=== PATIENT | female | born 1975 | race Caucasian/White ===

== ENCOUNTER → 2017-12-24 12:52 | Outpatient (CLI) | payer BC, SELFPAY ==
--- NOTE | 2017-12-24 13:00 | MM_ITS ---
MM Dig mamm DX unilat RT CAD, US breast RT complete COMPARISON: 06/16/2017, 06/25/2017 INDICATION: Follow-up abnormal mammogram ORDERING PHYSICIAN: Dhaval Clifford MD PATIENT AGE: 42 years TECHNIQUE: Standard images performed along with spot compression views and right breast ultrasound FINDINGS: Asymmetric density once again noted in the upper outer aspect of the right breast. This does appear to compress out as fibroglandular tissue. No malignant appearing mass or malignant appearing microcalcification is evident. Right breast ultrasound: There is a 6 x 3 mm hypoechoic nodule at the 10:00 region of the right breast near the nipple with some enhanced through transmission of sound appearing similar compared to the previous exam. This may be due to small cyst. IMPRESSION: Benign findings. No evidence of malignancy BI-RADS Category: 2 Benign Finding(s) RECOMMENDED FOLLOW-UP: 6M - 6 MONTH FOLLOW-UP Recommend 6 month mammographic follow-up of both breasts to put patient back on schedule (A letter has been sent to the patient regarding results of the study.)
== END ==
PROVIDERS: Family Provider Family Medicine; PCP Family Medicine; Visit Provider Nurse Practitioner Obstetrics & Gynecology
DX: N60.19 Diffuse cystic mastopathy of unspecified breast (principal)
CPT/HCPCS: 76641; 77065

== ENCOUNTER → 2018-03-02 10:50 | Outpatient (CLI) | payer BC, SELFPAY ==
--- NOTE | 2018-03-02 10:55 | XR_ITS ---
XR ribs LT min 3V w CXR1V HISTORY: ITS.REASON: LEFT RIB PAIN ORDERING PHYSICIAN: Carmelita Pizarro PATIENT AGE: 43 years COMPARISON: FINDINGS: A frontal view of the chest shows no acute finding. Multiple views of the Left ribs were obtained. No fracture or dislocation. No lytic or blastic change. IMPRESSION: Negative RIBS. If pain persists, consider follow-up exam in 7-[address] with 3-D reformats.
== END ==
PROVIDERS: PCP Nurse Practitioner; Visit Provider Nurse Practitioner
DX: R07.81 Pleurodynia (principal)
CPT/HCPCS: 71101

== ENCOUNTER → 2018-07-26 16:12 | Outpatient (CLI) | payer BC, SELFPAY ==
--- NOTE | 2018-07-26 16:14 | MM_ITS ---
MM Dig screening mamm BI w/CAD CAD Screening COMPARISON: Additional views right breast 12/24/2017 and digital mammograms with CAD 06/16/2017 INDICATION: There is no personal or family history of breast cancer TECHNIQUE: Standard CC and MLO images were obtained. R2 CAD reviewed. FINDINGS: The breasts are composed primarily of fat with minimal scattered fibroglandular densities throughout each breast. The questionable asymmetric density right breast noted previously is not seen on today's study. There is no suspicious lesion in either breast and there are no suspicious microcalcifications. IMPRESSION: A type breast parenchyma with no suspicious lesion seen BI-RADS Category: 1 Negative RECOMMENDED FOLLOW-UP: 1YR - 1 YEAR FOLLOW-UP (A letter has been sent to the patient regarding results of the study.)
== END ==
PROVIDERS: PCP Family Medicine; Visit Provider Nurse Practitioner Obstetrics & Gynecology
DX: Z12.31 Encounter for screening mammogram for malignant neoplasm of breast (principal)
CPT/HCPCS: 77067

== ENCOUNTER → 2018-10-11 08:29 | Outpatient (CLI) | payer BC, SELFPAY ==
[2018-10-11 08:55] LABS: Basophils # 0.1 K/mm3 (0-0.2); Basophils % 0.8 % (0.1-2.0); Eosinophils # 0.2 K/mm3 (0.0-0.4); Eosinophils % 2.6 % (0.1-12.0); Hematocrit 40.9 % (37.0-47.0); Hemoglobin 13.1 g/dL (12.2-16.2); Lymphocytes # 2.6 K/mm3 (0.7-4.5); Lymphocytes % 38.5 % (10-50); Mean Corpuscular HGB Conc 32.1 g/dL (31.8-35.4); Mean Corpuscular Hemoglobin 30.9 pg (27.0-31.2); Mean Corpuscular Volume 96.2 fl (81-99); Monocytes # 0.4 K/mm3 (0.1-1.0); Monocytes % 5.3 % (1.7-9.3); Neutrophils # 3.6 K/mm3 (1.8-7.8); Neutrophils % 52.8 % (37.0-80.0); Platelet Count 283 K/mm3 (142-424); Red Blood Count 4.25 M/mm3 (4.20-5.40); Red Cell Distribution Width 12.6 % (11.5-17.5); White Blood Count 6.8 K/mm3 (4.8-10.8)
[2018-10-11 10:22] LABS: Alanine Aminotransferase 24 U/L (12-78); Albumin Level 3.7 gm/dL (3.4-5.0); Albumin/Globulin Ratio 1.2 (1.1-1.8); Alkaline Phosphatase 80 U/L (46-116); Anion Gap 10.9 mEq/L (5-15); Aspartate Amino Transferase 9 U/L (15-37); Bilirubin,Total 0.4 mg/dL (0.2-1.0); Blood Urea Nitrogen 19 mg/dL (7-18); Calcium 9.1 mg/dL (8.5-10.1); Carbon Dioxide 31 mmol/L (21.0-32.0); Chloride 104 mmol/L (98-107); Chol/HDL Ratio 2.7 (1-3.5); Cholesterol 139 mg/dL (140-200); Creatinine,Serum 0.65 mg/dL (0.55-1.02); Estimated Glomerular Filt Rate 99 ml/min (>60); Free Thyroxine Index 2.4 ug/dL (5.93-13.13); GFR (African American) 120 ML/MIN (>60); Globulin 3.2 gm/dl (1.3-3.2); Glucose 96 mg/dL (74-106); HDL Cholesterol 51 mg/dL (29-89); LDL Cholesterol 66 mg/dL (0-130); Potassium 3.9 mmoL/L (3.5-5.1); Sodium 142 mmol/L (136-145); T4 (Thyroxine) 7.2 ug/dl (4.7-13.3); Total Protein,Serum 6.9 gm/dL (6.4-8.2); Triglycerides 110 mg/dL (30-200); Triiodothryronine (T3) Uptake 34 % (31-39); VLDL Cholesterol 22 mg/dL (0-40)
[2018-10-12 14:22] LABS: Estradiol <5.0 pg/mL (.); FSH 51.6 mIU/mL (.); LH 22.7 mIU/mL (.); Triiodothyronine (T3) Free 3.1 pg/mL (2.0-4.4); Vitamin D 25 Hydroxy 33.7 ng/mL (30.0-100.0)
== END ==
PROVIDERS: Visit Provider Nurse Practitioner Obstetrics & Gynecology
DX: Z01.419 Encounter for gynecological examination (general) (routine) without abnormal findings (principal); R53.83 Other fatigue; N95.1 Menopausal and female climacteric states
CPT/HCPCS: 36415; 80053; 80061; 82652; 82670; 83001; 83002; 84436; 84443; 84479; 84481; 85025

== ENCOUNTER → 2018-11-07 07:51 | Outpatient (CLI) | payer OTHER, BC, SELFPAY ==
--- NOTE | 2018-11-07 07:52 | CT_ITS ---
CT cervical spine wo con INDICATION: Recent trauma to neck ITS.REASON: neck pain ORDERING PHYSICIAN: Floyd Dunne MD PATIENT AGE: 43 years COMPARISON: None TECHNIQUE: Axial images obtained with sagittal and coronal reformats. All CT scans at the facility use one or more dose reduction, viz: automated exposure control, ma/kV adjustment per patient size (including targeted exams where dose is matched to indication, i.e. head), or iterative reconstruction technique. FINDINGS: There is straightening of the normal curvature. C1-C7 appear intact. Disc spaces are well maintained throughout. The spinal canal is normal size throughout. There is no abnormal disc protrusion. There is no significant degenerative change. The prevertebral soft tissues are normal and the odontoid is normal. There are scattered normal size nodes in the jugulodigastric chain bilaterally and posterior cervical triangle. The bilateral parotid glands and submandibular glands appear normal. IMPRESSION: Findings suggesting muscle spasm otherwise negative CT scan cervical spine
--- NOTE | 2018-11-07 07:52 | CT_ITS ---
CT head/brain wo con INDICATION: Hit on head one month ago by encountering with a door Routine axial images for brain followed by additional post-processing axial bone window images. Axial CT scanning from the base of the skull through the vertex to evaluate the brain was performed. Subsequent post processing 2-D CT bone windows were submitted to PACS and are useful to evaluate calvarium, visualize portions of paranasal sinuses, mastoids and base of skull. Technique: All CT scans at this facility use one or more dose reduction techniques, viz.: automated exposure control, ma/kV adjustment per patient size (including targeted exams where dose is matched to indication, i.e. head) or iterative reconstruction technique. Multiaxial scans are obtained from the base of the skull to the vertex and performed without contrast. The base of the skull appeared normal. The ventricular system was normal. There was no ischemic infarct or bleed and there were no extra-axial fluid collections. The bony calvarium appeared intact. IMPRESSION: Negative noncontrast CT scan of the brain.
== END ==
PROVIDERS: PCP Emergency Medicine; Visit Provider Emergency Medicine
DX: G44.309 Post-traumatic headache, unspecified, not intractable (principal); S00.93XA Contusion of unspecified part of head, initial encounter; S16.1XXA Strain of muscle, fascia and tendon at neck level, initial encounter
CPT/HCPCS: 70450; 72125

== ENCOUNTER → 2019-02-22 15:18 | Outpatient (CLI) | payer BC, SELFPAY ==
--- NOTE | 2019-02-22 15:25 | XR_ITS ---
XR foot RT min 3V HISTORY: ITS.REASON: RT GREAT TOE PAIN ORDERING PHYSICIAN: Delfin Moon MD PATIENT AGE: 44 years COMPARISON: None FINDINGS: No fracture or dislocation. No lytic or blastic change. There is normal mineralization.. The joint spaces are well-preserved. No significant degenerative/arthritic changes. No erosive changes evident. There is minimal hallux valgus IMPRESSION: Minimal hallux valgus otherwise negative, no acute finding
== END ==
PROVIDERS: PCP Family Medicine; Visit Provider Family Medicine
DX: M79.674 Pain in right toe(s) (principal)
CPT/HCPCS: 73630

== ENCOUNTER → 2019-09-08 10:52 | Outpatient (CLI) | payer BC, SELFPAY ==
--- NOTE | 2019-09-08 10:56 | MM_ITS ---
PROCEDURE: MM DIG SCREENING MAMM BI W/CAD CLINICAL INDICATION: Routine Screening Mammogram There is no personal or family history of breast cancer. COMPARISON: [id number] DIG MAMM-DX UNI A/VW-RT W/CAD from 06/25/2017 DXRT MM Dig mamm DX unilat RT CAD from 12/24/2017 [facility] MM Dig screening mamm BI w/CAD from 07/26/2018 TECHNIQUE: Standard CC and MLO images were obtained. R2 CAD reviewed. FINDINGS: Breasts are composed primarily of fat with minimal scattered fibroglandular densities in each breast. The patient complaining of possible new lump in the right axilla and additional MLO views obtained to include this area. There was a density at this location on the previous mammogram but is slightly larger on today's study. This likely is a node but recommended patient return for ultrasound examination of the right axillary region. There is no suspicious lesion in either breast and no suspicious microcalcifications. There is a stable low-lying node near the axillary tail left breast IMPRESSION: Fatty type breast parenchyma with possible change in nodular density high right axillary region BI-RAD Category: 0 Need Additional Imaging Evaluation FOLLOW-UP: IMM Immediate Follow-up Recommended (A letter has been sent to the patient regarding results of the study.) Dictated by: Dr. Jason Forman MD 09/12/2019 09:[address] Jason Forman MD in [place] 09/12/2019 09:56
== END ==
PROVIDERS: PCP Family Medicine; Visit Provider Nurse Practitioner Obstetrics & Gynecology
DX: Z12.31 Encounter for screening mammogram for malignant neoplasm of breast (principal)
CPT/HCPCS: 77067

== ENCOUNTER → 2020-02-10 13:00 | Outpatient (CLI) | payer BC, SELFPAY | PROVIDERS: Visit Provider Nurse Practitioner Family | DX: R19.7 Diarrhea, unspecified (principal) | CPT/HCPCS: 87045; 87205; 87493 ==

== ENCOUNTER 2020-07-18 09:00 | Outpatient (RCR) | payer BC, SELFPAY ==
--- NOTE | 2020-07-09 10:54 | HMH.SLDYSPHA ---
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 Recommendations PHYSICIAN CERTIFICATION: The specified therapy services are required, authorized, and reviewed every 30 days. Pt will be seen # times/week 2 for # weeks 6 Diet Recommendations Normal Liquid Type Recommendations Normal/Thin Plan Anticipate reaching STG in # weeks 3 Anticipate reaching LTG in # weeks 6 Pt/Guardian verbally ack understanding Yes of dx/prognosis/goals G -code Required No STG-Other Comment/Non-Specific - Patient will improve flexibility of facial musculature through exercises to tone and stretch 10/10 trials to decrease risk of dysphagia. - Patient will improve intelligibility to 95% through articulation drills 50/50 trials. [employer] App[employer] Goals Diet Regular with Liquids Thin Liquids Education Instructions provided HEP provided with exercises to improve flexibility of facial musculature. Speech & Language HPI History Present Illness Description of Patient Problem Cabrera's Palsy Pt/Caregiver Concerns Face feels stiff and hurts Rehab Services Assessed Speech therapy Is this evaluation r/t stroke? No General Information General Current Food Consistancy Regular,Thin Liquids Dentition Good Dentition Oxygen Status Room Air Facial Symmetry Asymmetrical Patient Orientation Person,Place,Time,Situation Ability to Follow Directions Excellent Communication Ability Mild Impairment Dysphagia:Food Presentation Evaluation Food Type Regular,Liquid Dysphagia Evaluation Summary Ms. Shipley was evaluated for Cabrera's Palsy. She exhibited
== END 2020-07-18 10:15 | disposition home or self-care (01) ==
LOC: ST 09:00
PROVIDERS: PCP Family Medicine; Visit Provider Family Medicine
DX: G51.0 Bell's palsy (principal)
CPT/HCPCS: 92507; 92610

== ENCOUNTER 2020-08-20 11:00 | Outpatient (RCR) | payer BC, SELFPAY ==
--- NOTE | 2020-07-18 08:56 | HMH.PTOPEV ---
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 Pt reports ~4 weeks now w / R sided facial droop, R eye dryness d/t inability to properly blink, and intermittent R jaw area pain. Pt reports 7 day course of steroids, local facial injection, anti-viral meds, and gabapentin med since onset , 'with very minimal improvement' in s/s since onset. Chief Complaint Pain,Weakness,Decreased Coordination Symptom Type Ache,Dull Symptoms Relieved By Activity Symptoms Aggravated By Physical Activity Symptom Description Constant but Variable Level of pain today (0-10) 2 Pain scale - at its best (0-10) 2 Pain scale - at its worst (0-10) 5 Outpatient Therapy Assessment Impairments Problems/Impairmments Palpation Tenderness,Impaired Strength,Subjective C/O Pain, Impaired Self Care/Self Management Prognosis Rehab Potential Fair Clinical Impression Consistent with Diagnosis Yes Short Term Goals Number of Weeks 4-6 Decreased Palpation Tenderness Yes: 0-1/4 FACIAL MM Increase Strength Yes: 4-4+/5 FACIAL MM R SIDE- CONTROL BLINK/SMILE Decrease Subjective C/O Pain Yes: 0-1/10 R SIDED JAW PAIN Patient to be Ind w/ HEP Yes Patient to be Ind w/ Advanced HEP Yes Outpatient Therapy Plan of Care Treatment Plan May Include Therapeutic Exercise Including Home Yes Exercise Program Manual Therapy Techniques Yes Neuromuscular Re-education Yes Dry Needling Yes Thermal Modalities Yes Electrical Stimulation Yes Ultrasound/Phonophoresis Yes Iontophoresis Yes Eval/Re-Eval Yes Frequency Times per week 1-2X/WK Duration Number of Weeks 4-6WKS Addendums This patient is a candidate for social No or vocational rehab? Patient/Guardian verbally acknowledges
--- NOTE | 2020-08-20 11:39 | HMH.RHREAS ---
Rehab Reassessment Rehab OP Re-assessment Start: 08/20/20 11:18 Freq: Status: Active Protocol: Document 08/20/20 11:18 GHASSANISHAN (Rec: 08/20/20 11:32 AGNES [id number]) Electronically Signed By Christiano Holliday, PT 08/20/20 11:18 Rehab Re-assessment Subjective Subjective PT REPORTS IMPROVED ABILITY TO SELF LUBICATE RIGHT EYE, AND IMPROVED R SIDED JAW PAIN '80% BETTER', 0-2/10 ON VAS. Objective Objective Notes TTP: R MASSETER 1-2/4 MMT: 2-/5-ORBICULARIS OCULI, AND KIMANI-UNABLE TO CONTROL BLINK OR SMILE ON RIGHT SIDE Assessment Progress Assessment Slower Than Expected Assessment Notes IMPROVED PAIN AND TTP IN R JAW AREA, NO CHANGES IN STRENGTH Patient goals met STG'S 5 Goals Not Met STG'S 5 Plan Plan PT TO CONT. W/SKILLED P.T. TO MAKE FURTHER IMPROVEMENTS IN STRENGTH, TTP, AND PAIN TO ALLOW FOR OPTIMAL FUNCTION Frequency of Therapy 1-2X/WK Duration of therapy 2-4WKS Time and Billing Re-Eval Time 15 Re-Eval Billing Units 1 PHYSICIAN CERTIFICATION: I certify the specified therapy services for Shaneka Shipley are required, authorized, and reviewed every 30 days.
== END 2020-08-20 11:05 | disposition home or self-care (01) ==
LOC: PT 11:00
PROVIDERS: PCP Family Medicine; Visit Provider Family Medicine
DX: G51.0 Bell's palsy (principal)
CPT/HCPCS: 20560; 97014; 97110; 97163; 97164; G0283

== ENCOUNTER → 2020-08-20 15:46 | Outpatient (CLI) | payer BC, SELFPAY | PROVIDERS: Visit Provider Specialist | DX: G51.0 Bell's palsy (principal) | CPT/HCPCS: 36415; 86618 ==

== ENCOUNTER → 2020-10-28 15:55 | Outpatient (CLI) | payer BC, SELFPAY ==
--- NOTE | 2020-10-28 15:55 | MR_ITS ---
PROCEDURE: MR HEAD/BRAIN WO CON CLINICAL INDICATION: Persistent headache lopez's palsy since jun. headache. blurred vision. rt facial drooping. prior ct 11-07-18 COMPARISON: No exams were available for comparison TECHNIQUE: Routine multiplanar multi echo sequences are performed without gadolinium enhancement. FINDINGS: No midline shift, mass effect, intracranial hemorrhage, or hydrocephalus. The cerebellopontine angle, cerebellum, and brainstem have an unremarkable appearance. The pituitary, optic chiasm, corpus callosum and craniocervical junction are unremarkable. No evidence of acute infarction. No abnormal white matter signal intensity. There is mild opacification of the left mastoid sinus. No paranasal sinus air-fluid level apparent. The hippocampal gyri and temporal horns are unremarkable. IMPRESSION: Negative MRI of the brain without contrast. No acute intracranial findings. Dictated by: Shahzad Summers MD 10/29/2020 10:44 Shahzad Summers MD in [place] 10/29/2020 10:44
== END ==
PROVIDERS: PCP Family Medicine; Visit Provider Specialist
DX: G51.0 Bell's palsy (principal); R51.9 Headache, unspecified
CPT/HCPCS: 70551

== ENCOUNTER → 2021-02-20 16:51 | Outpatient (CLI) | payer BC, SELFPAY ==
--- NOTE | 2021-02-20 16:52 | MM_ITS ---
PROCEDURE: MM DIG SCREENING MAMM BI W/CAD Digital Breast Tomosynthesis Included CLINICAL INDICATION: Routine Screening Mammogram There is no personal or family history of breast cancer. The patient currently is on estrogen. COMPARISON: MG DXRT MM Dig mamm DX unilat RT CAD from 12/24/2017 MG [facility] MM Dig screening mamm BI w/CAD from 07/26/2018 MG MM DIG SCREENING MAMM BI W/CAD from 09/08/2019 TECHNIQUE: Standard CC and MLO images and 3D Tomosynthesis was obtained. R2 CAD reviewed. FINDINGS: Mild scattered fibroglandular densities are seen throughout both breast and the findings are bilateral and symmetrical. There is a stable well-defined density low in the axilla left breast with smooth borders and this is likely a low-lying node. There is no new or suspicious lesion in either breast and no suspicious microcalcifications. IMPRESSION: Mild diffuse breast density with no suspicious lesions seen BI-RAD Category: 1 Negative FOLLOW-UP: 1YR 1 Year Follow-up (A letter has been sent to the patient regarding results of the study.) Dictated by: Dr. Jason Forman MD 02/21/2021 10:29 Dr. Jason Forman MD in [place] 02/21/2021 10:29
== END ==
PROVIDERS: PCP Family Medicine; Visit Provider Nurse Practitioner Obstetrics & Gynecology
DX: Z12.31 Encounter for screening mammogram for malignant neoplasm of breast (principal)
CPT/HCPCS: 77063; 77067

== ENCOUNTER → 2021-09-20 16:00 | Outpatient (CLI) | payer BC, SELFPAY | PROVIDERS: PCP Family Medicine; Visit Provider Nurse Practitioner Family | DX: Z20.822 Contact with and (suspected) exposure to COVID-19 (principal) | CPT/HCPCS: C9803; U0003; U0005 ==

== ENCOUNTER → 2021-12-01 11:01 | Outpatient (CLI) | payer BC, SELFPAY ==
[2021-12-01 21:35] LABS: UTC Influenza A Antigen Negative (Negative); UTC Influenza B Antigen Negative (Negative)
== END ==
PROVIDERS: Visit Provider Nurse Practitioner
DX: U07.1 COVID-19 (principal)
CPT/HCPCS: 87804; C9803; U0003; U0005

== ENCOUNTER 2021-12-01 11:07 | Emergency (ER) | payer BC, SELFPAY ==
--- NOTE | 2021-12-01 14:53 | HMH.EDUTC ---
[facility] Disposition Clinical Impression: Viral syndrome, Exposure to COVID-19 virus Pharyngitis Qualifiers: Pharyngitis/tonsillitis etiology: unspecified etiology Qualified Code(s): J02.9 - Acute pharyngitis, unspecified Disposition: Home, Self-Care Condition on Discharge: Good Instructions: DI for Pharyngitis/Tonsillopharyngitis -- Adult, DI for Viral Syndrome, DI for COVID-19 (Suspected or Confirmed ), Preventing the Spread of Coronavirus Discharge Instructions Additional Instructions: Drink plenty of fluids. Take tylenol or ibuprofen for pain or fever. Take the medications as directed. Follow up with your regular doctor. GO TO THE ER FOR ANY WORSENING SYMPTOMS Quarantine until you know the results of your covid-19 test. Notify your school or workplace of your results and follow their instructions regarding return to work/school. The cough medication (promethazine dm) will make you drowsy, so don't drive or operate heavy machinery after taking it. Prescriptions: Promethazine/Dextromethorphan [Promethazine-Dm Syrup] 5 ml PO Q6HP PRN #240 ml PRN Reason: Cough Transmission Status: Received by [facility] Ondansetron [Zofran 4mg ODT] 4 mg PO Q8HP PRN #20 tab PRN Reason: Nausea Transmission Status: Received by [facility] methylPREDNISolone [Medrol] 4 mg PO DIRECTED 6 Days #21 packet Transmission Status: Received by [facility] Azithromycin [Z-Darrick 250mg Tab*] 250 mg PO UD DOSE PK #6 tab Transmission Status: Received by [facility] Referrals: Delfin Moon MD [Primary Care Provider] - Forms: Work/School Release Time of Disposition: 16:19 Medical Decision Making - Medical Records Medical records reviewed: No: I reviewed the patient's medical records. - Paul Inquiry Pt receiving controlled substance: No Vital Signs: 12/01/21 14:57 12/01/21 17:09 Temperature 98.7 F 98.7 F Temperature Source Oral Pulse Rate 103 H Pulse Rate [Left] 103 H Respiratory Rate 18 18 Blood Pressure 129/88 Blood Pressure [Right Arm] 129/88 Blood Pressure Mean [Right Arm] 101 02 Sat by Pulse Oximetry 97 - Lab Data Lab results reviewed: Yes: I reviewed the patient's lab results. [facility] HPI - General Stated complaint: covid symptoms Time Seen by Provider: 12/01/21 14:54 - History of Present Illness Provider Complaint: She states that for the past 2 days she has had a nonproductive cough, body aches, sore throat, fever up to 102, chills. She has been exposed to covid-19 by multiple people at her job. She has been fully vaccinated against covid-19. - Related Data Home Medications Medication Instructions Recorded Confirmed dextroamphetamine-amphetamine 10 10 mg PO TID 12/07/19 12/26/20 mg tablet hydrochlorothiazide 25 mg tablet 25 mg PO DAILY tab 10/24/20 12/26/20 propranolol 10 mg tablet 10 mg PO PRN tab 10/24/20 12/26/20 sumatriptan succinate 100 mg tablet 100 mg PO PRN tab 10/24/20 12/26/20 venlafaxine 150 mg 150 mg PO DAILY cap 10/24/20 12/26/20 capsule,extended release 24 hr aripiprazole 5 mg tablet 5 mg PO HS 12/26/20 12/26/20 metoclopramide HCl 5 mg tablet 5 mg PO Q4-6H PRN tab 12/26/20 12/26/20 oxcarbazepine 300 mg/5 mL (60 300 mg PO BID 12/26/20 12/26/20 mg/mL) oral suspension Previous Rx's Medication Instructions Recorded thyroid (pork) 30 mg tablet See Rx Instructions .ROUTE 10/23/20 .COMPLEX #30 tab estradiol 2 mg tablet See Rx Instructions .ROUTE 12/23/20 .COMPLEX #30 tab amitriptyline 25 mg tablet 25 mg PO HS #30 tab 12/26/20 Azithromycin [Z-Darrick 250mg Tab*] 250 mg PO UD DOSE PK #6 tab 12/01/21 Ondansetron [Zofran 4mg ODT] 4 mg PO Q8HP PRN #20 tab 12/01/21 Promethazine/Dextromethorphan 5 ml PO Q6HP PRN #240 ml 12/01/21 [Promethazine-Dm Syrup] methylPREDNISolone [Medrol] 4 mg PO DIRECTED 6 Days #21 01/24/22 packet Allergies Allergy/AdvReac Type Severity Reaction Status Date / Time No Kn
[2021-12-01 14:57] VITALS: BP 129/88; PULSE 103; RESP 18; TEMP 37.1; O2SAT 97; BMI 34.3
[2021-12-01 17:09] VITALS: BP 129/88; PULSE 103; RESP 18; TEMP 37.1
[2021-12-02 19:03] LABS: UTC Influenza A Antigen Negative (Negative); UTC Influenza B Antigen Negative (Negative)
== END 2021-12-01 17:10 | disposition home or self-care (01) ==
PROVIDERS: Emergency Provider Nurse Practitioner Family; PCP Family Medicine
DX: U07.1 COVID-19 (principal); J02.9 Acute pharyngitis, unspecified; F41.8 Other specified anxiety disorders; Z87.891 Personal history of nicotine dependence
CPT/HCPCS: 87804; 99202; G0463

== ENCOUNTER 2022-06-28 11:50 | Emergency (ER) | payer BC, SELFPAY ==
[2022-06-28 12:15] VITALS: BP 123/80; PULSE 91; RESP 16; O2SAT 96; BMI 33.5
[2022-06-28 12:27] VITALS: TEMP 37
--- NOTE | 2022-06-28 12:29 | PC.NURSE ---
pt getting in gown at this time
--- NOTE | 2022-06-28 12:31 | PC.NURSE ---
pt given blanket and adjusted for comfort
[2022-06-28 13:00] VITALS: PULSE 87; O2SAT 97
--- NOTE | 2022-06-28 13:33 | HMH.EDGENADL ---
ED Disposition Clinical Impression: Abscess and cellulitis of gluteal region Disposition: Home, Self-Care Condition on Discharge: Fair Instructions: Cellulitis, DI for Skin Abscess Prescriptions: clindamycin HCL [Clindamycin HCl] 300 mg PO QID 10 Days #40 cap [facility]: [facility] L.acidoph,Paracasei, B.lactis [Probiotic] 1 each PO DAILY #30 cap Transmission Status: [facility] Referrals: Carlos Bach MD [Primary Care Provider] - - Critical Care Critical Care Time: No Attestation: On 06/28/22, the high probability of a clinically significant, sudden or life threatening deterioration of the following system(s) required my full and direct attention, intervention and personal management. The time I documented below is in addition to time spent performing reported procedures but includes the following listed in this critical care notation. Medical Decision Making - Paul Inquiry Pt receiving controlled substance: No Vital Signs: 06/28/22 12:15 06/28/22 12:27 06/28/22 13:00 Temperature 98.6 F Temperature Source Oral Pulse Rate 87 Pulse Rate [Left Radial] 91 H Respiratory Rate 16 Blood Pressure Blood Pressure [Right Arm] 123/80 Blood Pressure Mean [Right Arm] 94 Blood Pressure Source [Right Arm] Automatic Cuff Blood Pressure Position [Right Arm] Sitting 02 Sat by Pulse Oximetry 96 97 Oxygen Delivery Method Room Air Room Air 06/28/22 14:27 Temperature 98.6 F Temperature Source Oral Pulse Rate 85 Pulse Rate [Left Radial] Respiratory Rate 18 Blood Pressure 108/60 L Blood Pressure [Right Arm] Blood Pressure Mean [Right Arm] Blood Pressure Source [Right Arm] Blood Pressure Position [Right Arm] 02 Sat by Pulse Oximetry Oxygen Delivery Method Room Air Medical Decision Narrative: This is a 47-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 On arrival, patient hemodynamically stable, alert, oriented, moving all extremities spontaneously, pupils equal and reactive to light, GCS 15. Given abscess was spontaneously draining, light pressure was applied with spontaneous drainage of abscess without complication. After drainage, induration felt around abscess itself with remaining induration and erythema, but no evidence of fluctuance. Given this, patient most likely has superimposed cellulitis as well. She was given clindamycin here in the emergency department and prescription for home-going clindamycin. Deemed appropriate for discharge without further management. Results were relayed to patient who voiced understanding and were agreeable to outpatient management and follow up. Patient was discharged in hemodynamically stable condition with recommended primary care follow-up. General Adult HPI - General Chief complaint: Skin/Abscess/Foreign Body Stated complaint: Large boil Time Seen by Provider: 06/28/22 12:15 Mode of Arrival: Ambulatory Limitations: No Limitations Description of Symptoms (Recalled from ER Triage Doc. by RN): c/o boil on her butt, states that 2 days ago it started hurting really bad. No drainage and her told her it was looking like it was coming to a head. 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 Patient states that 2 days prior to arrival, she began noticing swelling and pain in her right buttock. She has applied warm compresses and tried Tylenol and ibuprofen with mild and minimal pain relief. No drainage. Patient denies fevers, chills, red tracking on her skin, blood per rectum, vaginal discharge or bleeding, any other concerning symptoms. - Related Data Home Medications Medication Instructions Recorded Confirmed dextroamphetamine-amphetamine 10 10 mg PO TID 12/07/19 12/26/20 mg tablet hydrochlorothiazide 25 mg tablet 25
[2022-06-28 14:27] VITALS: BP 108/60; PULSE 85; RESP 18; TEMP 37; O2SAT 97
== END 2022-06-28 14:31 | disposition home or self-care (01) ==
PROVIDERS: Emergency Provider Emergency Medicine; PCP Family Medicine
DX: L02.31 Cutaneous abscess of buttock (principal); L03.317 Cellulitis of buttock
CPT/HCPCS: 99282

== ENCOUNTER 2022-07-19 10:39 | Emergency (ER) | payer OTHER, BC, SELFPAY ==
--- NOTE | 2022-07-19 10:43 | XR_ITS ---
PROCEDURE INFORMATION: Exam: XR Left Knee Exam date and time: 07/19/2022 10:59 AM Age: 47 years old Clinical indication: Injury or trauma; Other: Stepped on it wrong; Swelling (edema); Knee; Left; Additional info: Injury stepped down and had instant pain not improving TECHNIQUE: Imaging protocol: Radiologic exam of the Left knee. Views: 3 views. COMPARISON: CR [id number] 01/14/2017 1:32 PM FINDINGS: Bones/joints: Mild tricompartmental degenerative changes within the medial compartment, lateral compartment, and patellofemoral joint. No fracture. Soft tissues: Normal. IMPRESSION: Mild tricompartmental degenerative joint disease.
[2022-07-19 10:50] VITALS: BP 127/83; PULSE 106; RESP 20; TEMP 36.6; O2SAT 98; BMI 33.5
--- NOTE | 2022-07-19 10:59 | EXP.UTC ---
Discharge Plan Disposition Patient Disposition: Home, Self-Care Condition: Good Prescriptions Prescriptions: New ibuprofen [IBU] 800 mg tablet 800 mg PO Q8HP PRN (Reason: Moderate Pain) Qty: 30 0RF No Action sumatriptan succinate 100 mg tablet 100 mg PO PRN Label Comments: TAKE 1 TABLET BY MOUTH TWICE DAILY NEEDED venlafaxine 150 mg capsule,extended release 24hr 150 mg PO DAILY metoclopramide HCl [Reglan] 5 mg tablet 5 mg PO Q4-6H PRN Rx Instructions: administer 30 minutes before meals aripiprazole [Abilify] 5 mg tablet 5 mg PO HS oxcarbazepine [Trileptal] 300 mg/5 mL (60 mg/mL) suspension 300 mg PO BID amitriptyline 25 mg tablet 25 mg PO HS Qty: 30 1RF dextroamphetamine-amphetamine [Adderall] 10 mg tablet 10 mg PO TID Rx Instructions: administer doses at least 4-6 hours apart hydrochlorothiazide 25 mg tablet 25 mg PO DAILY Label Comments: TAKE 1 TABLET BY MOUTH ONCE DAILY IN THE MORNING propranolol 10 mg tablet 10 mg PO PRN Label Comments: TAKE 1 TABLET BY MOUTH TWICE DAILY NEEDED FOR ANXIETY estradiol 2 mg tablet See Rx Instructions .ROUTE .COMPLEX Qty: 30 11RF Dose Instruction: TAKE 1 TABLET BY MOUTH ONCE DAILY FOR HORMONES Rx Instructions: TAKE 1 TABLET BY MOUTH ONCE DAILY FOR HORMONES 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] 30 mg tablet See Rx Instructions .ROUTE .COMPLEX Qty: 30 11RF Dose Instruction: TAKE 1 TABLET BY MOUTH ONCE DAILY FOR THYROID Rx Instructions: TAKE 1 TABLET BY MOUTH ONCE DAILY FOR THYROID azithromycin 250 MG tablet 250 mg PO UD DOSE PK Qty: 6 0RF Rx Instructions: Take two (2) tablets today, then one (1) tablet days #2 thru #5 methylprednisolone 4 MG tablets,dose pack 4 mg PO DIRECTED 6 Days Qty: 21 0RF ondansetron 4 MG tablet,disintegrating 4 mg PO Q8HP PRN (Reason: Nausea) Qty: 20 0RF promethazine-DM 120 ML syrup 5 ml PO Q6HP PRN (Reason: Cough) Qty: 240 0RF clindamycin HCl 300 MG capsule 300 mg PO QID 10 Days Qty: 40 0RF L.acidoph, paracasei,B. lactis 1 EACH capsule 1 each PO DAILY Qty: 30 0RF Referrals Follow up/Referrals: Carlos Bach MD [Primary Care Provider] - See instructions Luís Langford MD [Staff Physician] - See instructions Activity Restrictions/Add. Instructions Additional Instructions/Restrictions: Rest the extremity, apply ice for 15 minutes as tolerated three or four times per day, Elevate the extremity as tolerated while you are resting. Take ibuprofen for pain. I sent in a prescription to your pharmacy. Follow up with Dr. Langford (orthopedics). Sometimes there can be fractures and other injuries that don't show up well on the first set of x-rays. I put in a referral but you need to call his office and schedule an appointment. Follow up with your regular doctor. GO TO THE ER FOR ANY WORSENING SYMPTOMS Clinical Impressions Clinical Impression: Sprain of left knee Stand Alone Forms Stand Alone Forms: Work/School Release Instructions Patient Instructions: How to Use Crutches, Knee Sprain, How to Use a Knee Immobilizer Discharge ED Provider: Chuck Lyon [facility] General Stated complaint: wc 07/18 left knee pain Time Seen by Provider: 07/19/22 10:58 History of Present Illness Provider Complaint: She was stepping down off a ladder at work 2 days ago when she twisted her left knee. She has had right knee pain with walking and bearing weight since. Related Data Home Medications Medication Instructions Recorded Confirmed dextroamphetamine-amphetamine 10 10 mg PO TID 12/07/19 12/26/20 mg tablet (Adderall) hydrochlorothiazide 25 mg tablet 25 mg PO DAILY 10/24/20 12/26/20 propranolol 10 mg tablet 10 mg PO PRN 10/24/20 12/26/20 sumatriptan succinate 100 mg tablet 100 mg PO PRN 10/24/20 12/26/20 venlafaxine 150 mg 150 mg PO DAILY 10/24/20 12/26/20 capsule,extended relea
[2022-07-19 11:42] VITALS: BP 127/83; PULSE 106; RESP 20; TEMP 36.6; O2SAT 98
== END 2022-07-19 12:26 | disposition home or self-care (01) ==
PROVIDERS: Emergency Provider Nurse Practitioner Family; PCP Family Medicine
DX: S83.92XA Sprain of unspecified site of left knee, initial encounter (principal); X50.1XXA Overexertion from prolonged static or awkward postures, initial encounter
CPT/HCPCS: 29515; 73562; 99212; G0463

== ENCOUNTER → 2022-08-05 10:11 | Outpatient (CLI) | payer OTHER, SELFPAY ==
--- NOTE | 2022-08-05 10:12 | MR_ITS ---
FINAL REPORT TECHNIQUE: Multiplanar MR without contrast CLINICAL HISTORY: left knee pain left knee pain after stepping down off of a step and pain started at work on july 18 swelling no sx FINDINGS: Articular cartilage: Mild diffuse thinning. Small osteochondral lesion of the posterior aspect of the lateral femoral condyle measuring 7 mm. Marrow signal: Unremarkable Joint fluid: Moderate joint effusion. Small Posey cyst. Menisci: Normal morphology without tear Ligaments: Complete tear of the anterior cruciate ligament. Posterior cruciate ligament and collateral ligaments appear intact. IMPRESSION: Complete ACL tear. Degenerative change with osteochondral lesion of the lateral femoral condyle. Reviewed, Interpreted and Dictated by Dhaval Mullen MD Transcribed by Leticia Maciel Authenticated and [facility]
== END ==
PROVIDERS: PCP Family Medicine; Visit Provider Emergency Medicine
DX: M25.562 Pain in left knee (principal)
CPT/HCPCS: 73721

== ENCOUNTER → 2022-09-10 09:00 | Outpatient (CLI) | payer BC, SELFPAY ==
[2022-09-10 09:08] LABS: MANUAL DIFFERENTIAL MANUAL DIFFERENTIAL (MANUAL DIFF)
[2022-09-10 09:16] LABS: Microscopic, Urine URINE MICROSCOPIC (MICROSCOPIC)
--- NOTE | 2022-09-10 09:20 | XR_ITS ---
FINAL REPORT CLINICAL HISTORY: rt knee pain FINDINGS: Two views of the right knee were obtained. There is no evidence of fracture or dislocation. The bony alignment is normal. The joint spaces are preserved. There is no evidence of joint effusion. No localized soft tissue abnormality is identified. IMPRESSION: No acute abnormality identified. Reviewed, Interpreted and Dictated by Rober Beal III, MD Transcribed by Travis Samayoa Authenticated and . [facility]
[2022-09-10 09:31] LABS: Basophils # 0.1 K/mm3 (0-0.2); Basophils % 0.9 % (0.1-2.0); Eosinophils # 0.2 K/mm3 (0.0-0.4); Eosinophils % 1.4 % (0.1-12.0); Hematocrit 43.3 % (37.0-47.0); Hemoglobin 13.8 g/dL (12.2-16.2); Lymphocytes # 3.1 K/mm3 (0.7-4.5); Lymphocytes % 28.6 % (10-50); Mean Corpuscular HGB Conc 31.9 g/dL (31.8-35.4); Mean Corpuscular Hemoglobin 31.3 pg (27.0-31.2); Mean Corpuscular Volume 98.1 fl (81-99); Mean Platelet Volume 7.8 fl (7.4-10.4); Monocytes # 0.6 K/mm3 (0.1-1.0); Platelet Count 393 K/mm3 (142-424); Red Blood Count 4.41 M/mm3 (4.20-5.40); Red Cell Distribution Width 13.6 % (11.5-17.5)
[2022-09-10 09:42] LABS: Appearance,Urine SL CLOUDY (Clear); Bilirubin,Urine Negative (Negative); Blood, Urine Negative (Negative); Color,Urine YELLOW (Yellow); Glucose,Urine (UA) Negative (Negative); Ketones,Urine Negative (Negative); Leukocyte Esterase,Urine TRACE (Negative); Nitrate,Urine Negative (Negative); Protein,Urine Negative (Negative); Specific Gravity, Urine 1.025 (1.005-1.030); Urobilinogen,Urine 0.2 EU/dl (0.2)
[2022-09-10 09:52] LABS: Hemoglobin A1C 5.7 % (4.0-6.0)
[2022-09-10 10:00] LABS: Bacteria,Urine 2+ /lpf; Hyaline Casts,Urine Occasional #/lpf (0)
[2022-09-10 10:11] LABS: Alanine Aminotransferase 22 U/L (12-78); Albumin Level 3.8 g/dl (3.5-5.0); Albumin/Globulin Ratio 1.6 (1.1-1.8); Alkaline Phosphatase 68 U/L (38-126); Anion Gap 11.2 mEq/L (5-15); Aspartate Amino Transferase 23 U/L (14-36); Bilirubin,Total 0.3 mg/dl (0.2-1.3); Blood Urea Nitrogen 21 mg/dl (7-17); Calcium 10.2 mg/dl (8.4-10.2); Carbon Dioxide 32 mmol/L (22.0-30.0); Chloride 98 mmol/L (98-107); Chol/HDL Ratio 2.9 (1-3.5); Cholesterol 195 mg/dl (140-200); Estimated Glomerular Filt Rate 107 ml/min (>60); GFR (African American) 130 ML/MIN (>60); Globulin 2.4 g/dL (1.3-3.2); Glucose 81 mg/dl (74-100); HDL Cholesterol 67 mg/dl (40-60); Potassium 4.2 mmoL/L (3.5-5.1); Sodium 137 mmol/L (136-145); Total Protein,Serum 6.2 g/dl (6.3-8.2); Triglycerides 172 mg/dl (30-150); Uric Acid 7.2 mg/dl (2.5-6.2); VLDL Cholesterol 34 mg/dL (0-40)
[2022-09-10 10:16] LABS: Erythrocyte Sedimentation Rate 11 mm/hr (0-20)
[2022-09-10 10:17] LABS: Eosinophils % 1 % (0-3); Lymphocytes % 30 % (10-50); Monocytes % 5 % (2-9); Neutrophils % 64 % (42-76); Platelet Estimate Normal; RBC Morphology Normal; Total Cells Counted 100
[2022-09-10 10:28] LABS: Direct LDL Cholesterol 109.11 mg/dL (100-129)
[2022-09-10 10:37] LABS: C-Reactive Protein 3.2 mg/L (0-4)
[2022-09-10 10:42] LABS: Thyroid Stimulating Hormone 1.18 uIU/mL (0.465-4.68)
[2022-09-11 08:19] LABS: RA Latex Turbid. <10.0 IU/mL (<14.0)
[2022-10-10 22:27] LABS: Antinuclear Antibodies, IFA Positive
== END ==
PROVIDERS: PCP Family Medicine; Visit Provider Family Medicine
DX: F32.A Depression, unspecified (principal); F41.9 Anxiety disorder, unspecified; F90.9 Attention-deficit hyperactivity disorder, unspecified type; G43.909 Migraine, unspecified, not intractable, without status migrainosus; I10 Essential (primary) hypertension; I83.813 Varicose veins of bilateral lower extremities with pain; L72.3 Sebaceous cyst; Z12.11 Encounter for screening for malignant neoplasm of colon; Z12.31 Encounter for screening mammogram for malignant neoplasm of breast; Z68.36 Body mass index [BMI] 36.0-36.9, adult; M25.561 Pain in right knee; B96.29 Other Escherichia coli [E. coli] as the cause of diseases classified elsewhere
CPT/HCPCS: 36415; 73560; 80053; 80061; 81001; 82043; 83036; 84443; 84550; 85007; 85014; 85018; 85048; 85049; 85651; 86038; 86140; 86431; 87086; 87088; 87186

== ENCOUNTER → 2022-09-14 13:19 | Outpatient (CLI) | payer BC, SELFPAY | PROVIDERS: PCP Family Medicine; Visit Provider Family Medicine | DX: L72.3 Sebaceous cyst (principal); L08.9 Local infection of the skin and subcutaneous tissue, unspecified; L72.9 Follicular cyst of the skin and subcutaneous tissue, unspecified | CPT/HCPCS: 87070; 87205 ==

== ENCOUNTER 2022-09-23 09:00 | Outpatient (RCR) | payer OTHER, SELFPAY ==
--- NOTE | 2022-09-10 11:26 | HMH.PTOPEV ---
PT Outpatient Evaluation Rehab PT Outpatient Evaluation Start: 09/10/22 10:10 Freq: Status: Active Protocol: Document 09/10/22 10:43 AGNES (Rec: 09/10/22 11:26 AGNES [id number]) E-signed By Christiano Holliday, PT Outpatient Therapy Subjective History Subjective History Pt reports stepping off platform at work ([employer]) on and noticing left knee pain in the days that followed. Pt reports left knee has progressively improved since initial injury, however, still possesses a significant amount of global left knee pain 'the longer I'm up on at work adn at home'. Recent MRI of left knee has revealed complete ACL tear, but ' orthopedic doctor thinks that' s old injury.' Pt also reports right knee pain since left knee injury. Chief Complaint Pain,Stiff,Clicks Symptom Type Ache,Dull Symptoms Relieved By Rest/Positioning,Ice Symptoms Aggravated By Physical Activity,Walking Prior Functional Limitations None Current Functional Limitations Standing,Squatting,Walking, Stairs Symptom Description Constant but Variable Level of pain today (0-10) 5 Pain scale - at its best (0-10) 4 Pain scale - at its worst (0-10) 8 Hip/Knee Eval Gait Observation General Gait Pattern Observation Antalgic Gait Assistive Device Assistive Devices None / NA Palpation Tenderness left Knee Palpation Finding Tenderness Knee Palpation Overall Comment 2-3/4 hamstring insertion, medial jt line MMT Hip Flexion Strength Grade 4 Good Hip Abduction Strength Grade 4- Good- Hip Adduction Strength Grade 4- Good- Hip Extension Strength Grade 4- Good- Hip External Rotation Strength Grade 4- Good- Hip Internal Rotation Strength Grade 4- Good- Knee Extension Strength Grade 5 Normal Knee Flexion Strength Grade 5 Normal ROM Knee Flexion Active Range of Motion ( 0-140 degrees) Effusion joint effusion knee exam standard left Mid - Patellar Circumerential Measure ( 41 cm) Outpatient Therapy Assessment Impairments Problems/Impairmments Palpation Tenderness,Impaired Range of Motion,Impaired Strength,Impaired Gait Pattern
== END 2022-09-23 09:05 | disposition home or self-care (01) ==
LOC: PT 09:00
PROVIDERS: Visit Provider Emergency Medicine
DX: M25.562 Pain in left knee (principal)
CPT/HCPCS: 97010; 97014; 97110; 97112; 97163; G0283

== ENCOUNTER → 2022-10-08 09:29 | Outpatient (CLI) | payer BC, SELFPAY ==
--- NOTE | 2022-10-08 09:29 | MM_ITS ---
PROCEDURE INFORMATION: Exam: MG Bilateral Screening 3D Mammography Exam date and time: 10/08/2022 9:21 AM Age: 47 years old Clinical indication: Screening examination TECHNIQUE: Imaging protocol: Bilateral Screening tomosynthesis and 2D mammography including computer-aided detection (CAD) when performed. COMPARISON: 1. MG MM DIG SCREENING MAMM BI W/CAD 02/20/2021 4:52 PM 2. MG MM DIG SCREENING MAMM BI W/CAD 09/08/2019 11:07 AM FINDINGS: MAMMOGRAPHY: Breast composition: The breasts are almost entirely fatty. Mass: None. Architectural distortion: None. Calcifications: No suspicious calcifications. Asymmetric density: None. Skin thickening: None. Axillary adenopathy: None. IMPRESSION: No mammographic evidence of malignancy. Annual screening is recommended unless otherwise clinically indicated. ASSESSMENT: BI-RADS Category 1: Negative
== END ==
PROVIDERS: PCP Family Medicine; Visit Provider Family Medicine
DX: Z12.31 Encounter for screening mammogram for malignant neoplasm of breast (principal)
CPT/HCPCS: 77063; 77067

== ENCOUNTER → 2022-10-21 07:22 | Outpatient (CLI) | payer BC, SELFPAY ==
--- NOTE | 2022-10-21 | CA_ITS ---
APPROVED REPORT Exam: Exercise Treadmill Technologist: Norma Bradley Ht: 5 ft 4 in Wt: 213 lbs BSA: 2.01 m2 HR: 72 bpm BP: 114/78 mmHg Indications: Chest pain, dyspnea, abnormal EKG Medical History Medications: Lisinopril,,,,, Propranolol,,,,, Estradiol,,,,, MeLOXICAM,,,,, ProMETHAZINE,,,,, DulOXETINE,,,,, BuPROPION,,,,, ThyroID,,,,, Sumatriptan,,,,, Febuxostat,,,,, Stress Test Details Test: Ean HR Resting HR: 77 bpm Max Heart Rate (APMHR): 173.883324 bpm Max HR Achieved: 135 bpm Target HR (85% APMHR): 147.405646 bpm % of APMHR: 78.03 Recovery HR: 91 bpm BP Resting BP: 114.0/78.0 mmHg Max BP: 168.0/93.0 mmHg Recovery BP: 142.0/92.0 mmHg ECG Resting ECG: Normal sinus rhythm, slow R wave progression. Clinical Exercise duration: 08:00 min Highest Stage Achieved: Exercise capacity: 10.1 METs Stress ECG Conclusion Patient exercised 8:00 on Ean Protocol. Test stopped due to shortness of air, dizziness. Symptoms: Shortness of air, dizziness and nausea. No chest pain. Arrhythmias/Ectopy: None ST-T Changes: Within normal ST response to exercise. Conclusion: Normal GXT to heart rate achieved (78% of PM). Blunted heart rate response on Propranolol. Myoview images reported separately. Test Summary REST . . . . . . . Sitting REST . . . . . . . Standing REST 03:58 0.0 0.0 77 . 114/ 78 . . Stage 1 01:00 10.0 1.7 91 . . . . Stage 1 02:00 10.0 1.7 96 . . . . Stage 1 03:00 10.0 1.7 97 . 118/ 66 . . Stage 2 01:00 12.0 2.5 109 . . . . Stage 2 02:00 12.0 2.5 115 . . . . Stage 2 03:00 12.0 2.5 121 . 122/ 70 . . Stage 3 . . . . . . . Myoview Injected Stage 3 01:00 14.0 3.4 128 . . . . Stage 3 02:00 14.0 3.4 135 . . . Stop exercise at 08:00 RECOVERY . . . . . . . Nausea lightheaded RECOVERY 01:00 0.0 0.0 120 . . . . RECOVERY 02:00 0.0 0.0 101 . . . . RECOVERY 03:00 0.0 0.0 96 . 168/ 93 . . RECOVERY 04:00 0.0 0.0 94 . 143/ 92 . . RECOVERY 05:00 0.0 0.0 92 . 143/ 92 . . RECOVERY 06:00 0.0 0.0 85 . 142/ 92 . . RECOVERY 06:37 0.0 0.0 85 . 144/ 82 . . Electronically signed by : Huber Nur MD 10/21/2022 20:33:55
--- NOTE | 2022-10-21 07:22 | NM_ITS ---
APPROVED REPORT Exam: Nuclear Stress Test Indication: HTN, FM HX, C.P., PALPITATIONS, SYNCOPE, FATIGUE, ABN EKG Patient Location: Outpatient Stress Tech: Norma Bradley DC Tech:Madalyn Tay, WALDEMAR RT (R)(N)(M) Ht: 5 ft 4 in Wt: 205 lbs Bra Size: D HR: 72 bpm BP: 114/78 mmHg BSA: 1.98 m2 TID: 1.19 BMI: 35.1 History: HTN, FM HX, C.P., PALPITATIONS, SYNCOPE, FATIGUE, ABN EKG Procedure: Patient exercised on Ean protocol 8:00 minutes and sec, resting heart rate 72 bpm, resting blood pressure 114/78 mmHg, with exercise maximum heart rate achived was 135 bpm which is 78 % of the maximum predicted heart rate and blood pressure was 168/93 mmHg. Test was stopped due to NAUSEA & FATIGUE. Patient denied any complaint of chest pain. Patient has Good exercise capacity, achieved 10.1 METs of workload on treadmill, the blood pressure response to exercise was Adequate. Electrocardiogram Resting electrocardiogram shows sinus rhythm, with exercise there is less than 1.[address] segment depression noted from the baseline EKG. The EKG portion of the exercise Myoview is nondiagnostic as patient did not achieve the target heart rate. Cardiac Stress and Resting SPECT Images: Cardiac Stress and Resting SPECT images were obtained using technetium 99m Myoview 31.2 mCi stress and 10.83 mCi at rest. Gated SPECT analysis of segmental wall motion and calculation of the ejection fraction also done. Prone images were also obtained. Cardiac stress and rest SPECT images show uniform myocardial activity without segmental perfusion abnormality, computer derived ejection fraction is 50% with no regional wall motion abnormality, right ventricle is normal size and contractility. Conclusion: 1. The EKG portion of the exercise Myoview was nondiagnostic as patient did not achieve the target heart rate, patient has good exercise capacity achieved 10.1 METs of workload on treadmill, the blood pressure response to exercise was adequate, there was no exercise-induced chest discomfort. 2. No scintigraphic evidence of reversible ischemia seen, computer derived ejection fraction is 50% with no regional wall motion abnormality, right ventricle is normal size and contractility. 3. Normal exercise Myoview study at 78% of the maximum predicted heart rate. Electronically signed by : Huber Nur MD 10/21/2022 20:38:42
--- NOTE | 2022-10-21 07:42 | CA_ITS ---
FINAL REPORT CLINICAL HISTORY: cp/dyspnea/abnl ecg/bilateral lower ext pain. FINDINGS: Color Doppler, duplex Doppler and compression sonography of the bilateral lower extremities was performed. There is no evidence of deep venous thrombosis from the level of the groin to the calf. The deep veins are patent and compressible. IMPRESSION: No evidence of deep venous thrombosis bilateral lower extremities. Reviewed, Interpreted and Dictated by Rober Beal III, MD Transcribed by Travis Samayoa Authenticated and [facility]
--- NOTE | 2022-10-21 07:42 | CA_ITS ---
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 [employer]: Maryann Sanchez, RCS, RVS Ht: 5 ft 4 in Wt: 213lbs BSA: 2.01 BP: 132/93 mmHg Indications: Abn EKG, HTN, SOB, ex-smoker, Dizziness 2D Dimensions IVSd 1.02 cm LVEF (Visual) 58.20 % PWd 0.94 cm LA Volume 48.80 mL LVDd 4.40 cm LA Volume Index 24.30 mL/m2 (M/F) 16-34 LVDs 3.06 cm Aortic Root 3.22 cm Left Atrium 3.76 cm LVOT 2.07 cm (M/F) 1.5-2.5 M-Mode Dimensions RVDd 3.06 cm (0.9-2.6) LA Diam 3.31 cm (1.9-4.0) LVDd 4.43 cm (3.5-5.7) Ao Diam 3.27 cm (2.0-3.7) LVDs 2.74 cm (3.5-5.7) IVSd 1.05 cm (0.6-1.1) PWd 0.93 cm (0.6-1.1) EF (Teich) 68.60% EPSs 0.32 cm FS 38.10% EDV (Teich) 89.10 mL TAPSE 2.18 (<1.7) ESV (Teich) 28.00 mL LV Diastology E Decel Time 187.00 (160-240 msec) E/A Ratio 1.46 MED E' 5.60 (< 7 cm/sec) MED A' 9.40 cm/s E'/MED E' Ratio 10.79 (>14) LAT E' 10.30 (<10 cm/sec) LAT A' 10.70 cm/s E/LAT E' Ratio 5.86 (>14) Aortic Valve LVOT Max 68.00 (70-110 cm/s) LVOT VTI 13.55 cm AoV Peak Grey. 91.00 (50-130 cm/s) AO Peak GR. 3.30 mmHg AO Mean GR. 1.60 (<5 mmHg) AO VTI 17.50 (18-25 cm) JOSH (VTI) 2.61 (2.5-4.5 cm2) Mitral Valve MV A Velocity 41.00 (40-130 cm/s) E/A Ratio 1.46 MV Decel. Time 187.00 (160-240 ms) Pulmonary Valve PV Peak Velocity 76.00 (50-150 cm/s) Left Ventricle Left atrium is mildly enlarged, left ventricle is normal size mild concentric left ventricular hypertrophy, estimated ejection fraction 55% with no regional wall motion abnormality, grade 1 diastolic dysfunction seen without tissue Doppler evidence of raise left atrial pressure. Right Ventricle Right atrium and right ventricle are normal size and contractility. Aortic Valve Aortic valve is minimally thickened and fibrosed there is no aortic stenosis or aortic insufficiency. Mitral Valve Mitral valve is grossly normal, there is trace mitral regurgitation. Tricuspid Valve Tricuspid grossly normal, there is trace tricuspid regurgitation, tricuspid regurgitation jet velocity is inadequate for calculation of the right ventricular systolic pressure. Pulmonic Valve Pulmonic valve is poorly visualized. Great Vessels Aortic root is normal size. Inferior vena cava is normal size with normal inspiratory collapse. Pericardium No significant pericardial effusion noted. Conclusion 1. Mildly enlarged left atrium, normal left ventricular size, mild concentric left ventricular hypertrophy, estimated ejection fraction 55% with no regional wall motion abnormality, grade 1 diastolic dysfunction seen without tissue Doppler evidence of raise left atrial pressure. 2. Trace mitral and tricuspid regurgitation. 3. No significant pericardial effusion noted. 4. Inferior vena cava is normal size with normal inspiratory collapse. Electronically signed by : Huber Nur MD 10/21/2022 20:04:09
== END ==
LOC: RAD 07:22
PROVIDERS: PCP Family Medicine; Visit Provider Nurse Practitioner Family
DX: R06.00 Dyspnea, unspecified; I10 Essential (primary) hypertension; R42 Dizziness and giddiness; R00.0 Tachycardia, unspecified; M79.604 Pain in right leg; M79.605 Pain in left leg; I83.893 Varicose veins of bilateral lower extremities with other complications; R94.31 Abnormal electrocardiogram [ECG] [EKG]; Z82.49 Family history of ischemic heart disease and other diseases of the circulatory system
CPT/HCPCS: 78452; 93017; 93306; 93970; A9502

== ENCOUNTER → 2022-10-26 10:52 | Outpatient (CLI) | payer BC, SELFPAY | PROVIDERS: PCP Family Medicine; Visit Provider Nurse Practitioner Family | DX: I83.813 Varicose veins of bilateral lower extremities with pain (principal); I83.893 Varicose veins of bilateral lower extremities with other complications; M79.606 Pain in leg, unspecified ==

== ENCOUNTER → 2022-10-27 10:41 | Outpatient (CLI) | payer BC, SELFPAY ==
[2022-10-27 12:21] LABS: Alanine Aminotransferase 24 U/L (12-78); Albumin Level 4.1 g/dl (3.5-5.0); Albumin/Globulin Ratio 1.6 (1.1-1.8); Alkaline Phosphatase 73 U/L (38-126); Anion Gap 8.2 mEq/L (5-15); Aspartate Amino Transferase 24 U/L (14-36); Bilirubin,Total 0.2 mg/dl (0.2-1.3); Blood Urea Nitrogen 17 mg/dl (7-17); Calcium 9.3 mg/dl (8.4-10.2); Carbon Dioxide 29 mmol/L (22.0-30.0); Chloride 105 mmol/L (98-107); Estimated Glomerular Filt Rate 132 ml/min (>60); GFR (African American) 160 ML/MIN (>60); Globulin 2.6 g/dL (1.3-3.2); Glucose 95 mg/dl (74-100); Potassium 4.2 mmoL/L (3.5-5.1); Sodium 138 mmol/L (136-145); Total Protein,Serum 6.7 g/dl (6.3-8.2); Uric Acid 2.6 mg/dl (2.5-6.2)
== END ==
PROVIDERS: PCP Family Medicine; Visit Provider Family Medicine
DX: I10 Essential (primary) hypertension (principal); M10.9 Gout, unspecified; R06.00 Dyspnea, unspecified; R42 Dizziness and giddiness; R94.31 Abnormal electrocardiogram [ECG] [EKG]
CPT/HCPCS: 36415; 80053; 84550; 93225

== ENCOUNTER → 2023-02-15 13:59 | Outpatient (CLI) | payer BC, SELFPAY ==
[2023-02-15 16:03] LABS: Uric Acid 2.7 mg/dl (2.5-6.2)
[2023-02-15 16:28] LABS: Thyroid Stimulating Hormone 0.04 uIU/mL (0.465-4.68)
== END ==
PROVIDERS: PCP Family Medicine; Visit Provider Family Medicine
DX: R00.0 Tachycardia, unspecified (principal); R94.31 Abnormal electrocardiogram [ECG] [EKG]; M10.9 Gout, unspecified
CPT/HCPCS: 36415; 84443; 84550

== ENCOUNTER 2023-11-05 12:24 | Emergency (ER) | payer BC, SELFPAY ==
[2023-11-05 12:26] VITALS: BP 127/97; PULSE 84; RESP 18; TEMP 36.6; O2SAT 98; BMI 36.8
--- NOTE | 2023-11-05 13:10 | CT_ITS ---
FINAL REPORT TECHNIQUE: After the administration of intravenous contrast, axial images were obtained through the abdomen and pelvis by computed tomography. The study was performed with techniques to keep radiation dose as low as reasonably achievable, (ALARA). Individual dose reduction techniques using automated exposure control or adjustment of mA and/or kV according to the patient's size were employed. CLINICAL HISTORY: epigastric abd pain, back pain COMPARISON: None FINDINGS: Abdomen: Chronic changes of the lung bases. There is mild fatty infiltration of the liver. The gallbladder is absent. The spleen, pancreas, adrenals and kidneys appear unremarkable. The aorta is normal in caliber. There is no free fluid or adenopathy. Pelvis: The appendix is not identified. The uterus is not identified and likely surgically absent. The urinary bladder is unremarkable. There are postoperative changes in the mid pelvis. There is no free fluid or adenopathy. IMPRESSION: No acute intra-abdominal process. Reviewed, Interpreted and Dictated by Bong Gonzalez MD Transcribed by Shaneka Shipley Authenticated and [facility]
--- NOTE | 2023-11-05 13:14 | HMH.EDGENADL ---
Discharge Plan Disposition Patient Disposition: Home, Self-Care Condition: Fair Prescriptions Prescriptions: New ondansetron 4 mg tablet,disintegrating 4 mg PO Q8H PRN (Reason: nausea and vomiting) 5 Days Qty: 20 0RF omeprazole 20 mg capsule,delayed release(DR/EC) 20 mg PO DAILY 12 Days Qty: 12 0RF oxycodone 5 mg tablet 5 mg PO Q8H PRN (Reason: pain) Qty: 5 0RF oxycodone 5 mg tablet 5 mg PO Q6H PRN (Reason: pain) Qty: 7 0RF No Action sumatriptan succinate 100 mg tablet 100 mg PO ONCE MDD 200 mg PRN (Reason: migraine headache) Qty: 10 3RF estradiol 2 mg tablet 2 mg PO DAILY Qty: 30 11RF Rx Instructions: Take 1 tablet by mouth, daily Ozempic 0.25 mg or 0.5 mg (2 mg/3 mL) pen injector 0.25 mg SQ WEEKLY Qty: 3 0RF Rx Instructions: for 4 weeks promethazine 25 mg tablet 25 mg PO Q4-6H PRN (Reason: nausea and vomiting) Qty: 20 0RF lisinopril 10 mg tablet 10 mg PO DAILY Qty: 30 5RF duloxetine [Cymbalta] 60 mg capsule,delayed release(DR/EC) 60 mg PO DAILY Qty: 30 5RF bupropion HCl 300 mg tablet extended release 24 hr 300 mg PO DAILY Qty: 30 5RF propranolol 60 mg capsule,extended release 24 hr 60 mg PO DAILY Qty: 30 5RF febuxostat 40 mg tablet 40 mg PO DAILY Qty: 30 5RF Referrals Follow up/Referrals: Jackie Ellison APRN [Primary Care Provider] - See instructions Activity Restrictions/Add. Instructions Additional Instructions/Restrictions: Please follow-up closely with your primary care provider. Please continue to drink plenty of liquids. I would recommend you get, on outpatient basis, stool studies. Your imaging did not show any worrisome findings, you did have an elevated white blood cell count. Please return with any new or worsening symptoms. Clinical Impressions Clinical Impression: Enteritis Instructions Patient Instructions: DI for Acute Abdominal Pain Discharge ED Provider: Brady Perla Adult [facility] General Chief complaint: Abdominal Pain Stated complaint: fever, abdonminal pain Time Seen by Provider: 11/05/23 12:29 Mode of Arrival: Ambulatory Source of Information: Patient Limitations: No Limitations Description of Symptoms (Recalled from ER Triage Doc. by RN): Patient reports abdominal pain and dry heeves since wednesday and is unable to eat or drink. Patient states she has some diarrhea but is not unusual for her. History of Present Illness HPI narrative: The patient presents with a chief complaint of stomach pain, dry heaving, and lower back pain. The onset of symptoms was on Wednesday night, with a noted worsening on the following Wednesday. The patient also experienced a low-grade fever intermittently during the weekend, which initially resolved but subsequently intensified. The patient describes the pain as constant, with the most severe discomfort localized at the top of the stomach. Accompanying symptoms include nausea and episodes of dry heaving. The patient finds some relief when laying down or soaking in warm water. Conversely, applying pressure to the stomach area with an arm aggravates the pain. Patient describes surgical history of hysterectomy, appendectomy, cholecystectomy. Related Data Previous Rx's Medication Instructions Recorded promethazine 25 mg tablet 25 mg PO Q4-6H PRN nausea and 09/21/22 vomiting #20 tabs sumatriptan succinate 100 mg tablet 100 mg PO ONCE PRN migraine 10/07/22 headache #10 tabs estradiol 2 mg tablet 2 mg PO DAILY #30 tabs 01/08/23 bupropion HCl 300 mg 24 hr tablet, 300 mg PO DAILY #30 tabs 07/01/23 extended release duloxetine 60 mg capsule,delayed 60 mg PO DAILY #30 caps 07/01/23 release (Cymbalta) lisinopril 10 mg tablet 10 mg PO DAILY #30 tabs 07/01/23 propranolol 60 mg capsule,24 60 mg PO DAILY #30 caps 07/01/23 hr,extended release febuxostat 40 mg tablet 40 mg PO DAILY #30 tabs 07/05/23 semaglutide 0.25 mg or 0.5 mg (2 0.25 mg (0.368 mL) SQ WEEKLY #3 mL 07/19/23 mg/3 mL) subcutaneous pen injector (Ozempic) omeprazole 20 mg capsule,delayed 20 mg PO DAILY 12 days #12 caps 11/05/23 release ondansetron 4 mg disintegrating 4 mg PO Q8H PRN nausea and 11/05/23 tablet vomiting 5 days #20 tabs oxycodone 5 mg tablet 5 mg PO Q6H PRN pain #7 tabs 11/05/23 oxycodone 5 mg tablet 5 mg PO Q8H PRN pain #5 tabs 11/05/23 Allergies Allergy/AdvReac Type Severity Reaction Status Date / Time No Known Allergies Allergy Verified 07/19/23 13:22 [facility] Disclaimer: The information contained in this section may have been updated after the patient was seen, as this information can be updated by other users. Medical History (Updated 11/05/23 @ 15:36 by Brady Perla MD) Abscess and cellulitis of gluteal region Anxiety Arthritis BMI 36.0-36.9,adult Bronchitis Cervical strain Depression Dizziness Dyspnea Encounter for Routine Gynecological Examination Encounter for weight management Exposure to COVID-19 virus Family history of ischemic heart disease Head contusion Hypertension Infected sebaceous cyst Internal derangement of left knee Leg pain Medication monitoring encounter Migraine Otitis media Pharyngitis Post concussion syndrome Post-traumatic headache Rib pain on left side Right knee pain Sebaceous cyst of axilla Sprain of left knee UTI (urinary tract infection) Varicose veins of both legs with edema Vasomotor symptoms due to menopause Viral syndrome Surgical History History of section History of cholecystectomy History of hysterectomy History of hysterectomy with bilateral oophorectomy History of tonsillectomy Family History Father Cancer skin Hypertension Mother Coronary artery disease Heart attack Diabetes Sister Cancer bone Social History Smoking Status: Never smoker years smoked: 20 smoking status stop date: 2017 alcohol intake: current substance use type: denies use current occupational status: employed and other details: [employer] Travel in the last 8 weeks: None household members: spouse, family and children housing: house marital status: number of children: 1 ROS Obtained: Yes Systems reviewed as appropriate & no additional complaints except as documented As per HPI Physical Exam General General appearance: alert and in no apparent distress Head Head exam: atraumatic and normocephalic Eye Eye exam: Present normal appearance Neck Neck exam: Present normal inspection Chest Chest inspection: Present normal inspection and symmetric chest wall rise Respiratory Respiratory exam: Present normal lung sounds bilaterally; Absent respiratory distress Cardiovascular Cardiovascular exam: Present regular rate and normal rhythm Abdominal Exam Abdominal exam: Present soft; Absent tenderness or guarding Abdominal tenderness: Present LUQ and epigastrium Neurological Exam Neurological exam: Present alert and oriented X3 Psychiatric Psychiatric exam: Present normal affect and normal mood Skin Skin exam: Present warm and dry Medical Decision Making Medical Records Medical records reviewed: Yes I reviewed the patient's medical records. Paul Inquiry Pt receiving controlled substance: Yes Paul was queried for this patient: Yes Risks and benefits of using a controlled substance: were discussed with pt by me Vital Signs: 11/05/23 12:26 11/05/23 15:42 Temperature 97.9 F 97.9 F Temperature Source Oral Oral Pulse Rate 80 Pulse Rate [Right] 84 Respiratory Rate 18 18 Blood Pressure 145/103 H Blood Pressure [Right Arm] 127/97 H Blood Pressure Mean [Right Arm] 107 Blood Pressure Source [Right Arm] Automatic Cuff 02 Sat by Pulse Oximetry 98 Oxygen Delivery Method Room Air Room Air Lab Data Lab Results 11/05/23 13:06: WBC 20.7 H*, RBC 4.60, Hgb 15.0, Hct 45.2, MCV 98.3, MCH 32.7 H, MCHC 33.3, RDW 12.9, Plt Count 448 H, MPV 7.8, Neut % (Auto) 78.1, Lymph % (Auto) 14.9, [place] % (Auto) 4.4, Eos % (Auto) 2.1, Baso % (Auto) 0.5, Neut # (Auto) 16.2 H, Lymph # (Auto) 3.1, [place] # (Auto) 0.9, Eos # (Auto) 0.4, Baso # (Auto) 0.1, Total Counted 100, Neutrophils % (Manual) 75, Lymphocytes % (Manual) 21, Monocytes % (Manual) 4, Platelet Estimate Slight increase, RBC Morphology Normal, Sodium 132 L, Potassium 5.1, Chloride 98, Carbon Dioxide 32 H, Anion Gap 7.1, BUN 15, Creatinine 0.60, Estimated Creat Clear 177, Estimated GFR 107, Est GFR ( Amer) 129, Glucose 104 H, Calcium 10.2, Total Bilirubin 0.4, AST 27, ALT 24, Alkaline Phosphatase 78, Total Protein 6.8, Albumin 3.8, Globulin 3.0, Albumin/Globulin Ratio 1.3, Lipase 145 11/05/23 13:24: Urine Color Yellow, Urine Appearance Clear, Urine pH 6.0, Ur Specific [place] 1.020, Urine Protein Negative, Urine Glucose (UA) Negative, Urine Ketones Negative, Urine Blood Negative, Urine Nitrate Negative, Urine Bilirubin Negative, Urine Urobilinogen 0.2, Ur Leukocyte Esterase Trace, Urine RBC Occasional, Urine WBC 5-10, Ur Squamous Epith Cells Occasional, Urine Bacteria Trace 11/05/23 13:26: SARS-CoV-2 (PCR) Not detected, Influenza A Untype (PCR) Not detected, Influenza Type B (PCR) Not detected 11/05/23 13:06 11/05/23 13:06 Orders (Tests/Meds): ED MEDICATIONS Discontinued Medications Generic Name Dose Route Start Last Admin Trade Name Freq PRN Reason Stop Dose Admin Lactated Ringer's 1,000 mls @ 999 mls/hr 11/05/23 13:10 11/05/23 13:19 Lactated Ringer's 1000 Ml Bag IV 11/05/23 14:10 999 mls/hr .Q1H1M ONE Administration Iopamidol 75 ml 11/05/23 14:04 11/05/23 14:05 Iopamidol-370 (76%);100ml Bottle IV 11/05/23 14:05 75 ml ONCE ONE Administration Morphine Sulfate 4 mg 11/05/23 13:10 11/05/23 13:20 Morphine 4mg/Ml Syringe IV 11/05/23 13:11 4 mg ONCE ONE Administration Ondansetron HCl 4 mg 11/05/23 13:10 11/05/23 13:20 Ondansetron 4mg/2ml Vial IV 11/05/23 13:11 4 mg ONCE ONE Administration Sodium Chloride 10 ml 11/05/23 14:04 11/05/23 14:05 Sodium Chloride 0.9% 10ml Syr (Rad Only) IV 12/05/23 14:03 10 ml NEEDED PRN Administration Maintain IV Site ORDERS Category Date Time Status CT abdomen pelvis w con Stat Cat Scan 11/05/23 13:10 Completed CBC w/Auto Diff [Complete Blood Count Auto Diff] Stat Lab 11/05/23 13:06 Completed CMP [Comprehensive Metabolic Panel] Stat Lab 11/05/23 13:06 Completed Lipase Stat Lab 11/05/23 13:06 Completed Rapid PCR Covid and Flu A/B Stat Lab 11/05/23 13:26 Completed Urinalysis and Microscopic Stat Lab 11/05/23 13:24 Completed Medical Decision Narrative: Patient with history and exam per above presenting for evaluation of left upper quadrant pain Diagnoses considered include Pancreatitis, gastritis, PUD, gastroparesis, pneumonia, , cyclic vomiting syndrome, infectious diarrhea ED workup and treatment included: ED MEDICATIONS Discontinued Medications Generic Name Dose Route Start Last Admin Trade Name Freq PRN Reason Stop Dose Admin Lactated Ringer's 1,000 mls @ 999 mls/hr 11/05/23 13:10 11/05/23 13:19 Lactated Ringer's 1000 Ml Bag IV 11/05/23 14:10 999 mls/hr .Q1H1M ONE Administration Iopamidol 75 ml 11/05/23 14:04 11/05/23 14:05 Iopamidol-370 (76%);100ml Bottle IV 11/05/23 14:05 75 ml ONCE ONE Administration Morphine Sulfate 4 mg 11/05/23 13:10 11/05/23 13:20 Morphine 4mg/Ml Syringe IV 11/05/23 13:11 4 mg ONCE ONE Administration Ondansetron HCl 4 mg 11/05/23 13:10 11/05/23 13:20 Ondansetron 4mg/2ml Vial IV 11/05/23 13:11 4 mg ONCE ONE Administration Sodium Chloride 10 ml 11/05/23 14:04 11/05/23 14:05 Sodium Chloride 0.9% 10ml Syr (Rad Only) IV 12/05/23 14:03 10 ml NEEDED PRN Administration Maintain IV Site ORDERS Category Date Time Status CT abdomen pelvis w con Stat Cat Scan 11/05/23 13:10 Completed CBC w/Auto Diff [Complete Blood Count Auto Diff] Stat Lab 11/05/23 13:06 Completed CMP [Comprehensive Metabolic Panel] Stat Lab 11/05/23 13:06 Completed Lipase Stat Lab 11/05/23 13:06 Completed Rapid PCR Covid and Flu A/B Stat Lab 11/05/23 13:26 Completed Urinalysis and Microscopic Stat Lab 11/05/23 13:24 Completed Labs were independently interpreted by me, significant for leukocytosis, to 20.7, creatinine within normal limits Imaging was independently visualized and interpreted by me, significant for no acute findings Symptoms at this time are thought to be most consistent with suspected infectious diarrhea, for which patient will follow-up with primary care provider for outpatient stool study I discussed my clinical impression with patient and answered all questions. At this time, given reassuring workup and exam, I discussed that I have a low index of suspicion for any acute pathology necessitating inpatient management. Specific return precautions were given, with understanding and agreement. Patient will follow up with primary care provider Please see discharge section of note for any medication adjustments or new prescriptions. Critical Care Critical Care Time Critical Care Time: No
[2023-11-05] MEDS: LACTATED RINGERS 1000ML 1,000 ML 999 ML IV (13:19)
[2023-11-05] MEDS: MORPHINE 4MG/ML SYRINGE 4 MG IV (13:20)
[2023-11-05] MEDS: ONDANSETRON 4MG/2ML VIAL 4 MG IV (13:20)
--- NOTE | 2023-11-05 13:20 | PC.NURSE ---
patient ambulatory to restroom without complications
[2023-11-05 13:21] LABS: Basophils # 0.1 K/mm3 (0-0.2); Basophils % 0.5 % (0.1-2.0); Eosinophils # 0.4 K/mm3 (0.0-0.4); Eosinophils % 2.1 % (0.1-12.0); Hematocrit 45.2 % (37.0-47.0); Lymphocytes # 3.1 K/mm3 (0.7-4.5); Lymphocytes % 14.9 % (10-50); Mean Corpuscular HGB Conc 33.3 g/dL (31.8-35.4); Mean Corpuscular Hemoglobin 32.7 pg (27.0-31.2); Mean Corpuscular Volume 98.3 fl (81-99); Mean Platelet Volume 7.8 fl (7.4-10.4); Monocytes # 0.9 K/mm3 (0.1-1.0); Monocytes % 4.4 % (1.7-9.3); Neutrophils # 16.2 K/mm3 (1.8-7.8); Neutrophils % 78.1 % (37.0-80.0); Platelet Count 448 K/mm3 (142-424); Red Cell Distribution Width 12.9 % (11.5-17.5); White Blood Count 20.7 K/mm3 (4.8-10.8)
[2023-11-05 13:26] LABS: Alanine Aminotransferase 24 U/L (12-78); Albumin Level 3.8 g/dl (3.5-5.0); Albumin/Globulin Ratio 1.3 (1.1-1.8); Alkaline Phosphatase 78 U/L (38-126); Anion Gap 7.1 mEq/L (5-15); Aspartate Amino Transferase 27 U/L (14-36); Bilirubin,Total 0.4 mg/dl (0.2-1.3); Blood Urea Nitrogen 15 mg/dl (7-17); Calcium 10.2 mg/dl (8.4-10.2); Carbon Dioxide 32 mmol/L (22.0-30.0); Chloride 98 mmol/L (98-107); Creatinine Clearance Estimated 177 mL/min (50-200); Estimated Glomerular Filt Rate 107 ml/min (>60); GFR (African American) 129 ML/MIN (>60); Glucose 104 mg/dl (74-100); Lipase 145 U/L (23-300); Potassium 5.1 mmoL/L (3.5-5.1); Sodium 132 mmol/L (136-145); Total Protein,Serum 6.8 g/dl (6.3-8.2)
[2023-11-05 13:28] LABS: Microscopic, Urine URINE MICROSCOPIC (MICROSCOPIC)
[2023-11-05 13:29] LABS: Appearance,Urine CLEAR (Clear); Bilirubin,Urine Negative (Negative); Blood, Urine Negative (Negative); Color,Urine YELLOW (Yellow); Glucose,Urine (UA) Negative (Negative); Ketones,Urine Negative (Negative); Leukocyte Esterase,Urine TRACE (Negative); Nitrate,Urine Negative (Negative); Protein,Urine Negative (Negative); Urobilinogen,Urine 0.2 EU/dl (0.2)
[2023-11-05 13:30] LABS: Coronavirus 19, PCR Not Detected (NotDetected); Influenza A, PCR Not Detected (NotDetected); Influenza B, PCR Not Detected (NotDetected)
[2023-11-05 13:36] LABS: MANUAL DIFFERENTIAL MANUAL DIFFERENTIAL (MANUAL DIFF)
[2023-11-05 13:47] LABS: Bacteria,Urine Trace /lpf; RBC,Urine Occasional #/hpf (0-3)
[2023-11-05 13:48] LABS: Squamous Epithelial Cell,Urine Occasional #/hpf (0-5)
[2023-11-05] MEDS: SODIUM CHLORIDE 0.9% 10ML SYR (RAD ONLY) 10 ML IV (14:05)
[2023-11-05] MEDS: IOPAMIDOL-370 (76%);100ML BOTTLE 75 ML IV (14:05)
[2023-11-05 14:24] LABS: Lymphocytes % 21 % (10-50); Monocytes % 4 % (2-9); Neutrophils % 75 % (42-76); Total Cells Counted 100
[2023-11-05 14:34] LABS: RBC Morphology Normal
[2023-11-05 14:45] LABS: Platelet Estimate Slight Increase
[2023-11-05 15:42] VITALS: BP 145/103; PULSE 80; RESP 18; TEMP 36.6; O2SAT 100
== END 2023-11-05 15:45 | disposition home or self-care (01) ==
PROVIDERS: Emergency Provider Emergency Medicine; PCP Nurse Practitioner Family
DX: K52.9 Noninfective gastroenteritis and colitis, unspecified (principal); M54.50 Low back pain, unspecified; R50.9 Fever, unspecified; I10 Essential (primary) hypertension
CPT/HCPCS: 74177; 80053; 81001; 83690; 85007; 85025; 87636; 96361; 96374; 96375; 99285; J2405; Q9967

== ENCOUNTER 2023-12-08 16:50 | Outpatient (CLI) | payer BC, SELFPAY ==
--- NOTE | 2023-12-08 16:52 | MM_ITS ---
PROCEDURE INFORMATION: Exam: MG Bilateral Screening 3D Mammography Exam date and time: 12/08/2023 4:39 PM Age: 48 years old Clinical indication: Screening mammogram TECHNIQUE: Imaging protocol: Bilateral Screening tomosynthesis and 2D mammography including computer-aided detection (CAD) when performed. COMPARISON: 1. MG MM DIG SCREENING MAMM BI W/CAD 10/08/2022 9:21 AM 2. MG MM DIG SCREENING MAMM BI W/CAD 02/20/2021 4:52 PM 3. MG MM DIG SCREENING MAMM BI W/CAD 09/08/2019 11:07 AM 4. MG SCBI MM Dig screening mamm BI w/CAD 07/26/2018 4:24 PM FINDINGS: MAMMOGRAPHY: Breast composition: There are scattered areas of fibroglandular density. Mass: None. Architectural distortion: No new or suspicious architectural distortion. Calcifications: No new or suspicious calcifications are present Asymmetric density: No new or suspicious asymmetric density is present Skin thickening: None. Axillary adenopathy: None. IMPRESSION: No mammographic evidence of malignancy. Recommend annual screening mammography unless otherwise clinically indicated. ASSESSMENT: BI-RADS category 1: Negative
== END 2023-12-08 23:59 ==
LOC: RAD 16:50
PROVIDERS: PCP Nurse Practitioner Family; Visit Provider Obstetrics & Gynecology
DX: Z12.31 Encounter for screening mammogram for malignant neoplasm of breast (principal)
CPT/HCPCS: 77063; 77067

== ENCOUNTER 2023-12-20 13:08 | Outpatient (CLI) | payer BC, SELFPAY ==
[2023-12-20 13:07] LABS: Microscopic, Urine URINE MICROSCOPIC (MICROSCOPIC)
[2023-12-20 13:30] LABS: Basophils # 0.1 K/mm3 (0-0.2); Basophils % 0.7 % (0.1-2.0); Eosinophils # 0.2 K/mm3 (0.0-0.4); Hematocrit 43.5 % (37.0-47.0); Hemoglobin 14.3 g/dL (12.2-16.2); Lymphocytes # 2.4 K/mm3 (0.7-4.5); Lymphocytes % 26.6 % (10-50); Mean Corpuscular HGB Conc 32.8 g/dL (31.8-35.4); Mean Corpuscular Hemoglobin 32.9 pg (27.0-31.2); Mean Corpuscular Volume 100.1 fl (81-99); Mean Platelet Volume 9.4 fl (7.4-10.4); Monocytes # 0.6 K/mm3 (0.1-1.0); Monocytes % 6.7 % (1.7-9.3); Neutrophils # 5.9 K/mm3 (1.8-7.8); Platelet Count 346 K/mm3 (142-424); Red Blood Count 4.35 M/mm3 (4.20-5.40); Red Cell Distribution Width 13.3 % (11.5-17.5); White Blood Count 9.2 K/mm3 (4.8-10.8)
[2023-12-20 13:31] LABS: Appearance,Urine CLEAR (Clear); Bilirubin,Urine Negative (Negative); Blood, Urine Negative (Negative); Color,Urine YELLOW (Yellow); Glucose,Urine (UA) Negative (Negative); Ketones,Urine Negative (Negative); Leukocyte Esterase,Urine Negative (Negative); Nitrate,Urine Negative (Negative); PH,Urine 5.5 (5.0-8.5); Protein,Urine Negative (Negative); Specific Gravity, Urine >= 1.030 (1.005-1.030); Urobilinogen,Urine 0.2 EU/dl (0.2)
[2023-12-20 14:08] LABS: Erythrocyte Sedimentation Rate 16 mm/hr (0-20)
[2023-12-20 14:17] LABS: Bacteria,Urine Trace /lpf; Calcium Oxalate Crystals,Urine 2+ /lpf; RBC,Urine Occasional #/hpf (0-3)
[2023-12-20 14:23] LABS: Alanine Aminotransferase 24 U/L (12-78); Albumin Level 3.9 g/dl (3.5-5.0); Albumin/Globulin Ratio 1.5 (1.1-1.8); Alkaline Phosphatase 70 U/L (38-126); Anion Gap 9.6 mEq/L (5-15); Aspartate Amino Transferase 24 U/L (14-36); Bilirubin,Total 0.3 mg/dl (0.2-1.3); Blood Urea Nitrogen 17 mg/dl (7-17); Calcium 9.9 mg/dl (8.4-10.2); Carbon Dioxide 27 mmol/L (22.0-30.0); Chloride 104 mmol/L (98-107); Chol/HDL Ratio 3.5 (1-3.5); Cholesterol 182 mg/dl (140-200); Estimated Glomerular Filt Rate 132 ml/min (>60); GFR (African American) 159 ML/MIN (>60); Globulin 2.6 g/dL (1.3-3.2); Glucose 105 mg/dl (74-100); HDL Cholesterol 52 mg/dl (40-60); Potassium 4.6 mmoL/L (3.5-5.1); Sodium 136 mmol/L (136-145); Total Protein,Serum 6.5 g/dl (6.3-8.2); Triglycerides 249 mg/dl (30-150); Uric Acid 2.9 mg/dl (2.5-6.2); VLDL Cholesterol 50 mg/dL (0-40)
[2023-12-20 14:34] LABS: Direct LDL Cholesterol 85.09 mg/dL (100-129)
[2023-12-20 14:59] LABS: 25-OH Vitamin D, Total 19.5 ng/mL (30-100)
[2023-12-20 15:11] LABS: Thyroid Stimulating Hormone 2.38 uIU/mL (0.465-4.68)
[2023-12-20 15:30] LABS: Vitamin B12 252 pg/mL (239-931)
[2023-12-20 22:19] LABS: Hemoglobin A1C 5.2 % (4.0-6.0)
[2023-12-21 11:24] LABS: RA Latex Turbid. <10.0 IU/mL (<14.0)
[2023-12-22 09:14] LABS: Antinuclear Antibodies, IFA Negative (.)
[2023-12-23 12:21] LABS: Antinuclear Antibodies (ANA) NEGATIVE
== END 2023-12-20 23:59 ==
LOC: LAB.DROPOF 13:08
PROVIDERS: PCP Nurse Practitioner Family; Visit Provider Nurse Practitioner Family
DX: R53.83 Other fatigue (principal); R73.03 Prediabetes; M25.50 Pain in unspecified joint; Z82.49 Family history of ischemic heart disease and other diseases of the circulatory system; I10 Essential (primary) hypertension; Z82.61 Family history of arthritis; M10.9 Gout, unspecified; B96.29 Other Escherichia coli [E. coli] as the cause of diseases classified elsewhere
CPT/HCPCS: 36415; 80053; 80061; 81001; 82306; 82607; 83036; 84439; 84443; 84550; 85025; 85651; 86038; 86225; 86235; 86431; 87086

== ENCOUNTER 2024-09-21 13:14 | Outpatient (CLI) | payer BC, SELFPAY | END 2024-09-21 23:59 | disposition home or self-care (01) | LOC: LAB.DROPOF 13:15 | PROVIDERS: PCP Nurse Practitioner Family; Visit Provider Nurse Practitioner Family | DX: R35.0 Frequency of micturition (principal); R82.90 Unspecified abnormal findings in urine; R30.0 Dysuria; R34 Anuria and oliguria | CPT/HCPCS: 87086; 87088; 87186 ==

== ENCOUNTER 2025-05-16 23:05 | Emergency (ER) | payer BC, SELFPAY ==
[2025-05-16 23:11] VITALS: BP 170/91; PULSE 87; O2SAT 99
[2025-05-16 23:12] VITALS: BP 170/91; PULSE 72; RESP 16; TEMP 36.4; O2SAT 99; BMI 36.0
--- OUTSIDE RECORDS SUMMARY | 2025-05-16 23:25 | XMS_ITS | Encounter Summary ---
Author Organization [email or web address] ([place], [place], [place], [place]) Address [address] [place] [address] Care Team Providers [employer] Secretary Name Role Phone Unavailable Primary Care Provider Unavailabl e Encounter Details Date Type Department Care Team (Late st Contact Info) Description 07/13/2019 Transcribed Document [facility] Radiology [address] [place] [address] Provider, Sandra Hoskins MD Social History Tobacco Use Types Packs/Day Years Used Date Smoking Tobacco: Never Assessed Comments Unknown Sex and Gender Information Value Date Recorded Sex Assigned at Female 05/05/2022 8:34 PM CDT Legal Sex Female 8:34 PM CDT Gender Identity Female 05/05/2022 8:34 PM CDT Sexual Orientation Not on file documented as of this encounter Miscellaneous Notes * Cerner Conversion Note - [facility] Aidee ProviderMD - 07/13/2019 11:23 AM EDT [facility] Main OR PostOp Summary Primary Physician: EBONY NATH DPM Finalized Date/Time: 07/13/19 14:44:15 Pt. Name: SHANEKA SHIPLEY /Sex: 1975 Female Med Rec #: [id number] Physician: EBONY NATH DPM Financial #: [id number] Pt. Type: O Room/Bed: Admit/Disch: 07/13/19 07:28:00 - Institution: [facility] Main OR PostOp Case Times Entry 1 In PACU II 07/13/19 13:16:00 Ready for PACU II 07/13/19 14:20:00 Discharge Discharge from PACU 07/13/19 14:43:00 II Last Modified By: AYUSH ZUNIGA RN 07/13/19 14:20:04 [facility] Main OR PostOp Case Times Audit 07/13/19 14:44:06 Copier Field Service Technician: YVROSE Modifier: CALVERSM <+> 1 Discharge from PACU II Finalized By: AYUSH ZUNIGA RN Document Signatures Signed By: AYUSH ZUNIGA RN 07/13/19 14:44 Electronically signed by Jeanne [facility] Conversion Senior Policy Analyst [employer] at 03/31/2023 5:31 PM CDT documented in this encounter Plan of Treatment Not on file documented as of this encounter Visit Diagnoses Not on filedocumented in this encounter
--- OUTSIDE RECORDS SUMMARY | 2025-05-16 23:25 | XMS_ITS | Encounter Summary ---
Author Organization [employer] ([place], [place], [place], [place]) Address [address] [place] [address] Care Team Providers Care Pegger Dobby Looms Name Role Phone Unavailable Primary Care Provider Unavailabl e Encounter Details Date Type Department Care Team (Late st Contact Info) Description 07/13/2019 Transcribed Document [facility] [address] [place] [id number] Provider, juanpablo Hoskins MD Social History Tobacco Use Types Packs/Day Years Used Date Smoking Tobacco: Never Assessed Comments Unknown Sex and Gender Information Value Date Recorded Sex Assigned at Female 05/05/2022 8:34 PM CDT Legal Sex Female 8:34 PM CDT Gender Identity Female 05/05/2022 8:34 PM CDT Sexual Orientation Not on file documented as of this encounter Miscellaneous Notes * Cerner Conversion Note - [facility] ProviderMD - 07/13/2019 3:14 PM EDT [facility] [address] [place] [address] SHANEKA SHIPLEY :1975 Visit Time:07/13/2019 What to do next Your Diagnosis Bunion of right foot, Bunion of right foot Pain in right foot Instructions From Your Care Team Diet after Discharge: Resume usual diet as tolerated, Do not drink any alcoholic beverages, Drink at least 8-10 glasses of water per day Activity after Discharge: _, Rest and relax today, No strenuous activity knee bends and ankle pumps , keep right foot elevated Lifting Restrictions: No heavy lifting over 10 pounds Weight Bearing: Partial weight bearing heel touch Bedrest: Bedrest, may get up to use bathroom Driving after Discharge: Do not drive Showering/Bathing: do not get wet, _ Notify Provider of: fever or chills , excessive bleeding , pain or swelling Wound/Incision Care after Discharge: Keep operative site/wound site clean and dry, DO NOT change dressing; may reinforce it as needed Medical Equipment for Home Use: ice pack 20 min every hour as needed for 2 days take pain medication with food , take stool softener 2 to 3 times a day while on pain medication Discharge Follow Up Instructions: Follow-Up Appointments Follow Up with EBONY NATH When In 4 days 07/17/2019 EDT Comments Follow-up as instructed Where: [id number] [place] [address] [facility] (1) Medications What How Much When Instructions Next Dose amphetamine-dextroamphetamine (Adderall 30 mg oral tablet) 1 Tablet(s) Oral Two Times A Day buPROPion (Wellbutrin XL 150 mg/ 24 hours oral tablet, extended release) Oral Interval Every 24 Hours estradiol (estradiol 1 mg oral tablet) Oral Every Day hydroCHLOROthiazide (hydroCHLOROthiazide 25 mg oral tablet) Oral Every Day levothyroxine (levothyroxine 25 mcg (0.025 mg) oral tablet) Oral Every Day OXcarbazepine (Trileptal 300 mg oral tablet) 2 Tablet(s) Oral Two Times A Day Take your medications faithfully. Do NOT skip medication. Do NOT stop taking medications without the direction of a physician. Carry a list of your medications with you at all times, and take this medication list with you to your first follow up visit. Report any side effects. Avoid herbal remedies unless discussed with your physician. As part of your treatment plan, your physician may have prescribed a limited course of a controlled substance. This medication may be given to help people with moderate or severe pain or for other medical conditions, but there are risks involved with treatment. Common side effects may include nausea, constipation, drowsiness, sweating, itching, dry mouth, and rash. More serious side effects may include cognitive and motor impairment, like problems with thinking, concentrating, alertness, and movement (e.g. slowed reflexes), and driving and operating heavy machinery can be dangerous. It is important for you to talk to your physician if you have these side effects or questions. These controlled substances can produce physical dependence and be habit-forming if taken for an extended period of time, which means that the body has gotten used to them and may experience withdrawal symptoms if they are abruptly stopped. Withdrawal symptoms can include runny nose, sweating, goose bumps, diarrhea, abdominal cramping, rapid heartbeat, difficulty sleeping, and nervousness. Please dispose of unused and medications per pharmacy guidance. Education Materials Outpatient Surgery, Adult, Care After These instructions provide you with information about caring for yourself after your procedure. Your health care provider may also give you more specific instructions. Your treatment has been planned according to current medical practices, but problems sometimes occur. Call your health care provider if you have any problems or questions after your procedure. What can I expect after the procedure? After the procedure, it is common to have: ??? Tenderness and numbness at the surgical site. ??? Swelling and bruising around the surgical site. ??? Nausea. Follow these instructions at home: For at least 24 hours after the procedure: ??? Have a responsible adult stay with you. It is important to have someone help care for you until you are awake and alert. ??? Rest as needed. ??? Do not: ? Participate in activities in which you could fall or become injured. ? Drive. ? Use heavy machinery. ? Drink alcohol. ? Take sleeping pills or medicines that cause drowsiness. ? Make important decisions or sign legal documents. ? Take care of children on your own. Activity ??? Return to your normal activities as told by your health care provider. Ask your health care provider what activities are safe for you. ??? Do not lift anything that is heavier than 10 lb (4.5 kg), or the limit that your health care provider tells you, until your health care provider says it is okay. ??? Do not play contact sports until your health care provider says it is okay. Incision care ??? Follow instructions from your health care provider about how to take care of an incision, if you have one. Make sure you: ? Wash your hands with soap and water before you change your bandage (dressing). If soap and water are not available, use hand dental insurance coordinator. ? Change your dressing as told by your health care provider. ? Leave stitches (sutures), skin glue, or adhesive strips in place. These skin closures may need to stay in place for 2 weeks or longer. If adhesive strip edges start to loosen and curl up, you may trim the loose edges. Do not remove adhesive strips completely unless your health care provider tells you to do that. ??? Check your incision area every day for signs of infection. Check for: ? More redness, swelling, or pain. ? More fluid or blood. ? Warmth. ? Pus or a bad smell. Medicines ??? Take bkkz-jtt-irmulgg and prescription medicines only as told by your health care provider. ??? Do not drive or use heavy machinery while taking prescription pain medicines. Eating and drinking ??? Follow the diet recommended by your health care provider. ??? When you are hungry, begin eating light and bland foods such as toast. Gradually return to your regular diet. ??? If you vomit: ? Drink water, juice, or soup when you can drink without vomiting. ? Make sure you have little or no nausea before eating solid foods. General instructions ??? If you have sleep apnea, surgery and certain medicines can increase your risk for breathing problems. Follow instructions from your HCP about wearing your sleep device: ? Anytime you are sleeping, including during daytime naps. ? While taking prescription pain medicines, sleeping medicines, or medicines that make you drowsy. ??? Do not use any tobacco products, such as cigarettes, chewing tobacco, and e-cigarettes, for as long as possible. ??? If you smoke, do not smoke without supervision. ??? Keep all follow-up visits as told by your health care provider. This is important. Contact a health care provider if: ??? You have more redness, swelling, or pain around your incision. ??? You have more fluid or blood coming from your incision. ??? Your incision feels warm to the touch. ??? You have pus or a bad smell coming from your incision. ??? You have a fever. ??? You feel light-headed or you faint. ??? You develop a rash. ??? You keep feeling nauseous or keep vomiting. ??? You have very bad pain, even after taking the medicines your health care provider has prescribed or recommended. ??? You have constipation. Get help right away if: ??? You are unable to pass urine. ??? You have trouble breathing. Summary ??? Have a responsible adult stay with you for at least 24 hours after the procedure. ??? Nausea is common after a procedure. Make sure you have little or no nausea before eating solid foods. Follow the diet recommended by your health care provider. ??? Ask your health care provider what activities are safe for you. This information is not intended to replace advice given to you by your health care provider. Make sure you discuss any questions you have with your health care provider. Document Released: 02/14/2017 Document Revised: 06/02/2018 Document Reviewed: 02/14/2017 [employer] Interactive Patient Education ?? 2019 [employer]. Crutch Use, Adult Crutches are used to take weight off of one of your legs or feet when you stand or walk. You may need crutches to help heal after an injury or procedure. It is important to use crutches that fit right. Your crutches fit right if: ??? You can fit 2 or 3 fingers between your armpit and the crutch. ??? You use your hands, not your armpits, to hold yourself up. Do not put your armpits on the crutches. This can damage the nerves in your shoulders, arms, back, armpits, and hands. It is important that a doctor has seen you use crutches the right way before you use them at home. How to use your crutches How you will use your crutches will depend on why you need them. Your doctor may tell you not to put weight on (not to support your weight with) your hurt leg (non???weight-bearing). Or, your doctor may let you put (bear) some of your weight on the hurt leg (partial weight-bearing), but not all of your weight. Follow instructions from your doctor about weight-bearing. Do not put weight on your leg in an amount that causes pain. Walking 1. Stand on your good leg and lift both crutches at the same time. 2. Place the crutches one step-length in front of you. 3. Bring the good leg forward to meet the crutches or to land a little bit ahead of them. 4. Repeat. Going up steps If there is no handrail: 1. Step up with your good leg. 2. Step up with the crutches and your hurt leg. 3. Repeat. If there is a handrail: 1. Hold both crutches in one hand. 2. Place your other hand on the handrail. 3. Put your weight on your arms and lift your good leg up to the step. 4. Bring the crutches and the hurt leg up to that step. 5. Repeat. Going up steps on your butt If you do not feel steady on steps, you can go up steps on your butt. 1. Sit on the lowest step. ??? Have your hurt leg out in front. ??? Use your other hand to hold both crutches flat on the stairs. 2. Scoot your butt up to the next step. Use the free hand and your good leg to help you do this. Going down steps If there is no handrail: 1. Step down with your hurt leg and crutches. 2. Step down with your good leg. 3. Repeat. If there is a handrail: 1. Place your hand on the handrail. 2. Hold both crutches with your free hand. 3. Lower your hurt leg and crutch to the step below you. Keep the crutch tips in the center of the step. Never put the crutch tips on the edge of the step. 4. Lower your good leg to that step. 5. Repeat. Going down steps on your butt If you do not feel steady on steps, you can go down steps on your butt. 1. Sit on the highest step. ??? Have your hurt leg out in front. ??? Use your other hand to hold both crutches flat on the stairs. 2. Scoot your butt down to the next step. Use the free hand and your good leg to help you do this. Standing up 1. Hold the hurt leg forward. 2. Grab the armrest with one hand. Use the other hand to grab the top of the crutches. 3. Use the armrest and your crutches to pull yourself up to stand. Sitting down 1. Hold the hurt leg forward. 2. Grab the armrest with one hand. Use the other hand to grab the top of the crutches. 3. Slowly lower yourself to sit. Get help if: ??? You feel unsteady or wobbly using crutches. ??? You have any new pain. ??? You cannot feel a part of your body (numbness) or you have a tingling feeling. ??? Your crutches do not fit. Get help right away if: ??? You fall. This information is not intended to replace advice given to you by your health care provider. Make sure you discuss any questions you have with your health care provider. Document Released: 04/12/2009 Document Revised: 06/08/2018 Document Reviewed: 04/16/2017 [employer] Interactive Patient Education ?? 2019 [employer] Bunion Surgery, Care After This sheet gives you information about how to care for yourself after your procedure. Your health care provider may also give you more specific instructions. If you have problems or questions, contact your health care provider. What can I expect after the procedure? After the procedure, it is common to have: ??? Pain. ??? Swelling. ??? A small amount of fluid coming from your incision. Follow these instructions at home: If you have a post-operative brace, boot, or shoe: ??? Wear the post-op (post-operative) brace, boot, or shoe as told by your health care provider. Remove it only as told by your health care provider. ??? Loosen the brace, boot, or shoe if your toes tingle, become numb, or turn cold and blue. ??? Keep the brace, boot, or shoe clean and dry. If you have a cast: ??? Do not stick anything inside the cast to scratch your skin. Doing that increases your risk of infection. ??? Check the skin around the cast every day. Tell your health care provider about any concerns. ??? You may put lotion on dry skin around the edges of the cast. Do not put lotion on the skin underneath the cast. ??? Keep the cast clean and dry. Bathing ??? Do not take baths, swim, or use a hot tub until your health care provider approves. Ask your health care provider if you may take showers. ??? If your brace, boot, shoe, or cast is not waterproof: ? Do not let it get wet. ? Cover it with a watertight covering when you take a bath or a shower. ??? Keep your bandage (dressing) dry until your health care provider says it can be removed. Incision care ??? The dressing holds your toe in the correct position. Do not change the dressing until your health care provider approves. ??? Follow instructions from your health care provider about how to take care of your incision. Make sure you: ? Wash your hands with soap and water before you change your dressing. If soap and water are not available, use hand dental insurance coordinator. ? Change your dressing as told by your health care provider. ? Leave stitches (sutures), skin glue, or adhesive strips in place. These skin closures may need to stay in place for 2 weeks or longer. If adhesive strip edges start to loosen and curl up, you may trim the loose edges. Do not remove adhesive strips completely unless your health care provider tells you to do that. ??? Check your incision area every day for signs of infection. Check for: ? More redness, swelling, or pain. ? Blood or more fluid. ? Warmth. ? Pus or a bad smell. Managing pain, stiffness, and swelling ??? If directed, put ice on the affected area. ? If you have a removable brace, boot, or shoe, remove it as told by your health care provider. ? Put ice in a plastic bag. ? Place a towel between your skin and the bag or between your cast and the bag. ? Leave the ice on for 20 minutes, 2E times a day. ??? Move your toes often to avoid stiffness and to lessen swelling. ??? Raise (elevate) your foot above the level of your heart while you are sitting or lying down. Driving ??? Do not drive for 24 hours if you were given a medicine to help you relax (sedative) during your procedure. ??? Do not drive or use heavy machinery while taking prescription pain medicine. ??? Ask your health care provider when it is safe to drive if you have a brace, boot, shoe, or cast on your foot. Activity ??? Return to your normal activities as told by your health care provider. Ask your health care provider what activities are safe for you. ??? If physical therapy was prescribed, do exercises as told by your health care provider. Safety ??? Do not use the affected leg to support (bear) your body weight until your health care provider says that you can. Follow weight-bearing restrictions as told. Use crutches, a cane, or a walker as told by your health care provider. General instructions ??? Do not use any products that contain nicotine or tobacco, such as cigarettes and e-cigarettes. These can delay bone healing. If you need help quitting, ask your health care provider. ??? Take lyyl-pwx-acnooxw and prescription medicines only as told by your health care provider. ??? If you are taking prescription pain medicine, take actions to prevent or treat constipation. Your health care provider may recommend that you: ? Drink enough fluid to keep your urine pale yellow. ? Eat foods that are high in fiber, such as fresh fruits and vegetables, whole grains, and beans. ? Limit foods that are high in fat and processed sugars, such as fried or sweet foods. ? Take an mfli-htk-rrelqwg or prescription medicine for constipation. ??? Do not wear high heels or tight-fitting shoes, even after you heal. ??? Keep all follow-up visits as told by your health care provider. This is important. Contact a health care provider if: ??? You have more redness, swelling, or pain around your incision. ??? You have more fluid or blood coming from the incision. ??? Your incision feels warm to the touch. ??? There is pus or a bad smell coming from your incision. ??? You have a fever or chills. ??? Your dressing gets wet or it falls off. ??? You have swelling in your lower leg. ??? You have numbness or stiffness in your toes. Get help right away if: ??? You have a rash. ??? You have difficulty breathing. Summary ??? Do not use the affected leg to support (bear) your body weight until your health care provider says that you can. Follow weight-bearing restrictions as told. Use crutches, a cane, or a walker as told by your health care provider. ??? If directed, put ice on the affected area. Leave the ice on for 20 minutes, 2E times a day. ??? Do not drive or use heavy machinery while taking prescription pain medicine. This information is not intended to replace advice given to you by your health care provider. Make sure you discuss any questions you have with your health care provider. Document Released: 05/14/2006 Document Revised: 08/01/2018 Document Reviewed: 08/01/2018 [employer] Interactive Patient Education ?? 2019 [employer]. promethazine (oral) (pro METH a zeen) Phenergan What is the most important information I should know about promethazine? Promethazine should not be given to a child younger than 2 years old. Promethazine can cause severe breathing problems or in very young children. What is promethazine? Promethazine is in a group of drugs called phenothiazines (BEGM-iu-UVUV-a-zeens). It works by changing the actions of chemicals in your brain. Promethazine also acts as an antihistamine. It blocks the effects of the naturally occurring chemical histamine in your body. Promethazine is used to treat allergy symptoms such as itching, runny nose, sneezing, itchy or watery eyes, hives, and itchy skin rashes. Promethazine also prevents motion sickness, and treats nausea and vomiting or pain after surgery. It is also used as a sedative or sleep aid. Promethazine is not for use in treating symptoms of asthma, pneumonia, or other lower respiratory tract infections. Promethazine may also be used for purposes not listed in this medication guide. What should I discuss with my healthcare provider before taking promethazine? Promethazine should not be given to a child younger than 2 years old. Promethazine can cause severe breathing problems or in very young children. Carefully follow your doctor's instructions when giving this medicine to a child of any age. You should not take this medicine if you are allergic to promethazine or to similar medicines such as chlorpromazine, fluphenazine, mesoridazine, perphenazine, prochlorperazine, thioridazine, or trifluperazine. To make sure promethazine is safe for you, tell your doctor if you have: ?? asthma, chronic obstructive pulmonary disease (COPD), sleep apnea, or other breathing disorder; ?? a sulfite allergy; ?? a history of seizures; ?? a weak immune system (bone marrow depression); ?? glaucoma; ?? enlarged prostate or problems with urination; ?? stomach ulcer or obstruction; ?? heart disease or high blood pressure; ?? liver disease; ?? adrenal gland tumor (pheochromocytoma); ?? low levels of calcium in your blood (hypocalcemia); or ?? if you have ever had a serious side effect while using promethazine or any other phenothiazine. It is not known whether promethazine will harm an unborn baby. Tell your doctor if you are or plan to become while using this medicine. It is not known whether promethazine passes into breast milk or if it could harm a nursing baby. You should not breast-feed while using this medicine. How should I take promethazine? Follow all directions on your prescription label. Your doctor may occasionally change your dose to make sure you get the best results. Do not take this medicine in larger or smaller amounts or for longer than recommended. Promethazine is often taken at bedtime or before meals. For motion sickness, promethazine is usually started within 1 hour before traveling. When used for surgery, promethazine is usually taken the night before the surgery. How often you take this medicine and the timing of your dose will depend on the condition being treated. Measure liquid medicine with the dosing syringe provided, or with a special dose-measuring spoon or medicine cup. If you do not have a dose-measuring device, ask your pharmacist for one. If a child is using this medicine, tell your doctor if the child has any changes in weight. Promethazine doses are based on weight in children, and any changes may affect your child's dose. Call your doctor if your symptoms do not improve, or if they get worse while using promethazine. This medicine can cause unusual results with certain medical tests. Tell any doctor who treats you that you are using promethazine. Store at room temperature away from moisture, heat, and light. What happens if I miss a dose? Take the missed dose as soon as you remember. Skip the missed dose if it is almost time for your next scheduled dose. Do not take extra medicine to make up the missed dose. What happens if I overdose? Seek emergency medical attention or call the Poison Help line at . Overdose symptoms may include overactive reflexes, loss of coordination, severe drowsiness or weakness, fainting, dilated pupils, weak or shallow breathing, or seizure (convulsions). What should I avoid while taking promethazine? This medicine may impair your thinking or reactions. Be careful if you drive or do anything that requires you to be alert. Avoid getting up too fast from a sitting or lying position, or you may feel dizzy. Get up slowly and steady yourself to prevent a fall. Drinking alcohol can increase certain side effects of promethazine. Avoid exposure to sunlight or tanning beds. Promethazine can make you sunburn more easily. Wear protective clothing and use sunscreen (SPF 30 or higher) when you are outdoors. What are the possible side effects of promethazine? Get emergency medical help if you have signs of an allergic reaction: hives; difficult breathing; swelling of your face, lips, tongue, or throat. Stop using promethazine and call your doctor at once if you have: ?? severe drowsiness, weak or shallow breathing; ?? a light-headed feeling, like you might pass out; ?? confusion, agitation, hallucinations, nightmares; ?? seizure (convulsions); ?? fast or slow heartbeats; ?? jaundice (yellowing of the skin or eyes); ?? uncontrolled muscle movements in your face (chewing, lip smacking, frowning, tongue movement, blinking or eye movement); ?? easy bruising or bleeding (nosebleeds, bleeding gums); ?? sudden weakness or ill feeling, fever, chills, sore throat, mouth sores, red or swollen gums, trouble swallowing; or ?? severe nervous system reaction--very stiff (rigid) muscles, high fever, sweating, confusion, fast or uneven heartbeats, tremors, feeling like you might pass out. Side effects such as confusion and severe drowsiness may be more likely in older adults. Common side effects may include: ?? drowsiness, dizziness; ?? ringing in your ears; ?? double vision; ?? feeling nervous; ?? dry mouth; or ?? tired feeling, sleep problems (insomnia). This is not a complete list of side effects and others may occur. Call your doctor for medical advice about side effects. You may report side effects to FDA at 0-255-JPG-2848. What other drugs will affect promethazine? Using this medicine with other drugs that make you sleepy or slow your breathing can cause dangerous or life-threatening side effects. Ask your doctor before taking promethazine with a sleeping pill, narcotic pain medicine, muscle relaxer, or medicine for anxiety, depression, or seizures. Other drugs may interact with promethazine, including prescription and rtne-iue-crvlchc medicines, vitamins, and herbal products. Tell each of your health care providers about all medicines you use now and any medicine you start or stop using. Where can I get more information? Your pharmacist can provide more information about promethazine. Remember, keep this and all other medicines out of the reach of children, never share your medicines with others, and use this medication only for the indication prescribed. Every effort has been made to ensure that the information provided by [employer] is accurate, up-to-date, and complete, but no guarantee is made to that effect. Drug information contained herein may be time sensitive. [employer] information has been compiled for use by healthcare practitioners and consumers in the [place] and therefore [employer] does not warrant that uses outside of the [place] are appropriate, unless specifically indicated otherwise. [employer] drug information does not endorse drugs, diagnose patients or recommend therapy. [employer] drug information is an informational resource designed to assist licensed healthcare practitioners in caring for their patients and/or to serve consumers viewing this service as a supplement to, and not a substitute for, the expertise, skill, knowledge and judgment of healthcare practitioners. The absence of a warning for a given drug or drug combination in no way should be construed to indicate that the drug or drug combination is safe, effective or appropriate for any given patient. [employer] does not assume any responsibility for any aspect of healthcare administered with the aid of information [employer] provides. The information contained herein is not intended to cover all possible uses, directions, precautions, warnings, drug interactions, allergic reactions, or adverse effects. If you have questions about the drugs you are taking, check with your doctor, nurse or pharmacist. Copyright 8484-0249 [employer] Version: 6.02. Revision Date: 08/22/2015. acetaminophen and hydrocodone (a SEET a MIN oh fen and marquita droe KOE done) Hycet, Lorcet, Hubbell, Verdrocet, Vicodin, Xodol, Zamicet What is the most important information I should know about acetaminophen and hydrocodone? MISUSE OF OPIOID MEDICINE CAN CAUSE ADDICTION, OVERDOSE, OR . Keep the medication in a place where others cannot get to it. An overdose of acetaminophen can damage your liver or cause . Call your doctor at once if you have pain in your upper stomach, loss of appetite, dark urine, or jaundice (yellowing of your skin or eyes). Taking opioid medicine during may cause life-threatening withdrawal symptoms in the . Fatal side effects can occur if you use opioid medicine with alcohol, or with other drugs that cause drowsiness or slow your breathing. Stop taking this medicine and call your doctor right away if you have skin redness or a rash that spreads and causes blistering and peeling. What is acetaminophen and hydrocodone? Hydrocodone is an opioid pain medication, sometimes called a narcotic. Acetaminophen is a less potent pain reliever that increases the effects of hydrocodone. Acetaminophen and hydrocodone is a combination medicine used to relieve moderate to severe pain. Acetaminophen and hydrocodone may also be used for purposes not listed in this medication guide. What should I discuss with my healthcare provider before taking acetaminophen and hydrocodone? You should not use this medicine if you are allergic to acetaminophen or hydrocodone, or if you have: ?? severe asthma or breathing problems; or ?? a blockage in your stomach or intestines. Tell your doctor if you have ever had: ?? liver disease; ?? a drug or alcohol addiction; ?? kidney disease; ?? a head injury or seizures; ?? urination problems; or ?? problems with your thyroid, pancreas, or gallbladder. If you use opioid medicine while you are , your baby could become dependent on the drug. This can cause life-threatening withdrawal symptoms in the baby after it is born. Babies born dependent on opioids may need medical treatment for several weeks. Do not breast-feed. This medicine can pass into breast milk and cause drowsiness, breathing problems, or in a nursing baby. How should I take acetaminophen and hydrocodone? Follow all directions on your prescription label. Never take this medicine in larger amounts, or for longer than prescribed. An overdose can damage your liver or cause . Tell your doctor if the medicine seems to stop working as well in relieving your pain. Always check your bottle to make sure you have received the correct pills (same brand and type) of medicine prescribed by your doctor. Never share this medicine with another person, especially someone with a history of drug abuse or addiction. MISUSE CAN CAUSE ADDICTION, OVERDOSE, OR . Keep the medicine in a place where others cannot get to it. Selling or giving away acetaminophen and hydrocodone is against the law. Measure liquid medicine carefully. Use the dosing syringe provided, or use a medicine dose-measuring device (not a kitchen spoon). If you need surgery or medical tests, tell the doctor ahead of time that you are using this medicine. You should not stop using this medicine suddenly. Follow your doctor's instructions about tapering your dose. Store at room temperature away from moisture and heat. Keep track of your medicine. You should be aware if anyone is using it improperly or without a prescription. Do not keep leftover opioid medication. Just one dose can cause in someone using this medicine accidentally or improperly. Ask your pharmacist where to locate a drug take-back disposal program. If there is no take-back program, flush the unused medicine down the toilet. What happens if I miss a dose? Since this medicine is used for pain, you are not likely to miss a dose. Skip any missed dose if it is almost time for your next dose. Do not use two doses at one time. What happens if I overdose? Seek emergency medical attention or call the Poison Help line at . An overdose of acetaminophen and hydrocodone can be fatal. The first signs of an acetaminophen overdose include loss of appetite, nausea, vomiting, stomach pain, sweating, and confusion or weakness. Later symptoms may include pain in your upper stomach, dark urine, and yellowing of your skin or the whites of your eyes. Overdose can also cause severe muscle weakness, pinpoint pupils, very slow breathing, extreme drowsiness, or coma. What should I avoid while taking acetaminophen and hydrocodone? Avoid driving or operating machinery until you know how this medicine will affect you. Dizziness or drowsiness can cause falls, accidents, or severe injuries. Do not drink alcohol. Dangerous side effects or could occur. Ask a doctor or pharmacist before using any other medicine that may contain acetaminophen (sometimes abbreviated as APAP). Taking certain medications together can lead to a fatal overdose. What are the possible side effects of acetaminophen and hydrocodone? Get emergency medical help if you have signs of an allergic reaction: hives; difficulty breathing; swelling of your face, lips, tongue, or throat. Opioid medicine can slow or stop your breathing, and may occur. A person caring for you should seek emergency medical attention if you have slow breathing with long pauses, blue colored lips, or if you are hard to wake up. In rare cases, acetaminophen may cause a severe skin reaction that can be fatal. This could occur even if you have taken acetaminophen in the past and had no reaction. Stop taking this medicine and call your doctor right away if you have skin redness or a rash that spreads and causes blistering and peeling. Call your doctor at once if you have: ?? noisy breathing, sighing, shallow breathing; ?? a light-headed feeling, like you might pass out; ?? liver problems--nausea, upper stomach pain, tiredness, loss of appetite, dark urine, marisol-colored stools, jaundice (yellowing of the skin or eyes); or ?? low cortisol levels-- nausea, vomiting, loss of appetite, dizziness, worsening tiredness or weakness. Seek medical attention right away if you have symptoms of serotonin syndrome, such as: agitation, hallucinations, fever, sweating, shivering, fast heart rate, muscle stiffness, twitching, loss of coordination, nausea, vomiting, or diarrhea. Serious side effects may be more likely in older adults and those who are overweight, malnourished, or debilitated. Long-term use of opioid medication may affect fertility (ability to have children) in men or women. It is not known whether opioid effects on fertility are permanent. Common side effects include: ?? dizziness, drowsiness, feeling tired; ?? nausea, vomiting, stomach pain; ?? constipation; or ?? headache. This is not a complete list of side effects and others may occur. Call your doctor for medical advice about side effects. You may report side effects to FDA at 6-210-YIM-3963. What other drugs will affect acetaminophen and hydrocodone? You may have breathing problems or withdrawal symptoms if you start or stop taking certain other medicines. Tell your doctor if you also use an antibiotic, antifungal medication, heart or blood pressure medication, seizure medication, or medicine to treat HIV or hepatitis C. Opioid medication can interact with many other drugs and cause dangerous side effects or . Be sure your doctor knows if you also use: ?? cold or allergy medicines, bronchodilator asthma/COPD medication, or a diuretic ('water pill'); ?? medicines for motion sickness, irritable bowel syndrome, or overactive bladder; ?? other narcotic medications--opioid pain medicine or prescription cough medicine; ?? a sedative like Valium--diazepam, alprazolam, lorazepam, Xanax, Klonopin, Versed, and others; ?? drugs that make you sleepy or slow your breathing--a sleeping pill, muscle relaxer, medicine to treat mood disorders or mental illness; ?? drugs that affect serotonin levels in your body--a stimulant, or medicine for depression, Parkinson's disease, migraine headaches, serious infections, or nausea and vomiting. This list is not complete. Other drugs may affect acetaminophen and hydrocodone, including prescription and qpnq-yks-tqjfxkk medicines, vitamins, and herbal products. Not all possible interactions are listed here. Where can I get more information? Your doctor or pharmacist can provide more information about acetaminophen and hydrocodone. Remember, keep this and all other medicines out of the reach of children, never share your medicines with others, and use this medication only for the indication prescribed. Every effort has been made to ensure that the information provided by [employer] is accurate, up-to-date, and complete, but no guarantee is made to that effect. Drug information contained herein may be time sensitive. [employer] information has been compiled for use by healthcare practitioners and consumers in the [place] and therefore [employer] does not warrant that uses outside of the [place] are appropriate, unless specifically indicated otherwise. [employer] drug information does not endorse drugs, diagnose patients or recommend therapy. [employer] drug information is an informational resource designed to assist licensed healthcare practitioners in caring for their patients and/or to serve consumers viewing this service as a supplement to, and not a substitute for, the expertise, skill, knowledge and judgment of healthcare practitioners. The absence of a warning for a given drug or drug combination in no way should be construed to indicate that the drug or drug combination is safe, effective or appropriate for any given patient. [employer] does not assume any responsibility for any aspect of healthcare administered with the aid of information [facility] provides. The information contained herein is not intended to cover all possible uses, directions, precautions, warnings, drug interactions, allergic reactions, or adverse effects. If you have questions about the drugs you are taking, check with your doctor, nurse or pharmacist. Copyright 6294-6646 [employer] Version: 15.02. Revision Date: 09/12/2018. Emergency Awareness and Preventative Care STROKE is an EMERGENCY Every Minute Counts Act FAST and Check for these signs: FACE Does the face look uneven? ARM Does one arm drift down? SPEECH Does their speech sound strange? TIME Call at any sign of stroke Stroke Risk Factors Atrial Fibrillation (irregular heartbeat) Diabetes Family history of stroke Heart Disease Heavy alcohol use High Blood Pressure High Cholesterol Physical inactivity and obesity Smoking Cigarette Smoking The facts are clear, cigarette smoking will shorten your life. Smoking can cause many illnesses along the way. As a healthcare provider, we recommend that you stop smoking. Assistance with quitting is available by contacting 6-086-[facility]KYYUniversity of [place]NOW. This is a free resource providing counseling, support, and referral. Or you may contact your personal physician. National Suicide Prevention Lifeline: The National Suicide Prevention Lifeline is a national network of local crisis centers that provides free and confidential emotional support to people in suicidal crisis or emotional distress 24 hours a day, 7 days a week. Don't Wait! Stop a Heart Attack Before it Starts What is a heart attack? A heart attack is damage or to a part of the heart from severely decreased or lack of blood flow to the heart. Over time, arteries can become narrow from the buildup of fat and cholesterol, which is called plaque. The plaque can rupture causing a blood clot to form. When the blood clot forms, the artery can become severely narrowed or completely blocked, causing a heart attack. Heart attack is the leading cause of in the [place]. 85% of muscle damage occurs within the first 2 hours. Delay in the recognition of heart attack symptoms increases the chances of . Know the early symptoms of a heart attack: Nausea Feeling of fullness in chest Jaw Pain Pain that travels down one or both arms Fatigue/being tired Anxiety Back Pain Chest pressure, squeezing, or discomfort Shortness of breath Sweating, or a cold sweat Feeling of impending doom There are unusual signs of a heart attack, too! Women, the elderly, and diabetics may present with atypical symptoms: Fainting/dizziness Weakness Confusion Risk Factors for a Heart Attack Some heart disease risk factors, such as age and family history, cannot be changed. Others, like smoking and lack of exercise, can be changed. Smoking High Cholesterol High Blood Pressure Family History Obesity Age Gender (Males are at higher risk) Lack of Exercise Diabetes Diet Stress Excessive Alcohol Intake If you or someone you know is experiencing the signs and symptoms of a heart attack, DON???T DELAY. Call immediately and seek help. If someone collapses, perform CPR! Do not attempt to drive if you are having symptoms of heart attack. Hands-Only CPR Why Hands-Only CPR? Hands-Only CPR has been shown to be as effective as conventional CPR for cardiac arrests that occur outside of a hospital. Survival depends on immediately receiving CPR from someone nearby. How do you perform Hands-Only CPR? There are two easy steps: Call if you see a teen or adult collapse Push hard and fast in the center of the chest at a beat of 100 beats per minute. Save a life! 4 WAYS TO GET AHEAD OF SEPSIS SEPSIS is a MEDICAL EMERGENCY. Time matters! Infections put you and your family at risk for a life-threatening condition called sepsis. Sepsis is the body's extreme response to an infection. It is life-threatening, and without timely treatment, sepsis can rapidly lead to tissue damage, organ failure, and . Sepsis happens when an infection you already have-in your skin, lungs, urinary tract or somewhere else-triggers a chain reaction throughout your body. 1 PREVENT INFECTIONS Take good care of chronic conditions. Talk to your doctor about getting the recommended vaccines. 2 PRACTICE GOOD HYGIENE Wash your hands frequently. Keep cuts or open sores clean and covered until they are healed. 3 KNOW THE SYMPTOMS Confusion or disorientation Shortness of breath High heart rate Fever, shivering, or feeling very cold Extreme pain or discomfort Clammy or sweaty skin 4 ACT FAST Get medical care IMMEDIATELY if you suspect sepsis or if you have an infection that is not getting better or is getting worse. To learn more about sepsis and how to prevent infections, visit www.cdc.gov/sepsis. Test Results Laboratory or Other Results This Visit (last charted value for your 07/13/2019 visit) General Chemistry 07/13/19 08:48:00 Potassium POC: 3.4 mmol/L -- Normal range between ( 3.5 and 4.9 ) :Potassium Level POC: :Potassium Level POC Patient Name:SHANEKA SHIPLEY I have received this information and was given the opportunity to ask questions. Patient/Trigonometry Teacher Name: Patient/Trigonometry Teacher Signature: Relationship to Patient: Clinician/Hospital Trigonometry Teacher Signature: Date: documented in this encounter Plan of Treatment Not on file documented as of this encounter Visit Diagnoses Not on filedocumented in this encounter
--- OUTSIDE RECORDS SUMMARY | 2025-05-16 23:25 | XMS_ITS | Encounter Summary ---
Author Organization [employer] ([place], [place], [place], [place]) Address [address] [place] [address] Care Team Providers Care Display Fabricator Name Role Phone Unavailable Primary Care Provider Unavailabl e Encounter Details Date Type Department Care Team (Late st Contact Info) Description 07/13/2019 Transcribed Document [facility] Radiology [address] [place] [address] Provider, Sandra Hoskins MD Social [...] Miscellaneous Notes * Cerner Conversion Note - [facility] Aidee ProviderMD - 07/13/2019 11:23 AM EDT [facility] Main OR PACU Summary Primary Physician: EBONY NATH DPM Finalized Date/Time: 07/13/19 13:33:19 Pt. Name: SHANEKA SHIPLEY /Sex: 1975 Female Med Rec #: [id number] Physician: EBONY NATH DPM Financial #: [id number] Pt. Type: O Room/Bed: Admit/Disch: 07/13/19 07:28:00 - Institution: [facility] Main OR PACU I Case Times Entry 1 In PACU I 07/13/19 11:05:00 Ready for PACU 07/13/19 12:15:00 Discharge Discharge from PACU 07/13/19 13:10:00 I Last Modified By: Yue Aquino Rn-Traveler 07/13/19 13:32:59 [facility] Main OR PACU Acuity Entry 1 Start Time 07/13/19 12:15:00 Stop Time 07/13/19 13:10:00 Acuity Level [facility] PACU Acuity I Last Modified By: Yue Aquino Rn-Traveler 07/13/19 13:33:17 Finalized By: Yue Aquino Rn-Traveler Document Signatures Signed By: Yue Aquino Rn-Traveler 07/13/19 13:33 Electronically signed by Jeanne [facility] Conversion Visual Presentation Manager Cerner at 03/31/2023 5:31 PM CDT documented in this encounter Plan of Treatment Not on file documented as of this encounter Visit Diagnoses Not on filedocumented in this encounter
--- OUTSIDE RECORDS SUMMARY | 2025-05-16 23:25 | XMS_ITS | Encounter Summary ---
Author Organization [employer] ([place], [place], [place], [place]) Address [address] [place] [address] Care Team Providers Care Horse Identifier Name Role Phone Unavailable Primary Care Provider Unavailabl e Encounter Details Date Type Department Care Team (Late st Contact Info) Description 07/12/2019 Transcribed Document [facility] Radiology [address] [place] [address] Provider, Sandra Hoskins MD Social [...] Miscellaneous Notes * Cerner Conversion Note - [facility] Aidee ProviderMD - 07/12/2019 2:42 PM EDT PAT Adult Entered On: 07/12/2019 13:45 EDT Performed On: 07/12/2019 13:42 EDT by MYRA MOROCHO RN Pain Assessment Pain Assessment : Initial assessment Pain Scale Goal : 4 Alix Sánchez RN - 07/13/2019 8:34 EDT Height and Weight, Clinical Dosing Height Source : Measured Height Entry Format : [place] Height, Feet : 0 ft(Converted to: 0 cm, 0 Inch) Height, Inches : 64 Inch(Converted to: 5 ft 4 Inch, 162.56 cm) Clinical Height : 162.56 cm Weight Source : Standing scale Weight Entry Format : Gibson Clinical Dosing Weight : 89.91 kg Weight, Pounds : 197.8 lb Body Surface Area (BSA) : 1.95 m2 Body Mass Index : 34 kg/m2 (HI) [place] Body Weight : 54 kg Nahed Curtis, Nurse Battery Assembler - 07/13/2019 8:16 EDT Health Histories Smoking Status : Former smoker, quit more than 30 days ago Smokeless Tobacco Status : Never MYRA MOROCHO RN - 07/12/2019 13:42 EDT Social History (As Of: 07/12/2019 13:45:58 EDT) Infectious Disease History Infectious Disease History : Influenza Fever/Chills Last 48 Hours : No Travel To Regions with Travel Advisories : No Travel Outside [place] Within Last 30 Days : No Contact With Traveler to Advisory Region : No Tuberculosis Symptoms : None MYRA MOROCHO RN - 07/12/2019 13:42 EDT Anesthesia/Transfusion History Family History of Anesthesia Reaction : No prior transfusion(s) Blood Transfusion Acceptable to Patient : Yes Transfusion History : Prior anesthesia reaction Type of Anesthesia Reaction : Other: some issues with clostraphobia Family History of Anesthesia Reaction : None MYRA MOROCHO RN - 07/12/2019 13:42 EDT Advance Directive Patient has Advance Directive *Q : No, patient refuses Advance Directive information MYRA MOROCHO RN - 07/12/2019 13:42 EDT Psychosocial History Do You Have a History of the Following? : Anxiety, Depression Currently in Unsafe Situation : No Tried to Harm Yourself in the Past? : No Thoughts of Harming/Killing Yourself : No MYRA MOROCHO RN - 07/12/2019 13:42 EDT General Info Arrived From : Home Mode of Arrival on Unit : Ambulatory Legal Guardian : Spouse Want Family/Rep/Phys Notified of Admit : No Emergency Contact #1 : carlos Emergency Contact #1 Emergency Contact #1 Relationship : spouse Emergency Contact #2 : , Emergency Contact #2 Phone Number : , Emergency Contact #2 Relationship : , Primary Language : Egyptian Communication Barrier : MYRA Armstrong RN - 07/12/2019 13:42 EDT Dimas Scale Dimas Sensory Perception : No impairment Dimas Moisture : Rarely moist Dimas Activity : Walks occasionally Dimas Mobility : Slightly limited Dimas Nutrition : Adequate Dimas Friction and Shear : No apparent problem Dimas Score : 20 MYRA MOROCHO RN - 07/12/2019 13:42 EDT Sleep Apnea Risk Assmt BMI Greater Than 35 kg/m2 : No Neck Circumference Greater Than 40 cm : No STOP-BANG Sleep Apnea Risk Level Score : 1 Nahed Curtis, Nurse Battery Assembler - 07/13/2019 8:16 EDT Hx of Obstructive Sleep Apnea Diagnosis : No Snore Loudly : No Tired, Fatigued, or Sleepy During Day : No Observed Stopping Breathing During Sleep : No Have/Are Being Treated for Hypertension : Yes Age over 50 Years Old : No Gender Male : No MYRA MOROCHO RN - 07/12/2019 13:42 EDT documented in this encounter Plan of Treatment Not on file documented as of this encounter Visit Diagnoses Not on filedocumented in this encounter
--- OUTSIDE RECORDS SUMMARY | 2025-05-16 23:25 | XMS_ITS | Clinical Summary ---
Author Organization [employer] ([place], [place], [place], [place]) Address [address] [place] [address] Care Team Providers Care Ultrasound Tech Name Role Phone Unavailable Primary Care Provider Unavailabl e Social History Tobacco Use Types Packs/Day Years Used Date Smoking Tobacco: Never Assessed Comments Unknown Sex and Gender Information Value Date Recorded Sex Assigned at Female 05/05/2022 8:34 PM CDT Legal Sex Female 8:34 PM CDT Gender Identity Female 05/05/2022 8:34 PM CDT Sexual Orientation Not on file Plan of Treatment Not on file
--- OUTSIDE RECORDS SUMMARY | 2025-05-16 23:25 | XMS_ITS | Encounter Summary ---
Author Organization [employer] ([place], [place], [place], [place]) Address [address] [place] [address] Care Team Providers Care Cabbage Salter Name Role Phone Unavailable Primary Care Provider Unavailabl e Encounter Details Date Type Department Care Team (Late st Contact Info) Description 07/13/2019 Transcribed Document [facility] Radiology [address] [place] [address] Provider, Sandra Hoskins MD Social [...] Miscellaneous Notes * Cerner Conversion Note - [facility] Aidee Caruso MD - 07/13/2019 2:48 PM EDT Patient Education Materials Follows: Outpatient Surgery, Adult, Care After These instructions [...] the procedure, it is common to have: ETenderness and numbness at the surgical site. ESwelling and bruising around the surgical site. ENausea. Follow these instructions at home: For at least 24 hours after the procedure: EHave a responsible adult stay with you. It is important to have someone help care for you until you are awake and alert. ERest as needed. Annette not: ? Participate in activities in which you could fall or become injured. ? Drive. ? Use heavy machinery. ? Drink alcohol. ? Take sleeping pills or medicines that cause drowsiness. ? Make important decisions or sign legal documents. ? Take care of children on your own. Activity EReturn to your normal activities as told by your health care provider. Ask your health care provider what activities are safe for you. Annette not lift anything that is heavier than 10 lb (4.5 kg), or the limit that your health care provider tells you, until your health care provider says it is okay. Annette not play contact sports until your health care provider says it is okay. Incision care EFollow instructions from your health care provider about how to take care of an incision, if you have one. Make sure you: ? Wash your hands with soap and water before you change your bandage (dressing). If soap and water are not available, use hand internal wholesaler. ? Change your dressing as told by [...] care provider tells you to do that. ECheck your incision area every day for signs of infection. Check for: ? More redness, swelling, or pain. ? More fluid or blood. ? Warmth. ? Pus or a bad smell. Medicines ETake rmzm-qmn-xmbqtin and prescription medicines only as told by your health care provider. Annette not drive or use heavy machinery while taking prescription pain medicines. Eating and drinking EFollow the diet recommended by your health care provider. EWhen you are hungry, begin eating light and bland foods such as toast. Gradually return to your regular diet. EIf you vomit: ? Drink water, juice, or soup when you can drink without vomiting. ? Make sure you have little or no nausea before eating solid foods. General instructions EIf you have sleep apnea, surgery and certain medicines can increase your risk for breathing problems. Follow instructions from your HCP about wearing your sleep device: ? Anytime you are sleeping, including during daytime naps. ? While taking prescription pain medicines, sleeping medicines, or medicines that make you drowsy. Annette not use any tobacco products, such as cigarettes, chewing tobacco, and e-cigarettes, for as long as possible. EIf you smoke, do not smoke without supervision. EKeep all follow-up visits as told by your health care provider. This is important. Contact a health care provider if: EYou have more redness, swelling, or pain around your incision. EYou have more fluid or blood coming from your incision. EYour incision feels warm to the touch. EYou have pus or a bad smell coming from your incision. EYou have a fever. EYou feel light-headed or you faint. EYou develop a rash. EYou keep feeling nauseous or keep vomiting. EYou have very bad pain, even after taking the medicines your health care provider has prescribed or recommended. EYou have constipation. Get help right away if: EYou are unable to pass urine. EYou have trouble breathing. Summary EHave a responsible adult stay with you for at least 24 hours after the procedure. ENausea is common after a procedure. Make sure you have little or no nausea before eating solid foods. Follow the diet recommended by your health care provider. EAsk your health care provider what activities are safe for you. This information is not intended to replace advice given to you by your health care provider. Make sure you discuss any questions you have with your health care provider. Document Released: 02/14/2017 Document Revised: 06/02/2018 Document Reviewed: 02/14/2017 [employer] Interactive Patient Education ? 2019 [employer] Crutch Use, Adult Crutches are used to take weight off of one of your legs or feet when you stand or walk. You may need crutches to help heal after an injury or procedure. It is important to use crutches that fit right. Your crutches fit right if: EYou can fit 2 or 3 fingers between your armpit and the crutch. EYou use your hands, not your armpits, to [...] support your weight with) your hurt leg (non?weight-bearing). Or, your doctor may let you put [...] butt. 1. Sit on the lowest step. EHave your hurt leg out in front. EUse your other hand to hold both crutches [...] butt. 1. Sit on the highest step. EHave your hurt leg out in front. EUse your other hand to hold both crutches [...] lower yourself to sit. Get help if: EYou feel unsteady or wobbly using crutches. EYou have any new pain. EYou cannot feel a part of your body (numbness) or you have a tingling feeling. EYour crutches do not fit. Get help right away if: EYou fall. This information is not intended to replace advice given to you by your health care provider. Make sure you discuss any questions you have with your health care provider. Document Released: 04/12/2009 Document Revised: 06/08/2018 Document Reviewed: 04/16/2017 [employer] Interactive Patient Education ? 2019 [employer] Orthopedics Bunion Surgery, Care After This sheet gives you information about how to care for yourself after your procedure. Your health care provider may also give you more specific instructions. If you have problems or questions, contact your health care provider. What can I expect after the procedure? After the procedure, it is common to have: EPain. ESwelling. EA small amount of fluid coming from your incision. Follow these instructions at home: If you have a post-operative brace, boot, or shoe: EWear the post-op (post-operative) brace, boot, or shoe as told by your health care provider. Remove it only as told by your health care provider. ELoosen the brace, boot, or shoe if your toes tingle, become numb, or turn cold and blue. EKeep the brace, boot, or shoe clean and dry. If you have a cast: Annette not stick anything inside the cast to scratch your skin. Doing that increases your risk of infection.? ECheck the skin around the cast every day. Tell your health care provider about any concerns. [place] may put lotion on dry skin around the edges of the cast. Do not put lotion on the skin underneath the cast. EKeep the cast clean and dry. Bathing Annette not take baths, swim, or use a hot tub until your health care provider approves. Ask your health care provider if you may take showers. EIf your brace, boot, shoe, or cast is not waterproof: ? Do not let it get wet. ? Cover it with a watertight covering when you take a bath or a shower. EKeep your bandage (dressing) dry until your health care provider says it can be removed. Incision care EThe dressing holds your toe in the correct position. Do not change the dressing until your health care provider approves. EFollow instructions from your health care provider about how to take care of your incision. Make sure you: ? Wash your hands with soap and water before you change your dressing. If soap and water are not available, use hand internal wholesaler. ? Change your dressing as told by [...] care provider tells you to do that. ECheck your incision area every day for signs of infection. Check for: ? More redness, swelling, or pain. ? Blood or more fluid. ? Warmth. ? Pus or a bad smell. Managing pain, stiffness, and swelling EIf directed, put ice on the affected area. ? If you have a removable brace, boot, or shoe, remove it as told by your health care provider. ? Put ice in a plastic bag. ? Place a towel between your skin and the bag or between your cast and the bag. ? Leave the ice on for 20 minutes, 2?3 times a day. EMove your toes often to avoid stiffness and to lessen swelling. ERaise (elevate) your foot above the level of your heart while you are sitting or lying down. Driving Annette not drive for 24 hours if you were given a medicine to help you relax (sedative) during your procedure. Annette not drive or use heavy machinery while taking prescription pain medicine. EAsk your health care provider when it is safe to drive if you have a brace, boot, shoe, or cast on your foot. Activity EReturn to your normal activities as told by your health care provider. Ask your health care provider what activities are safe for you. EIf physical therapy was prescribed, do exercises as told by your health care provider. Safety Annette not use the affected leg to support (bear) your body weight until your health care provider says that you can. Follow weight-bearing restrictions as told. Use crutches, a cane, or a walker as told by your health care provider. General instructions Annette not use any products that contain nicotine or tobacco, such as cigarettes and e-cigarettes. These can delay bone healing. If you need help quitting, ask your health care provider. ETake hryg-fvb-xnoemth and prescription medicines only as told by your health care provider. EIf you are taking prescription pain medicine, take [...] fried or sweet foods. ? Take an khcf-tye-qyexwwb or prescription medicine for constipation. Annette not wear high heels or tight-fitting shoes, even after you heal. EKeep all follow-up visits as told by your health care provider. This is important. Contact a health care provider if: EYou have more redness, swelling, or pain around your incision. EYou have more fluid or blood coming from the incision. EYour incision feels warm to the touch. EThere is pus or a bad smell coming from your incision. EYou have a fever or chills. EYour dressing gets wet or it falls off. EYou have swelling in your lower leg. EYou have numbness or stiffness in your toes. Get help right away if: EYou have a rash. EYou have difficulty breathing. Summary Annette not use the affected leg to support (bear) your body weight until your health care provider says that you can. Follow weight-bearing restrictions as told. Use crutches, a cane, or a walker as told by your health care provider. EIf directed, put ice on the affected area. Leave the ice on for 20 minutes, 2?3 times a day. Annette not drive or use heavy machinery while taking prescription pain medicine. This information is not intended to replace advice given to you by your health care provider. Make sure you discuss any questions you have with your health care provider. Document Released: 05/14/2006 Document Revised: 08/01/2018 Document Reviewed: 08/01/2018 [employer] Interactive Patient Education ? 2019 [employer] documented in this encounter Plan of Treatment Not on file documented as of this encounter Visit Diagnoses Not on filedocumented in this encounter
--- OUTSIDE RECORDS SUMMARY | 2025-05-16 23:25 | XMS_ITS | Encounter Summary ---
Author Organization [employer] ([place], [place], [place], [place]) Address [address] [place] [address] Care Team Providers Care Diesel Roller Operator Name Role Phone Unavailable Primary Care Provider Unavailabl e Encounter Details Date Type Department Care Team (Late st Contact Info) Description 07/13/2019 Transcribed Document [facility] Radiology [address] [place] [address] Provider, Sandra Hoskins MD Social [...] Miscellaneous Notes * Cerner Conversion Note - [facility] Aidee ProviderMD - 07/13/2019 12:20 PM EDT DATE OF PROCEDURE:07/13/2019 LOCATION: [facility] PREOPERATIVE DIAGNOSIS(ES): 1. Hallux abductovalgus, right foot, 2. Pain, right foot. POSTOPERATIVE DIAGNOSIS(ES): 1. Hallux abductovalgus, right foot, 2. Pain, right foot. PROCEDURE: Perez bunionectomy, right foot. SURGEON: Kyrie Mart DPM CEMENT CONVEYOR OPERATOR: None. ANESTHESIA: MAC with popliteal block. HEMOSTASIS: Pneumatic ankle tourniquet. ESTIMATED BLOOD LOSS: Less than 10 mL. MATERIALS: Palisade headless 2.5 screw. INJECTABLES: None. SPECIMEN: None. COMPLICATIONS: None. CONDITION: Stable. DESCRIPTION OF PROCEDURE: Patient met in preoperative setting. All questions answered. Consent was signed. Patient elected to proceed with procedure. Patient received IV antibiotics prophylactically prior to procedure. Patient was brought to the operating room, placed on the table in supine position under mild sedation. The foot was then scrubbed, prepped, draped in usual aseptic fashion. Attention was directed to the right first metatarsophalangeal joint, where bunion deformity was noted. Approximately a 4 cm dorsomedial incision was made. Sharp and blunt dissection was used to get down to the level of the joint capsule. Capsulotomy was performed and attention was then directed laterally, where a lateral release was performed of the soft tissues. Attention was then directed medially, where an Perez bunionectomy was performed with sagittal saw. Fixation with Palisade headless 2.5 screw. Good correction of deformity noted. Surgical site irrigated with sterile saline. Capsular structures closed with 3-0 Vicryl, subcu with 4-0 Vicryl, and skin with 4-0 Monocryl. Postoperative dressing consisting of Betadine, Adaptic, Steri-Strips, 4x4, Kerlix, Aldair was then applied. Patient tolerated procedure well and was transferred to PACU for a brief period of postoperative monitoring before being discharged home. Patient has all discharge instructions. Schedule follow up in the next three to five days. Kyrie Mart DPM Dict: 07/13/2019 11:20:22 Trans: 07/13/2019 13:05:42 CC1: Kyrie Mart DPM Electronically signed by Jeanne [facility] Conversion Commercial Production Editor Cerner at 03/31/2023 5:33 PM CDT documented in this encounter Plan of Treatment Not on file documented as of this encounter Visit Diagnoses Not on filedocumented in this encounter
--- OUTSIDE RECORDS SUMMARY | 2025-05-16 23:25 | XMS_ITS | Encounter Summary ---
Author Organization [employer] ([place], [place], [place], [place]) Address [address] [place] [address] Care Team Providers Care Hr Specialist Name Role Phone Unavailable Primary Care Provider Unavailabl e Encounter Details Date Type Department Care Team (Late st Contact Info) Description 07/13/2019 Transcribed Document [facility] Radiology [address] [place] [address] Provider, Sandra Hoskins MD Social [...] Miscellaneous Notes * Cerner Conversion Note - [facility] Aidee Caruso MD - 07/13/2019 11:23 AM EDT [facility] Main OR IntraOp Summary Primary Physician: EBONY NATH DPM Finalized Date/Time: 07/15/19 16:46:12 Pt. Name: SHANEKA SHIPLEY /Sex: 1975 Female Med Rec #: [id number] Physician: EBONY NATH DPM Financial #: [id number] Pt. Type: O Room/Bed: Admit/Disch: 07/13/19 07:28:00 - 07/13/19 14:43:00 Institution: [facility] IntraOp Case Attendance Entry 1 Entry 2 Entry 3 Case Attendee NATH, EBONY, KIRAN TORRES MD SHEWCRAFT, SUZANNE KEATS, FILTER TIP CATCHER Role Performed Surgeon/Proceduralist, Anesthesiologist of FILTER TIP CATCHER/Nurse Therapeutic Recreation Assistant First Record Time In 07/13/19 10:06:00 07/13/19 10:06:00 07/13/19 10:06:00 Time Out 07/13/19 11:03:00 07/13/19 11:03:00 07/13/19 11:03:00 Procedure Bunionectomy(Right) Bunionectomy(Right) Bunionectomy(Right) Other Attendee Superficial Wound Closed By: Last Modified By: Katie Bennett, Rn Katie Bennett, Rn Katie Bennett, Rn 07/13/19 11:06:39 07/13/19 11:06:39 07/13/19 11:06:39 Entry 4 Entry 5 Entry 6 Case Attendee Katie Bennett, Rn JOHNATHON CHAO, SCRUB Ean Colby Rn TECH Role Performed Income Tax Consultant, First Scrub, First Income Tax Consultant, Second Time In 07/13/19 10:06:00 07/13/19 10:06:00 07/13/19 10:06:00 Time Out 07/13/19 11:03:00 07/13/19 11:03:00 07/13/19 10:24:00 Procedure Bunionectomy(Right) Bunionectomy(Right) Bunionectomy(Right) Other Attendee Superficial Wound Closed By: Last Modified By: Katie Bennett, Rn Katie Bennett, Rn Katie Bennett, Rn 07/13/19 11:06:39 07/13/19 11:06:39 07/13/19 11:06:39 Entry 7 Case Attendee OTHER, ATTENDEE Role Performed Vendor Time In 07/13/19 10:06:00 Time Out 07/13/19 11:03:00 Procedure Bunionectomy(Right) Other Attendee SAM MAMADOU- SERGE Superficial Wound Closed By: Last Modified By: Katie Bennett, Rn 07/13/19 11:06:39 [facility] IntraOp Case Attendance Audit 07/13/19 11:06:39 Mold Maker Helper: [id number] Modifier: [id number] 1 <+> Time Out 1 <*> Procedure Bunionectomy(Right) 2 <+> Time Out 2 <*> Procedure Bunionectomy(Right) 3 <+> Time Out 3 <*> Procedure Bunionectomy(Right) 4 <+> Time Out 4 <*> Procedure Bunionectomy(Right) 5 <+> Time Out 5 <*> Procedure Bunionectomy(Right) 6 <*> Procedure Bunionectomy(Right) 7 <+> Time In 7 <+> Time Out 7 <*> Procedure Bunionectomy(Right) 07/13/19 10:43:26 Mold Maker Helper: [id number] Modifier: [id number] <+> 7 Case Attendee <+> 7 Role Performed <+> 7 Procedure <+> 7 Other Attendee 07/13/19 10:24:56 Mold Maker Helper: [id number] Modifier: [id number] 1 <*> Procedure Bunionectomy(Right) 2 <*> Procedure Bunionectomy(Right) 3 <*> Procedure Bunionectomy(Right) 4 <*> Procedure Bunionectomy(Right) 5 <*> Procedure Bunionectomy(Right) 6 <*> Role Performed Income Tax Consultant, First 6 <+> Time In 6 <+> Time Out 6 <*> Procedure Bunionectomy(Right) 07/13/19 10:12:14 Mold Maker Helper: [id number] Modifier: [id number] <+> 6 Case Attendee <+> 6 Role Performed <+> 6 Procedure 07/13/19 10:11:52 Mold Maker Helper: [id number] Modifier: [id number] 1 <*> Procedure Bunionectomy(Right) 2 <+> Case Attendee 2 <+> Time In 2 <*> Procedure Bunionectomy(Right) 3 <+> Time In 3 <*> Procedure Bunionectomy(Right) 4 <+> Time In 4 <*> Procedure Bunionectomy(Right) 5 <+> Case Attendee 5 <+> Time In 5 <*> Procedure Bunionectomy(Right) [facility] IntraOp Case Times Entry 1 Patient In Room Time 07/13/19 10:06:00 Out Room Time 07/13/19 11:03:00 Anesthesia Start Time 07/13/19 10:06:00 Stop Time 07/13/19 11:03:00 Surgery / Procedure Times Start Time 07/13/19 10:23:00 Stop Time 07/13/19 10:58:00 Last Modified By: Katie Bennett Rn 07/13/19 11:06:37 [facility] IntraOp Case Times Audit 07/13/19 11:06:37 Mold Maker Helper: [id number] Modifier: [id number] <+> 1 Out Room Time <+> 1 Stop Time <+> 1 Stop Time 07/13/19 10:24:42 Mold Maker Helper: [id number] Modifier: [id number] <+> 1 Start Time [facility] IntraOp Communication Entry 1 Entry 2 Communication To Family/Significant other Family/Significant other Comment START CLOSING Communication By Katie Bennett, Katie Guardado Rn Date and Time 07/13/19 10:25:00 07/13/19 10:46:00 Last Modified By: Katie Bennett Rn Bruner, Kristen D, Rn 07/13/19 10:25:10 07/13/19 10:46:44 [facility] IntraOp Communication Audit 07/13/19 10:46:44 Mold Maker Helper: [id number] Modifier: [id number] <+> 2 Communication By <+> 2 Date and Time <+> 2 Communication To <+> 2 Comment [facility] IntraOp Counts Verification Entry 1 Procedure Bunionectomy(Right) Count Info Count Type Sponge, Sharps Counts Verification Baseline/pre-procedure Sequence Counts Performed By Count Performed By Katie Bennett, Rn (Scrub) Count Performed By Ean Colby Rn (RN) Last Modified By: Katie Bennett Rn 07/13/19 10:13:42 [facility] IntraOp Counts Verification Audit 07/13/19 10:13:42 Mold Maker Helper: [id number] Modifier: [id number] Entry 1 was deleted. Higher numbered entries shifted one position to fill the gap. <-> 1 Procedure Bunionectomy(Right) <-> 1 Count Type Sponge, Sharps <-> 1 Counts Verification Sequence Baseline/pre-procedure <-> 1 Count Performed By (Scrub) Katie Bennett Rn <-> 1 Count Performed By (RN) 07/13/19 10:12:26 Mold Maker Helper: [id number] Modifier: [id number] <+> 2 Procedure <+> 2 Count Type <+> 2 Counts Verification Sequence <+> 2 Count Performed By (Scrub) <+> 2 Count Performed By (RN) [facility] IntraOp Counts Final Entry 1 Procedure Bunionectomy(Right) Final Count Info Count Type Sponge, Sharps Counts Verification Skin Closure/end of Sequence procedure Count Results Correct, surgeon notified Counts Performed By Count Performed By JOHNATHON CHAO SCRUB (Scrub) TECH Count Performed By Katie Bennett Rn (RN) Last Modified By: Katie Bennett Rn 07/13/19 10:46:53 [facility] IntraOp Counts Final Audit 07/13/19 10:46:53 Mold Maker Helper: [id number] Modifier: [id number] 1 <*> Procedure Bunionectomy(Right) 1 <+> Count Results 1 <+> Count Performed By (Scrub) 1 <+> Count Performed By (RN) 1 <+> Counts Verification Sequence [facility] IntraOp Departure from OR Entry 1 Integumentary Assessment Integumentary WDL with patient Assessment WDL specific variances Patient's Normal NEW SURGICAL INCISION Integumentary Variance(s) Transfer/Handoff Transfer to PACU Phase I Handoff Method Phone call Post-op Transport Kirti/Brianna Via Patient Transport RAULITO WORTHINGTON Accompanied by ESEQUIEL ROBERTS, Katie Bennett, Rn Last Modified By: Katie Bennett Rn 07/13/19 10:25:43 [facility] IntraOp Dressing and Packing Entry 1 Type Dressing Location OPSITE: RIGHT FOOT Wound Dressing Item Aldair, 4x4's, Steristrip, Kerlix/Richard Applied By EBONY NATH DPM Last Modified By: Katie Bennett Rn 07/13/19 10:26:13 [facility] IntraOp Fire Risk Assessment Entry 1 Fire Info Surgical Site or 0- No Incision Above the Xyphoid Open O2 Source 0- No (Mask or Cannula) Available Ignition 0- No (ESU, Laser, Light Source) Fire Risk 0 Assessment Score Fire Score Fire Risk Yes Assessment Complete Fire Risk Ean Colby Hydrography Teacher Verified By Fire Risk 07/13/19 10:12:00 Assessment Verified Date/Time Fire Risk Standard Fire Yes Safety Precautions Followed Last Modified By: Katie Bennett Rn 07/13/19 10:43:39 [facility] IntraOp Fire Risk Assessment Audit 07/13/19 10:43:39 Mold Maker Helper: [id number] Modifier: [id number] 1 <*> Open O2 Source (Mask or Cannula) 1- Yes 1 <*> Available Ignition (ESU, Laser, 1- Yes Light Source) 1 <*> Fire Risk Assessment Score 2 [facility] IntraOp General Case Bung Driver 1 Case Information OR OR 04 [facility] Case Level 1 Room Verified Yes Wound Class I - Clean Specialty SN Podiatry Anesthesia Type General ASA Class 2 Diagnosis Preop Diagnosis BUNION RIGHT FOOT Postop Same As Preop No Postop Diagnosis SEE DOCTOR POSTOP NOTES Last Modified By: Katie Bennett Rn 07/13/19 10:30:20 [facility] IntraOp General Case Data Audit 07/13/19 10:30:20 Mold Maker Helper: [id number] Modifier: [id number] 1 <*> Anesthesia Type MAC 1 <*> Postop Diagnosis SEE DR NOTES 07/13/19 10:14:25 Mold Maker Helper: [id number] Modifier: [id number] <+> 1 ASA Class <+> 1 Anesthesia Type <+> 1 Postop Same As Preop <+> 1 Preop Diagnosis <+> 1 Postop Diagnosis <+> 1 Room Verified [facility] IntraOp Implant Log Entry 1 Entry 2 Entry 3 Type Implant (Synthetic) Implant (Synthetic) Implant (Synthetic) Implant Log Implant Type Hardware Hardware Hardware Tissue Implant Type Implant DRVR SHAFT ABRAM T7 W/QC [id number] SERGE GUIDEWIRE 0.9X80MM Identification [id number] [id number] Description Implant Quantity 1 1 1 Implant Site OPSITE: RIGHT FOOT OPSITE: RIGHT FOOT OPSITE: RIGHT FOOT Implant Identification Model Number Implant Identification Serial Number Implant Identification Lot Number Implant Serge:[place] [employer] Identification [employer] (Sbi) Hand Tennis Ball Coverer Name: Implant [id number] Identification Catalog Number Implant Size Implant Has an Expiration Date Implant Expiration Date Wasted Radioactive Material Time Implanted Tissue Implant Continue for Tissue Implant Documentation Tissue Identification Number Graft Prep Per Hand Tennis Ball Coverer Instructions: Tissue Preparation Method: Reconstitution Solution: Reconstitution Solution Lot Number Reconstitution Solution Expiration Date: Thawing Solution Thawing Solution Lot Number Thawing Solution Expiration Date Preparation Materials, Other Preparation Materials, Other Lot Number Preparation Materials, Other Expiration Date Tissue Prepared/Processed By Hand Tennis Ball Coverer Paperwork Completed Implant Type Comment Last Modified By: Katie Bennett, Katie Guardado, Rn Katie Bennett Rn 07/13/19 10:53:16 07/13/19 10:53:16 07/13/19 10:53:16 Entry 4 Type Implant (Synthetic) Implant Log Implant Type Hardware Tissue Implant Type Implant SCR ABRAM SELF DRL Identification [id number] Description Implant Quantity 1 Implant Site OPSITE: RIGHT FOOT Implant Identification Model Number Implant Identification Serial Number Implant Identification Lot Number Implant [place] [employer] Hand Tennis Ball Coverer Name: Implant [id number] Identification Catalog Number Implant Size Implant Has an Expiration Date Implant Expiration Date Wasted Radioactive Material Time Implanted Tissue Implant Continue for Tissue Implant Documentation Tissue Identification Number Graft Prep Per Hand Tennis Ball Coverer Instructions: Tissue Preparation Method: Reconstitution Solution: Reconstitution Solution Lot Number Reconstitution Solution Expiration Date: Thawing Solution Thawing Solution Lot Number Thawing Solution Expiration Date Preparation Materials, Other Preparation Materials, Other Lot Number Preparation Materials, Other Expiration Date Tissue Prepared/Processed By Hand Tennis Ball Coverer Paperwork Completed Implant Type Comment Last Modified By: Katie Bennett Rn 07/13/19 10:55:16 [facility] IntraOp Implant Log Audit 07/13/19 10:55:16 Mold Maker Helper: [id number] Modifier: [id number] <+> 4 Implant Identification Description <+> 4 Implant Identification Hand Tennis Ball Coverer Name: <+> 4 Implant Site <+> 4 Implant Quantity <+> 4 Implant Identification Catalog Number <+> 4 Implant Type <+> 4 Type [facility] IntraOp Intraoperative Assessment Entry 1 Handoff Method Online nursing summary Valid History / Yes Physical in Chart Preoperative Yes Checklist Reviewed/Evaluated Allergies Reviewed Yes Patient is Latex No Sensitive Isolation Not applicable Precautions Noted Level of WDL Consciousness (WDL = Alert, Oriented to Person, Place, and Time) Present Upon IVs Arrival to OR Last Modified By: Katie Bennett Rn 07/13/19 10:43:54 [facility] IntraOp Intraoperative Assessment Audit 07/13/19 10:43:54 Mold Maker Helper: [id number] Modifier: [id number] <+> 1 Level of Consciousness (WDL = Alert, Oriented to Person, Place, and Time) <+> 1 Isolation Precautions Noted [facility] IntraOp Intraoperative Equipment Entry 1 Type Equipment Equipment Equipment Reji Suction System ID Number [id number] Setting HIGH Intraop Monitoring Electrocardiogram Five lead placement (ECG) Electrode Placement Blood Pressure Non-Invasive BP Device Source Blood Pressure Arm, left upper Location Pulse Oximeter Hand, right Probe Site Antiembolic Devices Scopes Photo/Video Documentation Last Modified By: Katie Bennett Rn 07/13/19 10:24:34 [facility] IntraOp Medication Admin Entry 1 Medication/Irrigant MARCELLE IRR NACL 0.9PCT 2000ML [facility]-[id number] Route of IRRIGATION Administration Dose Administered By EBONY NATH DPM Procedure Irrigation Last Modified By: Katie Bennett Rn 07/13/19 10:26:37 [facility] IntraOp Patient Positioning Entry 1 Procedure Bunionectomy(Right) Body Position Supine Left Arm Position Resting at side Right Arm Position Resting at side Left Leg Position Uncrossed, parallel Right Leg Position Held on field Feet Uncrossed Yes Pressure Points Yes Checked Positioning Devices Foot Rest, Head Rest, Pad, Arm, Safety Strap, Chest, Wedge, Pillows Positioned By Katie Bennett, Jyoti, RAULITO WORTHINGTON, ESEQUIEL, EBONY NATH DPM Position Verified Positioning Yes Verified by Anesthesia Positioning Yes Verified by Surgeon Last Modified By: Katie Bennett Rn 07/13/19 10:46:35 [facility] IntraOp Patient Positioning Audit 07/13/19 10:46:35 Mold Maker Helper: [id number] Modifier: [id number] 1 <*> Procedure Bunionectomy(Right) 1 <*> Positioning Devices Foot Rest, Head Rest, Pad, Arm, Safety Strap, Chest [facility] IntraOp Sign In Entry 1 Patient, Site, Yes Procedure Identified Surgical Consent Yes Confirmed Relevant Surgical Yes Documents Available Surgical Site Yes Marked by person performing procedure Anesthesia Machine Yes Check Completed Medication Checks Yes Completed Allergies Yes Airway Difficult Yes Airway/Aspiration Risk Difficult Yes Airway/Aspiration Intervention Equipment Available Blood Loss Risk No Blood Loss Yes Intervention Equipment Prepared and Ready Blood Identifiers Not applicable Verified Per Policy Hypothermia Risk Yes Warming Measures Yes Taken Last Modified By: Katie Bennett Rn 07/13/19 10:26:44 [facility] IntraOp Sign Out Entry 1 RN Confirmation Surgical Yes Procedure(s) Identified Instrument, Sponge Yes and Sharps Counts Correct/Documented Equipment Problems N/A Documented Specimen Labeled N/A Correctly Urinary Catheter N/A Documented in IView Patel Patient Yes Recovery Concerns Reviewed with Anesthesia Provider, Surgeon and RN Patel Patient Yes Management Concerns Reviewed with Anesthesia Provider, Surgeon and RN Safety Checklist Yes Elements Complete? RN Sign Out Katie Bennett Rn Signature RN Sign Out 07/13/19 11:03:00 Signature Date/Time Plan of Care Outcome - Fire Risk OUTCOME STATEMENT: Goal met Patient is free from injury related to surgical fire Plan of Care Outcome - Pt Positioning OUTCOME STATEMENT: Goal met Absence of signs and symptoms of positioning injury. Plan of Care Outcome - Skin Prep OUTCOME STATEMENT: Goal met Intraoperative care is consistent with measures to prevent infection Plan of Care Outcome - Xray/Images OUTCOME STATEMENT: N/A Absence of observable signs or symptoms of radiation injury Plan of Care Outcome - Counts OUTCOME STATEMENT: Goal met Absence of signs and symptoms of injury related to extraneous objects Last Modified By: Katie Bennett Rn 07/13/19 11:06:51 [facility] IntraOp Sign Out Audit 07/13/19 11:06:51 Mold Maker Helper: [id number] Modifier: [id number] <+> 1 RN Sign Out Signature Date/Time [facility] IntraOp Skin Prep Entry 1 Procedure Bunionectomy(Right) Prescribed N/A Pre-Surgical Prep Completed Prep Area OPSITE: RIGHT ANKLE TO TOES CIRCUMFRENTIALLY Intraop Prep Integumentary WDL Assessment WDL Prep Agents Betadine scrub, Betadine solution Prep by Katie Bennett, Rn Hair Removal Methods No hair removal performed Last Modified By: Katie Bennett Rn 07/13/19 10:27:35 [facility] IntraOp Surgical Procedures Entry 1 Procedure Bunionectomy Modifiers Right Additional (RIGHT TEX Procedure BUNIONECTOMY) Description Primary Procedure Yes Primary Surgeon EBONY NATH DPM Start 07/13/19 10:23:00 Stop 07/13/19 10:58:00 Anesthesia Type General Specialty SN Podiatry Wound Class I - Clean Last Modified By: Katie Bennett Rn 07/13/19 11:06:42 General Comments: ANCEF 2 GRAMS ADMINISTERED PRIOR TO SURGERY START PER ANESTHESIA PROVIDER @ 1010 [facility] IntraOp Surgical Procedures Audit 07/13/19 11:06:42 Mold Maker Helper: [id number] Modifier: [id number] 1 <*> Procedure Bunionectomy 1 <*> Procedure Bunionectomy 1 <*> Procedure Bunionectomy 1 <*> Stop 1 <*> Stop [facility] IntraOp Temp Regulation Devices Entry 1 Temp Regulation Temperature Warm blankets Regulation Device Temperature Full body Regulation Site Temperature NARESHWCRRAULITO CARLTON Regulation Device RANDIMAHESHESEQUIEL Applied by Temperature PATIENT TEMPERATURE Regulation Comment MONITORED AND CONTROLLED PER ANESTHESIA PROVIDER: MALIHA MCNEIL AVAILABLE IF NEEDED Last Modified By: Katie Bennett Rn 07/13/19 10:30:07 [facility] IntraOP Time Out Entry 1 Procedure to be Bunionectomy(Right) Performed Time Out Time Out Pause Time 07/13/19 10:22:00 All activity Yes suspended (unless life threatening emergency) Team Verbally Correct patient Confirms Information identity, Correct side and site are marked, Consent form is present and accurate, Agreement on the procedure to be done, Correct patient position, Relevant images/results properly labeled/appropriately displayed, Confirm antibiotics have been administered, Confirm the skin prep has dried, Confirm prosthesis/implant/devic e is present, Performed in location of procedure after prepped/draped Antibiotic Yes Prophylaxis Administered Or In Progress Within the Last 60 Minutes Beta Emanuel N/A Administered Venous Yes Thromboembolism Prophylaxis Required Anticipated Critical Events Surgeon None expected Anesthesia Provider None expected Nursing Assures Sterility of instruments, Implant Availability Essential Imaging Yes Labeled and Displayed Last Modified By: Katie Bennett Rn 07/13/19 10:28:22 [facility] IntraOp Tourniquet Entry 1 Type Pneumatic Serial/Unit Number [id number] Setting 250 mmHg Pheumatic Yes Tourniquet Checked Per Protocol Size 18 inches Placement Ankle, right Skin Protection - Yes Padded Under Cuff Applied By Katie Bennett Rn Removed By EBONY NATH DPM Times Start Time 07/13/19 10:21:00 Stop Time 07/13/19 10:58:00 Total Time 36 calculated manually (Mins) Last Modified By: Katie Bennett Rn 07/13/19 10:58:44 [facility] IntraOp Tourniquet Audit 07/13/19 10:58:44 Mold Maker Helper: [id number] Modifier: [id number] <+> 1 Total Time calculated manually (Mins) <+> 1 Stop Time Case Comments <None> Finalized By: TEGAN ZAPATA Document Signatures Signed By: Katie Bennett Rn 07/13/19 11:06 TEGAN ZAPATA 07/15/19 16:46 Unfinalized History Date/Time Username Reason for Unfinalizing Freetext Reason for Unfinalizing 07/15/19 16:42 [email or web address] Correct Billing Electronically signed by Chucho Angel Conversion Family Development Extension Specialist Cerner at 03/31/2023 5:33 PM CDT documented in this encounter Plan of Treatment Not on file documented as of this encounter Visit Diagnoses Not on filedocumented in this encounter
--- OUTSIDE RECORDS SUMMARY | 2025-05-16 23:25 | XMS_ITS | Encounter Summary ---
Author Organization [employer] ([place], [place], [place], [place]) Address [address] [place] [address] Care Team Providers Care Machine Load Clerk Name Role Phone Unavailable Primary Care Provider Unavailabl e Encounter Details Date Type Department Care Team (Late st Contact Info) Description 07/13/2019 Transcribed Document [facility] Radiology [address] [place] [address] Provider, Sandra Hoskins MD Social [...] Notes * Cerner Conversion Note - [facility] Aidee ProviderMD - 07/13/2019 10:04 AM EDT Procedural Documentation Entered On: 07/13/2019 9:06 EDT Performed On: 07/13/2019 9:04 EDT by Alix Sánchez RN Procedure Documentation Procedure to be Performed : popliteal nerve block Time Out Pause Time : 07/13/2019 8:50 EDT All Activity Suspended : Yes Team Verbally Confirms Information : Correct patient identity, Correct side and site are marked, Consent form is present and accurate, Agreement on the procedure to be done, Correct patient position, Confirm the skin prep has dried, Performed in location of procedure after prepped/draped Procedure Performed : right popliteal nerve block Proper Use of Sterile Apparel per Policy : Yes Procedure Case Attendee : GABINO GOVEA MD Procedure Case Attendee Role : Anesthesiologist Procedure Case Attendee Role 2 : consulting hr professional Case Attendee 2 : Alix Sánchez RN Procedure Case Attendee Role 3 : consulting hr professional Case Attendee 3 : Nahed Curtis, Nurse Foster Care Worker Alix Sánchez RN - 07/13/2019 9:04 EDT Pati Level I Post Anesthesia Assessment Pati I Activity Status : Moves 4 extremities voluntarily or on command Pati l Respiratory Component : Able to deep breathe and cough freely Pati I Circulation Component : BP 20% of preanesthetic level Pati I Consciousness : Arouses on calling Pati l Oxygen Saturation : Needs oxygen to maintain > 92% Pati l Score : 8 Alix Sánchez RN - 07/13/2019 9:04 EDT Vital Measurements Pulse Method : Pulse Oximetry Peripheral Pulse Rate : 84 bpm Respiratory Rate : 14 Breaths/Min Blood Pressure Location : Arm, left upper Blood Pressure Source : Non-Invasive BP Device Blood Pressure Position : Sitting Systolic Blood Pressure : 132 mmHg Diastolic Blood Pressure : 74 mmHg Oxygen Saturation : 97 % Oxygen Therapy Mode : Nasal cannula Oxygen Flow Rate : 2 Liter/Min Alix Sánchez RN - 07/13/2019 9:04 EDT documented in this encounter Plan of Treatment Not on file documented as of this encounter Visit Diagnoses Not on filedocumented in this encounter
--- OUTSIDE RECORDS SUMMARY | 2025-05-16 23:25 | XMS_ITS | Encounter Summary ---
Author Organization [employer] ([place], [place], [place], [place]) Address [address] [place] [address] Care Team Providers Care Senior Abap Developer Name Role Phone Unavailable Primary Care Provider Unavailabl e Encounter Details Date Type Department Care Team (Late st Contact Info) Description 07/13/2019 Transcribed Document [facility] Radiology [address] [place] [address] Provider, Sandra Hoskins MD Social [...] Miscellaneous Notes * Cerner Conversion Note - [facility] Aidee ProviderMD - 07/13/2019 11:23 AM EDT [facility] Main OR Preop Summary Primary Physician: EBONY NATH DPM Finalized Date/Time: 07/13/19 14:32:43 Pt. Name: SHANEKA SHIPLEY /Sex: 1975 Female Med Rec #: [id number] Physician: EBONY NATH DPM Financial #: [id number] Pt. Type: O Room/Bed: Admit/Disch: 07/13/19 07:28:00 - Institution: [facility] PreOp Case Times Entry 1 In Preop 07/13/19 07:40:00 Ready for Holding n/a Room Patient Ready for 07/13/19 09:05:00 Surgery Patient Out of Preop 07/13/19 10:03:00 Patient Out of n/a Holding Room Last Modified By: Virgie Bach RN 07/13/19 14:32:42 [facility] PreOp Case Times Audit 07/13/19 14:32:42 Disk And Tape Machine Tender: [id number] Modifier: [id number] <+> 1 Patient Out of Preop Finalized By: Virgie Bach RN Document Signatures Signed By: Virgie Bach RN 07/13/19 14:32 Electronically signed by Jeanne [facility] Conversion Dispatcher [employer] Cerner at 03/31/2023 5:33 PM CDT documented in this encounter Plan of Treatment Not on file documented as of this encounter Visit Diagnoses Not on filedocumented in this encounter
--- OUTSIDE RECORDS SUMMARY | 2025-05-16 23:25 | XMS_ITS | Clinical Summary ---
Author Organization [facility] Address [address] [place] [address] Care Team Providers Care Nurse Reviewer Name Role Phone Scot Jackie Miller APRN Primary Care Provider [phone] Allergies Active Allergy Reactions Criticality Noted Date Comments Latex Other - please docum ent in the comment field Low 08/11/2023 Patient states skin gets red after prolonged periods of use. Other Other - please docum ent in the comment field Low 04/05/2024 Pt states that she developed infection after surgery and surgeon told her that it could be caused by internal sutures Medications lisinopril 10 MG tablet Take 1 tablet (10 mg) by mouth 1 (one) time each day. 2 Active SUMAtriptan (Imitrex) 100 MG tablet Take 1 tablet (100 mg) by mouth 1 (one) time if needed for migraine. 2 Active febuxostat (Uloric) 40 MG tablet Take 1 tablet (40 mg) by mouth 1 (one) time each day. 3 Active propranolol LA (Inderal LA) 60 MG 24 hr capsule Take 1 capsule (60 mg) by mouth 1 (one) time each day. 3 Active FLUoxetine (PROzac) 20 MG capsule Take 1 capsule (20 mg) by mouth 1 (one) time each day. 4 Active ARIPiprazole (Abilify) 5 MG tablet Take 1 tablet (5 mg) by mouth every night. Active estradiol (Estrace) 2 MG tablet Take 1 tablet (2 mg) by mouth 1 (one) time each day. HOLD for 4 weeks post-op 4 Active Additional Information Patient not taking.Reported on 05/08/2024 acetaminophen (Tylenol Extra Strength) 500 MG tablet Take 2 tablets (1,000 mg) by mouth every 8 (eight) hours. 100 tablet 4 Active Additional Information Patient not taking.Reported on 08/09/2024 ARIPiprazole (Abilify) 10 MG tablet Take 1 tablet (10 mg) by mouth every night. Active gabapentin (Neurontin) 100 MG capsuleIndicati ons:Postoperati ve Pain Take one tablet in the morning and 1-2 at night as needed for pain 30 capsule Active Additional Information Patient not taking.Reported on 06/05/2024 oxyCODONE (Roxicodone) 5 MG immediate release tablet Take 1 tablet (5 mg) by mouth every 8 (eight) hours if needed for severe pain. 15 tablet Active Additional Information Patient not taking.Reported on 06/05/2024 estradiol (Estrace) 2 MG tablet Take 1 tablet (2 mg) by mouth 1 (one) time each day. Active Active Problems Problem Noted Date Diagnosed Date ADHD 05/08/2024 Anxiety and depression 05/08/2024 Hypertension 05/08/2024 Infected sebaceous cyst 05/08/2024 Migraine 05/08/2024 Right knee pain 05/08/2024 UTI (urinary tract infection) 05/08/2024 Varicose vein of leg 05/08/2024 Internal derangement of left knee 05/08/2024 Primary osteoarthritis of left knee 04/18/2024 Primary osteoarthritis of one knee, left 024 Left anterior cruciate ligament tear 07/22/2023 Obesity (BMI 35.0-39.9 without comorbidity) 01/07 Severe obesity (BMI 35.0-39.9) with comorbidity 01/28/2023 Resolved Problems Problem Noted Date Diagnosed Date Resolved Date 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 Family History Medical History Relation Name Comments Anesthesia problems Neg Hx Malig Hyperthermia Neg Hx Social History Tobacco Use Types Packs/Day Years Used Date Smoking Tobacco: Former Cigarettes 0.5 20 2 019 - 2004 Passive Smoke Exposure: Never Smokeless Tobacco: Never Tobacco Cessation:Counseling Given: Not Answered Alcohol Use Standard Drinks/Week Comments Yes 0 (1 standard drink = 0.6 oz pur e alcohol) 1 drink every 2 weeks PHQ-2 Answer Date Recorded Patient Health Questionnaire-2 Score 0 01/28/2023 PHQ-2A Answer Date Recorded Patient Health Questionnaire-2 Score 0 01/28/2023 Comments No Sex and Gender Information Value Date Recorded Sex Assigned at Female 08/17/2023 10:07 AM EDT Legal Sex Female 7:52 PM EDT Gender Identity Female 08/17/2023 10:07 AM EDT Sexual Orientation Straight 08/17/2023 10 :07 AM EDT Last Filed Vital Signs Vital Sign Reading Time Taken Comments Blood Pressure 111/76 08/09/2024 8:58 AM EDT Pulse 71 08/09/2024 8:58 AM EDT Temperature 36.4 C (97.5 F) 08/09/2024 8:58 AM EDT Respiratory Rate 16 04/18/2024 3:00 PM EDT Oxygen Saturation 99% 08/09/2024 8:58 AM EDT Inhaled Oxygen Concentration - - Weight 101 kg (222 lb 3.6 oz) 08/09/2024 8:58 AM EDT Height 162.6 cm (5' 4 ) 08/09/2024 8:58 AM EDT Body Mass Index 38.14 08/09/2024 8:58 AM EDT Plan of Treatment Health Maintenance Due Date Last Done Comments [facility]-HIV Screening 1975 [facility]-Hepatitis C Screening 1975 [facility]-/Child/Adol SDOH Screenings 1975 [facility]- SDOH Screenings 1993 [facility]-Adult SDOH Screenings 1993 [facility]-DTaP,Tdap,and Td Vaccines (1 - Tdap) 1994 [facility]-Hepatitis B Vaccines (1 of 3 - 19+ 3-dose series) 1994 CT Colonography 01/14/2020 Colonoscopy 01/14/2020 FIT-DNA 01/14/2020 FIT 01/14/2020 FOBT 01/14/2020 Sigmoidoscopy 01/14/2020 [facility]-Colorectal Cancer Screening 01/14/2020 [facility]-Depression Screening 01/29/2024 01/28/2023 LMN-PNBFN-11 Vaccine ( - season) 2024 03/28/2021 [facility]-Breast Cancer Screening 2025 [facility]-Pneumococcal Vaccine: 50+ Years (1 of 1 - PCV) 2025 [facility]-Zoster Vaccines (1 of 2) 2025 [facility]-Influenza Vaccine (#1) 2025 09/28/2019 [facility]-Obesity Intervention Completed 024, 06/05/2024, 05/08/2024, Additional history exists HPV Vaccines Aged Out No longer eligi ble based on patient's age to complete this topic [facility]-HIB Vaccines Aged Out No longer e ligible based on patient's age to complete this topic [facility]-Hepatitis A Vaccines Aged Out No longer eligible based on patient's age to complete this topic [facility]-IPV Vaccines Aged Out No longer e ligible based on patient's age to complete this topic [facility]-Rotavirus Vaccines Aged Out No lo nger eligible based on patient's age to complete this topic Goals Goal Patient Goal Type Associated Problems Recent Progress Patient-Stated? Author Autogenera roman Goal Care Plan Autogenerated Problem No Batch Discontinue, Automatic Medical Devices Implanted Type Area Technology Teacher Device Identifier Shelf Expiration Date Model / Serial / Lot Cement Palacos - [id number] Implanted:Qty: 1 on 04/18/2024 by Gilbert Ramos MD at [facility] Cement Left: Knee [id number] 09/07/2028 [id number] / / [id number] Femoral Comp Journey Ii Uni Ox 3rm/Ll - [id number] Implanted:Qty: 1 on 04/18/2024 by Gilbert Ramos MD at [facility] Knee Left: Knee [id number] 09/17/2030 [id number] / / [id number] Tibial Lateral Comp Journey Ii Uni Ox Lt Sz 2 - [id number] Implanted:Qty: 1 on 04/18/2024 by Gilbert Ramos MD at [facility] Knee Left: Knee [id number] 07/19/2032 [id number] / / [id number] Insert Lateral Journey Ii Uni Xlpe Sz 2-3/10mm - [id number] Implanted:Qty: 1 on 04/18/2024 by Gilbert Ramos MD at [facility] Knee Left: Knee [id number] 10/19/2031 [id number] / / [id number] Additional Health Concerns Active Problems Noted Date Diagnosed Date Autogenerated Problem 03/24/2025 Insurance IRENA LUCIAN Advance Directives * Full Code (Latest Code Status on File) Date Activated Date Inactivated Comments 04/18/2024 8:58 AM 04/18/2024 5:38 PM Question Answer Comments Patient has decision-making capacity? Yes Care Teams Nurse Reviewer Relationship Specialty Start Date End Date Jackie Ellison APRN [address] [place] [address] [facility] - General 01/10/24
--- OUTSIDE RECORDS SUMMARY | 2025-05-16 23:25 | XMS_ITS | Referral Summary ---
Author Organization [employer] ([place], [place], [place], [place]) Address [address] [place] [address] Care Team Providers Care Audio Production Engineer Name Role Phone Unavailable Primary Care Provider [...]
--- OUTSIDE RECORDS SUMMARY | 2025-05-16 23:25 | XMS_ITS | Encounter Summary ---
Author Organization [employer] ([place], [place], [place], [place]) Address [address] [place] [address] Care Team Providers Care Acid Purification Equipment Operator Name Role Phone Unavailable Primary Care Provider Unavailabl e Encounter Details Date Type Department Care Team (Late st Contact Info) Description 07/13/2019 Transcribed Document [facility] Radiology [address] [place] [address] Provider, Sandra Hoskins MD Social [...] Miscellaneous Notes * Cerner Conversion Note - [facility] Aidee ProviderMD - 07/13/2019 9:45 AM EDT Patient: SHANEKA PETTIT Age: 44 years Sex: Female : 1975 Associated Diagnoses: None Author: SHANEKA NICHOLAS APRN Chief Complaint R foot bunion Review of Systems ROS reviewed as documented in chart no change since last seen by surgeon Health Status Allergies: Allergic Reactions (Selected) No Known Medication Allergies, Allergies (1) Active Reaction No Known Medication Allergies None Documented Current medications: (Selected) Inpatient Medications Ordered Ancef: 2 Gram, 50 mL, 100 mL/Hr, IV Piggyback, PREOP Lactated Ringers Injection intravenous solution 1,000 mL: 20 mL/Hr, IntraVENous famotidine: 20 mg, Oral, 1-Time fentaNYL: 50 mcg, IV Push, Q10Min, PRN: Pain lidocaine 1% preservative-free injectable solution: 0.5 mL, IntraDermal, 1-Time midazolam: 2 mg, IV Push, Q10Min, PRN: Anxiety Documented Medications Documented Adderall 30 mg oral tablet: 1 Tab, Oral, BID, 0 Refill(s) Trileptal 300 mg oral tablet: 2 Tab, Oral, BID, 120 Tab, 0 Refill(s) Wellbutrin XL 150 mg/24 hours oral tablet, extended release: Tab, Oral, [id number], 0 Refill(s) estradiol 1 mg oral tablet: Tab, Oral, Daily, 0 Refill(s) hydroCHLOROthiazide 25 mg oral tablet: Tab, Oral, Daily, 0 Refill(s) levothyroxine 25 mcg (0.025 mg) oral tablet: Tab, Oral, Daily, 0 Refill(s), Home Medications (6) Active Adderall 30 mg oral tablet 30 mg = 1 Tab, Oral, BID estradiol 1 mg oral tablet , Oral, Daily hydroCHLOROthiazide 25 mg oral tablet , Oral, Daily levothyroxine 25 mcg (0.025 mg) oral tablet , Oral, Daily Trileptal 300 mg oral tablet 600 mg = 2 Tab, Oral, BID Wellbutrin XL 150 mg/24 hours oral tablet, extended release , Oral, [id number] , Medications (6) Active Scheduled: (3) ceFAZolin/D5w 2 Gram 50 mL, IV Piggyback, PREOP famotidine 20 mg tab 20 mg 1 Tab, Oral, 1-Time lidocaine 1% *PF* inj 2 mL 0.5 mL, IntraDermal, 1-Time Continuous: (1) lactated ringers 1,000 mL 1,000 mL, IntraVENous, 20 mL/Hr PRN: (2) fentaNYL 100 mcg/2 mL inj 50 mcg 1 mL, IV Push, Q10Min midazolam 2 mg, IV Push, Q10Min Problem list: All Problems Hypothyroid / SNOMED CT 72958811 / Confirmed HTN (hypertension) / SNOMED CT 0228132961 / Confirmed Depressed / SNOMED CT 21242027 / Confirmed Bunion, right foot / SNOMED CT 3161196374 / Confirmed Anxiety / SNOMED CT 75445739 / Confirmed, Active Problems (5) Anxiety Bunion, right foot Depressed HTN (hypertension) Hypothyroid Histories Past Medical History: No active or resolved past medical history items have been selected or recorded. Family History: No family history items have been selected or recorded. Procedure history: tonsillectomy age 12. cholecystectomy age 21. C section 15 yrs ago. hysterectomy 2015. Physical Examination VS/Measurements Vital Signs/Vital Measures 07/13/2019 8:00 EDT Systolic Blood Pressure 139 mmHg Diastolic Blood Pressure 91 mmHg HI Temperature Source Temporal artery scanning Temperature Mode Fahrenheit Temperature, Fahrenheit 97.4 Deg F Clinical Temperature, C 36.3 Deg C Heart Rate Monitored 80 bpm Respiratory Rate 20 Breaths/Min Oxygen Saturation 100 % Oxygen Therapy Mode Room air , Vitals Signs (last 24 hrs) Last Charted Minimum Maximum Temp 97.4 (JUL 13 08:00) 97.4 (JUL 13 08:00) 97.4 (JUL 13 08:00) Mon HR 80 (JUL 13 08:00) 80 (JUL 13 08:00) 80 (JUL 13 08:00) Resp Rate 20 (JUL 13 08:00) 20 (JUL 13 08:00) 20 (JUL 13 08:00) SBP 139 (JUL 13 08:00) 139 (JUL 13 08:00) 139 (JUL 13 08:00) DBP H 91 (JUL 13 08:00) H 91 (JUL 13 08:00) H 91 (JUL 13 08:00) SpO2 100 (JUL 13 08:00) 100 (JUL 13 08:00) 100 (JUL 13 08:00) , Measurements from flowsheet : Measurements 07/12/2019 13:42 EDT Height Source Measured Height Entry Format [place] Height/Length, GERMAN (ft) 0 ft Height/Length GERMAN 64 Inch CLINICALHEIGHT 162.56 cm [place] Body Weight 54 kg Weight Source Standing scale Weight Entry Format [place] Weight [place] lb 197.8 lb CLINICALWEIGHT 89.91 kg Body Surface Area (BSA) 1.95 m2 Body Mass Index 34 kg/m2 HI General: Alert and oriented, No acute distress, obese. Eye: Pupils are equal, round and reactive to light, Extraocular movements are intact, glasses. HENT: Normocephalic, Normal hearing. Neck: Supple, Non-tender. Respiratory: Lungs are clear to auscultation, Respirations are non-labored. Cardiovascular: Normal rate, Regular rhythm, No murmur, No gallop, No edema. Gastrointestinal: Soft, Non-tender. Genitourinary: No costovertebral angle tenderness. Lymphatics: No lymphadenopathy neck, axilla, groin. Musculoskeletal: Normal strength, painful ROM R foot due to bunion. Integumentary: Warm, Dry, [place]. Neurologic: Alert, Oriented. Psychiatric: Cooperative, Appropriate mood & affect. Review / Management Results review: No qualifying data available. Impression and Plan Condition: Stable. documented in this encounter Plan of Treatment Not on file documented as of this encounter Visit Diagnoses Not on filedocumented in this encounter
--- OUTSIDE RECORDS SUMMARY | 2025-05-16 23:25 | XMS_ITS | Encounter Summary ---
Author Organization [employer] ([place], [place], [place], [place]) Address [address] [place] [address] Care Team Providers Care Recruitment Intern Name Role Phone Unavailable Primary Care Provider Unavailabl e Encounter Details Date Type Department Care Team (Late st Contact Info) Description 07/13/2019 Transcribed Document [facility] Radiology [address] [place] [address] ProviderSandra MD Social History Tobacco Use Types Packs/Day Years Used Date Smoking Tobacco: Never Assessed Comments Unknown Sex and Gender Information Value Date Recorded Sex Assigned at Female 05/05/2022 8:34 PM CDT Legal Sex Female 8:34 PM CDT Gender Identity Female 05/05/2022 8:34 PM CDT Sexual Orientation Not on file documented as of this encounter Miscellaneous Notes * Cerner Conversion Note - [facility] Aidee ProviderMD - 07/13/2019 12:15 PM EDT Patient: SHANEKA SHIPLEY Age: 44 Years Sex: Female : 1975 *Operation Perez bunionectomy right foot Indication for Surgery HAV right foot, pain right foot *Preoperative Diagnosis Same *Postoperative Diagnosis Same *Surgeon(s) Primary Surgeon EBONY NATH DPM (Surgeon/Proceduralist, First) *Estimated Blood Loss <10 cc *Findings HAV right *Specimen(s) none Complications none Date of Service Date/Time of Service SN - Proc - Start Time: 07/13/19 10:23:00 (07/13/19 10:28:00) documented in this encounter Plan of Treatment Not on file documented as of this encounter Visit Diagnoses Not on filedocumented in this encounter
--- NOTE | 2025-05-16 23:26 | CT_ITS ---
PROCEDURE INFORMATION: Exam: CT Abdomen And Pelvis With Contrast Exam date and time: 05/17/2025 12:49 AM Age: 50 years old Clinical indication: Abdominal pain; Flank; Left; Additional info: L flank pain radiating to groin TECHNIQUE: Imaging protocol: Computed tomography of the abdomen and pelvis with contrast. Radiation optimization: All CT scans at this facility use at least one of these dose optimization techniques: automated exposure control; mA and/or kV adjustment per patient size (includes targeted exams where dose is matched to clinical indication); or iterative reconstruction. Contrast material: ISOVUE; Contrast volume: 75 ml; Contrast route: IV; COMPARISON: CT ABDOMEN PELVIS W CON 11/05/2023 1:48 PM FINDINGS: Lungs: 0.6 cm subpleural nodule in right posterior lung base. Liver: Unremarkable. No mass. Gallbladder and biliary ducts: Surgically absent gallbladder. No biliary ductal dilatation. Pancreas: Unremarkable. No ductal dilation. Spleen: Similar scattered hypodensities in spleen. Adrenal glands: Normal. No mass. Kidneys and ureters: 0.3 cm left ureterovesicular junction calculus with proximal hydroureter. 0.2 cm nonobstructive left renal calculus. 0.2 cm nonobstructive right renal calculus. Stomach and bowel: Nonobstructive pattern. Appendix: No evidence of appendicitis. Intraperitoneal space: Unremarkable. No free air. No significant fluid collection. Vasculature: Unremarkable. No abdominal aortic aneurysm. Lymph nodes: Unremarkable. No enlarged lymph nodes. Urinary bladder: Pericystic fat stranding. Reproductive: Unremarkable as visualized. Bones/joints: Unremarkable. No acute fracture. Soft tissues: Unremarkable. IMPRESSION: 1. Left ureterovesicular junction calculus with proximal hydroureter. Bilateral nonobstructive renal calculi. 2. Low-grade cystitis. 3. Splenic hypodensities. Although favoring benign etiologies including hemangiomas, consider nonurgent MRI for further imaging evaluation as clinically indicated.
[2025-05-16 23:31] VITALS: BP 193/86; PULSE 86; O2SAT 100
[2025-05-16] MEDS: LACTATED RINGERS 1000ML 1,000 ML 999 ML IV (23:32)
--- NOTE | 2025-05-16 23:38 | ED_ITS ---
Discharge Plan Disposition Patient Disposition: Xfer Short-Term Hosp Condition: Fair Prescriptions Prescriptions: No Action sumatriptan succinate 100 mg tablet 100 mg PO ONCE MDD 200 mg PRN (Reason: migraine headache) Qty: 10 3RF Vraylar 3 mg capsule 0RF Vraylar 3 mg capsule 3 mg PO DAILY Qty: 30 2RF ondansetron 4 mg tablet,disintegrating 4 mg PO Q8H PRN (Reason: nausea and vomiting) Qty: 30 0RF lisinopril 10 mg tablet See Rx Instructions .ROUTE .COMPLEX Qty: 90 2RF Dose Instruction: Take 1 tablet by mouth once daily Rx Instructions: Take 1 tablet by mouth once daily propranolol 60 mg capsule,extended release 24 hr See Rx Instructions .ROUTE .COMPLEX Qty: 30 8RF Dose Instruction: Take 1 capsule by mouth once daily Rx Instructions: Take 1 capsule by mouth once daily febuxostat 40 mg tablet See Rx Instructions .ROUTE .COMPLEX Qty: 90 2RF Dose Instruction: Take 1 tablet by mouth once daily Rx Instructions: Take 1 tablet by mouth once daily estradiol 2 mg tablet See Rx Instructions .ROUTE .COMPLEX Qty: 30 1RF Dose Instruction: Take 1 tablet by mouth once daily Rx Instructions: Take 1 tablet by mouth once daily Referrals Follow up/Referrals: Provider,Referral, MD [Primary Care Provider, Medical] - See instructions Clinical Impressions Clinical Impression: Ureterolithiasis, Urinary tract infection Stand Alone Forms Stand Alone Forms: Transfer Record - ED Instructions Patient Instructions: DI for Low Back Pain Print Language Print Language: Maldivian Discharge ED Provider: Juliana Leiva General Adult HPI General Chief complaint: Back Pain/Injury Stated complaint: back, groin pain Time Seen by Provider: 05/16/25 23:20 Mode of Arrival: Ambulatory Source of Information: Patient Description of Symptoms (Recalled from ER Triage Doc. by RN): pt presents to the ED d/t left back pain, and nicki area feels like it is being ripped out , pt states she is not peeing a lot and is nauseous with phlegm. History of Present Illness HPI narrative: 50-year-old female with history of hypertension, bipolar, prediabetes, migraine, Cabrera's palsy, gout presents to the ER with left flank pain radiating to the groin. Patient reports that it feels like her vagina is being ripped open . She states she has no discharge or vaginal bleeding, history of hysterectomy. Patient states she has decreased urination in the last few hours and is nauseous but no vomiting. She does have history of previous kidney stone requiring procedure for removal. She states this was nearly a decade ago. She does not remember the physician who performed this procedure. Patient states this feels similar to previous kidney stone. She states she has some discomfort with urination but not like a UTI . Patient reports pressure in her low abdomen but no diarrhea or constipation. Patient reports earlier today she had a brief twinge of pain in the left flank, but this evening approximately 2 hours prior to arrival she had sudden onset severe pain in the left flank which is what caused her to present to the ER. No fevers, chills, chest pain, difficulty breathing. No recent trauma. No other complaints or concerns. Related Data Previous Rx's ?Medication ?Instructions ?Recorded sumatriptan succinate 100 mg tablet 100 mg PO ONCE PRN migraine 10/07/22 headache #10 tabs ondansetron 4 mg disintegrating 4 mg PO Q8H PRN nausea and 12/11/24 tablet vomiting #30 tabs lisinopril 10 mg tablet See Rx Instructions .Route 0 01/06/25 .COMPLEX #90 tabs propranolol 60 mg capsule,24 See Rx Instructions .Rout e 02/06/25 hr,extended release .COMPLEX #30 caps febuxostat 40 mg tablet See Rx Instructions .Route 0 02/09/25 .COMPLEX #90 tabs cariprazine 3 mg capsule (Vraylar) 3 mg PO DAILY #30 c aps 05/04/25 estradiol 2 mg tablet See Rx Instructions .Route 0 05/15/25 .COMPLEX #30 tabs Allergies Allergy/AdvReac Type Severity Reaction Status Date / Time No Known Allergies Allergy Verified 05/03/25 15:59 [facility] Disclaimer: The information contained in this section may have been updated after the patient was seen, as this information can be updated by other users. Medical History UTI (urinary tract infection) Enteritis Encounter for completion of form with patient BMI 37.0-37.9, adult Medication monitoring encounter Vasomotor symptoms due to menopause Varicose veins of both legs with edema Leg pain Family history of ischemic heart disease Dizziness Dyspnea Infected sebaceous cyst BMI 36.0-36.9,adult Sebaceous cyst of axilla Right knee pain Arthritis Internal derangement of left knee Sprain of left knee Depression Anxiety Migraine Hypertension Abscess and cellulitis of gluteal region Pharyngitis Exposure to COVID-19 virus Viral syndrome Otitis media Bronchitis Encounter for weight management Post-traumatic headache Cervical strain Post concussion syndrome Head contusion Encounter for Routine Gynecological Examination Rib pain on left side Surgical History Status post left partial knee replacement History of hysterectomy with bilateral oophorectomy History of tonsillectomy History of hysterectomy Partial due to benign reasons History of section History of cholecystectomy Family History Father Cancer skin Hypertension Mother Coronary artery disease Heart attack Diabetes Sister Cancer bone Social History Smoking Status: Unknown if ever smoked years smoked: 20 smoking status stop date: 2017 alcohol intake: current alcohol intake frequency: holidays/special occasions only substance use type: denies use current occupational status: employed and other details: [employer] Travel in the last 8 weeks?: None household members: spouse, family and children housing: house marital status: number of children: 1 Have you lived/traveled outside [place] in past 30 days?: No Contact w/someone who lives/traveled outside US past 30 days?: No Exposure to someone with infectious disease in past 14 days?: No Do you have a fever (greater than 100.4 F or 38 C)?: No Have you tested positive for COVID-19?: No Exposed to someone with COVID-19 in past 14 days?: No Do you have a sore throat?: No Do you have a cough?: No Do you have any weakness?: No Do you have any diarrhea?: No Are you experiencing any unusual bleeding?: No Do you have any muscle aches/pain?: No Do you have any abdominal pain?: No Are you experiencing loss of taste or smell?: No Other Medical History Have you received the Flu Vaccine for this season: No Have you received the Pneumonia Vaccine: No ROS Obtained: Yes Systems reviewed as appropriate & no additional complaints except as documented Per HPI Physical Exam General General appearance: alert, in no apparent distress and obese Head Head exam: atraumatic and normocephalic Eye Eye exam: Present PERRL and EOMI ENT ENT exam: Present mucous membranes moist Neck Neck exam: Present normal inspection and full ROM Chest Chest inspection: Present symmetric chest wall rise Respiratory Respiratory exam: Present normal lung sounds bilaterally; Absent respiratory distress, wheezes or stridor Cardiovascular Cardiovascular exam: Present regular rate and normal rhythm Abdominal Exam Abdominal exam: Present soft and tenderness (Mild suprapubic and left lower quadrant); Absent distention, guarding or rebound Extremities Exam Extremities exam: Present full ROM and normal capillary refill; Absent edema or joint swelling Neurological Exam Neurological exam: Present alert and oriented X3; Absent motor sensory deficit Psychiatric Psychiatric exam: Present normal affect and normal mood Skin Skin exam: Present warm and dry Medical Decision Making Medical Records Medical records reviewed: Yes I reviewed the patient's medical records. Screening: Per USPSTF and CDC recommendations, given the prevalence of disease in our region, it is our hospital?s policy to screen for HIV and viral Hepatitis for all patients aged 18 and over and those with ongoing risk factors. Paul Inquiry Pt receiving controlled substance: No Vital Signs: 05/16/25 23:11 05/16/25 23:12 05/16/25 23:31 Temperature 97.6 F Temperature Source Oral Pulse Rate 87 86 Pulse Rate [Bilateral Radial] 72 Respiratory Rate 16 Blood Pressure 170/91 H 193/86 H Blood Pressure [Right Arm] 170/91 H Blood Pressure Mean Blood Pressure Mean [Right Arm] 117 Blood Pressure Position [Right Arm] Supine 02 Sat by Pulse Oximetry 99 99 100 Oxygen Delivery Method Room Air 05/17/25 00:01 05/17/25 00:31 05/17/25 01:31 Temperature Temperature Source Pulse Rate 70 83 92 H Pulse Rate [Bilateral Radial] Respiratory Rate Blood Pressure 118/72 152/103 H 121/79 Blood Pressure [Right Arm] Blood Pressure Mean Blood Pressure Mean [Right Arm] Blood Pressure Position [Right Arm] 02 Sat by Pulse Oximetry 61 L 95 95 Oxygen Delivery Method 05/17/25 02:31 05/17/25 03:00 05/17/25 04:00 Temperature Temperature Source Pulse Rate 92 H 90 95 H Pulse Rate [Bilateral Radial] Respiratory Rate 16 Blood Pressure 97/65 L 104/52 L 110/70 Blood Pressure [Right Arm] Blood Pressure Mean 65 83 Blood Pressure Mean [Right Arm] Blood Pressure Position [Right Arm] 02 Sat by Pulse Oximetry 96 98 98 Oxygen Delivery Method 05/17/25 04:30 Temperature Temperature Source Pulse Rate 95 H Pulse Rate [Bilateral Radial] Respiratory Rate Blood Pressure 119/75 Blood Pressure [Right Arm] Blood Pressure Mean 83 Blood Pressure Mean [Right Arm] Blood Pressure Position [Right Arm] 02 Sat by Pulse Oximetry 98 Oxygen Delivery Method Lab Data Lab Results 05/16/25 23:40: WBC 12.5 H, RBC 4.42, Hgb 14.1, Hct 41.8, MCV 94.6, MCH 31.9 H, MCHC 33.7, RDW 12.6, Plt Count 398, MPV 9.6, Neut % (Auto) 52.6, Lymph % (Auto) 36.9, [place] % (Auto) 8.1, Eos % (Auto) 1.4, Baso % (Auto) 0.6, Neut # (Auto) 6.6, Lymph # (Auto) 4.6 H, [place] # (Auto) 1.0, Eos # (Auto) 0.2, Baso # (Auto) 0.1, PT 10.9, INR 0.98, Sodium 137, Potassium 4.1, Chloride 102, Carbon Dioxide 28, Anion Gap 11.1, BUN 22 H, Creatinine 0.50 L, Estimated Creat Clear 202, Estimated GFR 131, Est GFR ( Amer) 158, Glucose 117 H, Calcium 9.6, Total Bilirubin 0.5, AST 39 H, ALT 27, Alkaline Phosphatase 61, Total Protein 7.6, Albumin 4.5, Globulin 3.1, Albumin/Globulin Ratio 1.5 05/17/25 01:05: Urine Color Yellow, Urine Appearance Clear, Urine pH 6.0, Ur Specific [place] 1.020, Urine Protein Negative, Urine Glucose (UA) Negative, Urine Ketones Negative, Urine Blood 1+ A, Urine Nitrate Positive A, Urine Bilirubin Negative, Urine Urobilinogen 0.2, Ur Leukocyte Esterase 1+ A, Urine RBC 5-10, Urine WBC 50-100, Ur Squamous Epith Cells 3-5, Urine Bacteria 1+ 05/17/25 03:30: Urine Color Yellow, Urine Appearance Clear, Urine pH 6.0, Ur Specific [place] <= 1.005, Urine Protein Negative, Urine Glucose (UA) Negative, Urine Ketones Negative, Urine Blood Negative, Urine Nitrate Positive A, Urine Bilirubin Negative, Urine Urobilinogen 0.2, Ur Leukocyte Esterase Negative, Urine RBC None, Urine WBC 5-10, Ur Squamous Epith Cells Occasional, Ur Renal Epithelial Cell 3-5, Urine Bacteria None, Urine Mucus Trace 05/16/25 23:40 05/16/25 23:40 Orders (Tests/Meds): ED MEDICATIONS Generic Name Dose Route Start Last Admin Trade Name Freq PRN Reason Stop Dose Admin Sodium Chloride 10 ml 05/17/25 00:54 05/17/25 00:54 Sodium Chloride 0.9% 10ml Syr (Rad Only) IV 06/16/25 00:53 10 ml NEEDED PRN Administration Maintain IV Site Discontinued Medications Generic Name Dose Route Start Last Admin Trade Name Freq PRN Reason Stop Dose Admin Lactated Ringer's 1,000 mls @ 999 mls/hr 05/16/25 23:26 05/16/25 23:32 Lactated Ringer's 1000 Ml Bag IV 05/17/25 00:26 999 mls/hr .Q1H1M ONE Administration Ceftriaxone Sodium 2 gm/ 100 mls @ 200 mls/hr 05/17/25 01:40 05/17/25 01:48 Sodium Chloride IV 05/17/25 02:09 200 mls/hr ONCE ONE Administration Lactated Ringer's 1,000 mls @ 999 mls/hr 05/17/25 02:50 05/17/25 03:36 Lactated Ringer's 1000 Ml Bag IV 05/17/25 03:50 999 mls/hr .Q1H1M ONE Administration Iopamidol 75 ml 05/17/25 00:54 05/17/25 00:54 Iopamidol-370 (76%);100ml Bottle IV 05/17/25 00:55 75 ml ONCE ONE Administration Ketorolac Tromethamine 30 mg 05/16/25 23:26 05/16/25 23:47 Ketorolac 30mg/Ml Vial IV 05/16/25 23:27 30 mg ONCE ONE Administration Morphine Sulfate 4 mg 05/16/25 23:26 05/16/25 23:47 Morphine 4mg/Ml Syringe IV 05/16/25 23:27 4 mg ONCE ONE Administration Morphine Sulfate 4 mg 05/17/25 03:33 05/17/25 03:36 Morphine 4mg/Ml Syringe IV 05/17/25 03:34 4 mg ONCE ONE Administration Ondansetron HCl 4 mg 05/16/25 23:26 05/16/25 23:47 Ondansetron 4mg/2ml Vial IV 05/16/25 23:27 4 mg ONCE ONE Administration Tamsulosin HCl 0.4 mg 05/17/25 03:33 05/17/25 03:36 Tamsulosin 0.4mg Capsule PO 05/17/25 03:34 0.4 mg ONCE ONE Administration ORDERS Category Date Time Status CT abdomen pelvis w con Stat Cat Scan 05/16/25 23:26 Completed CBC w/Auto Diff [Complete Blood Count Auto Diff] Stat Lab 05/16/25 23:40 Completed CMP [Comprehensive Metabolic Panel] Stat Lab 05/16/25 23:40 Completed PT INR [Prothrombin Time INR] Stat Lab 05/16/25 23:40 Completed Urinalysis and Microscopic Stat Lab 05/17/25 01:05 Completed Urinalysis and Microscopic Stat Lab 05/17/25 03:30 Completed Urine Culture Stat Micro 05/17/25 03:30 Received Medical Decision Narrative: In summary, this 50-year-old female with comorbidities described in the HPI presents to the emergency department today with left flank pain radiating to the groin with associated nausea. On initial evaluation patient is hemodynamically stable, afebrile, patient has some lower left CVA tenderness, abdominal exam with mild suprapubic and left lower quadrant tenderness but no rebound or guarding, no peritonitic findings, remainder of exam benign. Differential diagnosis includes but is not limited to urinary tract infection, pyelonephritis, kidney stone, hydronephrosis, kidney dysfunction, also considered the possibility of diverticulosis, diverticulitis, mass, electrolyte abnormality, among others. Ruling out most morbid conditions for my assessment. Based on these concerns, I ordered serum labs, urine studies, CT imaging. Patient received morphine, Toradol, Zofran, IV fluids initially for treatment. Labs personally reviewed demonstrate leukocytosis WBC 12.5, no anemia, normal platelets, PT/INR normal, CMP with prerenal azotemia, patient is already receiving IV fluids, UA concerning for findings of infection, nitrate positive with blood and 50-100 WBCs. The sample is only slightly contaminated with squamous cells and patient does have dysuria and other urinary symptoms so I am going to treat this as infection. Rocephin administered. CT abdomen pelvis personally interpreted demonstrates 3 mm stone at the left UVJ with hydronephrosis and hydroureter, see radiology read for final interpretation. Radiology read comments on bilateral intrarenal stones as well. On reassessment patient's pain is relatively controlled at this time. I recommended transfer to higher level of care for infected stone. Patient is agreeable to this. We initially reached out to [facility] at patient's request but they do not have urology available so we then reached out to [facility]. I spoke with the urologist on-call, Dr. Baker, because of the trace squamous cells in the urinalysis he does not believe the urine is infected and recommended catheterized urine sample. I explained to him that unfortunately at this facility nearly every urinalysis is contaminated with a few squamous cells but this does not cause the other evens findings of infection such as 50-100 WBCs per high-power field and nitrite positive. He still recommends that the patient have a catheterized urine sample obtained and sent. If it still looks infected he agrees to consult on the patient and for the patient to be transferred to [facility] for admission and management. If the urine is not infected, he recommends pain management and discharge. I also explained to him that patient has been borderline hypotensive with heart rate in the mid to low 90s and I was concerned she was bordering on sepsis. He recommends the patient receive tamsulosin which I have not administered yet because I am concerned that could cause hypotension since she is already borderline hypotensive. He states he does not believe this will significantly change her blood pressure and to give it anyway. He recommended continue fluid resuscitation which patient is already receiving, she is currently getting her second liter of IV fluids. He states the recommendations for cath urine despite all the other things we discussed stands and to call back for admission if it still appears to be infected. Per the recommendations of the urologist, catheterized urine sample was obtained. UA reviewed demonstrates infection with persistent nitrate positive and WBCs though the concentration of these is less on the sample. Patient has been receiving aggressive rehydration so her urine was much less concentrated. I did consider other sources of nitrates in the urine including use of Azo but patient has not used this. Patient is appropriate for transfer and agreeable to this. We reached back out to [facility] and I spoke with the hospitalist, Dr. Quintanilla. After reviewing this case with them including the results of the repeat UA, they graciously excepted the patient for admission. Patient was reassessed immediately prior to transfer and continues to be stable, pain is controlled after having received a second dose of morphine. She has tolerated the tamsulosin well. She is protecting her airway, vital stable, appropriate for transfer at this time. Patient was transferred in stable condition by ambulance to [facility]. Critical Care Critical Care Time Critical Care Time: No
[2025-05-16] MEDS: KETOROLAC 30MG/ML VIAL 30 MG IV (23:47)
[2025-05-16] MEDS: MORPHINE 4MG/ML SYRINGE 4 MG IV (23:47)
[2025-05-16] MEDS: ONDANSETRON 4MG/2ML VIAL 4 MG IV (23:47)
[2025-05-16 23:49] LABS: Hematocrit 41.8 % (37.0-47.0); Hemoglobin 14.1 g/dL (12.2-16.2); Immature Granulocytes % 0.4 %; Mean Corpuscular HGB Conc 33.7 g/dL (31.8-35.4); Mean Corpuscular Hemoglobin 31.9 pg (27.0-31.2); Mean Corpuscular Volume 94.6 fl (81-99); Nucleated Red Blood Cells % 0 %; Platelet Count 398 K/mm3 (142-424); Red Blood Count 4.42 M/mm3 (4.20-5.40); Red Cell Distribution Width-SD 43.7 fL; White Blood Count 12.5 K/mm3 (4.8-10.8)
[2025-05-16 23:59] LABS: Albumin Level 4.5 g/dl (3.5-5.0); Chloride 102 mmol/L (98-107); Potassium 4.1 mmoL/L (3.5-5.1); Sodium 137 mmol/L (136-145)
[2025-05-17] VITALS (10 sets, daily range): BP systolic 97–152; BP diastolic 52–103; PULSE 70–96; RESP 16–18; TEMP 36.7; O2SAT 61–98
[2025-05-17 00:01] LABS: Blood Urea Nitrogen 22 mg/dl (7-17); Creatinine Clearance Estimated 202 mL/min (50-200); Creatinine,Serum 0.50 mg/dl (0.52-1.04); Estimated Glomerular Filt Rate 131 ml/min (>60); GFR (African American) 158 ML/MIN (>60); INR 0.98 (0.9-1.1); Prothrombin Time 10.9 seconds (10.1-12.5)
[2025-05-17 00:02] LABS: Alanine Aminotransferase 27 U/L (12-78); Albumin/Globulin Ratio 1.5 (1.1-1.8); Alkaline Phosphatase 61 U/L (38-126); Anion Gap 11.1 mEq/L (5-15); Aspartate Amino Transferase 39 U/L (14-36); Bilirubin,Total 0.5 mg/dl (0.2-1.3); Calcium 9.6 mg/dl (8.4-10.2); Carbon Dioxide 28 mmol/L (22.0-30.0); Globulin 3.1 g/dL (1.3-3.2); Glucose 117 mg/dl (74-100); Total Protein,Serum 7.6 g/dl (6.3-8.2)
[2025-05-17] MEDS: SODIUM CHLORIDE 0.9% 10ML SYR (RAD ONLY) 10 ML IV (00:54)
[2025-05-17] MEDS: IOPAMIDOL-370 (76%);100ML BOTTLE 75 ML IV (00:54)
[2025-05-17 01:10] LABS: Microscopic, Urine URINE MICROSCOPIC (MICROSCOPIC)
[2025-05-17 01:11] LABS: Bilirubin,Urine Negative (Negative); Color,Urine YELLOW (Yellow); Glucose,Urine (UA) Negative (Negative); Ketones,Urine Negative (Negative); Leukocyte Esterase,Urine 1+ (Negative); PH,Urine 6.0 (5.0-8.5); Protein,Urine Negative (Negative); Specific Gravity, Urine 1.020 (1.005-1.030); Urobilinogen,Urine 0.2 EU/dl (0.2)
[2025-05-17 01:18] LABS: Bacteria,Urine 1+ /lpf; WBC,Urine 50-100 #/hpf (0-3)
--- NOTE | 2025-05-17 02:37 | PC.NURSE ---
per Dr rollins i contacted [facility] for a transfer for pt to see urology, [facility] doesnt have urology availabe. placed call to [facility] and they are going to call back.
--- NOTE | 2025-05-17 03:34 | PC.NURSE ---
In/Out cath performed, Mervat fuchs at bedside to assist. No issues, New UA sent
[2025-05-17 03:36] LABS: Microscopic, Urine URINE MICROSCOPIC (MICROSCOPIC)
[2025-05-17] MEDS: LACTATED RINGERS 1000ML 1,000 ML 999 ML IV (03:36)
[2025-05-17] MEDS: MORPHINE 4MG/ML SYRINGE 4 MG IV ×2 (03:36→05:35)
[2025-05-17] MEDS: TAMSULOSIN 0.4MG CAPSULE 0.4 MG PO (03:36)
[2025-05-17 03:38] LABS: Bilirubin,Urine Negative (Negative); Color,Urine YELLOW (Yellow); Glucose,Urine (UA) Negative (Negative); Ketones,Urine Negative (Negative); Leukocyte Esterase,Urine Negative (Negative); PH,Urine 6.0 (5.0-8.5); Protein,Urine Negative (Negative); Specific Gravity, Urine <= 1.005 (1.005-1.030); Urobilinogen,Urine 0.2 EU/dl (0.2)
[2025-05-17 03:57] LABS: Mucus,Urine Trace /lpf; Squamous Epithelial Cell,Urine Occasional #/hpf (0-5)
--- NOTE | 2025-05-17 04:17 | PC.NURSE ---
Faxed face sheet to [facility]
--- NOTE | 2025-05-18 22:46 | PC.NURSE ---
[facility] called and notified of urine culture results.
--- NOTE | 2025-05-19 08:35 | PC.NURSE ---
Urine culture results faxed to [facility] at [phone]
== END 2025-05-17 05:42 | disposition short-term general hospital (02) ==
PROVIDERS: Emergency Provider Emergency Medicine
DX: N39.0 Urinary tract infection, site not specified (principal); N20.1 Calculus of ureter; F31.81 Bipolar II disorder; F41.9 Anxiety disorder, unspecified; G43.909 Migraine, unspecified, not intractable, without status migrainosus; I10 Essential (primary) hypertension
CPT/HCPCS: 74177; 80053; 81001; 85025; 85610; 87086; 87088; 87186; 96361; 96365; 96375; 96376; 99285; J0696; J1885; J2270; J2405; J7120; Q9967

== ENCOUNTER 2025-06-01 15:53 | Outpatient (CLI) | payer BC, SELFPAY ==
--- OUTSIDE RECORDS SUMMARY | 2025-05-17 06:58 | XMS_ITS | Encounter Summary ---
Author Organization [facility] Address [address] [place] [address] Care Team Providers Care Email Designer Name Role Phone Provider, No Known Primary Care Provider Unavail able Reason for Referral * MRI/CAT/PET Scan (Routine) - Pending Review Specialty Diagnoses / Procedures Referred By Contac t Referred To Contact Procedures CT Outside Abd/Pelvis Films, Radiant Outside Referral ID Status Reason Start Date Expiration Date V isits Requested Visits Authorized [id number] Pending Review 05/17/2025 08/16/2026 1 1 Reason for Visit * Auth/Cert Specialty Diagnoses / Procedures Referred By Contac t Referred To Contact Diagnoses Urolithiasis (Infected kidney stone) Referral ID Status Reason Start Date Expiration Date Visits Re quested Visits Authorized [id number] 1 1 Encounter Details Date Type Department Care Team (Late st Contact Info) Description 05/17/2025 6:58 AM EDT - 05/19/2025 2:45 PM EDT Hospital Encounter [address] [place] [address] Charlee Quintanilla MD [address] [facility] [address] [place], [place] [id number] Sandra Mack MD [address] [facility] 4th [place] [address] Chayito Bradley MD [address] [id number] Rachel Lenz MD [address] [place] [address] Acute pyelonephritis (Primary Dx); Kidney stone Discharge Disposition: Home or Self Care Social History Tobacco Use Types Packs/Day Years Used Date Smoking Tobacco: Former Cigarettes Smokeless Tobacco: Never Comments:Quit smoking 8 yr a go Alcohol Use Standard Drinks/Week Comments Not Currently 0 (1 standard drink = 0.6 oz pur e alcohol) once a month AUDIT-C Answer Date Recorded Q1: How often do you have a drink containing alc ohol? Monthly or less 05/17/2025 Q2: How many drinks containi ng alcohol do you have on a typical day when you are drinking? 1 or 2 05/17/2025 Q3: How often do you have si x or more drinks on one occasion? Never 05/17/2025 Abuse Screen Answer Date Recorded Feels Unsafe at Home or Work/School no 05/17/2025 Feels Threatened by Someone no 05/08 Does Anyone Try to Keep You From Having Contact with Others or Doing Things Outside Your Home? no 05/17/2025 Physical Signs of Abuse Present no 05/17/2025 Housing Stability Answer Date Recorded Current Living Arrangements home 05/08 Potentially Unsafe Housing Conditions none 05/17/2025 Disabilities Answer Date Recorded Difficulty Concentrating, Remembering or Making Decisions no 05/17/2025 Difficulty Managing Errands Independently no 05/17/2025 Education Answer Date Recorded Help with school or training? Not on file Preferred Language Mongolian 05/17/2025 Comments No Sex and Gender Information Value Date Recorded Sex Assigned at Not on file Legal Sex Female 4:42 AM EDT Gender Identity Not on file Sexual Orientation Not on file documented as of this encounter Last Filed Vital Signs Vital Sign Reading Time Taken Comments Blood Pressure 134/86 05/19/2025 11:54 AM EDT Pulse 82 05/19/2025 11:54 AM EDT Temperature 36.8 C (98.2 F) 05/19/2025 11:54 AM EDT Respiratory Rate 18 05/19/2025 11:54 AM EDT Oxygen Saturation 93% 05/19/2025 11:54 AM EDT Inhaled Oxygen Concentration - - Weight 95.3 kg (210 lb) 05/17/2025 12:40 PM EDT Height 162.6 cm (5' 4 ) 05/17/2025 12:40 PM EDT Body Mass Index 36.05 05/17/2025 12:40 PM EDT documented in this encounter Functional Status * Question Answer Date of Assessment Author 1. Wish to be (Past 1 Month) No 025 12:44 PM EDT Marleny Langston RN 2. Non-Specific Active Suici ravindra Thoughts (Past 1 Month) No 05/17/2025 12:44 PM EDT Saray Langston RN * Calculated C-SSRS Risk Score (Lifetime/Recent) Answer Date of Assessment Author No Risk Indicated 05/17/2025 12:44 PM EDT Marleny Langston RN * [place] Suicide Severity Rating Scale (Screener/Recent Self-Report) Question Answer Date of Assessment Author 6. Suicidal Behavior (Lifetime) No 12:44 PM EDT Marleny Langston RN documented as of this encounter Discharge Summaries * Rachel Lenz MD - 05/19/2025 12:23 PM EDT Images from the original note were not included. [facility] Medicine Services DISCHARGE SUMMARY Patient Name: Shaneka Shipley : 1975 Date of Admission: 05/17/2025 6:58 AM Date of Discharge: 05/19/25 Primary Care Physician: Provider, No Known Consults Date and Time Order Name Status Description 05/17/2025 8:14 AM Inpatient Urology Consult Completed Hospital Course Presenting Problem: Kidney stone Active Hospital Problems Diagnosis POA Kidney stone [N20.0] Yes Sepsis [A41.9] Yes Essential hypertension [I10] Yes History of migraine headaches [Z86.69] Not Applicable Bipolar disorder [F31.9] Yes Acute pyelonephritis [N10] Yes Resolved Hospital Problems No resolved problems to display. Hospital Course: Shaneka Shipley is a 50 y.o. female with HTN, bipolar disorder, depression, migraines who presented to [facility] due to left flank pain. Patient was found to have pyelonephritis, concern for sepsis and a 3 mm stone in her UPJ causing hydronephrosis and hydroureter. She was taken for cystoscopy and stent placement 05/[address] Baker. This patient's problems and plans were partially entered by my partner and updated as appropriate by me 05/19/25 UPJ stone, now post stent placement Hydronephrosis with hydroureter Sepsis due to pyelonephritis, improved - Patient with leukocytosis, tachycardia and chills with source of infection meeting septic criteria - Outside hospital scans showed 3 mm UPJ stone causing hydronephrosis and hydroureter as well as cystitis - Received a dose of Rocephin at the outside hospital, continued while here and transition to Keflex at discharge - Partner called [facility] and there were no cultures sent there - Cultures here NGTD but are antibiotic modified; will follow-up with PCP - Follow-up with urology 1 to 2 weeks to plan stone extraction Hypertension - Resume home meds at discharge Bipolar disorder Depression Migraines Incidentally found splenic hypodensities - Seen on CT scan at the outside hospital, report says favoring benign etiologies recommended nonemergent MRI if indicated. Patient to follow-up with PCP Discharge Follow Up Recommendations for outpatient labs/diagnostics: Follow-up with PCP 1 to 2 weeks to review meds and CT scanning Follow-up with Dr. Baker urology 1 to 2 weeks for stone extraction Day of Discharge HPI: Patient reports she is feeling better. She does not think she will be able to go back to work soon.Will give 1 week work excuse. Discussed with her not to send her with antibiotics and agreed to send for a few more days on oral meds. She thinks she will need a little something for pain so sent prescription for [place] x 3 days. Weaned O2 to room air Review of Systems No current fever, tolerating p.o. Vital Signs: Temp: [98.2 ??F (36.8 ??C)-99.3 ??F (37.4 ??C)] 98.2 ??F (36.8 ??C) Heart Rate: [81-91] 82 Resp: [18] 18 BP: (99-134)/(59-86) 134/86 Flow (L/min) (Oxygen Therapy): [2] 2 Physical Exam: Constitutional: No acute distress, awake, alert HENT: NCAT, mucous membranes moist Respiratory: Clear to auscultation bilaterally, respiratory effort normal Cardiovascular: RRR, no murmurs, rubs, or gallops Gastrointestinal: Positive bowel sounds, soft, nontender, nondistended Musculoskeletal: No bilateral ankle edema Psychiatric: Appropriate affect, cooperative Neurologic: Oriented x 3, strength symmetric in all extremities, Cranial Nerves grossly intact to confrontation, speech clear Skin: No rashes Pertinent and/or Most Recent Results LAB RESULTS: Lab 05/19/255 05/18/25 0415 05/17/25 0855 WBC 12.69* 16.55* 20.53* HEMOGLOBIN 10.5* 10.3* 12.5 HEMATOCRIT 33.0* 32.9* 38.2 PLATELETS 251 244 295 NEUTROS ABS -- -- 17.32* IMMATURE GRANS (ABS) -- -- 0.09* LYMPHS ABS -- -- 1.78 MONOS ABS -- -- 1.24* EOS ABS -- -- 0.05 MCV 97.3* 98.5* 96.7 Lab 05/19/255 05/18/25 0415 05/17/25 0855 SODIUM 137 137 140 POTASSIUM 3.7 3.8 4.1 CHLORIDE 105 104 105 CO2 25.7 24.8 27.0 ANION GAP 6.3 8.2 8.0 BUN 9.0 12.2 17.2 CREATININE 0.32* 0.55* 0.54* EGFR 127.4 111.8 112.3 GLUCOSE 107* 116* 93 CALCIUM 8.5* 8.4* 8.5* Lab 05/17/25 0855 TOTAL PROTEIN 5.7* ALBUMIN 3.5 GLOBULIN 2.2 ALT (SGPT) 18 AST (SGOT) 22 BILIRUBIN 0.3 ALK PHOS 52 Brief Urine Lab Results (Last result in the past 365 days) Color Clarity Blood Leuk Est Nitrite Protein CREAT Urine HCG 05/17/25 0941 Yellow Cloudy Moderate (2+) Moderate (2+) Negative 30 mg/dL (1+) Microbiology Results (last 10 days) Procedure Component Value - Date/Time Urine Culture - Urine, Urine, Clean Catch [[id number]] (Normal) Collected: 05/17/25 09 Lab Status: Final result Specimen: Urine, Clean Catch Updated: 05/18/25 1055 Urine Culture No growth Blood Culture - Blood, Arm, Right [[id number]] (Normal) Collected: 05/17/25 0830 Lab Status: Preliminary result Specimen: Blood from Arm, Right Updated: 05/19/25 0945 Blood Culture No growth at 2 days FL C Arm During Surgery Result Date: 05/17/2025 This procedure was auto-finalized with no dictation required. CT Outside Abd/Pelvis Result Date: 05/17/2025 This procedure was auto-finalized with no dictation required. Plan for Follow-up of Pending Labs/Results: Blood cultures pending Pending Labs Order Current Status Blood Culture - Blood, Arm, Right Preliminary result Discharge Details Discharge Medications New Medications Instructions Start Date cephalexin 500 MG capsule Commonly known as: KEFLEX 500 mg, Oral, 2 Times Daily HYDROcodone-acetaminophen 5-325 MG per tablet Commonly known as: NORCO 1 tablet, Oral, Every 6 Hours PRN Continue These Medications Instructions Start Date estradiol 2 MG tablet Commonly known as: ESTRACE 2 mg, Daily febuxostat 40 MG tablet Commonly known as: ULORIC 40 mg, Daily lisinopril 10 MG tablet Commonly known as: PRINIVIL,ZESTRIL 10 mg, Daily propranolol LA 60 MG 24 hr capsule Commonly known as: INDERAL LA 60 mg, Daily SUMAtriptan 100 MG tablet Commonly known as: IMITREX 100 mg, Oral, Every 2 Hours PRN, Take one tablet at onset of headache. May repeat dose one time in 2 hours if headache not relieved. Vraylar 3 MG capsule capsule Generic drug: Cariprazine HCl Daily Zepbound 5 MG/0.5ML solution Generic drug: Tirzepatide-Weight Management 5 mg, Weekly Allergies Allergen Reactions Latex Itching Discharge Disposition: Home or Self Care Diet: Hospital: Diet Order Procedures Diet: Regular/House; Fluid Consistency: Thin (IDDSI 0) Diet Instructions Diet: Regular/House Diet; Thin (IDDSI 0) Discharge Diet: Regular/House Diet Fluid Consistency: Thin (IDDSI 0) Activity: Activity Instructions Activity as Tolerated Other Activity Instructions Activity Instructions: Can give work excuse x 1 week due to kidney stone with stent Restrictions or Other Recommendations: Work excuse x 1 week due to kidney stone CODE STATUS: Code Status and Medical Interventions: CPR (Attempt to Resuscitate); Full Support Ordered at: 05/17/25 0816 Code Status (Patient has no pulse and is not breathing): CPR (Attempt to Resuscitate) Medical Interventions (Patient has pulse or is breathing): Full Support Level Of Support Discussed With: Patient No future appointments. Additional Instructions for the Follow-ups that You Need to Schedule Discharge Follow-up with PCP As directed Currently Documented PCP: Provider, No Known PCP Phone Number: None Follow Up Details: 1-2 weeks check bp and review meds Discharge Follow-up with PCP As directed Currently Documented PCP: Provider, No Known PCP Phone Number: None Follow Up Details: 1-[address] findings and review meds Discharge Follow-up with Specified Provider: Urology Dr. Baker 1 to 2 weeks for stone extraction As directed To: Urology Dr. Baker 1 to 2 weeks for stone extraction Rachel Lenz MD 05/19/25 Time Spent on Discharge: I spent 34 minutes on this discharge activity which included: [id number] with the patient, reviewing the data in the system, coordination of the care with the nursing staff as well as consultants, documentation, and entering orders. documented in this encounter Medications at Time of Discharge Cariprazine HCl (Vraylar) 3 MG capsule capsule Take by mouth Daily. At night estradiol (ESTRACE) 2 MG tablet Take 1 tablet by mouth Daily. febuxostat (ULORIC) 40 MG tablet Take 1 tablet by mouth Daily. lisinopril (PRINIVIL,ZESTRI L) 10 MG tablet Take 1 tablet by mouth Daily. propranolol LA (INDERAL LA) 60 MG 24 hr capsule Take 1 capsule by mouth Daily. SUMAtriptan (IMITREX) 100 MG tablet Take 1 tablet by mouth Every 2 (Two) Hours As Needed for Migraine. Take one tablet at onset of headache. May repeat dose one time in 2 hours if headache not relieved. Tirzepatide-Weig ht Management (Zepbound) 5 MG/0.5ML solution Inject 0.5 mL under the skin into the appropriate area as directed 1 (One) Time Per Week. Last wednesday cephalexin (KEFLEX) 500 MG capsule Take 1 capsule by mouth 2 (Two) Times a Day for 3 days. 6 capsule 05/19/2025 5 HYDROcodone-acet aminophen (NORCO) 5-325 MG per tabletIndication s:Acute pyelonephritis,K idney stone Take 1 tablet by mouth Every 6 (Six) Hours As Needed for Moderate Pain or Severe Pain for up to 3 days. 12 tablet 05/19/2025 5 documented as of this encounter Progress Notes * Aneudy Bernard MD - 05/19/2025 8:29 AM EDT Images from the original note were not included. Daily Progress Note Patient: Shaneka Shipley [facility] Day: 3 Subjective: Awake and alert. Complains of sneezing, sinus fullness. Has minimal flank pain and minimal dysuria. Urine is blood-tinged. Objective: BP 121/59 (BP Location: Left arm, Patient Position: Lying) Pulse 81 Temp 98.3 ??F (36.8 ??C) (Oral) Resp 18 Ht 162.6 cm (64 ) Wt 95.3 kg (210 lb) SpO2 93% BMI 36.05 kg/m?? No intake or output data in the 24 hours ending 05/19/25 0829 Tmax 99.3 Review of Systems: Physical Exam: General Appearance: alert, appears stated age and cooperative Head: normocephalic, without obvious abnormality and atraumatic Lungs respirations regular Abdomen no masses and soft non tender Extremities moves extremities well, no edema, no cyanosis and no redness Lab Results (last 24 hours) Procedure Component Value Units Date/Time Basic Metabolic Panel [[id number]] (Abnormal) Collected: 05/19/25414 Specimen: Blood Updated: 05/19/25515 Glucose 107 mg/dL BUN 9.0 mg/dL Creatinine 0.32 mg/dL Sodium 137 mmol/L Potassium 3.7 mmol/L Chloride 105 mmol/L CO2 25.7 mmol/L Calcium 8.5 mg/dL BUN/Creatinine Ratio 28.1 Anion Gap 6.3 mmol/L eGFR 127.4 mL/min/1.73 Narrative: GFR Categories in Chronic Kidney Disease (CKD) GFR Category GFR (mL/min/1.73) Interpretation G1 90 or greater Normal or high (1) G2 60-89 Mild decrease (1) G3a 45-59 Mild to moderate decrease G3b 30-44 Moderate to severe decrease G4 15-29 Severe decrease G5 14 or less Kidney failure (1)In the absence of evidence of kidney disease, neither GFR category G1 or G2 fulfill the criteriafor CKD. eGFR calculation 2020 CKD-EPI creatinine equation, which does not include race as a factor CBC (No Diff) [[id number]] (Abnormal) Collected: 05/19/25 0415 Specimen: Blood Updated: 05/19/25 0502 WBC 12.69 10*3/mm3 RBC 3.39 10*6/mm3 Hemoglobin 10.5 g/dL Hematocrit 33.0 % MCV 97.3 fL MCH 31.0 pg MCHC 31.8 g/dL RDW 12.9 % RDW-SD 46.0 fl MPV 9.8 fL Platelets 251 10*3/mm3 Urine Culture - Urine, Urine, Clean Catch [[id number]] (Normal) Collected: 05/17/25 0941 Specimen: Urine, Clean Catch Updated: 05/18/25 1055 Urine Culture No growth Blood Culture - Blood, Arm, Right [[id number]] (Normal) Collected: 05/17/25 0830 Specimen: Blood from Arm, Right Updated: 05/18/25 0945 Blood Culture No growth at 24 hours Assessment/Plan: Postop day #2 from cystoscopy with left stent insertion. Improving daily, on Rocephin. Cultures are negative thus far. White blood count down to 12,700. Renal function normal. Home anytime from standpoint Kidney stone Sepsis Essential hypertension History of migraine headaches Bipolar disorder Acute pyelonephritis No diagnosis found. Aneudy Bernard MD - 05/19/2025, 08:29 EDT * Chayito Bradley MD - 05/18/2025 2:22 PM EDT Images from the original note were not included. [facility] Medicine Services PROGRESS NOTE Patient Name: Shaneka Shipley : 1975 Date of Admission: 05/17/2025 Primary Care Physician: Provider, No Known Subjective Subjective CC: F/U sepsis/kidney stone HPI: She is still not feeling well enough to go home today although somewhat better than yesterday. Having a lot of pressure in lower abdomen. Objective Objective Vital Signs: Temp: [98 ??F (36.7 ??C)-100.1 ??F (37.8 ??C)] 99.2 ??F (37.3 ??C) Heart Rate: [90-113] 100 Resp: [16-18] 18 BP: (116-139)/(61-93) 125/71 Flow (L/min) (Oxygen Therapy): [1-2] 2 Physical Exam: Constitutional: Awake, alert, laying in bed HENT: NCAT, mucous membranes moist Respiratory: Respiratory effort normal Cardiovascular: RRR Musculoskeletal: No bilateral ankle edema Psychiatric: Appropriate affect, cooperative Neurologic: Speech clear and fluent Skin: No rashes on exposed surfaces Results Reviewed: LAB RESULTS: Lab 05/18/25 0415 05/17/25 0855 WBC 16.55* 20.53* HEMOGLOBIN 10.3* 12.5 HEMATOCRIT 32.9* 38.2 PLATELETS 244 295 NEUTROS ABS -- 17.32* IMMATURE GRANS (ABS) -- 0.09* LYMPHS ABS -- 1.78 MONOS ABS -- 1.24* EOS ABS -- 0.05 MCV 98.5* 96.7 Lab 05/18/25 0415 05/17/25 0855 SODIUM 137 140 POTASSIUM 3.8 4.1 CHLORIDE 104 105 CO2 24.8 27.0 ANION GAP 8.2 8.0 BUN 12.2 17.2 CREATININE 0.55* 0.54* EGFR 111.8 112.3 GLUCOSE 116* 93 CALCIUM 8.4* 8.5* Lab 05/17/25 0855 TOTAL PROTEIN 5.7* ALBUMIN 3.5 GLOBULIN 2.2 ALT (SGPT) 18 AST (SGOT) 22 BILIRUBIN 0.3 ALK PHOS 52 Brief Urine Lab Results (Last result in the past 365 days) Color Clarity Blood Leuk Est Nitrite Protein CREAT Urine HCG 05/17/25 0941 Yellow Cloudy Moderate (2+) Moderate (2+) Negative 30 mg/dL (1+) Microbiology Results Abnormal None FL C Arm During Surgery Result Date: 05/17/2025 This procedure was auto-finalized with no dictation required. CT Outside Abd/Pelvis Result Date: 05/17/2025 This procedure was auto-finalized with no dictation required. Current medications: Scheduled Meds:Cariprazine HCl, 3 mg, Oral, Nightly cefTRIAXone, 1,000 mg, Intravenous, Q24H estradiol, 2 mg, Oral, Daily febuxostat, 40 mg, Oral, Daily [Held by provider] lisinopril, 10 mg, Oral, Daily propranolol, 30 mg, Oral, Q12H senna-docusate sodium, 2 tablet, Oral, Nightly sodium chloride, 10 mL, Intravenous, Q12H Continuous Infusions: PRN Meds:. acetaminophen senna-docusate sodium AND polyethylene glycol AND bisacodyl AND bisacodyl Calcium Replacement - Follow Nurse / BPA Driven Protocol HYDROmorphone Magnesium Cardiology Dose Replacement - Follow Nurse / BPA Driven Protocol nitroglycerin ondansetron ODT OR ondansetron oxyCODONE Phosphorus Replacement - Follow Nurse / BPA Driven Protocol Potassium Replacement - Follow Nurse / BPA Driven Protocol sodium chloride sodium chloride SUMAtriptan Assessment & Plan Assessment & Plan Active Hospital Problems Diagnosis POA Kidney stone [N20.0] Yes Sepsis [A41.9] Yes Essential hypertension [I10] Yes History of migraine headaches [Z86.69] Not Applicable Bipolar disorder [F31.9] Yes Acute pyelonephritis [N10] Yes Resolved Hospital Problems No resolved problems to display. Brief Hospital Course to date: Shaneka Shipley is a 50 y.o. female with HTN, bipolar disorder, depression, migraines who presented to [facility] due to left flank pain. Patient was found to have a 3 mm stone in her UPJ causing hydronephrosis and hydroureter. She was taken for cystoscopy and stent placement 05/[address] Baker. This patient's problems and plans were partially entered by my partner and updated as appropriate by me 05/18/25. UPJ stone Hydronephrosis with hydroureter Sepsis due to pyelonephritis - Patient with leukocytosis, tachycardia and chills with source of infection meeting septic criteria - Outside hospital scans showed 3 mm UPJ stone causing hydronephrosis and hydroureter as well as cystitis - Received a dose of Rocephin at the outside hospital, continue - I called [facility] and there were no cultures sent there - Cultures here NGTD but are antibiotic modified; will continue to follow - Still having fevers/discomfort today. Possible home tomorrow if improved. CBC in am. Hypertension - Holding home losartan due to hypotension initially, restart as needed or at discharge Bipolar disorder Depression - Continue home Vraylar Migraines - Continue propranolol Incidentally found splenic hypodensities - Seen on CT scan at the outside hospital, report says favoring benign etiologies recommended nonemergent MRI if indicated. Patient to follow-up with PCP Expected Discharge Location and Transportation: Home Expected Discharge Expected Discharge Date: 05/19/2025; Expected Discharge Time: VTE Prophylaxis: Mechanical VTE prophylaxis orders are present. AM-PAC 6 Clicks Score (PT): 24 (05/17/252047) CODE STATUS: Code Status and Medical Interventions: CPR (Attempt to Resuscitate); Full Support Ordered at: 05/17/25 0816 Code Status (Patient has no pulse and is not breathing): CPR (Attempt to Resuscitate) Medical Interventions (Patient has pulse or is breathing): Full Support Level Of Support Discussed With: Patient Chayito Bradley MD 05/18/25 * Rober Baker MD - 05/18/2025 1:01 PM EDT progress note POD #1 She had temperature 100.1 last night at 6 PM following this she has been afebrile with VSS Feels well/improved Abdomen soft and nontender Labs noted, WBC coming down slightly Impression-small obstructing distal ureteral stone, status post stent placement. She has had tachycardia, brief hypotension and leukocytosis with some fever with indication of infection yet cultures have been negative Plan-we will keep stent in place and I will see her back in the office in 1 to 2 weeks for discussion and likely arrange stone extraction documented in this encounter H&P Notes * Sandra Mack MD - 05/17/2025 7:47 AM EDT Images from the original note were not included. [facility] Medicine Services HISTORY AND PHYSICAL Patient Name: Shaneka Shipley : 1975 Primary Care Physician: Zuly, No Known Date of admission: 05/17/2025 Subjective Subjective Chief Complaint: L flank pain HPI: Shaneka Shipley is a 50 y.o. female with HTN, bipolar disorder, depression, migraines who presented to [facility] due to left flank pain. Patient was found to have a 3 mm stone in her UPJ causing hydronephrosis and hydroureter. She was transferred here for further urological evaluation/intervention. Patient reports she was in her normal state of health up until last evening when she experienced sudden onset severe flank pain that radiated to her groin. She also has been experiencing urinary frequency and chills. No noted fever. At the outside hospital she was borderline hypotensive but fluid responsive. She had a leukocytosis and was tachycardic to 95. On arrival patient is hemodynamically stable. Reports significant left flank pain but nausea is better. Still slightly tachycardic but blood pressure appropriate in the 130s. No fevers but patient continues to complain of chills. 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 Social History: reports that she has quit smoking. Her smoking use included cigarettes. She does not have any smokeless tobacco history on file. Social History Social History Narrative Not on file Medications: Available home medication information reviewed. Cariprazine HCl, SUMAtriptan, Tirzepatide-Weight Management, estradiol, febuxostat, lisinopril, andpropranolol LA Allergies Allergen Reactions Latex Itching Objective Objective Vital Signs: Temp: [97.4 ??F (36.3 ??C)] 97.4 ??F (36.3 ??C) Resp: [18] 18 BP: (130)/(83) 130/83 Physical Exam Constitutional: General: She is not in acute distress. HENT: Head: Normocephalic and atraumatic. Cardiovascular: Rate and Rhythm: Normal rate and regular rhythm. Heart sounds: No murmur heard. Pulmonary: Effort: Pulmonary effort is normal. No respiratory distress. Abdominal: General: There is no distension. Palpations: Abdomen is soft. Tenderness: There is abdominal tenderness (mild suprapubic). Musculoskeletal: Right lower leg: No edema. Left lower leg: No edema. Comments: No significant flank tenderness on palpation Neurological: General: No focal deficit present. Mental Status: She is alert. Mental status is at baseline. Psychiatric: Mood and Affect: Mood normal. Thought Content: Thought content normal. Result Review: I have personally reviewed the results from the time of this admission to 05/17/2025 09:36 EDT and agree with these findings: [x] Laboratory list / accordion [] Microbiology [x] Radiology [] EKG/Telemetry [] Cardiology/Vascular [x] Pathology [x] Old records [x] Other: Most notable findings include: Discussed in HPI and assessment and plan LAB RESULTS: Lab 05/17/25 0855 WBC 20.53* HEMOGLOBIN 12.5 HEMATOCRIT 38.2 PLATELETS 295 NEUTROS ABS 17.32* IMMATURE GRANS (ABS) 0.09* LYMPHS ABS 1.78 MONOS ABS 1.24* EOS ABS 0.05 MCV 96.7 Microbiology Results (last 10 days) No results found for the last 240 hours. No radiology results from the last 24 hrs Assessment & Plan Assessment & Plan Kidney stone Shaneka Shipley is a 50 y.o. female with HTN, bipolar disorder, depression, migraines who presented to [facility] due to left flank pain. Patient was found to have a 3 mm stone in her UPJ causing hydronephrosis and hydroureter. UPJ stone Hydronephrosis with hydroureter UTI - Patient with leukocytosis, tachycardia and chills with source of infection meeting septic criteria -Outside hospital scans showed 3 mm UPJ stone causing hydronephrosis and hydroureter as well as cystitis - Received a dose of Rocephin at the outside hospital, will continue for now -Outside hospital UA positive for leuk esterase, nitrites and bacteria - Unclear if urine culture was obtained, will attempt to find out - Repeat UA and urine culture here pending - Follow-up blood culture - Urology following, Dr. Baker planning on intervention today Hypertension - Hold home losartan for now as patient was hypotensive prior to arrival, will restart when appropriate Bipolar disorder Depression - Continue home Vraylar Migraines - Continue home propranolol, do not have extended release on formulary so we will split dose to 30 twice daily. Incidentally found splenic hypodensities - Seen on CT scan at the outside hospital, report says favoring benign etiologies recommended nonemergent MRI if indicated. Patient to follow-up with PCP VTE Prophylaxis: Mechanical VTE prophylaxis orders are present. CODE STATUS: Code Status and Medical Interventions: CPR (Attempt to Resuscitate); Full Support Ordered at: 05/17/25 0816 Code Status (Patient has no pulse and is not breathing): CPR (Attempt to Resuscitate) Medical Interventions (Patient has pulse or is breathing): Full Support Level Of Support Discussed With: Patient Expected Discharge Expected discharge date/ time has not been documented. Sandra Mack MD 05/17/25 documented in this encounter Consult Notes * Rober Baker MD - 05/17/2025 1:38 PM EDTAssociated Order(s): IP CONSULT TO UROLOGY Urology Consult Note Shaneka Shipley LOS: 0 ASSESSMENT: 50 y.o. female with A 3 mm obstructing left UVJ stone with UTI and transient hypotension and tachycardia DISCUSSION/RECOMMENDATIONS/PLAN: Becko proceed today for cystoscopy and ureteral stent placement HPI: Shaneka Shipley is a 50 y.o. female who was admitted 05/17/2025 for Kidney stone [N20.0]. .She presented to outside ER with some left-sided flank pain with fever and chills. Temperatures been as high as 102. She has now defervesced. Transiently she had mild hypotension and had significant tachycardia. Pain has now been controlled. 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 At night 05/16/2025 Bedtime estradiol (ESTRACE) 2 MG tablet Take 1 tablet by mouth Daily. 05/16/2025 febuxostat (ULORIC) 40 MG tablet Take 1 tablet by mouth Daily. 05/16/2025 lisinopril (PRINIVIL,ZESTRIL) 10 MG tablet Take 1 tablet by mouth Daily. 05/16/2025 propranolol LA (INDERAL LA) 60 MG 24 hr capsule Take 1 capsule by mouth Daily. 05/16/2025 Tirzepatide-Weight Management (Zepbound) 5 MG/0.5ML solution Inject 0.5 mL under the skin into the appropriate area as directed 1 (One) Time Per Week. Last wednesday Past Week SUMAtriptan (IMITREX) 100 MG tablet Take 1 tablet by mouth Every 2 (Two) Hours As Needed for Migraine. Take one tablet at onset of headache. May repeat dose one time in 2 hours if headache not relieved. Allergies Allergen Reactions Latex Itching History reviewed. No pertinent family history. Social History Socioeconomic History Marital status: Legally Tobacco Use Smoking status: Former Current packs/day: 8.00 Types: Cigarettes Smokeless tobacco: Never Tobacco comments: Quit smoking 8 yr ago Vaping Use Vaping status: Never Used Substance and Sexual Activity Alcohol use: Not Currently Comment: once a month Drug use: Never Sexual activity: Yes Review of Systems .Constitutional-negative Other than fever and chills Cardiac-negative Pulmonary-negative Neuro-negative GI-negative -as above Objective Blood pressure 121/61, pulse 114, temperature (!) 101.5 ??F (38.6 ??C), temperature source Oral, resp. rate 18, height 162.6 cm (64 ), weight 95.3 kg (210 lb), SpO2 96%. BP 121/61 (BP Location: Right arm, Patient Position: Lying) Pulse 114 Temp (!) 101.5 ??F (38.6 ??C) (Oral) Resp 18 Ht 162.6 cm (64 ) Wt 95.3 kg (210 lb) SpO2 96% BMI 36.05 kg/m?? Physicial Exam General: WDWN female in NAD Neck: Supple with no masses or adenopathy Back: No CVAT, spine linear and non-tender Abdomen: Soft and non-tender with no masses, organomegaly or guarding. : Normal female Extremities: FROM with no edema, pulses full Neuro: Nonfocal Imaging CT as stated above Labs Urine Microscopy: Results from last 7 days Lab Units 05/17/25 0941 RBC UA /HPF 3-5* WBC UA /HPF Too Numerous to Count* , Urinalysis: Results from last 7 days Lab Units 05/17/25 0941 PH, URINE <=5.0 PROTEIN UA 30 mg/dL (1+)* GLUCOSE UA Negative KETONES UA Negative , BMP: Results from last 7 days Lab Units 05/17/25 0855 SODIUM mmol/L 140 POTASSIUM mmol/L 4.1 CALCIUM mg/dL 8.5* CHLORIDE mmol/L 105 CO2 mmol/L 27.0 BUN mg/dL 17.2 CREATININE mg/dL 0.54* ALBUMIN g/dL 3.5 BILIRUBIN mg/dL 0.3 ALK PHOS U/L 52 , and CBC: Results from last 7 days Lab Units 05/17/25 0855 WBC 10*3/mm3 20.53* RBC 10*6/mm3 3.95 HEMOGLOBIN g/dL 12.5 HEMATOCRIT % 38.2 PLATELETS 10*3/mm3 295 Rober Baker MD - 05/17/2025, 13:38 EDT documented in this encounter Nursing Notes * Jayashree Moncada RN - 05/19/2025 1:45 AM EDT Goal Outcome Evaluation: Problem: Adult Inpatient Plan of Care Goal: Plan of Care Review Outcome: Not Progressing Goal: Patient-Specific Goal (Individualized) Outcome: Not Progressing Goal: Absence of Hospital-Acquired Illness or Injury Outcome: Not Progressing Intervention: Identify and Manage Fall Risk Description: Perform standard risk assessment on admission using a validated tool or comprehensive approach appropriate to the patient; reassess fall risk frequently, with change in status or transfer to another level of care.Communicate risk to interprofessional healthcare team; ensure fall risk vi sible cue.Determine need for increased observation, equipment and environmental modification, as well as use of supportive, nonskid footwear.Adjust safety measures to individual needs and identified risk factors.Reinforce the importance of active participation with fall risk prevention, safety, and physical activity with the patient and family.Perform regular intentional rounding to assess need for position change, pain assessment and personal needs, including assistance with toileting. Recent Flowsheet Documentation Taken 05/18/20251999 by Jayashree Moncada RN Safety Promotion/Fall Prevention: room organization consistent Intervention: Prevent Skin Injury Description: Perform a screening for skin injury risk, such as pressure or moisture-associated skindamage on admission and at regular intervals throughout hospital stay.Keep all areas of skin (especially folds) clean and dry.Maintain adequate skin hydration.Relieve and redistribute pressure and protect bony prominences and skin at risk for injury; implement measures based on patient- specific risk factors.Match turning and repositioning schedule to clinical condition.Encourage weight shift frequently; assist with reposition if unable to complete independently.Float heels off bed; avoid pressure on the Achilles tendon.Keep skin free from extended contact with medical devices.Optimize nutrition and hydration.Encourage functional activity and mobility, as early as tolerated.Use aids (e.g., slide boards, mechanical lift) during transfer. Recent Flowsheet Documentation Taken 05/18/20251999 by Jayashree Moncada RN Body Position: position changed independently Skin Protection: drying agents applied incontinence pads utilized Intervention: Prevent and Manage VTE (Venous Thromboembolism) Risk Description: Assess for VTE (venous thromboembolism) risk.Promote early mobilization; encourage both active and passive leg exercises, if unable to ambulate.Initiate and maintain compression or othertherapy, as indicated, based on identified risk in accordance with organizational protocol and provider order.Recognize the patient's individual risk for bleeding before initiating pharmacologic thromboprophylaxis. Recent Flowsheet Documentation Taken 05/18/20251999 by Jayashree Moncada RN VTE Prevention/Management: SCDs (sequential compression devices) off Intervention: Prevent Infection Description: Maintain skin and mucous membrane integrity; promote hand, oral and pulmonary hygiene.Optimize fluid balance, nutrition, sleep and glycemic control to maximize infection resistance.Identify potential sources of infection early to prevent or mitigate progression of infection (e.g., wound, lines, devices).Evaluate ongoing need for invasive devices; remove promptly when no longer indicated.Review vaccination status. Recent Flowsheet Documentation Taken 05/18/20251999 by Jayashree Moncada RN Infection Prevention: environmental surveillance performed Goal: Optimal Comfort and Wellbeing Outcome: Not Progressing Goal: Readiness for Transition of Care Outcome: Not Progressing * Teresa Alexander RN - 05/18/2025 3:43 AM EDT Problem: Adult Inpatient Plan of Care Goal: Plan of Care Review Outcome: Progressing Flowsheets (Taken 05/18/2025 0343) Progress: improving Plan of Care Reviewed With: patient Goal: Patient-Specific Goal (Individualized) Outcome: Progressing Goal: Absence of Hospital-Acquired Illness or Injury Outcome: Progressing Intervention: Identify and Manage Fall Risk Recent Flowsheet Documentation Taken 05/18/2025 0200 by Teresa Alexander RN Safety Promotion/Fall Prevention: activity supervised assistive device/personal items within reach clutter free environment maintained fall prevention program maintained toileting scheduled safety round/check completed room organization consistent nonskid shoes/slippers when out of bed Taken 05/18/2025 0000 by Teresa Alexander RN Safety Promotion/Fall Prevention: activity supervised assistive device/personal items within reach clutter free environment maintained fall prevention program maintained toileting scheduled safety round/check completed room organization consistent nonskid shoes/slippers when out of bed Taken 05/17/20252199 by Teresa Alexander RN Safety Promotion/Fall Prevention: activity supervised assistive device/personal items within reach clutter free environment maintained fall prevention program maintained toileting scheduled safety round/check completed room organization consistent nonskid shoes/slippers when out of bed Taken 05/17/20252047 by Teresa Alexander RN Safety Promotion/Fall Prevention: activity supervised assistive device/personal items within reach clutter free environment maintained fall prevention program maintained toileting scheduled safety round/check completed room organization consistent nonskid shoes/slippers when out of bed Intervention: Prevent Skin Injury Recent Flowsheet Documentation Taken 05/18/2025 0200 by Teresa Alexander RN Body Position: position changed independently Taken 05/18/2025 0000 by Teresa Alexander RN Body Position: position changed independently Taken 05/17/20252199 by Teresa Alexander RN Body Position: position changed independently Taken 05/17/20252047 by Teresa Alexander RN Body Position: position changed independently Skin Protection: incontinence pads utilized transparent dressing maintained skin sealant/moisture barrier applied Intervention: Prevent and Manage VTE (Venous Thromboembolism) Risk Recent Flowsheet Documentation Taken 05/17/20252047 by Teresa Alexander RN VTE Prevention/Management: bilateral SCDs (sequential compression devices) on Intervention: Prevent Infection Recent Flowsheet Documentation Taken 05/18/2025 0200 by Teresa Alexander RN Infection Prevention: single patient room provided rest/sleep promoted Taken 05/18/2025 0000 by Teresa Alexander RN Infection Prevention: single patient room provided rest/sleep promoted Taken 05/17/20252199 by Teresa Alexander RN Infection Prevention: single patient room provided rest/sleep promoted Taken 05/17/20252047 by Teresa Alexander RN Infection Prevention: single patient room provided rest/sleep promoted Goal: Optimal Comfort and Wellbeing Outcome: Progressing Intervention: Monitor Pain and Promote Comfort Recent Flowsheet Documentation Taken 05/18/2025 0314 by Teresa Alexander RN Pain Management Interventions: pain medication given Taken 05/18/2025 0030 by Teresa Alexander RN Pain Management Interventions: pain medication given Taken 05/17/20252047 by Teresa Alexander RN Pain Management Interventions: pain medication given Intervention: Provide Person-Centered Care Recent Flowsheet Documentation Taken 05/17/20252047 by Teresa Alexander RN Trust Relationship/Rapport: thoughts/feelings acknowledged Goal: Readiness for Transition of Care Outcome: Progressing Problem: Sepsis/Septic Shock Goal: Optimal Coping Outcome: Progressing Intervention: Support Patient and Family Response Recent Flowsheet Documentation Taken 05/17/20252047 by Teresa Alexander RN Supportive Measures: active listening utilized Family/Support System Care: support provided Goal: Absence of Bleeding Outcome: Progressing Goal: Blood Glucose Level Within Target Range Outcome: Progressing Goal: Absence of Infection Signs and Symptoms Outcome: Progressing Intervention: Initiate Sepsis Management Recent Flowsheet Documentation Taken 05/18/2025 0200 by Teresa Alexander RN Infection Prevention: single patient room provided rest/sleep promoted Taken 05/18/2025 0000 by Teresa Alexander RN Infection Prevention: single patient room provided rest/sleep promoted Taken 05/17/20252199 by Teresa Alexander RN Infection Prevention: single patient room provided rest/sleep promoted Taken 05/17/20252047 by Teresa Alexander RN Infection Prevention: single patient room provided rest/sleep promoted Intervention: Promote Recovery Recent Flowsheet Documentation Taken 05/18/2025 0200 by Teresa Alexander RN Activity Management: activity encouraged Taken 05/18/2025 0000 by Teresa Alexander RN Activity Management: activity encouraged Taken 05/17/2025 2200 by Teresa Alexander RN Activity Management: activity encouraged Taken 05/17/20252047 by Teersa Alexander RN Activity Management: activity encouraged Sleep/Rest Enhancement: awakenings minimized Goal: Optimal Nutrition Delivery Outcome: Progressing Goal Outcome Evaluation: Plan of Care Reviewed With: patient Progress: improving documented in this encounter OR Notes * Op Note - Rober Baker MD - 05/17/2025 3:36 PM EDT .Operative note Preoperative diagnosis: Left ureteral stone with UTI and fever Postoperative diagnosis: Same Procedure: Cystoscopy with left ureteral stent placement Anesthesia: General Complications: None EBL: None Specimens: None Drains: Left 6 American by 26 cm double-J ureteral stent Indications -this patient presents with a left renal colic mild hypotension tachycardia and fever with finding of a 3 mm left ureterovesical junction calculus. She presents for urgent ureteral stent placement Findings -bladder was unremarkable. Guidewire and ultimately stent were bypassed beyond the stone without difficulty and stent was well-positioned with curl in renal pelvis and bladder. There was no string attached. Fluid draining from renal pelvis with ureteral catheter passage was clear. Operative term -this patient was brought to the operating room where general anesthesia was conducted. Preoperatively she had received IV antibiotics and antiembolism stockings were placed. She was then placed in the lithotomy position and extremities and all pressure points were padded and protected appropriately. The genitalia were prepped and draped sterilely and an appropriate timeout was conducted. A 22 American panendoscope was passed per urethra into the bladder and a thorough inspection of the bladder was conducted. The left ureter was cannulated with a floppy tip wire which was passed up the ureter under fluoroscopic guidance. Initially a 5 American ureteral catheter was passed over the wire and fluid was obtained from the renal pelvis. The wire was reinserted. A 6 American by 26 cm double-J ureteral stent was then positioned over the wire leaving a curl in the renal pelvis and bladder with no string attached. The bladder was drained and the scope was removed. A Xylocaine Uro-Jet was instilled. She was awakened and transported to postop recovery in stable condition. She toleratedthe procedure very well with no complications. documented in this encounter Miscellaneous Notes * Case Management/Social Work - Shanta Lynn RN - 05/17/2025 10:23 AM EDT Discharge Planning Assessment [facility] Patient Name: Shaneka Shipley Today's Date: 05/17/2025 Admit Date: 05/17/2025 Plan: home Discharge Needs Assessment Row Name 05/17/25 1013 Living Environment People in Home spouse Current Living Arrangements home Potentially Unsafe Housing Conditions none Primary Care Provided by self Provides Primary Care For no one Family Caregiver if Needed spouse Quality of Family Relationships helpful;involved;supportive Able to Return to Prior Arrangements yes Living Arrangement Comments Plan home at discharge Resource/Environmental Concerns Resource/Environmental Concerns none Transportation Concerns none Transition Planning Patient/Family Anticipates Transition to home with family Patient/Family Anticipated Services at Transition none Transportation Anticipated agency Discharge Needs Assessment Equipment Currently Used at Home none Concerns to be Addressed discharge planning Anticipated Changes Related to Illness none Equipment Needed After Discharge none Discharge Coordination/Progress Plan is home Discharge Plan Row Name 05/17/25 1016 Plan Plan home Patient/Family in Agreement with Plan yes Plan Comments I spoke wtih patient at the . Patient lives in [facility] with . Works FT,independent, no dme. Plan is home at discharge. Patient has transportation. Final Discharge Disposition Code 01 - home or self-care Continued Care and Services - Admitted Since 05/17/2025 No active coordination exists. Expected Discharge Date and Time Expected Discharge Date Expected Discharge Time May 19, 2025 Demographic Summary Row Name 05/17/25 1009 General Information Admission Type inpatient Referral Source admission list Reason for Consult discharge planning Preferred Language Mongolian Contact Information Permission Granted to Share Info With caseworkermanager banking Information Obtained for caseworkersales performance manager Status Row Name 05/17/25 1009 Functional Status Usual Activity Tolerance good Current Activity Tolerance moderate Functional Status, IADL Medications independent Meal Preparation independent Housekeeping independent Laundry independent Shopping independent IADL Comments Patient has coverage for meds with [facility] Mental Status General Appearance WDL WDL Mental Status Summary Recent Changes in Mental Status/Cognitive Functioning ability to speak clearly;ability to understand Employment/ Employment Status employed full-time Psychosocial No documentation. Abuse/Neglect No documentation. Legal No documentation. Substance Abuse No documentation. Patient Forms No documentation. Shanta Lynn, RN documented in this encounter Plan of Treatment Scheduled Orders Name Type Priority Associated Diagnoses Orde r Schedule Blood Culture - Blood, Microbiology STAT STAT for 1 Occur rences starting 05/17/2025 until 05/17/2025 documented as of this encounter Procedures Procedure Name Priority Date/Time Associated Diagnosis Comments CBC (NO DIFF) Routine 05/19/2025 4:15 AM EDT BASIC METABOLIC PANEL Routine 05/19/2025 4:15 AM EDT CBC (NO DIFF) Routine 05/18/2025 4:15 AM EDT BASIC METABOLIC PANEL Routine 05/18/2025 4:15 AM EDT FL C ARM DURING SURGERY Routine 05/17/2025 4:56 PM EDT KS CYSTO W/INSERT URETERAL STENT 05/17/2025 4:15 PM EDT Special Needs X-Ray+ CT OUTSIDE ABD/PELVIS Routine 05/17/2025 9:44 AM EDT URINALYSIS, MICROSCOPIC ONLY Routine 05/17/2025 9:41 AM EDT URINALYSIS W/ CULTURE IF INDICATED Routine 05/17/2025 9:41 AM EDT URINE CULTURE Routine 05/17/2025 9:41 AM EDT CBC WITH AUTO DIFFERENTIAL Urgent 05/17/2025 8:55 AM EDT CBC AND DIFFERENTIAL Urgent 05/17/2025 8:55 AM EDT COMPREHENSIVE METABOLIC PANEL Routine 05/17/2025 8:55 AM EDT BLOOD CULTURE STAT 05/17/2025 8:30 AM EDT SCANNED - IMAGING 05/17/2025 SCANNED - LABS 05/17/2025 SCANNED - LABS 05/17/2025 documented in this encounter Results * (ABNORMAL) Basic Metabolic Panel (05/19/2025 4:15 AM EDT) Glucose 107(H) 65 - 99 mg/dL 05/19/2025 5:16 AM EDT [facility] BUN 9.0 6.0 - 20.0 mg/dL 05/19/2025 5:16 AM EDT [facility] Creatinine 0.32(L) 0.57 - 1.00 mg/dL 05/19/2025 5:16 AM EDT [facility] Sodium 137 136 - 145 mmol/L 05/19/2025 5:16 AM EDT [facility] Potassium 3.7 3.5 - 5.2 mmol/L 05/19/2025 5:16 AM EDT [facility] Chloride 105 98 - 107 mmol/L 05/19/2025 5:16 AM EDT [facility] CO2 25.7 22.0 - 29.0 mmol/L 05/19/2025 5:16 AM EDT [facility] Calcium 8.5(L) 8.6 - 10.5 mg/dL 05/19/2025 5:16 AM EDT [facility] BUN/Creatinine Ratio 28.1(H) 7.0 - 25.0 05/19/2025 5:16 AM EDT [facility] Anion Gap 6.3 5.0 - 15.0 mmol/L 05/19/2025 5:16 AM EDT [facility] eGFR 127.4 >60.0 mL/min/1.7 3 05/19/2025 5:16 AM EDT [facility] Blood Venipuncture / Unknown 05/19/2025 4:15 AM EDT 05/19/2025 4:40 AM EDT Narrative [facility] - 05/19/2025 5:16 AM EDT GFR Categories in Chronic Kidney Disease (CKD) GFR Category GFR (mL/min/1.73) Interpretation G1 90 or greater Normal or high (1) G2 60-89 Mild decrease (1) G3a 45-59 Mild to moderate decrease G3b 30-44 Moderate to severe decrease G4 15-29 Severe decrease G5 14 or less Kidney failure (1)In the absence of evidence of kidney disease, neither GFR category G1 or G2 fulfill the criteria for CKD. eGFR calculation 2020 CKD-EPI creatinine equation, which does not include race as a factor us Chayito Bradley MD LAB BLOOD ORDERABLES Final Resul t [facility]
[address] [place] [address], * (ABNORMAL) CBC (No Diff) (05/19/2025 4:15 AM EDT) WBC 12.69(H) 3.40 - 10.80 10*3/mm3 05/19/2025 5:02 AM EDT [facility] RBC 3.39(L) 3.77 - 5.28 10*6/mm3 05/19/2025 5:02 AM EDT [facility] Hemoglobin 10.5(L) 12.0 - 15.9 g/dL 05/19/2025 5:02 AM EDT [facility] LABORATORY Hematocrit 33.0(L) 34.0 - 46.6 % 05/19/2025 5:02 AM EDT [facility] MCV 97.3(H) 79.0 - 97.0 fL 05/19/2025 5:02 AM EDT [facility] MCH 31.0 26.6 - 33.0 pg 05/19/2025 5:02 AM EDT [facility] MCHC 31.8 31.5 - 35.7 g/dL 05/19/2025 5:02 AM EDT [facility] RDW 12.9 12.3 - 15.4 % 05/19/2025 5:02 AM EDT [facility] RDW-SD 46.0 37.0 - 54.0 fl 05/19/2025 5:02 AM EDT [facility] MPV 9.8 6.0 - 12.0 fL 05/19/2025 5:02 AM EDT [facility] Platelets 251 140 - 450 10*3/mm3 05/19/2025 5:02 AM EDT [facility] Blood Venipuncture / Unknown 05/19/2025 4:15 AM EDT 05/19/2025 4:53 AM EDT us Chayito Bradley MD LAB BLOOD ORDERABLES Final Resul t [facility]
[address] [place] [address], * (ABNORMAL) CBC (No Diff) (05/18/2025 4:15 AM EDT) WBC 16.55(H) 3.40 - 10.80 10*3/mm3 05/18/2025 6:16 AM EDT [facility] RBC 3.34(L) 3.77 - 5.28 10*6/mm3 05/18/2025 6:16 AM EDT [facility] Hemoglobin 10.3(L) 12.0 - 15.9 g/dL 05/18/2025 6:16 AM EDT [facility] Hematocrit 32.9(L) 34.0 - 46.6 % 05/18/2025 6:16 AM EDT [facility] MCV 98.5(H) 79.0 - 97.0 fL 05/18/2025 6:16 AM EDT [facility] MCH 30.8 26.6 - 33.0 pg 05/18/2025 6:16 AM EDT [facility] MCHC 31.3(L) 31.5 - 35.7 g/dL 05/18/2025 6:16 AM EDT [facility] RDW 13.0 12.3 - 15.4 % 05/18/2025 6:16 AM EDT [facility] RDW-SD 46.9 37.0 - 54.0 fl 05/18/2025 6:16 AM EDT [facility] MPV 10.0 6.0 - 12.0 fL 05/18/2025 6:16 AM EDT [facility] Platelets 244 140 - 450 10*3/mm3 05/18/2025 6:16 AM EDT [facility] Blood Venipuncture / Unknown 05/18/2025 4:15 AM EDT 05/18/2025 5:06 AM EDT us Rober Baker MD LAB BLOOD ORDERABLES Final Resu lt [facility]
[address] [place] [address], * (ABNORMAL) Basic Metabolic Panel (05/18/2025 4:15 AM EDT) Glucose 116(H) 65 - 99 mg/dL 05/18/2025 5:39 AM EDT [facility] BUN 12.2 6.0 - 20.0 mg/dL 05/18/2025 5:39 AM EDT [facility] Creatinine 0.55(L) 0.57 - 1.00 mg/dL 05/18/2025 5:39 AM EDT [facility] Sodium 137 136 - 145 mmol/L 05/18/2025 5:39 AM EDT [facility] Potassium 3.8 3.5 - 5.2 mmol/L 05/18/2025 5:39 AM EDT [facility] Chloride 104 98 - 107 mmol/L 05/18/2025 5:39 AM EDT [facility] CO2 24.8 22.0 - 29.0 mmol/L 05/18/2025 5:39 AM EDT [facility] Calcium 8.4(L) 8.6 - 10.5 mg/dL 05/18/2025 5:39 AM EDT [facility] BUN/Creatinine Ratio 22.2 7.0 - 25.0 05/18/2025 5:39 AM EDT [facility] Anion Gap 8.2 5.0 - 15.0 mmol/L 05/18/2025 5:39 AM EDT [facility] eGFR 111.8 >60.0 mL/min/1.7 3 05/18/2025 5:39 AM EDT [facility] Blood Venipuncture / Unknown 05/18/2025 4:15 AM EDT 05/18/2025 5:04 AM EDT Narrative [facility] - 05/18/2025 5:39 AM EDT GFR Categories in Chronic Kidney Disease (CKD) GFR Category GFR (mL/min/1.73) Interpretation G1 90 or greater Normal or high (1) G2 60-89 Mild decrease (1) G3a 45-59 Mild to moderate decrease G3b 30-44 Moderate to severe decrease G4 15-29 Severe decrease G5 14 or less Kidney failure (1)In the absence of evidence of kidney disease, neither GFR category G1 or G2 fulfill the criteria for CKD. eGFR calculation 2020 CKD-EPI creatinine equation, which does not include race as a factor us Rober Baker MD LAB BLOOD ORDERABLES Final Resu lt [facility]
[address] [place] [address], * FL C Arm During Surgery (05/17/2025 4:56 PM EDT) Narrative SYSTEMGENERATED, DOCUMENTATION - 05/17/2025 4:56 PM EDT This procedure was auto-finalized with no dictation required. us Rober Baker MD IMG FLUOROSCOPY ORDERABLES Deisi l Result * CT Outside Abd/Pelvis (05/17/2025 9:44 AM EDT) Narrative SYSTEMGENERATED, DOCUMENTATION - 05/17/2025 9:44 AM EDT This procedure was auto-finalized with no dictation required. us Radiant Outside Films IMG CT ORDERABLES Final Re sult * Urine Culture - Urine, Urine, Clean Catch (05/17/2025 9:41 AM EDT) Urine Culture No growth NATE 05/18/2025 10:55 AM EDT [facility] Urine Urine specimen obtained by clean catch procedure / Unknown Collection / Unknown 05/17/2025 9:41 AM EDT 05/17/2025 9:50 AM EDT Sandra Mack MD MICROBIOLOGY - GENERAL ORDERABLES Final Result [facility]
[address] [place] [address], * (ABNORMAL) Urinalysis, Microscopic Only - Urine, Clean Catch (05/17/2025 9:41 AM EDT) RBC, UA 3-5(A) None Seen, 0-2 /HPF 05/17/2025 9:56 AM EDT [facility] WBC, UA Too Numerous to Count(A) None Seen, 0-2 /HPF 05/17/2025 9:56 AM EDT [facility] Bacteria, UA None Seen None Seen /HPF 05/17/2025 9:56 AM EDT [facility] Squamous Epithelial Cells, UA 0-2 None Seen, 0-2 /HPF 05/17/2025 9:56 AM EDT [facility] Hyaline Casts, UA 0-2 None Seen /LPF 05/17/2025 9:56 AM EDT [facility] Methodology Automated Microscopy 05/17/2025 9:56 AM EDT [facility] Urine Urine specimen obtained by clean catch procedure / Unknown Collection / Unknown 05/17/2025 9:41 AM EDT 05/17/2025 9:50 AM EDT us Sandra Mack MD URINE ORDERABL ES Final Result [facility]
[address] [place] [address], * (ABNORMAL) Urinalysis With Culture If Indicated - Urine, Clean Catch (05/17/2025 9:41 AM EDT) Color, UA Yellow Yellow, Straw 05/17/2025 9:56 AM EDT [facility] Appearance, UA Cloudy(A) Clear 05/17/2025 9:56 AM EDT [facility] pH, UA <=5.0 5.0 - 8.0 05/17/2025 9:56 AM EDT [facility] Specific Baird, UA 1.023 1.005 - 1.030 05/17/2025 9:56 AM EDT [facility] Glucose, UA Negative Negative 05/17/2025 9:56 AM EDT [facility] Ketones, UA Negative Negative 05/17/2025 9:56 AM EDT [facility] Bilirubin, UA Negative Negative 05/17/2025 9:56 AM EDT [facility] Blood, UA Moderate (2+)(A) Negative 05/17/2025 9:56 AM EDT [facility] Protein, UA 30 mg/dL (1+)(A) Negative 05/17/2025 9:56 AM EDT [facility] Leuk Esterase, UA Moderate (2+)(A) Negative 05/17/2025 9:56 AM EDT [facility] Nitrite, UA Negative Negative 05/17/2025 9:56 AM EDT [facility] Urobilinogen, UA 0.2 E.U./dL 0.2 - 1.0 E.U./dL 05/17/2025 9:56 AM EDT [facility] Urine Urine specimen obtained by clean catch procedure / Unknown Collection / Unknown 05/17/2025 9:41 AM EDT 05/17/2025 9:50 AM EDT Narrative [facility] - 05/17/2025 9:56 AM EDT In absence of clinical symptoms, the presence of pyuria, bacteria, and/or nitrites on the urinalysis result does not correlate with infection. us Sandra Mack MD URINE ORDERABL ES Final Result [facility]
[address] [place] [address], * (ABNORMAL) CBC Auto Differential (05/17/2025 8:55 AM EDT) WBC 20.53(H) 3.40 - 10.80 10*3/mm3 05/17/2025 8:58 AM EDT [facility] RBC 3.95 3.77 - 5.28 10*6/mm3 05/17/2025 8:58 AM EDT [facility] Hemoglobin 12.5 12.0 - 15.9 g/dL 05/17/2025 8:58 AM EDT [facility] Hematocrit 38.2 34.0 - 46.6 % 05/17/2025 8:58 AM EDT [facility] MCV 96.7 79.0 - 97.0 fL 05/17/2025 8:58 AM EDT [facility] MCH 31.6 26.6 - 33.0 pg 05/17/2025 8:58 AM EDT [facility] MCHC 32.7 31.5 - 35.7 g/dL [facility] RDW 12.7 12.3 - 15.4 % 05/17/2025 8:58 AM [facility] RDW-SD 45.2 37.0 - 54.0 fl 05/17/2025 8:58 AM [facility] MPV 9.4 6.0 - 12.0 fL 05/17/2025 8:58 AM EDT [facility] Platelets 295 140 - 450 10*3/mm3 05/17/2025 8:58 AM T [facility] Neutrophil % 84.5(H) 42.7 - 76.0 % 05/17[facility]2025 [facility] Lymphocyte % 8.7(L) 19.6 - 45.3 % 05/17/2025 8:[facility] Monocyte % 6.0 5.0 - 12.0 % 05/17/2025 8:58 AM [facility] Eosinophil % 0.2(L) 0.3 - 6.2 % 05/17/2025 8:58 [facility] Basophil % 0.2 0.0 - 1.5 % 05/17/2025 8:58 [facility] Immature Grans % 0.4 0.0 - 0.5 % 05/17/2025 8:58 AM [facility] Neutrophils, Absolute 17.32(H) 1.70 - 7.00 10*3/mm3 05/17/2025 8:58 [facility] Lymphocytes, Absolute 1.78 0.70 - 3.10 10*3/mm3 05/17/2025 8:58 [facility] Monocytes, Absolute 1.24(H) 0.10 - 0.90 10*3/mm3 05/17/2025 8:58 [facility] Eosinophils, Absolute 0.05 0.00 - 0.40 10*3/mm3 05/17/2025 8:58 AM EDT [facility] Basophils, Absolute 0.05 0.00 - 0.20 10*3/mm3 05/17/2025 8:58 AM EDT [facility] Immature Grans, Absolute 0.09(H) 0.00 - 0.05 10*3/mm3 05/17/2025 8:58 AM EDT [facility] nRBC 0.0 0.0 - 0.2 /100 WBC 05/17/2025 8:58 AM EDT [facility] Blood Venipuncture / Unknown 05/17/2025 8:55 AM EDT 05/17/2025 8:55 AM EDT Sandra Mack MD LAB BLOOD MAU NICOLE Final Result [facility]
[address] [place] [address], * (ABNORMAL) Comprehensive Metabolic Panel (05/17/2025 8:55 AM EDT) Glucose 93 65 - 99 mg/dL 05/17/2025 9:37 AM EDT [facility] BUN 17.2 6.0 - 20.0 mg/dL 05/17/2025 9:37 AM EDT [facility] Creatinine 0.54(L) 0.57 - 1.00 mg/dL 05/17/2025 9:37 AM EDT [facility] Sodium 140 136 - 145 mmol/L 05/17/2025 9:37 AM EDT [facility] Potassium 4.1 3.5 - 5.2 mmol/L 05/17/2025 9:37 AM EDT [facility] Comment:Slight hemolysis det ected by analyzer. Result may be falsely elevated. Chloride 105 98 - 107 mmol/L 05/17/2025 9:37 AM EDT [facility] CO2 27.0 22.0 - 29.0 mmol/L 05/17/2025 9:37 AM [facility] Calcium 8.5(L) 8.6 - 10.5 mg/dL 05/17/2025 9:37 AM [facility] Total Protein 5.7(L) 6.0 - 8.5 g/dL 05/17/2025 9:37 AM [facility] Albumin 3.5 3.5 - 5.2 g/dL 05/17/2025 9:37 AM [facility] ALT (SGPT) 18 1 - 33 U/L 05/17/2025 9:37 AM [facility] AST (SGOT) 22 1 - 32 U/L 05/17/2025 9:37 AM [facility] Comment:Slight hemolysis det ected by analyzer. Result may be falsely elevated. Alkaline Phosphatase 52 39 - 117 U/L 05/17/2025 9:37 AM [facility] Total Bilirubin 0.3 0.0 - 1.2 mg/dL 05/17/2025 9:37 AM [facility] Globulin 2.2 gm/dL 05/17/2025 9:37 AM [facility] Comment:Calculated Result A/G Ratio 1.6 g/dL 05/17/2025 9:37 AM [facility] BUN/Creatinine Ratio 31.9(H) 7.0 - 25.0 05/17/2025 9:37 AM [facility] Anion Gap 8.0 5.0 - 15.0 mmol/L 05/17/2025 9:37 AM [facility] eGFR 112.3 >60.0 mL/min/1.7 3 05/17/2025 9:37 AM [facility] Blood Venipuncture / Unknown 05/17/2025 8:55 AM EDT 05/17/2025 8:55 AM T [facility] - 05/17/2025 9:37 AM EDT GFR Categories in Chronic Kidney Disease (CKD) GFR Category GFR (mL/min/1.73) Interpretation G1 90 or greater Normal or high (1) G2 60-89 Mild decrease (1) G3a 45-59 Mild to moderate decrease G3b 30-44 Moderate to severe decrease G4 15-29 Severe decrease G5 14 or less Kidney failure (1)In the absence of evidence of kidney disease, neither GFR category G1 or G2 fulfill the criteria for CKD. eGFR calculation 2020 CKD-EPI creatinine equation, which does not include race as a factor Sandra Mack MD LAB BLOOD ORDE RABLES Final Result [facility]
[address] [place] [address], * Blood Culture - Blood, Arm, Right (05/17/2025 8:30 AM EDT) Blood Culture No growth at 5 days 05/22/2025 9:45 AM EDT [facility] Blood Structure of right upper limb / Unknown Venipuncture / Unknown 05/17/2025 8:30 AM EDT 05/17/2025 9:37 AM EDT Sandra Mack MD MICROBIOLOGY - GENERAL ORDERABLES Final Result Performing Organization Address City/[facility]/ZIP Co de Phone Number [facility]
[address] [place] [address], * LABS SCANNED (05/17/2025) [facility] LAB BLOOD ORDERABLES Final Re sult * LABS SCANNED (05/17/2025) [facility] LAB BLOOD ORDERABLES Final Re sult * IMAGING SCANNED (05/17/2025) Anatomical Region Laterality Modality Radiographic Adelaida ging [facility] IMG DIAGNOSTIC IMAGING ORDERA BLES Final Result documented in this encounter Visit Diagnoses Diagnosis Kidney stone- Primary Calculus of kidney Acute pyelonephritis Acute pyelonephritis without lesion of renal medullary necrosis Kidney stone Calculus of kidney Sepsis Essential hypertension Unspecified essential hypertension History of migraine headaches Bipolar disorder Bipolar disorder, unspecified Acute pyelonephritis Acute pyelonephritis without lesion of renal medullary necrosis documented in this encounter Admitting Diagnoses Diagnosis Kidney stone Calculus of kidney documented in this encounter Administered Medications Inactive Administered Medications - up to 3 most recent administrations Medication Order MAR Action Action Date Dose Rate Site acetaminophen (TYLENOL) tablet 650 mg 650 mg, Oral, Every 6 Hours PRN, Mild Pain, Starting on Charity 05/17/25 at 0757, Based on patient request - if ordered for moderate or severe pain, provider allows for administration of a medication prescribed for a lower pain scale. Do not exceed 4 grams of acetaminophen in a 24 hr period. Max dose of 2gm for AST/ALT greater than 120 units/L. If given for pain, use the following pain scale: Mild Pain = Pain Score of 1-3, CPOT 1-2 Moderate Pain = Pain Score of 4-6, CPOT 3-4 Severe Pain = Pain Score of 7-10, CPOT 5-8 Given 05/18/2025 9:12 PM EDT 650 mg Given 05/18/2025 1:29 PM EDT 650 mg Given 05/17/2025 12:35 PM EDT 650 mg bisacodyl (DULCOLAX) EC tablet 5 mg 5 mg, Oral, Daily PRN, Constipation, Use if polyethylene glycol is ineffective, Starting on Charity 05/17/25 at 0820, Use if no bowel movement after 12 hours. Swallow whole. Do not crush, split, or chew tablet. bisacodyl (DULCOLAX) suppository 10 mg 10 mg, Rectal, Daily PRN, Constipation, Use if bisacodyl oral is ineffective, Starting on Charity 05/17/25 at 0820, Use if no bowel movement after 12 hours. Hold for diarrhea Calcium Replacement - Follow Nurse / BPA Driven Protocol Open Order & Select S Electrolyte Replacement Protocol Algorithm to View Details Cariprazine HCl (VRAYLAR) capsule capsule 3 mg 3 mg, Oral, Nightly, First dose on Wed05/17/25 at 2100 Given 05/18/2025 9:03 PM EDT 3 mg Given 05/17/2025 8:48 PM EDT 3 mg cefTRIAXone (ROCEPHIN) 1,000 mg in sodium chloride 0.9 % 100 mL MBP 1,000 mg, Intravenous, at 200 mL/hr, Administer over 30 Minutes, Every 24 Hours Scheduled, First dose on Wed05/17/25 at 0900, For 7 days, LR should be paused and flushing of the line with NS is recommended prior to and after completion of ceftriaxone infusion due to incompatibility. Do not co-adminster with calcium-containing solutions. Caution: Look alike/sound alike drug alert, Indications: Uncomplicated CystitisIndications:Uncomplicated Cystitis New Bag 05/19/2025 8:08 AM EDT 1,000 mg 200 mL/hr New Bag 05/18/2025 9:09 AM EDT 1,000 mg 200 mL/hr New Bag 05/17/2025 9:34 AM EDT 1,000 mg 200 mL/hr estradiol (ESTRACE) tablet 2 mg 2 mg, Oral, Daily, First dose on Wed05/18/25 at 0900, Group 1 (Yellow) Hazardous Drug - See Handling Guide Given 05/19/2025 8:08 AM EDT 2 mg Given 05/18/2025 9:05 AM EDT 2 mg febuxostat (ULORIC) tablet 40 mg 40 mg, Oral, Daily, First dose on Wed05/17/25 at 0915 Given 05/19/2025 8:08 AM EDT 40 mg Given 05/18/2025 9:05 AM EDT 40 mg HYDROmorphone (DILAUDID) injection 0.5 mg 0.5 mg, Intravenous, Every 4 Hours PRN, Severe Pain, Starting on Wed05/17/25 at 0756, For 5 days, Based on patient request - if ordered for moderate or severe pain, provider allows for administration of a medication prescribed for a lower pain scale. If given for pain, use the following pain scale: Mild Pain = Pain Score of 1-3, CPOT 1-2 Moderate Pain = Pain Score of 4-6, CPOT 3-4 Severe Pain = Pain Score of 7-10, CPOT 5-8 Given 05/18/2025 9:04 PM EDT 0.5 mg Given 05/18/2025 9:05 AM EDT 0.5 mg Given 05/18/2025 12:30 AM EDT 0.5 mg lactated ringers infusion 75 mL/hr, Intravenous, Continuous, Starting on Charity 05/17/25 at 0915, For 12 hours New Bag 05/17/2025 9:28 AM EDT 75 mL/hr 75 mL/hr lactated ringers infusion 75 mL/hr, Intravenous, Continuous, Starting on Charity 05/17/25 at 1915, For 12 hours Currently Infusing 05/17/2025 6:33 PM EDT 75 mL/hr 75 mL/hr Magnesium Cardiology Dose Replacement - Follow Nurse / BPA Driven Protocol Open Order & Select BHS Electrolyte Replacement Protocol Algorithm to View Details nitroglycerin (NITROSTAT) SL tablet 0.4 mg 0.4 mg, Sublingual, Every 5 Minutes PRN, Chest Pain, Starting on Charity 05/17/25 at 0814, If Pain Unrelieved After 3 Doses Notify MD May administer up to 3 doses per episode. Hold if SBP less than 100. ondansetron (ZOFRAN) injection 4 mg 4 mg, Intravenous, Every 6 Hours PRN, Nausea, Vomiting, Starting on Charity 05/17/25 at 0815, If BOTH ondansetron (ZOFRAN) and promethazine (PHENERGAN) are ordered use ondansetron first and THEN promethazine IF ondansetron is ineffective. ondansetron ODT (ZOFRAN-ODT) disintegrating tablet 4 mg 4 mg, Oral, Every 6 Hours PRN, Nausea, Vomiting, Starting on Charity 05/17/25 at 0815, If BOTH ondansetron (ZOFRAN) and promethazine (PHENERGAN) are ordered use ondansetron first and THEN promethazine IF ondansetron is ineffective. Place on tongue and allow to dissolve. oxyCODONE (ROXICODONE) immediate release tablet 5 mg 5 mg, Oral, Every 6 Hours PRN, Moderate Pain, Starting on Charity 05/17/25 at 0756, For 5 days, Based on patient request - if ordered for moderate or severe pain, provider allows for administration of a medication prescribed for a lower pain scale. (MAXIMILIANO) If given for pain, use the following pain scale: Mild Pain = Pain Score of 1-3, CPOT 1-2 Moderate Pain = Pain Score of 4-6, CPOT 3-4 Severe Pain = Pain Score of 7-10, CPOT 5-8 Given 05/19/2025 8:17 AM EDT 5 mg Given 05/18/2025 9:03 PM EDT 5 mg Given 05/18/2025 2:53 PM EDT 5 mg Phosphorus Replacement - Follow Nurse / BPA Driven Protocol Open Order & Select S Electrolyte Replacement Protocol Algorithm to View Details polyethylene glycol (MIRALAX) packet 17 g 17 g, Oral, Daily PRN, Constipation, Use if senna-docusate is ineffective, Starting on Charity 05/17/25 at 0820, Use if no bowel movement after 12 hours. Mix in 6-8 ounces of water. Use 4-8 ounces of water, tea, or juice for each 17 gram dose. Given 05/18/2025 1:29 PM EDT 17 g Potassium Replacement - Follow Nurse / BPA Driven Protocol Open Order & Select S Electrolyte Replacement Protocol Algorithm to View Details propranolol (INDERAL) tablet 30 mg 30 mg, Oral, Every 12 Hours Scheduled, First dose (after last modification) on Charity 05/17/25 at 2100 Given 05/19/2025 8:08 AM EDT 30 mg Given 05/18/2025 9:03 PM EDT 30 mg Given 05/18/2025 9:04 AM EDT 30 mg sennosides-docusate (PERICOLACE) 8.6-50 MG per tablet 2 tablet 2 tablet, Oral, Nightly, First dose (after last modification) on Charity 05/17/25 at 2100, HOLD MEDICATION IF PATIENT HAS HAD BOWEL MOVEMENT. Start bowel management regimen if patient has not had a bowel movement after 12 hours. Given 05/18/2025 9:04 PM EDT 2 tablets Given 05/17/2025 8:48 PM EDT 2 tablets sodium chloride 0.9 % flush 10 mL 10 mL, Intravenous, Every 12 Hours Scheduled, First dose on Charity 05/17/25 at 0915 Given 05/18/2025 9:04 PM EDT 10 mL Given 05/18/2025 9:10 AM EDT 10 mL Given 05/17/2025 8:51 PM EDT 10 mL sodium chloride 0.9 % flush 10 mL 10 mL, Intravenous, As Needed, Line Care, Starting on Charity 05/17/25 at 0814 sodium chloride 0.9 % infusion 40 mL 40 mL, Intravenous, at 100 mL/hr, As Needed, Line Care, Starting on Charity 05/17/25 at 0814, Following administration of an IV intermittent medication, flush line with 40mL NS at 100mL/hr. documented in this encounter Active and Recently Administered Medications Times are shown in EDT. Scheduled Medication Order 05/17/2025 05/18/2025 05/19/2025 Cariprazine HCl (VRAYLAR) capsule capsule 3 mg 3 mg, Oral, Nightly, First dose on Wed05/17/25 at 2100 1511 (JAN Hold - Provider: Automatic Transfer Provider - Reason: Unreviewed Transfer Orders)1739 (MAR Unhold - Provider: Marleny Langston RN)2047 (Given - Provider: Teresa Alexander RN) 2102 (Given - Provider: Jayashree Moncada RN) cefTRIAXone (ROCEPHIN) 1,000 mg in sodium chloride 0.9 % 100 mL MBP 1,000 mg, Intravenous, at 200 mL/hr, Administer over 30 Minutes, Every 24 Hours Scheduled, First dose on Wed05/17/25 at 0900, For 7 days, LR should be paused and flushing of the line with NS is recommended prior to and after completion of ceftriaxone infusion due to incompatibility. Do not co-adminster with calcium-containing solutions. Caution: Look alike/sound alike drug alert, Indications: Uncomplicated Cystitis 0934 (New Bag - Provider: Marleny Langston RN) 0909 (New Bag - Provider: Becky Cuenca, RN) 0808 (New Bag - Provider: Shantel Gonzalez RN) estradiol (ESTRACE) tablet 2 mg 2 mg, Oral, Daily, First dose on Wed05/18/25 at 0900, Group 1 (Yellow) Hazardous Drug - See Handling Guide 1511 (MAR Hold - Provider: Automatic Transfer Provider - Reason: Unreviewed Transfer Orders)1739 (MAR Unhold - Provider: Marleny Langston RN) 0905 (Given - Provider: Becky Cuenca, RN) 0808 (Given - Provider: Shantel Gonzalez, RN) febuxostat (ULORIC) tablet 40 mg 40 mg, Oral, Daily, First dose on Charity 05/17/25 at 0915 1029 (Not Given - Provider: Marleny Langston RN - Reason: NPO)1511 (JAN Hold - Provider: Automatic Transfer Provider - Reason: Unreviewed Transfer Orders)1739 (MAR Unhold - Provider: Marleny Langston RN) 0905 (Given - Provider: Becky Cuenca RN) 0808 (Given - Provider: Shantel Gonzalez, RN) lisinopril (PRINIVIL,ZESTRIL) tablet 10 mg 10 mg, Oral, Daily, First dose on Charity 05/17/25 at 0915, Hold for SBP less than 100, DBP less than 60., On hold since [facility] 05/17/2025 at 0820 until manually unheld 0820 (Held by provider - Provider: Sandra Mack MD - Reason: Other (Comment Required))0915 (Dose Auto Held - Provider: Sandra Mack MD) 0900 (Dose Auto Held - Provider: Sandra Mack MD) 0900 (Dose Auto Held - Provider: Sandra Mack MD)1651 (Unheld by provider - Provider: Automatic Discharge Provider) propranolol (INDERAL) tablet 30 mg 30 mg, Oral, Every 12 Hours Scheduled, First dose (after last modification) on [facility] 05/17/25 at 2100 2048 (Given - Provider: Teresa Alexander RN) 0904 (Given - Provider: Becky Cuenca, RN)2103 (Given - Provider: Jayashree Moncada, ROBERTO) 0808 (Given - Provider: Shantel Gonzalez, ROBERTO) sennosides-docusate (PERICOLACE) 8.6-50 MG per tablet 2 tablet(Linked Group 1) 2 tablet, Oral, Nightly, First dose (after last modification) on [facility] 05/17/25 at 2100, HOLD MEDICATION IF PATIENT HAS HAD BOWEL MOVEMENT. Start bowel management regimen if patient has not had a bowel movement after 12 hours. 1511 (MAR Hold - Provider: Automatic Transfer Provider - Reason: Unreviewed Transfer Orders)1739 (MAR Unhold - Provider: Marleny Langston RN)2047 (Given - Provider: Teresa Alexander RN) 2103 (Given - Provider: Jayashree Moncada RN) sodium chloride 0.9 % flush 10 mL 10 mL, Intravenous, Every 12 Hours Scheduled, First dose on Charity 05/17/25 at 0915 0835 (Given - Provider: Marleny Langston RN)1511 (JAN Hold - Provider: Automatic Transfer Provider - Reason: Unreviewed Transfer Orders)1739 ([facility] Unhold - Provider: Marleny Langston RN)2050 (Given - Provider: Teresa Alexander RN) 0910 (Given - Provider: Becky Cuenca RN)2103 (Given - Provider: Jayashree Moncada RN) 0810 (Not Given - Provider: Shantel Gonzalez RN - Reason: Other - Comment: iv infusing) Continuous Medication Order 05/17/2025 05/18/2025 05/19/2025 lactated ringers infusion () 75 mL/hr, Intravenous, Continuous, Starting on Charity 05/17/25 at 0915, For 12 hours 0928 (New Bag - Provider: Marleny Langston RN)2047 (Stopped - Provider: Teresa Alexander RN - Comment: [Order ends at this time. Document the following action when infusion is complete: Stopped]) lactated ringers infusion () 75 mL/hr, Intravenous, Continuous, Starting on Charity 05/17/25 at 1915, For 12 hours 1833 (Currently Infusing - Provider: Marleny Langston RN) 0548 (Stopped - Provider: Teresa Alexander RN - Comment: [Order ends at this time. Document the following action when infusion is complete: Stopped]) PRN Medication Order 05/17/2025 05/18/2025 05/19/2025 acetaminophen (TYLENOL) tablet 650 mg 650 mg, Oral, Every 6 Hours PRN, Mild Pain, Starting on Charity 05/17/25 at 0757, Based on patient request - if ordered for moderate or severe pain, provider allows for administration of a medication prescribed for a lower pain scale. Do not exceed 4 grams of acetaminophen in a 24 hr period. Max dose of 2gm for AST/ALT greater than 120 units/L. If given for pain, use the following pain scale: Mild Pain = Pain Score of 1-3, CPOT 1-2 Moderate Pain = Pain Score of 4-6, CPOT 3-4 Severe Pain = Pain Score of 7-10, CPOT 5-8 1235 (Given - Provider: Marleny Langston RN)151 ([facility] Hold - Provider: Automatic Transfer Provider - Reason: Unreviewed Transfer Orders)173 ([facility] Unhold - Provider: Marleny Langston RN)1838 (Due) 1329 (Given - Provider: Becky Cuenca RN)211 (Given - Provider: Jayashree Moncada RN) bisacodyl (DULCOLAX) EC tablet 5 mg(Linked Group 1) 5 mg, Oral, Daily PRN, Constipation, Use if polyethylene glycol is ineffective, Starting on Charity 05/17/25 at 0820, Use if no bowel movement after 12 hours. Swallow whole. Do not crush, split, or chew tablet. 151 ([facility] Hold - Provider: Automatic Transfer Provider - Reason: Unreviewed Transfer Orders)173 ([facility] Unhold - Provider: Marleny Langston RN) bisacodyl (DULCOLAX) suppository 10 mg(Linked Group 1) 10 mg, Rectal, Daily PRN, Constipation, Use if bisacodyl oral is ineffective, Starting on Charity 05/17/25 at 0820, Use if no bowel movement after 12 hours. Hold for diarrhea 151 ([facility] Hold - Provider: Automatic Transfer Provider - Reason: Unreviewed Transfer Orders)173 ([facility] Unhold - Provider: Marleny Langston RN) Calcium Replacement - Follow Nurse / BPA Driven Protocol Open Order & Select BHS Electrolyte Replacement Protocol Algorithm to View Details 151 ([facility] Hold - Provider: Automatic Transfer Provider - Reason: Unreviewed Transfer Orders)173 ([facility] Unhold - Provider: Marleny Langston RN) HYDROmorphone (DILAUDID) injection 0.5 mg 0.5 mg, Intravenous, Every 4 Hours PRN, Severe Pain, Starting on Charity 05/17/25 at 0756, For 5 days, Based on patient request - if ordered for moderate or severe pain, provider allows for administration of a medication prescribed for a lower pain scale. If given for pain, use the following pain scale: Mild Pain = Pain Score of 1-3, CPOT 1-2 Moderate Pain = Pain Score of 4-6, CPOT 3-4 Severe Pain = Pain Score of 7-10, CPOT 5-8 0836 (Given - Provider: Marleny Langston RN)1248 (Given - Provider: Marleny Langston RN)151 ([facility] Hold - Provider: Automatic Transfer Provider - Reason: Unreviewed Transfer Orders)173 ([facility] Unhold - Provider: Marleny Langston RN)1831 (Given - Provider: Marleny Langston RN) 0030 (Given - Provider: Teresa Alexander RN)0905 (Given - Provider: Becky Cuenca RN)2104 (Given - Provider: Jayashree Moncada RN) iopamidol (ISOVUE-300) 61 % injection (CANCELED) As Needed, Starting on Charity 05/17/25 at 1626 1626 (Given - Provider: Rober Baker MD - Comment: given to sterile field) Lidocaine HCl gel (XYLOCAINE) urethral/mucosal syringe (CANCELED) As Needed, Starting on Charity 05/17/25 at 1640 1640 (Given - Provider: Rober Baker MD - Comment: Given to sterile field) Magnesium Cardiology Dose Replacement - Follow Nurse / BPA Driven Protocol Open Order & Select BHS Electrolyte Replacement Protocol Algorithm to View Details 151 ([facility] Hold - Provider: Automatic Transfer Provider - Reason: Unreviewed Transfer Orders)1738 ([facility] Unhold - Provider: Marleny Langston RN) nitroglycerin (NITROSTAT) SL tablet 0.4 mg 0.4 mg, Sublingual, Every 5 Minutes PRN, Chest Pain, Starting on Charity 05/17/25 at 0814, If Pain Unrelieved After 3 Doses Notify MD May administer up to 3 doses per episode. Hold if SBP less than 100. 151 ([facility] Hold - Provider: Automatic Transfer Provider - Reason: Unreviewed Transfer Orders)173 ([facility] Unhold - Provider: Marleny Langston RN) ondansetron (ZOFRAN) injection 4 mg(Linked Group 2) 4 mg, Intravenous, Every 6 Hours PRN, Nausea, Vomiting, Starting on Charity 05/17/25 at 0815, If BOTH ondansetron (ZOFRAN) and promethazine (PHENERGAN) are ordered use ondansetron first and THEN promethazine IF ondansetron is ineffective. 151 ([facility] Hold - Provider: Automatic Transfer Provider - Reason: Unreviewed Transfer Orders)173 ([facility] Unhold - Provider: Marleny Langston RN) ondansetron ODT (ZOFRAN-ODT) disintegrating tablet 4 mg(Linked Group 2) 4 mg, Oral, Every 6 Hours PRN, Nausea, Vomiting, Starting on Charity 05/17/25 at 0815, If BOTH ondansetron (ZOFRAN) and promethazine (PHENERGAN) are ordered use ondansetron first and THEN promethazine IF ondansetron is ineffective. Place on tongue and allow to dissolve. 151 ([facility] Hold - Provider: Automatic Transfer Provider - Reason: Unreviewed Transfer Orders)173 ([facility] Unhold - Provider: Marleny Langston RN) oxyCODONE (ROXICODONE) immediate release tablet 5 mg 5 mg, Oral, Every 6 Hours PRN, Moderate Pain, Starting on Charity 05/17/25 at 0756, For 5 days, Based on patient request - if ordered for moderate or severe pain, provider allows for administration of a medication prescribed for a lower pain scale. (MAXIMILIANO) If given for pain, use the following pain scale: Mild Pain = Pain Score of 1-3, CPOT 1-2 Moderate Pain = Pain Score of 4-6, CPOT 3-4 Severe Pain = Pain Score of 7-10, CPOT 5-8 151 ([facility] Hold - Provider: Automatic Transfer Provider - Reason: Unreviewed Transfer Orders)173 ([facility] Unhold - Provider: Marleny Langston RN)2048 (Given - Provider: Teresa Alexander RN) 0314 (Given - Provider: Teresa Alexander RN)1453 (Given - Provider: Becky Cuenca RN)2103 (Given - Provider: Jayashree Moncada RN) 0817 (Given - Provider: Shantel Gonzalez RN) Phosphorus Replacement - Follow Nurse / BPA Driven Protocol Open Order & Select BHS Electrolyte Replacement Protocol Algorithm to View Details 1511 ([facility] Hold - Provider: Automatic Transfer Provider - Reason: Unreviewed Transfer Orders)1739 ([facility] Unhold - Provider: Marleny Langston RN) polyethylene glycol (MIRALAX) packet 17 g(Linked Group 1) 17 g, Oral, Daily PRN, Constipation, Use if senna-docusate is ineffective, Starting on Charity 05/17/25 at 0820, Use if no bowel movement after 12 hours. Mix in 6-8 ounces of water. Use 4-8 ounces of water, tea, or juice for each 17 gram dose. 1511 ([facility] Hold - Provider: Automatic Transfer Provider - Reason: Unreviewed Transfer Orders)1739 ([facility] Unhold - Provider: Marleny Langston RN) 1329 (Given - Provider: Becky Cuenca RN) Potassium Replacement - Follow Nurse / BPA Driven Protocol Open Order & Select BHS Electrolyte Replacement Protocol Algorithm to View Details sodium chloride (NS) irrigation solution (CANCELED) As Needed, Starting on Charity 05/17/25 at 1625 1625 (Given - Provider: Rober Baker MD - Comment: irrigation) sodium chloride 0.9 % flush 10 mL 10 mL, Intravenous, As Needed, Line Care, Starting on Charity 05/17/25 at 0814 1511 ([facility] Hold - Provider: Automatic Transfer Provider - Reason: Unreviewed Transfer Orders)1739 ([facility] Unhold - Provider: Marleny Langston RN) sodium chloride 0.9 % infusion 40 mL 40 mL, Intravenous, at 100 mL/hr, As Needed, Line Care, Starting on Charity 05/17/25 at 0814, Following administration of an IV intermittent medication, flush line with 40mL NS at 100mL/hr. 1511 ([facility] Hold - Provider: Automatic Transfer Provider - Reason: Unreviewed Transfer Orders)1739 ([facility] Unhold - Provider: Marleny Langston RN) SUMAtriptan (IMITREX) tablet 100 mg 100 mg, Oral, Every 2 Hours PRN, Migraine, Starting on Charity 05/17/25 at 0819, May repeat dose once in 2 hours if unresolved. Maximum single dose of 100 mg. Do not exceed 200 mg in 24 hours. Caution: Look alike/sound alike drug alert 1511 ([facility] Hold - Provider: Automatic Transfer Provider - Reason: Unreviewed Transfer Orders)1739 ([facility] Unhold - Provider: Marleny Langston RN) Linked Groups Order Group 1: sennosides-docusate (PERICOLACE) 8.6-50 MG per tablet 2 tabletJump to med 2 tablet, Oral, Nightly, First dose (after last modification) on Charity 05/17/25 at 2100, HOLD MEDICATION IF PATIENT HAS HAD BOWEL MOVEMENT. Start bowel management regimen if patient has not had a bowel movement after 12 hours. And polyethylene glycol (MIRALAX) packet 17 gJump to med 17 g, Oral, Daily PRN, Constipation, Use if senna-docusate is ineffective, Starting on Charity 05/17/25 at 0820, Use if no bowel movement after 12 hours. Mix in 6-8 ounces of water. Use 4-8 ounces of water, tea, or juice for each 17 gram dose. And bisacodyl (DULCOLAX) EC tablet 5 mgJump to med 5 mg, Oral, Daily PRN, Constipation, Use if polyethylene glycol is ineffective, Starting on Charity 05/17/25 at 0820, Use if no bowel movement after 12 hours. Swallow whole. Do not crush, split, or chew tablet. And bisacodyl (DULCOLAX) suppository 10 mgJump to med 10 mg, Rectal, Daily PRN, Constipation, Use if bisacodyl oral is ineffective, Starting on Charity 05/17/25 at 0820, Use if no bowel movement after 12 hours. Hold for diarrhea Group 2: ondansetron ODT (ZOFRAN-ODT) disintegrating tablet 4 mgJump to med 4 mg, Oral, Every 6 Hours PRN, Nausea, Vomiting, Starting on Charity 05/17/25 at 0815, If BOTH ondansetron (ZOFRAN) and promethazine (PHENERGAN) are ordered use ondansetron first and THEN promethazine IF ondansetron is ineffective. Place on tongue and allow to dissolve. Or ondansetron (ZOFRAN) injection 4 mgJump to med 4 mg, Intravenous, Every 6 Hours PRN, Nausea, Vomiting, Starting on Charity 05/17/25 at 0815, If BOTH ondansetron (ZOFRAN) and promethazine (PHENERGAN) are ordered use ondansetron first and THEN promethazine IF ondansetron is ineffective. documented in this encounter Care Teams Email Designer Relationship Specialty Start Date End Date Provider, [place] [address] PCP - General 05/17/25 documented as of this encounter
--- OUTSIDE RECORDS SUMMARY | 2025-05-17 15:36 | XMS_ITS | Encounter Summary ---
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 Name Role Phone Provider, No Known Primary Care Provider Unavail able Reason for Visit * Auth/Cert Specialty Diagnoses / Procedures Referred By [place] t Referred To Contact Diagnoses Urolithiasis (Infected kidney stone) Referral ID Status Reason Start Date Expiration Date Visits Re quested Visits Authorized [id number] 1 1 Encounter Details Date Type Department Care Team (Late st Contact Info) Description 05/17/2025 3:36 PM EDT - 05/17/2025 4:41 PM EDT Surgery [facility] [address] [place] [id number] Rober Baker MD [address] [place] [address] CYSTOSCOPY URETERAL STENT INSERTION [01510 (CPT )] Social History Tobacco Use Types Packs/Day Years [...] or training? Not on file Preferred Language Nigerian 05/17/2025 Comments No Sex and Gender Information Value Date Recorded Sex Assigned at Not on file Legal Sex Female 4:42 AM EDT Gender Identity Not on file Sexual Orientation Not on file documented as of this encounter Last Filed Vital Signs Vital Sign Reading Time Taken Comments Blood Pressure 121/61 05/17/2025 12:27 PM EDT Pulse 114 05/17/2025 12:27 PM EDT Temperature 36.7 C (98 F) 05/17/2025 2:50 PM EDT Respiratory Rate 18 05/17/2025 12:27 PM EDT Oxygen Saturation 96% 05/17/2025 12:27 PM EDT Inhaled Oxygen Concentration - - Weight [...] 12:44 PM EDT Marleny Langston RN * [place] Suicide Severity Rating Scale (Screener/Recent Self-Report) Question Answer Date of Assessment Author 6. Suicidal Behavior (Lifetime) No 12:44 PM EDT Marleny Langston RN documented as of this encounter Discharge Summaries * Rachel Lenz MD - 05/19/2025 12:23 PM EDT Images from the original note were not included. [facility] DISCHARGE SUMMARY Patient Name: [...] bipolar disorder, depression, migraines who presented to [facility] due to left flank pain. Patient was [...] to Keflex at discharge - Partner called [facility] and there were no cultures sent [...] something for pain so sent prescription for Allen x 3 days. Weaned O2 to room [...] and/or Most Recent Results LAB RESULTS: Lab 05/19/2541405/18/2541405/17/25 0855 WBC 12.69* 16.55* 20.53* HEMOGLOBIN 10.5* [...] Urine Culture - Urine, Urine, Clean Catch [[id number]] (Normal) Collected: 05/17/25 0941 Lab Status: Final result Specimen: Urine, Clean Catch Updated: 05/18/25 105 Urine Culture No growth Blood Culture - Blood, Arm, Right [[id number]] (Normal) Collected: 05/17/25 0830 Lab Status: Preliminary [...] minutes on this discharge activity which included: [id number] with the patient, reviewing the data in [...] included. Daily Progress Note Patient: Shaneka Shipley [facility] [place] Day: 3 Subjective: Awake and alert. Complains [...] Component Value Units Date/Time Basic Metabolic Panel [[id number]] (Abnormal) Collected: 05/19/25414 Specimen: Blood Updated: 05/19/25 0516 Glucose 107 mg/dL BUN 9.0 mg/dL Creatinine [...] race as a factor CBC (No Diff) [[id number]] (Abnormal) Collected: 05/19/25414 Specimen: Blood Updated: 05/19/25 0502 WBC 12.69 10*3/mm3 RBC 3.39 10*6/mm3 Hemoglobin 10.5 g/dL Hematocrit 33.0 % MCV 97.3 fL MCH 31.0 pg MCHC 31.8 g/dL RDW 12.9 % RDW-SD 46.0 fl MPV 9.8 fL Platelets 251 10*3/mm3 Urine Culture - Urine, Urine, Clean Catch [[id number]] (Normal) Collected: 05/17/25 0941 Specimen: Urine, Clean Catch Updated: 05/18/25 1055 Urine Culture No growth Blood Culture - Blood, Arm, Right [[id number]] (Normal) Collected: 05/17/25 0830 Specimen: Blood from [...] from the original note were not included. [facility] PROGRESS NOTE Patient Name: [...] bipolar disorder, depression, migraines who presented to [facility] due to left flank pain. Patient was [...] the outside hospital, continue - I called [facility] and there were no cultures sent [...] from the original note were not included. [facility] Services HISTORY AND PHYSICAL Patient Name: Shaneka Shipley : 1975 Primary Care Physician: Provider, No Known Date of admission: 05/17/2025 Subjective Subjective Chief Complaint: L flank pain HPI: Shaneka Shipley is a 50 y.o. female with HTN, bipolar disorder, depression, migraines who presented to [facility] due to left flank pain. Patient was [...] bipolar disorder, depression, migraines who presented to [facility] due to left flank pain. Patient was [...] Follow-up blood culture - Urology following, Dr. Bkaer planning on intervention today Hypertension - Hold [...] UTI and transient hypotension and tachycardia DISCUSSION/RECOMMENDATIONS/PLAN: Pee proceed today for cystoscopy and ureteral stent [...] Flowsheet Documentation Taken 05/18/2025 0200 by Teresa Alexander, RN Safety Promotion/Fall Prevention: activity supervised assistive device/personal items within reach clutter free environment maintained fall prevention program maintained toileting scheduled safety round/check completed room organization consistent nonskid shoes/slippers when out of bed Taken 05/18/2025 0000 by Teresa Alexander, RN Safety Promotion/Fall Prevention: activity supervised assistive device/personal items within reach clutter free environment maintained fall prevention program maintained toileting scheduled safety round/check completed room organization consistent nonskid shoes/slippers when out of bed Taken 05/17/2025 2200 by Teresa Alexander RN Safety Promotion/Fall Prevention: [...] single patient room provided rest/sleep promoted Taken 05/17/20250 by Teresa Alexander RN Infection Prevention: single patient room provided rest/sleep promoted Taken 05/17/20252047 by Teresa Alexander RN Infection Prevention: single patient room provided rest/sleep promoted Intervention: Promote Recovery Recent Flowsheet Documentation Taken 05/18/2025 0200 by Teresa Alexander RN Activity Management: activity encouraged Taken 05/18/2025 0000 by Teresa Alexander RN Activity Management: activity encouraged Taken 05/17/20252199 by Teresa Alexander RN Activity Management: activity encouraged Taken 05/17/20252047 by Teresa Alexander RN Activity Management: activity encouraged Sleep/Rest [...] EBL: None Specimens: None Drains: Left 6 [place] by 26 cm double-J ureteral stent Indications [...] an appropriate timeout was conducted. A 22 [place] panendoscope was passed per urethra into the bladder and a thorough inspection of the bladder was conducted. The left ureter was cannulated with a floppy tip wire which was passed up the ureter under fluoroscopic guidance. Initially a 5 [place] ureteral catheter was passed over the wire and fluid was obtained from the renal pelvis. The wire was reinserted. A 6 [place] by 26 cm double-J ureteral stent was [...] 05/17/2025 10:23 AM EDT Discharge Planning Assessment Graeme Patient Name: Shaneka Shipley Today's Date: 05/17/2025 [...] patient at the . Patient lives in [facility] with . Works FT,independent, no dme. 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 Abuse/Neglect No documentation. Legal No documentation. Substance Abuse No documentation. Patient Forms No documentation. Shanta Lynn, ROBERTO documented in this encounter Plan of Treatment [...] DURING SURGERY Routine 05/17/2025 4:56 PM EDT OR CYSTO W/INSERT URETERAL STENT 05/17/2025 4:15 PM [...] Basic Metabolic Panel (05/19/2025 4:15 AM EDT) [facility] Signature Glucose 107(H) 65 - 99 mg/dL 05/19/2025 5:16 AM EDT [facility] BUN 9.0 6.0 - 20.0 mg/dL 05/19/2025 5:16 AM EDT [facility] Creatinine 0.32(L) 0.57 - 1.00 mg/dL 05/19/2025 5:16 AM EDT [facility] Sodium 137 136 - 145 mmol/L 05/19/2025 5:16 AM EDT [facility] Potassium 3.7 3.5 - 5.2 mmol/L 05/19/2025 5:16 AM EDT [facility] Chloride 105 98 - 107 mmol/L 05/19/2025 5:16 AM EDT [facility] CO2 25.7 22.0 - 29.0 mmol/L 05/19/2025 5:16 AM EDT [facility] Calcium 8.5(L) 8.6 - 10.5 mg/dL 05/19/2025 5:16 AM EDT [facility] BUN/Creatinine Ratio 28.1(H) 7.0 - 25.0 05/19/2025 5:16 AM EDT [facility] Anion Gap 6.3 5.0 - 15.0 mmol/L 05/19/2025 5:16 AM EDT [facility] eGFR 127.4 >60.0 mL/min/1.7 3 05/19/2025 5:16 AM T [facility] Blood Venipuncture / Unknown 05/19/2025 4:15 AM EDT 05/19/2025 4:40 AM EDT [facility] - 05/19/2025 5:16 AM EDT GFR [...] MD LAB BLOOD ORDERABLES Final Resul t [facility]
[address] [place] [address], * (ABNORMAL) CBC (No Diff) (05/19/2025 4:15 AM EDT) WBC 12.69(H) 3.40 - 10.80 10*3/mm3 05/19/2025 5:02 AM EDT [facility] RBC 3.39(L) 3.77 - 5.28 10*6/mm3 05/19/2025 5:02 AM EDT [facility] Hemoglobin 10.5(L) 12.0 - 15.9 g/dL 05/19/2025 5:02 AM EDT [facility] Hematocrit 33.0(L) 34.0 - 46.6 % 05/19/2025 5:02 AM EDT [facility] MCV 97.3(H) 79.0 - 97.0 fL 05/19/2025 5:02 AM EDT [facility] MCH 31.0 26.6 - 33.0 pg 05/19/2025 5:02 AM EDT [facility] MCHC 31.8 31.5 - 35.7 g/dL 05/19/2025 5:02 AM EDT [facility] RDW 12.9 12.3 - 15.4 % 05/19/2025 5:02 AM EDT [facility] RDW-SD 46.0 37.0 - 54.0 fl 05/19/2025 5:02 AM EDT [facility] MPV 9.8 6.0 - 12.0 fL 05/19/2025 5:02 AM EDT [facility] Platelets 251 140 - 450 10*3/mm3 05/19/2025 5:02 AM EDT [facility] Blood Venipuncture / Unknown 05/19/2025 4:15 AM EDT 05/19/2025 4:53 AM EDT Chayito Bradley MD LAB BLOOD ORDERABLES Final Resul t [facility]
[address] [place] [address], * (ABNORMAL) CBC (No Diff) (05/18/2025 4:15 AM EDT) WBC 16.55(H) 3.40 - 10.80 10*3/mm3 05/18/2025 6:16 AM EDT [facility] RBC 3.34(L) 3.77 - 5.28 10*6/mm3 05/18/2025 6:16 AM EDT [facility] Hemoglobin 10.3(L) 12.0 - 15.9 g/dL 05/18/2025 6:16 AM EDT [facility] Hematocrit 32.9(L) 34.0 - 46.6 % 05/18/2025 6:16 AM EDT [facility] MCV 98.5(H) 79.0 - 97.0 fL 05/18/2025 6:16 AM EDT [facility] MCH 30.8 26.6 - 33.0 pg 05/18/2025 6:16 AM EDT [facility] MCHC 31.3(L) 31.5 - 35.7 g/dL 05/18/2025 6:16 AM EDT [facility] RDW 13.0 12.3 - 15.4 % 05/18/2025 6:16 AM EDT [facility] RDW-SD 46.9 37.0 - 54.0 fl 05/18/2025 6:16 AM EDT [facility] MPV 10.0 6.0 - 12.0 fL 05/18/2025 6:16 AM EDT [facility] Platelets 244 140 - 450 10*3/mm3 05/18/2025 6:16 AM EDT [facility] Blood Venipuncture / Unknown 05/18/2025 4:15 AM EDT 05/18/2025 5:06 AM EDT us Rober Baker MD LAB BLOOD ORDERABLES Final Resu lt [facility]
[address] [place] [address], * (ABNORMAL) Basic Metabolic Panel (05/18/2025 4:15 AM EDT) Glucose 116(H) 65 - 99 mg/dL 05/18/2025 5:39 AM EDT [facility] BUN 12.2 6.0 - 20.0 mg/dL 05/18/2025 5:39 AM EDT [facility] Creatinine 0.55(L) 0.57 - 1.00 mg/dL 05/18/2025 5:39 AM EDT [facility] Sodium 137 136 - 145 mmol/L 05/18/2025 5:39 AM EDT [facility] Potassium 3.8 3.5 - 5.2 mmol/L 05/18/2025 5:39 AM EDT [facility] Chloride 104 98 - 107 mmol/L 05/18/2025 5:39 AM EDT [facility] CO2 24.8 22.0 - 29.0 mmol/L 05/18/2025 5:39 AM EDT [facility] Calcium 8.4(L) 8.6 - 10.5 mg/dL 05/18/2025 5:39 AM EDT [facility] BUN/Creatinine Ratio 22.2 7.0 - 25.0 05/18/2025 5:39 AM EDT [facility] Anion Gap 8.2 5.0 - 15.0 mmol/L 05/18/2025 5:39 AM EDT [facility] eGFR 111.8 >60.0 mL/min/1.7 3 05/18/2025 5:39 AM EDT [facility] Blood Venipuncture / Unknown 05/18/2025 4:15 AM EDT 05/18/2025 5:04 AM EDT Narrative [facility] - 05/18/2025 5:39 AM EDT GFR [...] MD LAB BLOOD ORDERABLES Final Resu lt [facility]
[address] [place] [address], * FL C Arm During Surgery (05/17/2025 [...] No growth NATE 05/18/2025 10:55 AM EDT [facility] Urine Urine specimen obtained by clean catch procedure / Unknown Collection / Unknown 05/17/2025 9:41 AM EDT 05/17/2025 9:50 AM EDT us Sandra Mack MD MICROBIOLOGY - GENERAL ORDERABLES Final Result [facility]
[address] [place] [address], [place] [phone] * (ABNORMAL) Urinalysis, Microscopic Only - Urine, Clean Catch (05/17/2025 9:41 AM EDT) RBC, UA 3-5(A) None Seen, 0-2 /HPF 05/17/2025 9:56 AM EDT [facility] WBC, UA Too Numerous to Count(A) None Seen, 0-2 /HPF 05/17/2025 9:56 AM EDT [facility] Bacteria, UA None Seen None Seen /HPF 05/17/2025 9:56 AM EDT [facility] Squamous Epithelial Cells, UA 0-2 None Seen, 0-2 /HPF 05/17/2025 9:56 AM EDT [facility] Hyaline Casts, UA 0-2 None Seen /LPF 05/17/2025 9:56 AM EDT [facility] Methodology Automated Microscopy 05/17/2025 9:56 AM EDT [facility] Urine Urine specimen obtained by clean catch procedure / Unknown Collection / Unknown 05/17/2025 9:41 AM EDT 05/17/2025 9:50 AM EDT us Sandra Mack MD URINE ORDERABL ES Final Result [facility]
[address] [place] [address], [place] [phone] * (ABNORMAL) Urinalysis With Culture If Indicated - Urine, Clean Catch (05/17/2025 9:41 AM EDT) Color, UA Yellow Yellow, Straw 05/17/2025 9:56 AM EDT [facility] Appearance, UA Cloudy(A) Clear 05/17/2025 9:56 AM EDT [facility] pH, UA <=5.0 5.0 - 8.0 05/17/2025 9:56 AM EDT [facility] Specific Purvis, UA 1.023 1.005 - 1.030 05/17/2025 9:56 AM EDT [facility] Glucose, UA Negative Negative 05/17/2025 9:56 AM EDT [facility] Ketones, UA Negative Negative 05/17/2025 9:56 AM EDT [facility] Bilirubin, UA Negative Negative 05/17/2025 9:56 AM EDT [facility] Blood, UA Moderate (2+)(A) Negative 05/17/2025 9:56 AM EDT [facility] Protein, UA 30 mg/dL (1+)(A) Negative 05/17/2025 9:56 AM EDT [facility] Leuk Esterase, UA Moderate (2+)(A) Negative 05/17/2025 9:56 AM EDT [facility] Nitrite, UA Negative Negative 05/17/2025 9:56 AM EDT [facility] Urobilinogen, UA 0.2 E.U./dL 0.2 - 1.0 E.U./dL 05/17/2025 9:56 AM T [facility] Urine Urine specimen obtained by clean catch procedure / Unknown Collection / Unknown 05/17/2025 9:41 AM EDT 05/17/2025 9:50 AM EDT [facility] - 05/17/2025 9:56 AM EDT In absence of clinical symptoms, the presence of pyuria, bacteria, and/or nitrites on the urinalysis result does not correlate with infection. us Sandra Mack MD URINE ORDERABL ES Final Result [facility]
[address] [place] [address], * (ABNORMAL) CBC Auto Differential (05/17/2025 8:55 AM EDT) [facility] WBC 20.53(H) 3.40 - 10.80 10*3/mm3 05/17/2025 8:58 AM EDT [facility] RBC 3.95 3.77 - 5.28 10*6/mm3 05/17/2025 8:58 AM EDT [facility] Hemoglobin 12.5 12.0 - 15.9 g/dL 05/17/2025 8:58 AM EDT [facility] Hematocrit 38.2 34.0 - 46.6 % 05/17/2025 8:58 AM EDT [facility] MCV 96.7 79.0 - 97.0 fL 05/17/2025 8:58 AM EDT [facility] MCH 31.6 26.6 - 33.0 pg 05/17/2025 8:58 AM EDT [facility] MCHC 32.7 31.5 - 35.7 g/dL 05/17/2025 8:58 AM EDT [facility] RDW 12.7 12.3 - 15.4 % 05/17/2025 8:58 AM EDT [facility] RDW-SD 45.2 37.0 - 54.0 fl 05/17/2025 8:58 AM EDT [facility] MPV 9.4 6.0 - 12.0 fL 05/17/2025 8:58 AM EDT [facility] Platelets 295 140 - 450 10*3/mm3 05/17/2025 8:58 AM EDT [facility] Neutrophil % 84.5(H) 42.7 - 76.0 % 05/17/2025 8:58 AM EDT [facility] Lymphocyte % 8.7(L) 19.6 - 45.3 % 05/17/2025 8:58 AM EDT [facility] Monocyte % 6.0 5.0 - 12.0 % 05/17/2025 8:58 AM EDT [facility] Eosinophil % 0.2(L) 0.3 - 6.2 % 05/17/2025 8:58 AM EDT [facility] Basophil % 0.2 0.0 - 1.5 % 05/17/2025 8:58 AM EDT [facility] Immature Grans % 0.4 0.0 - 0.5 % 05/17/2025 8:58 AM EDT [facility] Neutrophils, Absolute 17.32(H) 1.70 - 7.00 10*3/mm3 05/17/2025 8:58 AM EDT [facility] Lymphocytes, Absolute 1.78 0.70 - 3.10 10*3/mm3 05/17/2025 8:58 AM EDT [facility] Monocytes, Absolute 1.24(H) 0.10 - 0.90 10*3/mm3 05/17/2025 8:58 AM EDT [facility] Eosinophils, Absolute 0.05 0.00 - 0.40 10*3/mm3 05/17/2025 8:58 AM EDT [facility] Basophils, Absolute 0.05 0.00 - 0.20 10*3/mm3 05/17/2025 8:58 AM EDT [facility] Immature Grans, Absolute 0.09(H) 0.00 - 0.05 10*3/mm3 05/17/2025 8:58 AM EDT [facility] nRBC 0.0 0.0 - 0.2 /100 WBC 05/17/2025 8:58 AM EDT [facility] Blood Venipuncture / Unknown 05/17/2025 8:55 AM EDT 05/17/2025 8:55 AM EDT us Sandra Mack MD LAB BLOOD ORDQasim NICOLE Final Result [facility]
[address] [place] [address], * (ABNORMAL) Comprehensive Metabolic Panel (05/17/2025 8:55 AM EDT) Glucose 93 65 - 99 mg/dL 05/17/2025 9:37 AM [facility] BUN 17.2 6.0 - 20.0 mg/dL 05/17/2025 9:37 AM T [facility] Creatinine 0.54(L) 0.57 - 1.00 mg/dL 05/17/2025 9:37 AM EDT [facility] Sodium 140 136 - 145 mmol/L 05/17/2025 9:37 AM T [facility] Potassium 4.1 3.5 - 5.2 mmol/L 05/17/2025 9:37 AM [facility] Comment:Slight hemolysis det ected by analyzer. Result may be falsely elevated. Chloride 105 98 - 107 mmol/L 05/17/2025 9:37 AM T [facility] CO2 27.0 22.0 - 29.0 mmol/L 05/17/2025 9:37 AM T [facility] Calcium 8.5(L) 8.6 - 10.5 mg/dL 05/17/2025 9:37 AM [facility] Total Protein 5.7(L) 6.0 - 8.5 g/dL 05/17/2025 9:37 AM [facility] Albumin 3.5 3.5 - 5.2 g/dL 05/17/2025 9:37 AM T [facility] ALT (SGPT) 18 1 - 33 U/L 05/17/2025 9:37 AM T [facility] AST (SGOT) 22 1 - 32 U/L 05/17/2025 9:37 AM [facility] Comment:Slight hemolysis det ected by analyzer. Result may be falsely elevated. Alkaline Phosphatase 52 39 - 117 U/L 05/17/2025 9:37 AM T [facility] Total Bilirubin 0.3 0.0 - 1.2 mg/dL 05/17/2025 9:37 AM EDT [facility] Globulin 2.2 gm/dL 05/17/2025 9:37 AM EDT [facility] Comment:Calculated Result A/G Ratio 1.6 g/dL 05/17/2025 9:37 AM EDT [facility] BUN/Creatinine Ratio 31.9(H) 7.0 - 25.0 05/17/2025 9:37 AM EDT [facility] Anion Gap 8.0 5.0 - 15.0 mmol/L 05/17/2025 9:37 AM EDT [facility] eGFR 112.3 >60.0 mL/min/1.7 3 05/17/2025 9:37 AM EDT [facility] Blood Venipuncture / Unknown 05/17/2025 8:55 AM EDT 05/17/2025 8:55 AM EDT [facility] - 05/17/2025 9:37 AM EDT [...] not include race as a factor us Sandra Mack MD LAB BLOOD MAU NICOLE Final Result [facility]
[address] [place] [address], * Blood Culture - Blood, Arm, Right (05/17/2025 8:30 AM EDT) Blood Culture No growth at 5 days 05/22/2025 9:45 AM EDT [facility] Blood Structure of right upper limb / Unknown Venipuncture / Unknown 05/17/2025 8:30 AM EDT 05/17/2025 9:37 AM EDT Sandra Mack MD MICROBIOLOGY - GENERAL ORDERABLES Final Result [facility]
[address] [place] [address], * LABS SCANNED (05/17/2025) [facility] LAB BLOOD ORDERABLES Final Re sult * LABS SCANNED (05/17/2025) [facility] LAB BLOOD ORDERABLES Final Re sult * IMAGING SCANNED (05/17/2025) Anatomical Region Laterality Modality Radiographic Adelaida ging [facility] IMG DIAGNOSTIC IMAGING ORDERA BLES Final Result documented in this encounter Visit Diagnoses Not on filedocumented in this encounter Admitting Diagnoses Diagnosis Kidney [...] BPA Driven Protocol Open Order [facility] Electrolyte Replacement Protocol Algorithm to View Details Cariprazine HCl (VRAYLAR) capsule capsule 3 mg 3 mg, Oral, Nightly, First dose on Charity 05/17/25 at 2100 Given 05/18/2025 9:03 PM EDT [...] dose on Charity 05/17/25 at 0915 Given 05/19/2025 8:08 AM EDT [...] Given 05/18/2025 12:30 AM EDT 0.5 mg iopamidol (ISOVUE-300) 61 % injection As Needed, Starting on Charity 05/17/25 at 1626 Given 05/17/2025 4:26 PM EDT 100 mL Lidocaine HCl gel (XYLOCAINE) urethral/mucosal syringe As Needed, Starting on [facility] 05/17/25 at 1640 Given 05/17/2025 4:40 PM EDT 1 Application Magnesium Cardiology Dose Replacement - Follow Nurse [...] Scheduled, First dose (after last modification) on [facility] 05/17/25 at 2100 Given 05/19/2025 8:08 AM [...] 8:48 PM EDT 2 tablets sodium chloride (NS) irrigation solution As Needed, Starting on [facility] 05/17/25 at 1625 Given 05/17/2025 4:25 P M EDT 3,000 mL sodium chloride 0.9 % flush 10 [...] 3 mg, Oral, Nightly, First dose on [facility] 05/17/25 at 2100 1511 (MAR Hold - Provider: Automatic Transfer [...] RN) 0909 (New Bag - Provider: Becky Cuenca RN) 0808 (New Bag - Provider: Shantel Gonzalez, RN) estradiol (ESTRACE) tablet 2 mg 2 mg, Oral, Daily, First dose on Wed05/18/25 at 0900, Group 1 (Yellow) Hazardous Drug - See Handling Guide 1511 (JAN Hold - Provider: Automatic Transfer Provider - Reason: Unreviewed Transfer Orders)1739 (JAN Unhold - Provider: Marleny Langston RN) 0905 (Given - Provider: Becky Cuenca RN) 0808 (Given - Provider: Shantel Gonzalez RN) febuxostat (ULORIC) tablet 40 mg 40 mg, Oral, Daily, First dose on Wed05/17/25 at 0915 1029 (Not Given - Provider: Marleny Langston RN - Reason: NPO)1511 (JAN Hold - Provider: Automatic Transfer Provider - Reason: Unreviewed Transfer Orders)1739 (JAN Unhold - Provider: Marleny Langston RN) 0905 (Given - Provider: Becky Cuenca RN) 0808 (Given - Provider: Shantel Gonzalez RN) lisinopril (PRINIVIL,ZESTRIL) tablet 10 mg 10 mg, Oral, Daily, First dose on Wed05/17/25 at 0915, Hold for SBP less than 100, DBP less than 60., On hold since Wed05/17/2025 at 0820 until manually unheld 0820 (Held [...] Alexander RN) 0904 (Given - Provider: Becky Cuenca RN)210 (Given - Provider: Jayashree Moncada, ROBERTO) 0808 (Given - Provider: Shantel Gonzalez RN) sennosides-docusate (PERICOLACE) 8.6-50 MG per tablet 2 [...] Orders)1739 (MAR Unhold - Provider: Marleny Langston RN)204 (Given - Provider: Teresa Alexander RN) 210 (Given - Provider: Jayashree Moncada, ROBERTO) sodium chloride 0.9 % flush 10 mL 10 mL, Intravenous, Every 12 Hours Scheduled, First dose on Charity 05/17/25 at 0915 0835 (Given - Provider: Marleny Langston RN)1511 (MAR Hold - Provider: Automatic Transfer Provider - Reason: Unreviewed Transfer Orders)1739 (MAR Unhold - Provider: Marleny Langston RN)205 (Given - Provider: Teresa Alexander RN) 0910 (Given - Provider: Becky Cuenca RN)2104 (Given - Provider: Jayashree Moncada, ROBERTO) 0810 (Not Given - Provider: Shantel Gonzalez RN - Reason: Other - Comment: iv infusing) Continuous Medication Order 05/17/2025 05/18/2025 05/19/2025 lactated ringers infusion () 75 mL/hr, Intravenous, Continuous, Starting on Charity 05/17/25 at 0915, For 12 hours 0928 (New Bag - Provider: Marleny Langston RN)2048 (Stopped - Provider: Teresa Alexander RN - [...] 5-8 1235 (Given - Provider: Marleny Langston RN)1511 (JAN Hold - Provider: Automatic Transfer Provider - Reason: Unreviewed Transfer Orders)1739 (MAR Unhold - Provider: Marleny Langston RN)1838 (Due) 1329 (Given - Provider: Becky Cuenca RN)211 (Given - Provider: Jayashree Moncada RN) bisacodyl (DULCOLAX) EC tablet 5 mg(Linked Group 1) 5 mg, Oral, Daily PRN, Constipation, Use if polyethylene glycol is ineffective, Starting on Charity 05/17/25 at 0820, Use if no bowel movement after 12 hours. Swallow whole. Do not crush, split, or chew tablet. 1511 (MAR Hold - Provider: Automatic Transfer Provider - Reason: Unreviewed Transfer Orders)1739 (MAR Unhold - Provider: Marleny Langston RN) bisacodyl (DULCOLAX) suppository 10 mg(Linked Group 1) 10 mg, Rectal, Daily PRN, Constipation, Use if bisacodyl oral is ineffective, Starting on Charity 05/17/25 at 0820, Use if no bowel movement after 12 hours. Hold for diarrhea 1511 (JAN Hold - Provider: Automatic Transfer Provider - Reason: Unreviewed Transfer Orders)1739 ([facility] Unhold - Provider: Marleny Langston RN) Calcium Replacement - Follow Nurse / BPA Driven Protocol Open Order & Select S Electrolyte Replacement Protocol Algorithm to View Details 1511 (JAN Hold - Provider: Automatic Transfer Provider - Reason: Unreviewed Transfer Orders)173 ([facility] Unhold - Provider: Marleny Langston RN) HYDROmorphone [...] Langston RN)1248 (Given - Provider: Marleny Langston RN)1511 (JAN Hold - Provider: Automatic Transfer Provider - Reason: Unreviewed Transfer Orders)1739 ([facility] Unhold - Provider: Marleny Langston RN)1831 (Given - Provider: Marleny Langston RN) 0030 (Given - Provider: Teresa Alexander, RN)0905 (Given - Provider: Becky Cuenca, RN)2104 (Given - Provider: Jayashree Moncada, RN) iopamidol (ISOVUE-300) 61 % injection (CANCELED) [...] Replacement Protocol Algorithm to View Details 151 (MAR Hold - Provider: Automatic Transfer Provider - Reason: Unreviewed Transfer Orders)173 ([facility] Unhold - Provider: Marleny Langston RN) nitroglycerin (NITROSTAT) SL tablet 0.4 mg 0.4 mg, Sublingual, Every 5 Minutes PRN, Chest Pain, Starting on Charity 05/17/25 at 0814, If Pain Unrelieved After 3 Doses Notify MD May administer up to 3 doses per episode. Hold if SBP less than 100. 151 ([facility] Hold - Provider: Automatic Transfer Provider - Reason: Unreviewed Transfer Orders)173 ([facility] Unhold - Provider: Marleny Langston RN) ondansetron (ZOFRAN) injection 4 mg(Linked Group 2) 4 mg, Intravenous, Every 6 Hours PRN, Nausea, Vomiting, Starting on Charity 05/17/25 at 0815, If BOTH ondansetron (ZOFRAN) and promethazine (PHENERGAN) are ordered use ondansetron first and THEN promethazine IF ondansetron is ineffective. 151 ([facility] Hold - Provider: Automatic Transfer Provider - Reason: Unreviewed Transfer Orders)173 ([facility] Unhold - Provider: Marleny Langston RN) ondansetron ODT (ZOFRAN-ODT) disintegrating tablet 4 mg(Linked Group 2) 4 mg, Oral, Every 6 Hours PRN, Nausea, Vomiting, Starting on Charity 05/17/25 at 0815, If BOTH ondansetron (ZOFRAN) and promethazine (PHENERGAN) are ordered use ondansetron first and THEN promethazine IF ondansetron is ineffective. Place on tongue and allow to dissolve. 151 ([facility] Hold - Provider: Automatic Transfer Provider - Reason: Unreviewed Transfer Orders)173 ([facility] Unhold - Provider: Marleny Langston RN) oxyCODONE [...] = Pain Score of 7-10, CPOT 5-8 1511 ([facility] Hold - Provider: Automatic Transfer Provider - Reason: Unreviewed Transfer Orders)1739 ([facility] Unhold - Provider: Marleny Langston RN)2048 (Given - Provider: Teresa Alexander, RN) 0314 (Given - Provider: Teresa Alexander, RN)1453 (Given - Provider: Becky Cuenca, RN)2103 (Given - Provider: Jayashree Moncada RN) 0817 (Given - Provider: Shantel Gonzalez RN) Phosphorus Replacement - Follow Nurse / BPA Driven Protocol Open Order & Select BHS Electrolyte Replacement Protocol Algorithm to View Details 1511 ([facility] Hold - Provider: Automatic Transfer Provider - Reason: Unreviewed Transfer Orders)1739 ([facility] Unhold - Provider: Marleny Langston RN) polyethylene glycol (MIRALAX) packet 17 g(Linked Group 1) 17 g, Oral, Daily PRN, Constipation, Use if senna-docusate is ineffective, Starting on Charity 05/17/25 at 0820, Use if no bowel movement after 12 hours. Mix in 6-8 ounces of water. Use 4-8 ounces of water, tea, or juice for each 17 gram dose. 1511 ([facility] Hold - Provider: Automatic Transfer Provider - Reason: Unreviewed Transfer Orders)1739 ([facility] Unhold - Provider: Marleny Langston, ROBERTO) 1329 (Given - Provider: Becky Cuenca RN) [...] Starting on Charity 05/17/25 at 0814 1511 ([facility] Hold - Provider: Automatic Transfer Provider - Reason: Unreviewed Transfer Orders)1739 ([facility] Unhold - Provider: Marleny Langston RN) sodium chloride 0.9 % infusion 40 mL 40 mL, Intravenous, at 100 mL/hr, As Needed, Line Care, Starting on Charity 05/17/25 at 0814, Following administration of an IV intermittent medication, flush line with 40mL NS at 100mL/hr. 1511 ([facility] Hold - Provider: Automatic Transfer Provider - Reason: Unreviewed Transfer Orders)1739 ([facility] Unhold - Provider: Marleny Langston RN) SUMAtriptan (IMITREX) tablet 100 mg 100 mg, Oral, Every 2 Hours PRN, Migraine, Starting on Charity 05/17/25 at 0819, May repeat dose once in 2 hours if unresolved. Maximum single dose of 100 mg. Do not exceed 200 mg in 24 hours. Caution: Look alike/sound alike drug alert 1511 ([facility] Hold - Provider: Automatic Transfer Provider - Reason: Unreviewed Transfer Orders)1739 ([facility] Unhold - Provider: Marleny Langston RN) Linked [...] ineffective. documented in this encounter Care Teams Back Digger Operator Relationship Specialty Start Date End Date Provider, [place] [address] PCP - General 05/17/25 documented as of this encounter
--- OUTSIDE RECORDS SUMMARY | 2025-05-17 16:30 | XMS_ITS | Encounter Summary ---
Author Organization [facility] Address [address] [place] [address] Care Team Providers Care Actuary Manager Name Role Phone Provider, No Known Primary Care Provider Unavail able Reason for Visit * Auth/Cert Specialty Diagnoses / Procedures Referred By [place] t Referred To Contact Diagnoses Urolithiasis (Infected kidney stone) Referral ID Status Reason Start Date Expiration Date Visits Re quested Visits Authorized [id number] 1 1 Encounter Details Date Type Department Care Team (Late st Contact Info) Description 05/17/2025 4:30 PM EDT Anesthesia Event [facility] OR [address] [place] [address] Delfin Sales MD [address] [place] [address] [id number] Anesthesia Record Procedure Summary Procedure Name Responsible Anesthesiologist Anesthesia Start Time Anesthesia Stop Time CYSTOSCOPY URETERAL STENT INSERTION (Left: Bladder) Delfin Sales MD 05/17/25 1630 05/17/25 1704 Events Date Time Event Comment 05/17/2025 1527 1614 AN Equip Check 1630 An Start The patient was reevaluated immediately before moderate or deep sedation use and before anesthesia induction. 1630 An Start Data 1640 An Induction 1659 an stop data 1704 Handoff to RN The following has been completed: 1. Identification of Patient, meeks family member(s) or patient surrogate 2. Identification of the responsible Practitioner (primary service) 3. Discussion of the pertinent/attainable medical history 4. Discussion of the surgical/procedure course (procedure, reason for surgery, procedure performed) 5. Intraoperative anesthetic management and issue/concerns to include things such as airway, hemodynamics, narcotic, sedation level and paralytic management and intravenous fluids/blood products and urine output during the procedure 6. Expectations/Plans for the early post-procedure period to include things such as anticipated course (anticipatory guidance), complications, need for laboratory or ECG and medication administration 7. Opportunity for questions and acknowledgment of understanding of report from the receiving PACU/ICU team 1704 An Stop Meds Name Total fentaNYL citrate (PF) 100 MCG/2ML 100 mc g lidocaine PF (XYLOCAINE) injection 1% 50 mg propofol (DIPRIVAN) 10 mg/mL injection 9 5.3 mg * Agents Name O2 N2O Air Sevoflurane Inspired Sevoflurane * Blood No blood administrations on file. Lines, Drains, and Airways Type Details Placement Removal Peripheral IV Placement Date: 05/08 ; Placement Time: 0600; Orientation: Left; Location: Antecubital; Removal Date: 05/17/25; Removal Time: 205005/17/25 0600 by Marleny Langston RN 05/17/252050 by Teresa Alexander RN Peripheral IV Placement Date: 05/08 ; Placement Time: 1400; Catheter Size: 20 G; Orientation: Anterior, Proximal, Right; Location: Forearm; Inserted by: Joann Bateman; Removal Date: 05/19/25; Removal Time: 12305/17/25 1400 by Marleny Langston RN 05/19/25 1239 by Shantel Gonzalez RN documented in this encounter Social History Tobacco Use Types Packs/Day Years [...] or training? Not on file Preferred Language Panamanian 05/17/2025 Comments No Sex and Gender Information Value Date Recorded Sex Assigned at Not on file Legal Sex Female 4:42 AM EDT Gender Identity Not on file Sexual Orientation Not on file documented as of this encounter Functional Status * Question Answer [...] 12:44 PM EDT Marleny Langston RN * Wood Suicide Severity Rating Scale (Screener/Recent Self-Report) Question Answer Date of Assessment Author 6. Suicidal Behavior (Lifetime) No 12:44 PM EDT Marleny Langston RN documented as of this encounter OR Notes * Anesthesia Postprocedure Evaluation - Nasima Garcia CRNA - 05/17/2025 5:04 PM EDT Patient: Shaneka Shipley Procedure Summary Date: 05/17/25 Room / Location: TIM OR [facility] OR Anesthesia Start: 1630 Anesthesia Stop: Procedure: CYSTOSCOPY URETERAL STENT INSERTION (Left: Bladder) Diagnosis: Surgeons: Rober Baker MD Provider: Delfin Sales MD Anesthesia Type: general ASA Status: 2 Anesthesia Type: general Vitals No vitals data found for the desired time range. 137/77 92% 107 98.1 F Post Anesthesia Care and Evaluation Patient location during evaluation: PACU Patient participation: complete - patient participated Level of consciousness: awake and alert Pain management: adequate Airway patency: patent Anesthetic complications: No anesthetic complications PONV Status: none Cardiovascular status: hemodynamically stable and acceptable Respiratory status: nonlabored ventilation, acceptable and nasal cannula Hydration status: acceptable * Anesthesia Preprocedure Evaluation - Delfin Sales MD - 05/17/2025 3:26 PM EDT Anesthesia Evaluation Patient summary reviewed and Nursing notes reviewed no history of anesthetic complications: NPO Solid Status: > 8 hours NPO Liquid Status: > 8 hours Airway Mallampati: II TM distance: >3 FB Neck ROM: full No difficulty expected Dental Pulmonary - negative pulmonary ROS and normal exam Cardiovascular - normal exam (+) hypertension Neuro/Psych- negative ROS GI/Hepatic/Renal/Endo (+) renal disease- Musculoskeletal Abdominal Substance History ANIMAL BEHAVIOURIST Other Anesthesia Plan ASA 2 general intravenous induction Anesthetic plan, risks, benefits, and alternatives have been provided, discussed and informed consent has been obtained with: patient. Plan discussed with CLERICAL SECRETARY. CODE STATUS: Code Status (Patient has no pulse and is not breathing): CPR (Attempt to Resuscitate) Medical Interventions (Patient has pulse or is breathing): Full Support Level Of Support Discussed With: Patient documented in this encounter Plan of Treatment Not on file documented as of this encounter Visit Diagnoses Not on filedocumented in this encounter Administered Medications Inactive Administered Medications - up to 3 most recent administrations Medication Order MAR Action Action Date Dose Rate Site fentaNYL citrate (PF) (SUBLIMAZE) injection Intravenous, As Needed, Starting on Charity 05/17/25 at 1640 Given 05/17/2025 4:40 PM EDT 100 mcg lidocaine PF 1% (XYLOCAINE) injection Intravenous, As Needed, Starting on Charity 05/17/25 at 1640 Given 05/17/2025 4:40 PM EDT 50 mg propofol (DIPRIVAN) injection Intravenous, Continuous PRN, Starting on Charity 05/17/25 at 1640 New Bag 05/17/2025 4:40 PM EDT 100 mcg/kg/min 57.18 mL/hr documented in this encounter Care Teams Actuary Manager Relationship Specialty Start Date End Date Provider, [place] [address] PCP - General 05/17/25 documented as of this encounter
--- OUTSIDE RECORDS SUMMARY | 2025-06-01 15:58 | XMS_ITS | Encounter Summary ---
Author Organization [employer] ([place], [place], [place], [place]) Address [address] [place] [address] Care Team Providers Care Sole Tacker Name Role Phone Unavailable Primary Care Provider Unavailabl e Encounter Details Date Type Department Care Team (Late st Contact Info) Description 07/13/2019 Transcribed Document [facility] Radiology [address] [place] [address] Provider, Sandra Hoskins MD Social [...] Notes * Cerner Conversion Note - [facility] Aidee ProviderMD - 07/13/2019 11:23 AM EDT [facility] Main OR Preop Summary Primary Physician: EBONY NATH DPM Finalized Date/Time: 07/13/19 14:32:43 Pt. Name: SHANEKA SHIPLEY /Sex: 1975 Female Med Rec #: [id number] Physician: EBONY NATH DPM Financial #: [id number] Pt. Type: O Room/Bed: Admit/Disch: 07/13/19 07:28:00 - Institution: [facility] PreOp Case Times Entry 1 In Preop 07/13/19 07:40:00 Ready for Holding n/a Room Patient Ready for 07/13/19 09:05:00 Surgery Patient Out of Preop 07/13/19 10:03:00 Patient Out of n/a Holding Room Last Modified By: Virgie Bach RN 07/13/19 14:32:42 [facility] PreOp Case Times Audit 07/13/19 14:32:42 Call Or Contact Centre Manager: [id number] Modifier: [id number] <+> 1 Patient Out of Preop Finalized By: Virgie Bach RN Document Signatures Signed By: Virgie Bach RN 07/13/19 14:32 Electronically signed by Jeanne [facility] Conversion [employer]ground Aide Cerner at 03/31/2023 5:33 PM CDT documented in this encounter Plan of Treatment Not on file documented as of this encounter Visit Diagnoses Not on filedocumented in this encounter
--- OUTSIDE RECORDS SUMMARY | 2025-06-01 15:58 | XMS_ITS | Encounter Summary ---
Author Organization [facility] ([place], [place], [place], [place]) Address [address] [place] [address] Care Team Providers Care Electrical And Instrumentation Mechanic Name Role Phone Unavailable Primary Care Provider Unavailabl e Encounter Details Date Type Department Care Team (Late st Contact Info) Description 07/13/2019 Transcribed Document [facility] Radiology [address] [place] [address] Provider, Sandra Hoskins MD Social [...] Notes * Cerner Conversion Note - [facility] Aidee ProviderMD - 07/13/2019 9:45 AM [...] hours oral tablet, extended release: Tab, Oral, [id number], 0 Refill(s) estradiol 1 mg oral tablet: [...] hours oral tablet, extended release , Oral, [id number] , Medications (6) Active Scheduled: (3) ceFAZolin/D5w [...] list: All Problems Hypothyroid / SNOMED CT 14822462 / Confirmed HTN (hypertension) / SNOMED CT 7361370725 / Confirmed Depressed / SNOMED CT 13773404 / Confirmed Bunion, right foot / SNOMED CT 8708507291 / Confirmed Anxiety / SNOMED CT 98695105 / Confirmed, Active Problems (5) Anxiety Bunion, [...] EDT Height Source Measured Height Entry Format Roff Height/Length, GABONESE (ft) 0 ft Height/Length GABONESE 64 Inch CLINICALHEIGHT 162.56 cm [place] Body Weight 54 kg Weight Source Standing scale Weight Entry Format Roff Weight Monegasque lb 197.8 lb CLINICALWEIGHT 89.91 kg Body [...] foot due to bunion. Integumentary: Warm, Dry, [place]. Neurologic: Alert, Oriented. Psychiatric: Cooperative, Appropriate mood & affect. Review / Management Results review: No qualifying data available. Impression and Plan Condition: Stable. documented in this encounter Plan of Treatment Not on file documented as of this encounter Visit Diagnoses Not on filedocumented in this encounter
--- OUTSIDE RECORDS SUMMARY | 2025-06-01 15:58 | XMS_ITS | Clinical Summary ---
Author Organization [facility] Address [address] [place] [address] Care Team Providers Care Form Grader Operator Name Role Phone Provider, No Known Primary Care Provider Unavail able Allergies Active Allergy Reactions Criticality Noted Date Comments Latex Itching 05/17/2025 Medications estradiol (ESTRACE) 2 MG tablet Take 1 tablet by mouth Daily. Active febuxostat (ULORIC) 40 MG tablet Take 1 tablet by mouth Daily. Active lisinopril (PRINIVIL,ZESTR IL) 10 MG tablet Take 1 tablet by mouth Daily. Active propranolol LA (INDERAL LA) 60 MG 24 hr capsule Take 1 capsule by mouth Daily. Active Cariprazine HCl (Vraylar) 3 MG capsule capsule Take by mouth Daily. At night Active Tirzepatide-[place]hoenix ght Management (Zepbound) 5 MG/0.5ML solution Inject 0.5 mL under the skin into the appropriate area as directed 1 (One) Time Per Week. Last wednesday Active SUMAtriptan (IMITREX) 100 MG tablet Take 1 tablet by mouth Every 2 (Two) Hours As Needed for Migraine. Take one tablet at onset of headache. May repeat dose one time in 2 hours if headache not relieved. Active cephalexin (KEFLEX) 500 MG capsule Take 1 capsule by mouth 2 (Two) Times a Day for 3 days. 6 capsule 5 05/22/20 25 HYDROcodone-kelly taminophen (NORCO) 5-325 MG per tabletIndicatio ns:Acute pyelonephritis, Kidney stone Take 1 tablet by mouth Every 6 (Six) Hours As Needed for Moderate Pain or Severe Pain for up to 3 days. 12 tablet 5 05/22/20 25 Active Problems Problem Noted Date Diagnosed Date Sepsis 05/18/2025 Essential hypertension 05/18/2025 History of migraine headaches 05/18/2025 Bipolar disorder 05/18/2025 Acute pyelonephritis 05/18/2025 Kidney stone 05/17/2025 Encounters Date Type Department Care Team Description 05/17/2025 4:30 PM EDT Anesthesia Event [facility] [address] [place] [address] Delfin Sales MD 05/17/2025 3:36 PM EDT - 05/17/2025 4:41 PM EDT Surgery [facility] [address] [place] [address] Rober Baker MD CYSTOSCOPY URETERAL STENT INSERTION [43482 (CPT )] 05/17/2025 6:58 AM EDT - 05/19/2025 2:45 PM EDT Hospital Encounter [facility] [address]G [address] [place] [address] Charlee Quintanilla MD Seibert-Jacobs, MD Kirk Chin Hannah, MD Stephen, Karla R, MD Acute pyelonephritis (Primary Dx); Kidney stone Discharge Disposition: Home or Self Care 05/17/2025 Travel from Last 3 Months Social History Tobacco Use Types Packs/Day Years [...] or training? Not on file Preferred Language Bulgarian 05/17/2025 Comments No Sex and Gender Information Value Date Recorded Sex Assigned at Not on file Legal Sex Female 4:42 AM EDT Gender Identity Not on file Sexual Orientation Not on file Last Filed Vital Signs Vital Sign Reading [...] Mass Index 36.05 05/17/2025 12:40 PM EDT Plan of Treatment Health Maintenance Due Date Last Done Comments ANNUAL PHYSICAL 1975 Annual Gynecologic Pelvic and Breast Exam 1975 HEPATITIS C SCREENING 1975 TDAP/TD VACCINES (1 - Tdap) 1994 MAMMOGRAM 2015 COLOGUARD 01/14/2020 COLON CANCER SCREENING 5 YEAR SIGMOIDOSCOPY 01/14/2020 COLONOSCOPY 01/14/2020 COLORECTAL CANCER SCREENING 01/14/2020 CT COLONOGRAPHY 01/14/2020 FECAL OCCULT BLOOD TEST 01/14/2020 FIT Testing (1 year) 01/14/2020 COVID-19 Vaccine (2 - season) 2024 Pneumococcal Vaccine 50+ (1 of 1 - PCV) 2025 ZOSTER VACCINE (1 of 2) 2025 INFLUENZA VACCINE 08/08/2025 09/28/2019 Medical Devices Implanted Type Area Wire Coater Device Identifier Shelf Expiration Date Model / Serial / Lot Stnt Percsubhalx No Gw 6x26 - [id number] Implanted:Qty : 1 on 05/17/2025 by Rober Baker MD at [facility] Stent Left: Bladder [employer]AW [id number] 11/14/2027 [id number] / / [id number] Procedures Procedure Name Priority Date/Time Associated Diagnosis Comments BASIC METABOLIC PANEL Routine 05/19/2025 4:15 AM EDT CBC (NO DIFF) Routine 05/19/2025 4:15 AM EDT CBC (NO DIFF) Routine 05/18/2025 4:15 AM EDT BASIC METABOLIC PANEL Routine 05/18/2025 4:15 AM EDT FL C ARM DURING SURGERY Routine 05/17/2025 4:56 PM EDT MI CYSTO W/INSERT URETERAL STENT 05/17/2025 4:15 PM EDT Special Needs X-Ray+ CT OUTSIDE ABD/PELVIS Routine 05/17/2025 9:44 AM EDT URINALYSIS, MICROSCOPIC ONLY Routine 05/17/2025 9:41 AM EDT URINALYSIS W/ CULTURE IF INDICATED Routine 05/17/2025 9:41 AM EDT URINE CULTURE Routine 05/17/2025 9:41 AM EDT CBC AND DIFFERENTIAL Urgent 05/17/2025 8:55 AM EDT CBC WITH AUTO DIFFERENTIAL Urgent 05/17/2025 8:55 AM EDT COMPREHENSIVE METABOLIC PANEL Routine 05/17/2025 8:55 AM EDT BLOOD CULTURE STAT 05/17/2025 8:30 AM EDT SCANNED - LABS 05/17/2025 SCANNED - LABS 05/17/2025 SCANNED - IMAGING 05/17/2025 from Last 3 Months Results * (ABNORMAL) CBC (No Diff) (05/19/2025 4:15 AM EDT) Only the most recent of2 resultswithin the time period is included. WBC 12.69(H) 3.40 - 10.80 10*3/mm3 05/19/2025 5:02 AM EDT [facility] RBC 3.39(L) 3.77 - 5.28 10*6/mm3 05/19/2025 5:02 AM EDT [facility] Hemoglobin 10.5(L) 12.0 - 15.9 g/dL 05/19/2025 5:02 AM EDT [facility] Hematocrit 33.0(L) 34.0 - 46.6 % 05/19/2025 5:02 AM EDT [facility] MCV 97.3(H) 79.0 - 97.0 fL 05/19/2025 5:02 AM EDT [facility] MCH 31.0 26.6 - 33.0 pg 05/19/2025 5:02 AM EDT [facility] MCHC 31.8 31.5 - 35.7 g/dL 05/19/2025 5:02 AM EDT [facility] RDW 12.9 12.3 - 15.4 % 05/19/2025 5:02 AM EDT [facility] RDW-SD 46.0 37.0 - 54.0 fl 05/19/2025 5:02 AM EDT [facility] MPV 9.8 6.0 - 12.0 fL 05/19/2025 5:02 AM EDT [facility] Platelets 251 140 - 450 10*3/mm3 05/19/2025 5:02 AM EDT [facility] Blood Venipuncture / Unknown 05/19/2025 4:15 AM EDT 05/19/2025 4:53 AM EDT us Chayito Bradley MD LAB BLOOD ORDERABLES Final Resul t [facility]
[address] [id number], * (ABNORMAL) Basic Metabolic Panel (05/19/2025 4:15 AM EDT) Only the most recent of2 resultswithin the time period is included. Glucose 107(H) 65 - 99 mg/dL 05/19/2025 5:16 AM EDT [facility] BUN 9.0 6.0 - 20.0 mg/dL 05/19/2025 5:16 AM EDT [facility] Creatinine 0.32(L) 0.57 - 1.00 mg/dL 05/19/2025 5:16 AM EDT [facility] Sodium 137 136 - 145 mmol/L 05/19/2025 5:16 AM EDT [facility] Potassium 3.7 3.5 - 5.2 mmol/L 05/19/2025 5:16 AM EDT [facility] Chloride 105 98 - 107 mmol/L 05/19/2025 5:16 AM EDT [facility] CO2 25.7 22.0 - 29.0 mmol/L 05/19/2025 5:16 AM EDT [facility] Calcium 8.5(L) 8.6 - 10.5 mg/dL 05/19/2025 5:16 AM EDT [facility] BUN/Creatinine Ratio 28.1(H) 7.0 - 25.0 05/19/2025 5:16 AM EDT [facility] Anion Gap 6.3 5.0 - 15.0 mmol/L 05/19/2025 5:16 AM EDT [facility] eGFR 127.4 >60.0 mL/min/1.7 3 05/19/2025 5:16 AM EDT [facility] Blood Venipuncture / Unknown 05/19/2025 4:15 AM EDT 05/19/2025 4:40 AM EDT Narrative [facility] - 05/19/2025 5:16 AM EDT GFR [...] does not include race as a factor Chayito Bradley MD LAB BLOOD ORDERABLES Final Resul t [facility]
[address] [place] [address], * FL C Arm During Surgery (05/17/2025 4:56 PM EDT) Narrative SYSTEMGENERATED, DOCUMENTATION - 05/17/2025 4:56 PM EDT This procedure was auto-finalized with no dictation required. Rober Baker MD IMG FLUOROSCOPY ORDERABLES Deisi l Result * CT Outside Abd/Pelvis (05/17/2025 9:44 AM EDT) Narrative SYSTEMGENERATED, DOCUMENTATION - 05/17/2025 9:44 AM EDT This procedure was auto-finalized with no dictation required. Radiant Outside Films IMG CT ORDERABLES Final Re sult * (ABNORMAL) Urinalysis, Microscopic Only - Urine, Clean Catch (05/17/2025 9:41 AM EDT) RBC, UA 3-5(A) None Seen, 0-2 /HPF 05/17/2025 9:56 AM EDT [facility] WBC, UA Too Numerous to Count(A) None Seen, 0-2 /HPF 05/17/2025 9:56 AM EDT [facility] Bacteria, UA None Seen None Seen /HPF 05/17/2025 9:56 AM EDT [facility] Squamous Epithelial Cells, UA 0-2 None Seen, 0-2 /HPF 05/17/2025 9:56 AM EDT [facility] Hyaline Casts, UA 0-2 None Seen /LPF 05/17/2025 9:56 AM EDT [facility] Methodology Automated Microscopy 05/17/2025 9:56 AM T [facility] Urine Urine specimen obtained by clean catch procedure / Unknown Collection / Unknown 05/17/2025 9:41 AM EDT 05/17/2025 9:50 AM EDT Sandra Mack MD URINE ORDERABL ES Final Result [facility]
[address] [place] [address], * (ABNORMAL) Urinalysis With Culture If Indicated - Urine, Clean Catch (05/17/2025 9:41 AM EDT) Color, UA Yellow Yellow, Straw 05/17/2025 9:56 AM EDT [facility] Appearance, UA Cloudy(A) Clear 05/17/2025 9:56 AM EDT [facility] pH, UA <=5.0 5.0 - 8.0 05/17/2025 9:56 AM EDT [facility] Specific Jbphh, UA 1.023 1.005 - 1.030 05/17/2025 9:56 AM EDT [facility] Glucose, UA Negative Negative 05/17/2025 9:56 AM EDT [facility] Ketones, UA Negative Negative 05/17/2025 9:56 AM EDT [facility] Bilirubin, UA Negative Negative 05/17/2025 9:56 AM EDT [facility] Blood, UA Moderate (2+)(A) Negative 05/17/2025 9:56 AM EDT [facility] Protein, UA 30 mg/dL (1+)(A) Negative 05/17/2025 9:56 AM EDT [facility] Leuk Esterase, UA Moderate (2+)(A) Negative 05/17/2025 9:56 AM EDT [facility] Nitrite, UA Negative Negative 05/17/2025 9:56 AM EDT [facility] Urobilinogen, UA 0.2 E.U./dL 0.2 - 1.0 E.U./dL 05/17/2025 9:56 AM EDT [facility] Urine Urine specimen obtained by clean catch procedure / Unknown Collection / Unknown 05/17/2025 9:41 AM EDT 05/17/2025 9:50 AM EDT Narrative [facility] - 05/17/2025 9:56 AM EDT In absence of clinical symptoms, the presence of pyuria, bacteria, and/or nitrites on the urinalysis result does not correlate with infection. us Sandra Mack MD URINE ORDERABL ES Final Result Performing Organization Address City/[facility]/ZIP Co de Phone Number [facility]
[address] [place] [address], * Urine Culture - Urine, Urine, Clean Catch (05/17/2025 9:41 AM EDT) Urine Culture No growth NATE 05/18/2025 10:55 AM EDT [facility] Urine Urine specimen obtained by clean catch procedure / Unknown Collection / Unknown 05/17/2025 9:41 AM EDT 05/17/2025 9:50 AM EDT us Sandra Mack MD MICROBIOLOGY - GENERAL ORDERABLES Final Result [facility]
[address] [place] [address], * (ABNORMAL) CBC Auto Differential (05/17/2025 8:55 AM EDT) WBC 20.53(H) 3.40 - 10.80 10*3/mm3 05/17/2025 8:58 AM EDT [facility] RBC 3.95 3.77 - 5.28 10*6/mm3 05/17/2025 8:58 AM EDT [facility] Hemoglobin 12.5 12.0 - 15.9 g/dL 05/17/2025 8:58 AM EDT [facility] Hematocrit 38.2 34.0 - 46.6 % 05/17/2025 8:58 AM EDT [facility] MCV 96.7 79.0 - 97.0 fL 05/17/2025 8:58 AM EDT [facility] MCH 31.6 26.6 - 33.0 pg 05/17/2025 8:58 AM EDT [facility] MCHC 32.7 31.5 - 35.7 g/dL 05/17/2025 8:58 AM EDT [facility] RDW 12.7 12.3 - 15.4 % 05/17/2025 8:58 AM EDT [facility] RDW-SD 45.2 37.0 - 54.0 fl 05/17/2025 8:58 AM EDT [facility] MPV 9.4 6.0 - 12.0 fL 05/17/2025 8:58 AM EDT [facility] Platelets 295 140 - 450 10*3/mm3 05/17/2025 8:58 AM EDT [facility] Neutrophil % 84.5(H) 42.7 - 76.0 % 05/17/2025 8:58 AM EDT [facility] Lymphocyte % 8.7(L) 19.6 - 45.3 % 05/17/2025 8:58 AM EDT [facility] Monocyte % 6.0 5.0 - 12.0 % 05/17/2025 8:58 AM EDT [facility] Eosinophil % 0.2(L) 0.3 - 6.2 % 05/17/2025 8:58 AM EDT [facility] Basophil % 0.2 0.0 - 1.5 % 05/17/2025 8:58 AM EDT [facility] Immature Grans % 0.4 0.0 - 0.5 % 05/17/2025 8:58 AM EDT [facility] Neutrophils, Absolute 17.32(H) 1.70 - 7.00 10*3/mm3 05/17/2025 8:58 AM EDT [facility] Lymphocytes, Absolute 1.78 0.70 - 3.10 10*3/mm3 05/17/2025 8:58 AM EDT [facility] Monocytes, Absolute 1.24(H) 0.10 - 0.90 10*3/mm3 05/17/2025 8:58 AM EDT [facility] Eosinophils, Absolute 0.05 0.00 - 0.40 10*3/mm3 05/17/2025 8:58 AM EDT [facility] Basophils, Absolute 0.05 0.00 - 0.20 10*3/mm3 05/17/2025 8:58 AM EDT [facility] Immature Grans, Absolute 0.09(H) 0.00 - 0.05 10*3/mm3 05/17/2025 8:58 AM EDT [facility] nRBC 0.0 0.0 - 0.2 /100 WBC 05/17/2025 8:58 AM EDT [facility] Blood Venipuncture / Unknown 05/17/2025 8:55 AM EDT 05/17/2025 8:55 AM EDT us Sandra Mack MD LAB BLOOD ORDQasim NICOLE Final Result [facility]
[address] [place] [address], [place] [phone] * (ABNORMAL) Comprehensive Metabolic Panel (05/17/2025 8:55 AM EDT) [facility] Signature Glucose 93 65 - 99 mg/dL 05/17/2025 9:37 AM EDT [facility] BUN 17.2 6.0 - 20.0 mg/dL 05/17/2025 9:37 AM EDT [facility] Creatinine 0.54(L) 0.57 - 1.00 mg/dL 05/17/2025 9:37 AM EDT [facility] Sodium 140 136 - 145 mmol/L 05/17/2025 9:37 AM EDT [facility] Potassium 4.1 3.5 - 5.2 mmol/L 05/17/2025 9:37 AM EDT [facility] Comment:Slight hemolysis det ected by analyzer. Result may be falsely elevated. Chloride 105 98 - 107 mmol/L 05/17/2025 9:37 AM EDT [facility] CO2 27.0 22.0 - 29.0 mmol/L 05/17/2025 9:37 AM EDT [facility] Calcium 8.5(L) 8.6 - 10.5 mg/dL 05/17/2025 9:37 AM EDT [facility] Total Protein 5.7(L) 6.0 - 8.5 g/dL 05/17/2025 9:37 AM EDT [facility] Albumin 3.5 3.5 - 5.2 g/dL 05/17/2025 9:37 AM EDT [facility] ALT (SGPT) 18 1 - 33 U/L 05/17/2025 9:37 AM EDT [facility] AST (SGOT) 22 1 - 32 U/L 05/17/2025 9:37 AM EDT [facility] Comment:Slight hemolysis det ected by analyzer. Result may be falsely elevated. Alkaline Phosphatase 52 39 - 117 U/L 05/17/2025 9:37 AM EDT [facility] Total Bilirubin 0.3 0.0 - 1.2 mg/dL 05/17/2025 9:37 AM EDT [facility] Globulin 2.2 gm/dL 05/17/2025 9:37 AM EDT [facility] Comment:Calculated Result A/G Ratio 1.6 g/dL 05/17/2025 9:37 AM EDT [facility] BUN/Creatinine Ratio 31.9(H) 7.0 - 25.0 05/17/2025 9:37 AM EDT [facility] Anion Gap 8.0 5.0 - 15.0 mmol/L 05/17/2025 9:37 AM EDT [facility] eGFR 112.3 >60.0 mL/min/1.7 3 05/17/2025 9:37 AM EDT [facility] Blood Venipuncture / Unknown 05/17/2025 8:55 AM EDT 05/17/2025 8:55 AM EDT [facility] - 05/17/2025 9:37 AM [...] MD LAB BLOOD MAU NICOLE Final Result [facility]
[address] [place] [address], * Blood Culture - Blood, Arm, Right (05/17/2025 8:30 AM EDT) Blood Culture No growth at 5 days 05/22/2025 9:45 AM EDT [facility] Blood Structure of right upper limb / Unknown Venipuncture / Unknown 05/17/2025 8:30 AM EDT 05/17/2025 9:37 AM EDT Sandra Mack MD MICROBIOLOGY - GENERAL ORDERABLES Final Result [facility]
[address] [place] [address], * IMAGING SCANNED (05/17/2025) Anatomical Region Laterality Modality Radiographic Adelaida ging [facility] Onbase IMG DIAGNOSTIC IMAGING ORDERA BLES Final Result * LABS SCANNED (05/17/2025) Only the most recent of2 resultswithin the time period is included. [facility] LAB BLOOD ORDERABLES Final Re sult from Last [address] [place] [address] [place] [address] [facility] PPO Advance Directives * CPR (Attempt to Resuscitate) (Latest Code Status on File) Date Activated Date Inactivated Comments 05/17/2025 8:16 AM 05/19/2025 4:56 PM Question Answer Comments Code Status (Patient has no pulse and is not breathing): CPR (Attempt to Resuscitate) Medical Interventions (Patie nt has pulse or is breathing): Full Support Level Of Support Discussed With: Patient Care Teams Form Grader Operator Relationship Specialty Start Date End Date Provider, [place] [address] PCP - General 05/17/25
--- OUTSIDE RECORDS SUMMARY | 2025-06-01 15:58 | XMS_ITS | Continuity of Care Document ---
Author Organization [facility], UROLOGY [facility] Address [address] [place] [address] Assessment No assessment recorded. Plan of Treatment Reminders Order Date Submit Date Provider Last Modified By Organization Details Last Modified Time Details Appointments FEMALE RECHECK 2024 03:15P M GIDEON PURCELL MD Not available Not available Not available Lab culture, urine 2024 025 [facility], [address] [place] [address], [phone], 05/31/2025 12:52:24 urinalysi s, complete 2024 025 [place] [address] [facility], [address] [facility], [place], [address], 05/30/2025 10:28:08 Referral None recorded. Procedures None recorded. Surgeries None recorded. Imaging None recorded. Medication Orders Cipro 500 mg tablet 2024 025 [facility], [address] [place], [address], 05/30/2025 12:27:05 ceftriaxo ne 1 gram solution for injection [address] [facility], [address] [place], [address], 05/30/2025 13:15:17 Patient TargetsNo targets recorded. Patient Instructions Encounter Date Encounter Id Patient Instructions Last Modified By Organization Details Last Modified Time 05/30/2025 [id number] Current presentation with fever and obvious UTI, urine sent for culture. Given these findings it was decided best approach is to proceed with stent removal. She was premedicated with IM Rocephin and Cipro. She will continue Cipro twice daily for 10 days. Should she develop worsening symptoms or condition she would be best managed with inpatient therapy. She and her are well advised of this. Hopefully with passive dilation of her ureter this tiny stone will pass spontaneously if it has not already passed thus far. Return in 1 month with UA [email or web address] Not available 05/30/2025 12:27:46 Reason for Referral None Reported. Results Created Date Observation Date Name Description Value Unit Range Abnormal Flag Note LastModifiedBy Organization Detail LastModifiedTime 05/30/2006/01/2025 URINE CULTU RE urine culture ISOLA TE #1 COLON Y COUNT : > 100,0 00 CFU/M L Proba ble Gram Negat alyssia Bacil cheri. ID and sensi tivit y in progr ess. Not Available [facility] [address] [place] [address], [phone], 06/01/2025 11:14:55 05/30/20 25 05/30/2025 urina lysis , compl ete Unknown Analyte Clean Catch Not Available [facility] [address] [place], [address], 05/30/2025 10:22:42 05/30/20 25 05/30/2025 urina lysis , compl ete Unknown Analyte Yellow Not Available [facility] [address] [place], [address], 05/30/2025 10:22:42 05/30/20 25 05/30/2025 urina lysis , compl ete Unknown Analyte Clear Not Available [facility] [address] [place], [address], 05/30/2025 10:22:42 05/30/20 25 05/30/2025 urina lysis , compl ete Unknown Analyte 1.015 Not Available [facility] [address] [facility], [place], [address], 05/30/2025 10:22:42 05/30/20 25 05/30/2025 urina lysis , compl ete Unknown Analyte 5.0 Not Available [facility] [address] [facility], [place], [address], 05/30/2025 10:22:42 05/30/20 25 05/30/2025 urina lysis , compl ete Unknown Analyte 500 Ankita/ul (++) Not Available [facility] [address] [facility], [place], [address], 05/30/2025 10:22:42 05/30/20 25 05/30/2025 urina lysis , compl ete Unknown Analyte POSITI VE (Abnor mal) Not Available [facility] [address] [facility], [place], [address], 05/30/2025 10:22:42 05/30/20 25 05/30/2025 urina lysis , compl ete Unknown Analyte 500 mg/dl (+++) Not Available [facility] [address] [place], [address], 05/30/2025 10:22:42 05/30/20 25 05/30/2025 urina lysis , compl ete Unknown Analyte Normal Not Available [facility] [address] [place], [address], 05/30/2025 10:22:42 05/30/20 25 05/30/2025 urina lysis , compl ete Unknown Analyte 15 mg/dl (Sm) Not Available [facility] [address] [place], [address], 05/30/2025 10:22:42 05/30/20 25 05/30/2025 urina lysis , compl ete Unknown Analyte Normal Not Available [facility] [address] [facility], [place], [address], 05/30/2025 10:22:42 05/30/20 25 05/30/2025 urina lysis , compl ete Unknown Analyte Negati ve Not Available [facility] [facility], [place], [address], 05/30/2025 10:22:42 05/30/20 25 05/30/2025 urina lysis , compl ete Unknown Analyte 250 Amarjit/ul Not Available [facility] [address] [facility], [place], [address], 05/30/2025 10:22:42 05/30/20 25 05/30/2025 urina lysis , compl ete Unknown Analyte Automa roman Not Available [facility] [address] [facility], [place], [address], 05/30/2025 10:22:42 05/30/20 25 05/30/2025 urina lysis , compl ete Unknown Analyte 20 - 30 Not Available [facility] [address] [facility], [place], [address], 05/30/2025 10:22:42 05/30/20 25 05/30/2025 urina lysis , compl ete Unknown Analyte 6 - 10 Not Available [facility] [address] [facility], [place], [address], 05/30/2025 10:22:42 05/30/20 25 05/30/2025 urina lysis , compl ete Unknown Analyte None Seen Not Available [facility] [address] [facility], [place], [address], 05/30/2025 10:22:42 05/30/20 25 05/30/2025 urina lysis , compl ete Unknown Analyte 4+ Not Available [facility] [address] [facility], [place], [address], 05/30/2025 10:22:42 Result Notes None recorded. Problems Name Problem SNOMED Code Status Onset Date Resolution Date Notes Provider Name and Address Organization Details Recorded Time Ureteric stone 59786353 Active 025 GIDEON PURCELL MD [address] [place] [address], [address], [facility] 12:26:34 Acute urinary tract infection 457894302 Active 025 GIDEON PURCELL MD [address] [place] [address], [address], [facility] 12:26:38 Problem Notes None recorded. Procedures Surgical History Date Name Laterality Status Provider Name and Address Organization Details Recorded Time Cystoscopy Stent Removal completed GIDEON PURCELL MD [address] [place] [address], [phone], [facility] 05/30/2025 12:26:04 Imaging Results None recorded. Procedure Notes None recorded. Medical Equipment None Reported. Allergies No known drug allergies Medications Name Sig Start Date Stop Date Status Note LastModified by Organization Details LastModified Time propranolol ER 60 mg capsule,24 hr,extended release Take 1 capsule every day by oral route. active Not Available Not Available No t Available ceftriaxone 1 gram solution for injection Take 1 g every day by injection route for 1 day. 2024 active Not Available Not Available Not Avai lable tamsulosin 0.4 mg capsule Take 1 capsule every day by oral route. active Not Available Not Available No t Available Cipro 500 mg tablet Take 1 tablet every 12 hours by oral route for 10 days. 2024 active Not Available Not Available Not Avai lable lisinopril 10 mg tablet Take 1 tablet every day by oral route. active Not Available Not Available No t Available estradiol active Not Available Not Sanam ilable Not Available febuxostat 40 mg tablet Take 1 tablet every day by oral route. active Not Available Not Available No t Available Vraylar 3 mg capsule Take 1 capsule every day by oral route. active Not Available Not Available No t Available Vitals Date Recorded Body height Body mass index (BMI) Body weight Heart rate Systolic And Diastolic Provider Name and Address Organization Details Last Updated DateTime 05/30/2025 162.56 cm 36 kg/m2 59026.4 g 78 /min 102/71 mm[Hg] Nahed Singh [facility] 05/30/2025 11:18:42 Social History Question Answer Notes LastModified by Doutíssima Details LastModified Time Tobacco Smoking Status Former Smoker Not Available [employer] 05/30/2025 10:02:09 When Did You Quit Smoking? 6-10yearssin celastcigare tte [email or web address] Information not available 05/30/2025 What Is Your Relationship Status? [email or web address] Information not available 05/30/2025 At What Age Did You Start Smoking Tobacco? 20 [email or web address] Information not available 05/30/2025 Sex: Unknown Functional Status Question Answer Note LastModified by Doutíssima Details LastModified Time Do you or have you ever used any other forms of tobacco or nicotine? No [email or web address] Information not available 05/30/2025 What is your level of alcohol consumption? None [email or web address] Information not available 05/30/2025 Are you currently employed? 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 Family History Relationship Description Onset Age of this Age Resolved Age Notes LastModified by Organization Details LastModified Time Brother Kidney stone [email or web address] Not availa ble 05/30/2025 10:02:08 Father Kidney stone [email or web address] Not availab le 05/30/2025 10:02:09 Medical History Condition Response Gout Y Urinary Tract Infection Y Kidney Stones Y Do you get up at night to urinate? Y Gynecological History Statement/Question Response Female Hormone Problem N # of Pregnancies 1 Abnormal Periods N # of Births 1 Could you be now? N Uterus/Ovaries Problem N Obstetrics History GPAL:G 0 P 0 0 0 0 Past Encounters Encounter ID Performer Location Encounter Start Date Encounter Closed Date Diagnosis/Indication Diagnosis SNOMED-CT Code Diagnosis ICD10 Code Diagnosis Note [id number] GIDEON PURCELL MD UROLOGY [facility] [address] [facility] [place] [address] 05/30/2025 09:56:13 05/30/2025 12:12:38 Kidney stone 82199739 N20.0 Ureteric stone 95975109 N20.1 Acute urin albert tract infection 589732702 N39.0 Health Concerns Section Related Observation LastModified by Organization Detai ls LastModified Time None Recorded Concern Status LastModified by Organization Details LastModified Time None Recorded Payers Encounter Date Sequence Insurance Name Policy Number Policy Celis Covered Member ID Celis Member ID Guarantor Name 05/30/2025 1 [id number] ([facility]) [id number] Shaneka Coughlin [id number] Shaneka Shipley Notes Date Note Type Note Provider Name and Address Organization Details Recorded Time 05/30/2025 text/html 50 yo female here today for follow up s/p cysto with left ureteral stent placement. This had been carried out due to presentation with an infection and a 3 mm left UVJ stone. Stent was placed approximately 2 weeks ago. She had had no symptoms or problems since that time until the last 24 hours when she has developed some fever. She does report fever and pain since yesterday. She states her temp was 101 this am and she has taken ibuprofen. She has no other complaints or concerns today. GIDEON PURCELL MD [address] [place] [address], [phone], [facility] 05/30/2025 16:08:07 OBGyn Episode No OBEpisode recorded.
--- OUTSIDE RECORDS SUMMARY | 2025-06-01 15:58 | XMS_ITS | Encounter Summary ---
Author Organization [employer] ([place], [place], [place], [place]) Address [address] [place] [address] Care Team Providers Care Apple Thinner Name Role Phone Unavailable Primary Care Provider Unavailabl e Encounter Details Date Type Department Care Team (Late st Contact Info) Description 07/13/2019 Transcribed Document [facility] Radiology [address] [place] [address] Provider, Sandra Hoskins MD Social [...] Notes * Cerner Conversion Note - [facility] Aidee ProviderMD - 07/13/2019 10:04 AM EDT [...] Anesthesiologist Procedure Case Attendee Role 2 : layaway clerk Case Attendee 2 : Alix Sánchez RN Procedure Case Attendee Role 3 : layaway clerk Case Attendee 3 : Nahed Curtis, Nurse Suppression Crew Leader Alix Sánchez RN - 07/13/2019 9:04 EDT [...]
--- OUTSIDE RECORDS SUMMARY | 2025-06-01 15:58 | XMS_ITS | Encounter Summary ---
Author Organization [employer] ([place], [place], [place], [place]) Address [address] [place] [address] Care Team Providers Care Timber Sizer Operator Name Role Phone Unavailable Primary Care Provider Unavailabl e Encounter Details Date Type Department Care Team (Late st Contact Info) Description 07/13/2019 Transcribed Document [facility] [address] [place] [address] Provider, Sandra Hoskins MD Social [...] Miscellaneous Notes * Cerner Conversion Note - [facility] Aidee ProviderMD - 07/13/2019 11:23 AM EDT [facility] Main OR IntraOp Summary Primary Physician: EBONY NATH DPM Finalized Date/Time: 07/15/19 16:46:12 Pt. Name: SHANEKA SHIPLEY /Sex: 1975 Female Med Rec #: [id number] Physician: EBONY NATH DPM Financial #: [id number] Pt. Type: O Room/Bed: Admit/Disch: 07/13/19 07:28:00 - 07/13/19 14:43:00 Institution: [facility] IntraOp Case Attendance Entry 1 Entry 2 Entry 3 Case Attendee NATH, EBONY, KIRAN TORRES MD SHEWCRAFT, SUZANNE KEATS, CLINICAL TRANSFORMATION SPECIALIST Role Performed Surgeon/Proceduralist, Anesthesiologist of CLINICAL TRANSFORMATION SPECIALIST/Nurse Or Director First Record Time In 07/13/19 10:06:00 07/13/19 [...] SCRUB Ean Colby Rn TECH Role Performed Neuropsychiatrist, First Scrub, First Neuropsychiatrist, Second Time In 07/13/19 10:06:00 07/13/19 10:06:00 [...] Modified By: Katie Bennett, Rn 07/13/19 11:06:39 [facility] IntraOp Case Attendance Audit 07/13/19 11:06:39 Wood Getter: [id number] Modifier: [id number] 1 <+> Time Out 1 <*> Procedure Bunionectomy(Right) 2 <+> Time Out 2 <*> Procedure Bunionectomy(Right) 3 <+> Time Out 3 <*> Procedure Bunionectomy(Right) 4 <+> Time Out 4 <*> Procedure Bunionectomy(Right) 5 <+> Time Out 5 <*> Procedure Bunionectomy(Right) 6 <*> Procedure Bunionectomy(Right) 7 <+> Time In 7 <+> Time Out 7 <*> Procedure Bunionectomy(Right) 07/13/19 10:43:26 Wood Getter: [id number] Modifier: [id number] <+> 7 Case Attendee <+> 7 Role Performed <+> 7 Procedure <+> 7 Other Attendee 07/13/19 10:24:56 Wood Getter: [id number] Modifier: [id number] 1 <*> Procedure Bunionectomy(Right) 2 <*> Procedure Bunionectomy(Right) 3 <*> Procedure Bunionectomy(Right) 4 <*> Procedure Bunionectomy(Right) 5 <*> Procedure Bunionectomy(Right) 6 <*> Role Performed Neuropsychiatrist, First 6 <+> Time In 6 <+> Time Out 6 <*> Procedure Bunionectomy(Right) 07/13/19 10:12:14 Wood Getter: [id number] Modifier: [id number] <+> 6 Case Attendee <+> 6 Role Performed <+> 6 Procedure 07/13/19 10:11:52 Wood Getter: [id number] Modifier: [id number] 1 <*> Procedure Bunionectomy(Right) 2 <+> Case Attendee 2 <+> Time In 2 <*> Procedure Bunionectomy(Right) 3 <+> Time In 3 <*> Procedure Bunionectomy(Right) 4 <+> Time In 4 <*> Procedure Bunionectomy(Right) 5 <+> Case Attendee 5 <+> Time In 5 <*> Procedure Bunionectomy(Right) [facility] IntraOp Case Times Entry 1 Patient In Room Time 07/13/19 10:06:00 Out Room Time 07/13/19 11:03:00 Anesthesia Start Time 07/13/19 10:06:00 Stop Time 07/13/19 11:03:00 Surgery / Procedure Times Start Time 07/13/19 10:23:00 Stop Time 07/13/19 10:58:00 Last Modified By: Katie Bennett Rn 07/13/19 11:06:37 [facility] IntraOp Case Times Audit 07/13/19 11:06:37 Wood Getter: [id number] Modifier: [id number] <+> 1 Out Room Time <+> 1 Stop Time <+> 1 Stop Time 07/13/19 10:24:42 Wood Getter: [id number] Modifier: [id number] <+> 1 Start Time [facility] IntraOp Communication Entry 1 Entry 2 Communication To Family/Significant other Family/Significant other Comment START CLOSING Communication By Katie Bennett, Katie Guardado Rn Date and Time 07/13/19 10:25:00 07/13/19 10:46:00 Last Modified By: Katie Bennett Rn Bruner, Kristen D, Rn 07/13/19 10:25:10 07/13/19 10:46:44 [facility] IntraOp Communication Audit 07/13/19 10:46:44 Wood Getter: [id number] Modifier: [id number] <+> 2 Communication By <+> 2 Date and Time <+> 2 Communication To <+> 2 Comment [facility] IntraOp Counts Verification Entry 1 Procedure Bunionectomy(Right) Count Info Count Type Sponge, Sharps Counts Verification Baseline/pre-procedure Sequence Counts Performed By Count Performed By Katie Bennett, Rn (Scrub) Count Performed By Ean Colby Rn (RN) Last Modified By: Katie Bennett Rn 07/13/19 10:13:42 [facility] IntraOp Counts Verification Audit 07/13/19 10:13:42 Wood Getter: [id number] Modifier: [id number] Entry 1 was deleted. Higher numbered entries shifted one position to fill the gap. <-> 1 Procedure Bunionectomy(Right) <-> 1 Count Type Sponge, Sharps <-> 1 Counts Verification Sequence Baseline/pre-procedure <-> 1 Count Performed By (Scrub) Katie Bennett Rn <-> 1 Count Performed By (RN) 07/13/19 10:12:26 Wood Getter: [id number] Modifier: [id number] <+> 2 Procedure <+> 2 Count Type <+> 2 Counts Verification Sequence <+> 2 Count Performed By (Scrub) <+> 2 Count Performed By (RN) [facility] IntraOp Counts Final Entry 1 Procedure Bunionectomy(Right) Final Count Info Count Type Sponge, Sharps Counts Verification Skin Closure/end of Sequence procedure Count Results Correct, surgeon notified Counts Performed By Count Performed By JOHNATHON CHAO SCRUB (Scrub) TECH Count Performed By Katie Bennett Rn (RN) Last Modified By: Katie Bennett Rn 07/13/19 10:46:53 [facility] IntraOp Counts Final Audit 07/13/19 10:46:53 Wood Getter: [id number] Modifier: [id number] 1 <*> Procedure Bunionectomy(Right) 1 <+> Count Results 1 <+> Count Performed By (Scrub) 1 <+> Count Performed By (RN) 1 <+> Counts Verification Sequence [facility] IntraOp Departure from OR Entry 1 Integumentary Assessment Integumentary WDL with patient Assessment WDL specific variances Patient's Normal NEW SURGICAL INCISION Integumentary Variance(s) Transfer/Handoff Transfer to PACU Phase I Handoff Method Phone call Post-op Transport Kirti/Brianna Via Patient Transport RAULITO WORTHINGTON Accompanied by ESEQUIEL ROBERTS, Katie Bennett, Rn Last Modified By: Katie Bennett Rn 07/13/19 10:25:43 [facility] IntraOp Dressing and Packing Entry 1 Type Dressing Location OPSITE: RIGHT FOOT Wound Dressing Item Aldair, 4x4's, Steristrip, Kerlix/Richard Applied By EBONY NATH DPM Last Modified By: Katie Bennett Rn 07/13/19 10:26:13 [facility] IntraOp Fire Risk Assessment Entry 1 Fire Info Surgical Site or 0- No Incision Above the Xyphoid Open O2 Source 0- No (Mask or Cannula) Available Ignition 0- No (ESU, Laser, Light Source) Fire Risk 0 Assessment Score Fire Score Fire Risk Yes Assessment Complete Fire Risk Ean Colby Brim Flexer Verified By Fire Risk 07/13/19 10:12:00 Assessment Verified Date/Time Fire Risk Standard Fire Yes Safety Precautions Followed Last Modified By: Katie Bennett Rn 07/13/19 10:43:39 [facility] IntraOp Fire Risk Assessment Audit 07/13/19 10:43:39 Wood Getter: [id number] Modifier: [id number] 1 <*> Open O2 Source (Mask or Cannula) 1- Yes 1 <*> Available Ignition (ESU, Laser, 1- Yes Light Source) 1 <*> Fire Risk Assessment Score 2 [facility] IntraOp General Case Vibrator Operator 1 Case Information OR OR 04 [facility] Case Level 1 Room Verified Yes Wound Class I - Clean Specialty SN Podiatry Anesthesia Type General ASA Class 2 Diagnosis Preop Diagnosis BUNION RIGHT FOOT Postop Same As Preop No Postop Diagnosis SEE DOCTOR POSTOP NOTES Last Modified By: Katie Bennett Rn 07/13/19 10:30:20 [facility] IntraOp General Case Data Audit 07/13/19 10:30:20 Wood Getter: [id number] Modifier: [id number] 1 <*> Anesthesia Type MAC 1 <*> Postop Diagnosis SEE DR NOTES 07/13/19 10:14:25 Wood Getter: [id number] Modifier: [id number] <+> 1 ASA Class <+> 1 Anesthesia Type <+> 1 Postop Same As Preop <+> 1 Preop Diagnosis <+> 1 Postop Diagnosis <+> 1 Room Verified [facility] IntraOp Implant Log Entry 1 Entry 2 Entry 3 Type Implant (Synthetic) Implant (Synthetic) Implant (Synthetic) Implant Log Implant Type Hardware Hardware Hardware Tissue Implant Type Implant DRVR SHAFT ABRAM T7 W/QC [id number] SERGE GUIDEWIRE 0.9X80MM Identification [id number] COUNTER SINK [id number] Description Implant Quantity 1 1 1 Implant Site OPSITE: RIGHT FOOT OPSITE: RIGHT FOOT OPSITE: RIGHT FOOT Implant Identification Model Number Implant Identification Serial Number Implant Identification Lot Number Implant Serge:Machias [employer] Identification Orthopaedics (Sbi) Molder Hand Name: Implant [id number] Identification Catalog Number Implant Size Implant Has an Expiration Date Implant Expiration Date Wasted Radioactive Material Time Implanted Tissue Implant Continue for Tissue Implant Documentation Tissue Identification Number Graft Prep Per Molder Hand Instructions: Tissue Preparation Method: Reconstitution Solution: Reconstitution Solution Lot Number Reconstitution Solution Expiration Date: Thawing Solution Thawing Solution Lot Number Thawing Solution Expiration Date Preparation Materials, Other Preparation Materials, Other Lot Number Preparation Materials, Other Expiration Date Tissue Prepared/Processed By Molder Hand Paperwork Completed Implant Type Comment Last Modified By: Katie Bennett, Katie Guardado, Rn Katie Bennett Rn 07/13/19 10:53:16 07/13/19 10:53:16 07/13/19 10:53:16 Entry 4 Type Implant (Synthetic) Implant Log Implant Type Hardware Tissue Implant Type Implant SCR ABRAM SELF DRL Identification [id number] Description Implant Quantity 1 Implant Site OPSITE: RIGHT FOOT Implant Identification Model Number Implant Identification Serial Number Implant Identification Lot Number Implant Serge:Machias Identification Orthopaedics Molder Hand Name: Implant [id number] Identification Catalog Number Implant Size Implant Has an Expiration Date Implant Expiration Date Wasted Radioactive Material Time Implanted Tissue Implant Continue for Tissue Implant Documentation Tissue Identification Number Graft Prep Per Molder Hand Instructions: Tissue Preparation Method: Reconstitution Solution: Reconstitution Solution Lot Number Reconstitution Solution Expiration Date: Thawing Solution Thawing Solution Lot Number Thawing Solution Expiration Date Preparation Materials, Other Preparation Materials, Other Lot Number Preparation Materials, Other Expiration Date Tissue Prepared/Processed By Molder Hand Paperwork Completed Implant Type Comment Last Modified By: Katie Bennett Rn 07/13/19 10:55:16 [facility] IntraOp Implant Log Audit 07/13/19 10:55:16 Wood Getter: [id number] Modifier: [id number] <+> 4 Implant Identification Description <+> 4 Implant Identification Molder Hand Name: <+> 4 Implant Site <+> 4 Implant Quantity <+> 4 Implant Identification Catalog Number <+> 4 Implant Type <+> 4 Type [facility] IntraOp Intraoperative Assessment Entry 1 Handoff Method Online nursing summary Valid History / Yes Physical in Chart Preoperative Yes Checklist Reviewed/Evaluated Allergies Reviewed Yes Patient is Latex No Sensitive Isolation Not applicable Precautions Noted Level of WDL Consciousness (WDL = Alert, Oriented to Person, Place, and Time) Present Upon IVs Arrival to OR Last Modified By: Katie Bennett Rn 07/13/19 10:43:54 [facility] IntraOp Intraoperative Assessment Audit 07/13/19 10:43:54 Wood Getter: [id number] Modifier: [id number] <+> 1 Level of Consciousness (WDL = Alert, Oriented to Person, Place, and Time) <+> 1 Isolation Precautions Noted [facility] IntraOp Intraoperative Equipment Entry 1 Type Equipment Equipment Equipment Reji Suction System ID Number [id number] Setting HIGH Intraop Monitoring Electrocardiogram Five lead placement (ECG) Electrode Placement Blood Pressure Non-Invasive BP Device Source Blood Pressure Arm, left upper Location Pulse Oximeter Hand, right Probe Site Antiembolic Devices Scopes Photo/Video Documentation Last Modified By: Katie Bennett Rn 07/13/19 10:24:34 [facility] IntraOp Medication Admin Entry 1 Medication/Irrigant MARCELLE IRR NACL 0.9PCT 2000ML [facility]-[id number] Route of IRRIGATION Administration Dose Administered By EBONY NATH DPM Procedure Irrigation Last Modified By: Katie Bennett Rn 07/13/19 10:26:37 [facility] IntraOp Patient Positioning Entry 1 Procedure Bunionectomy(Right) [...] Modified By: Katie Bennett Rn 07/13/19 10:46:35 [facility] IntraOp Patient Positioning Audit 07/13/19 10:46:35 Wood Getter: [id number] Modifier: [id number] 1 <*> Procedure Bunionectomy(Right) 1 <*> Positioning Devices Foot Rest, Head Rest, Pad, Arm, Safety Strap, Chest [facility] IntraOp Sign In Entry 1 Patient, Site, [...] Modified By: Katie Bennett Rn 07/13/19 10:26:44 [facility] IntraOp Sign Out Entry 1 RN Confirmation [...] Modified By: Katie Bennett Rn 07/13/19 11:06:51 [facility] IntraOp Sign Out Audit 07/13/19 11:06:51 Wood Getter: [id number] Modifier: [id number] <+> 1 RN Sign Out Signature Date/Time [facility] IntraOp Skin Prep Entry 1 Procedure Bunionectomy(Right) Prescribed N/A Pre-Surgical Prep Completed Prep Area OPSITE: RIGHT ANKLE TO TOES CIRCUMFRENTIALLY Intraop Prep Integumentary WDL Assessment WDL Prep Agents Betadine scrub, Betadine solution Prep by Katie Bennett, Rn Hair Removal Methods No hair removal performed Last Modified By: Katie Bennett Rn 07/13/19 10:27:35 [facility] IntraOp Surgical Procedures Entry 1 Procedure Bunionectomy Modifiers Right Additional (RIGHT TEX Procedure BUNIONECTOMY) Description Primary Procedure Yes Primary Surgeon EBONY NATH DPM Start 07/13/19 10:23:00 Stop 07/13/19 10:58:00 Anesthesia Type General Specialty SN Podiatry Wound Class I - Clean Last Modified By: Katie Bennett Rn 07/13/19 11:06:42 General Comments: ANCEF 2 GRAMS ADMINISTERED PRIOR TO SURGERY START PER ANESTHESIA PROVIDER @ 1010 [facility] IntraOp Surgical Procedures Audit 07/13/19 11:06:42 Wood Getter: [id number] Modifier: [id number] 1 <*> Procedure Bunionectomy 1 <*> Procedure Bunionectomy 1 <*> Procedure Bunionectomy 1 <*> Stop 1 <*> Stop [facility] IntraOp Temp Regulation Devices Entry 1 Temp Regulation Temperature Warm blankets Regulation Device Temperature Full body Regulation Site Temperature NARESHWCRRAULITO CARLTON Regulation Device RANDIMAHESHESEQUIEL Applied by Temperature PATIENT TEMPERATURE Regulation Comment MONITORED AND CONTROLLED PER ANESTHESIA PROVIDER: MALIHA MCNEIL AVAILABLE IF NEEDED Last Modified By: Katie Bennett Rn 07/13/19 10:30:07 [facility] IntraOP Time Out Entry 1 Procedure to [...] Modified By: Katie Bennett Rn 07/13/19 10:28:22 [facility] IntraOp Tourniquet Entry 1 Type Pneumatic Serial/Unit Number [id number] Setting 250 mmHg Pheumatic Yes Tourniquet Checked Per Protocol Size 18 inches Placement Ankle, right Skin Protection - Yes Padded Under Cuff Applied By Katie Bennett Rn Removed By EBONY NATH DPM Times Start Time 07/13/19 10:21:00 Stop Time 07/13/19 10:58:00 Total Time 36 calculated manually (Mins) Last Modified By: Katie Bennett Rn 07/13/19 10:58:44 [facility] IntraOp Tourniquet Audit 07/13/19 10:58:44 Wood Getter: [id number] Modifier: [id number] <+> 1 Total Time calculated manually (Mins) <+> 1 Stop Time Case Comments <None> Finalized By: TEGAN ZAPATA Document Signatures Signed By: Katie Bennett Rn 07/13/19 11:06 TEGAN ZAPATA 07/15/19 16:46 Unfinalized History Date/Time Username Reason for Unfinalizing Freetext Reason for Unfinalizing 07/15/19 16:42 WATJANNA Correct Billing documented in this encounter Plan of Treatment Not on file documented as of this encounter Visit Diagnoses Not on filedocumented in this encounter
--- OUTSIDE RECORDS SUMMARY | 2025-06-01 15:58 | XMS_ITS | Referral Summary ---
Author Organization [employer] ([place], [place], [place], [place]) Address [address] [place] [address] Care Team Providers Care Guest Services Associate Name Role Phone Unavailable Primary Care Provider [...]
--- OUTSIDE RECORDS SUMMARY | 2025-06-01 15:58 | XMS_ITS | Clinical Summary ---
Author Organization [employer] ([place], [place], [place], [place]) Address [address] [place] [address] Care Team Providers Care Manufacturing Technologist Name Role Phone Unavailable Primary Care Provider [...]
--- OUTSIDE RECORDS SUMMARY | 2025-06-01 15:58 | XMS_ITS | Encounter Summary ---
Author Organization [employer] ([place], [place], [place], [place]) Address [address] [place] [address] Care Team Providers Care Assembler Leather Goods Name Role Phone Unavailable Primary Care Provider Unavailabl e Encounter Details Date Type Department Care Team (Late st Contact Info) Description 07/13/2019 Transcribed Document [facility] [address] [place] [address] Provider, Sandra Hoskins MD Social [...] Miscellaneous Notes * Cerner Conversion Note - [facility] Aidee ProviderMD - 07/13/2019 12:20 PM EDT DATE OF PROCEDURE:07/13/2019 LOCATION: [place] PREOPERATIVE DIAGNOSIS(ES): 1. Hallux abductovalgus, right foot, 2. Pain, right foot. POSTOPERATIVE DIAGNOSIS(ES): 1. Hallux abductovalgus, right foot, 2. Pain, right foot. PROCEDURE: Perez bunionectomy, right foot. SURGEON: Kyrie Mart DPM GRINDING MACHINE OPERATOR AUTOMATIC: None. ANESTHESIA: MAC with popliteal block. HEMOSTASIS: Pneumatic ankle tourniquet. ESTIMATED BLOOD LOSS: Less than 10 mL. MATERIALS: [place] headless 2.5 screw. INJECTABLES: None. SPECIMEN: None. [...] was performed with sagittal saw. Fixation with [place]arsh[place] headless 2.5 screw. Good correction of deformity [...] Kyrie Mart DPM Electronically signed by Jeanne [facility] Conversion Construction Site Crossing Guard Cerner at 03/31/2023 5:33 PM CDT documented in this encounter Plan of Treatment Not on file documented as of this encounter Visit Diagnoses Not on filedocumented in this encounter
--- OUTSIDE RECORDS SUMMARY | 2025-06-01 15:58 | XMS_ITS | Clinical Summary ---
Author Organization [facility] Address [address] [place] [address] Care Team Providers Care Baler Name Role Phone Scot Jackie Miller APRN Primary Care Provider [phone] Allergies Active Allergy Reactions Criticality Noted Date [...] Cancer Screening 01/14/2020 [facility]-Depression Screening 01/29/2024 01/28/2023 AWP-[id number]-32 Vaccine ( - season) 2024 03/28/2021 [facility]-Breast [...] Discontinue, [employer] Implanted Type Area Shank Carrier Device Identifier Shelf Expiration Date Model / Serial / Lot Cement Palacos - [id number] Implanted:Qty: 1 on 04/18/2024 by Gilbert Ramos MD at [facility] [place] Cement Left: Knee [id number] 09/07/2028 [id number] / / [id number] Femoral Comp Journey Ii Uni Ox 3rm/Ll - [id number] Implanted:Qty: 1 on 04/18/2024 by Gilbert Ramos MD at [facility] [place] Knee Left: Knee [employer]-[id number] 09/17/2030 [id number] / / [id number] Tibial Lateral Comp Journey Ii Uni Ox Lt Sz 2 - [id number] Implanted:Qty: 1 on 04/18/2024 by Gilbert Ramos MD at [facility] [place] Knee Left: Knee [employer]-[id number] 07/19/2032 [id number] / / [id number] Insert Lateral Journey Ii Uni Xlpe Sz 2-3/10mm - [id number] Implanted:Qty: 1 on 04/18/2024 by Gilbert Ramos MD at [facility] [place] Knee Left: Knee [employer]-[id number] 10/19/2031 [id number] / / [id number] Additional Health Concerns Active Problems Noted Date Diagnosed Date Autogenerated Problem 03/24/2025 Insurance IRENA LUCIAN Advance Directives * Full Code (Latest Code Status on File) Date Activated Date Inactivated Comments 04/18/2024 8:58 AM 04/18/2024 5:38 PM Question Answer Comments Patient has decision-making capacity? Yes Care Teams Baler Relationship Specialty Start Date End Date Jackie Ellison APRN [address] [place] [address] [facility] - General 01/10/24
--- OUTSIDE RECORDS SUMMARY | 2025-06-01 15:58 | XMS_ITS | Encounter Summary ---
Author Organization [employer] ([place], [place], [place], [place]) Address [address] [place] [address] Care Team Providers Care Employment Representative Name Role Phone Unavailable Primary Care Provider Unavailabl e Encounter Details Date Type Department Care Team (Late st Contact Info) Description 07/13/2019 Transcribed Document [facility] [address] [place] [id number] Provider, juanpablo Hoskins MD Social History Tobacco [...] Miscellaneous Notes * Cerner Conversion Note - [facility] Aidee ProviderMD - 07/13/2019 3:14 PM EDT [place] [address] [place] [address] SHANEKA SHIPLEY :1975 Visit Time:07/13/2019 [...] as instructed Where: [address] [place] [address] [facility] (1) Medications What How Much When [...] and water are not available, use hand help desk consultant. ? Change your dressing as told by [...] or a bad smell. Medicines ??? Take npub-uys-bxycsbh and prescription medicines only as told by [...] 02/14/2017 Document Revised: 06/02/2018 Document Reviewed: 02/14/2017 [employer]velisbiotech.com Interactive Patient Education ?? 2019 [employer]ice[employer]. Crutch Use, Adult Crutches are used to [...] 04/12/2009 Document Revised: 06/08/2018 Document Reviewed: 04/16/2017 [employer]velisbi[employer]com Interactive Patient Education ?? 2019 [employer]. Bunion Surgery, Care After This sheet [...] and water are not available, use hand help desk consultant. ? Change your dressing as told by [...] ask your health care provider. ??? Take pmgo-rfh-bvkpeoi and prescription medicines only as told by [...] fried or sweet foods. ? Take an hymy-gzr-zistzcp or prescription medicine for constipation. ??? Do [...] 05/14/2006 Document Revised: 08/01/2018 Document Reviewed: 08/01/2018 [employer]velisbiotech[employer]com Interactive Patient Education ?? 2019 [employer]iceworks. promethazine (oral) (pro METH a zeen) Phenergan What is the most important information I should know about promethazine? Promethazine should not be given to a child younger than 2 years old. Promethazine can cause severe breathing problems or in very young children. What is promethazine? Promethazine is in a group of drugs called phenothiazines (ZHXU-ae-FSGG-a-zeens). It works by changing the actions of [...] may report side effects to FDA at 3-512-KQX-7403. What other drugs will affect promethazine? Using this medicine with other drugs that make you sleepy or slow your breathing can cause dangerous or life-threatening side effects. Ask your doctor before taking promethazine with a sleeping pill, narcotic pain medicine, muscle relaxer, or medicine for anxiety, depression, or seizures. Other drugs may interact with promethazine, including prescription and boap-oxo-gppvfok medicines, vitamins, and herbal products. Tell each [...] to ensure that the information provided by [employer]. ('Mult[employer]') is accurate, up-to-date, and complete, but no guarantee is made to that effect. Drug information contained herein may be time sensitive. [employer] information has been compiled for use by healthcare practitioners and consumers in the [place] and therefore [employer] does not warrant that uses outside of the [place] are appropriate, unless specifically indicated otherwise. [employer] drug information does not endorse drugs, diagnose patients or recommend therapy. [employer] drug information is an informational resource designed [...] effective or appropriate for any given patient. [employer] does not assume any responsibility for any aspect of healthcare administered with the aid of information [employer] provides. The information contained herein is not intended to cover all possible uses, directions, precautions, warnings, drug interactions, allergic reactions, or adverse effects. If you have questions about the drugs you are taking, check with your doctor, nurse or pharmacist. Copyright 2537-5257 [employer]. Version: 6.02. Revision Date: 08/22/2015. acetaminophen and hydrocodone (a SEET a MIN oh fen and marquita droe KOE done) Hycet, Lorcet, [place], Verdrocet, Vicodin, Xodol, Zamicet What is the [...] may report side effects to FDA at 4-114-YTE-7614. What other drugs will affect acetaminophen and [...] affect acetaminophen and hydrocodone, including prescription and dabu-zbk-vvsyclz medicines, vitamins, and herbal products. Not all [...] to ensure that the information provided by [employer]. ('[employer]um') is accurate, up-to-date, and complete, but no guarantee is made to that effect. Drug information contained herein may be time sensitive. [employer] information has been compiled for use by healthcare practitioners and consumers in the [place] and therefore [employer] does not warrant that uses outside of the [place] are appropriate, unless specifically indicated otherwise. [employer] drug information does not endorse drugs, diagnose patients or recommend therapy. [employer] drug information is an informational resource designed [...] effective or appropriate for any given patient. [employer] does not assume any responsibility for any aspect of healthcare administered with the aid of information [facility] provides. The information contained herein is not intended to cover all possible uses, directions, precautions, warnings, drug interactions, allergic reactions, or adverse effects. If you have questions about the drugs you are taking, check with your doctor, nurse or pharmacist. Copyright 1638-8280 [employer]. Version: 15.02. Revision Date: 09/12/2018. Emergency Awareness [...] Assistance with quitting is available by contacting 9-937-KZEHWildfire KoreaNOW. This is a free resource providing counseling, [...] was given the opportunity to ask questions. Patient/Supervisor Core Shop Name: Patient/Supervisor Core Shop Signature: Relationship to Patient: Clinician/Hospital Supervisor [employer] Shop Signature: Date: documented in this encounter Plan of Treatment Not on file documented as of this encounter Visit Diagnoses Not on filedocumented in this encounter
--- OUTSIDE RECORDS SUMMARY | 2025-06-01 15:58 | XMS_ITS | Data Portability ---
Author Organization [facility] Charis saunders, COLES ANNANDALE CLOSED Address [address] [place] [address] Assessment No assessment recorded. Plan of Treatment Reminders Order Date Submit Date Provider Last Modified By Organization Details Last Modified Time Details Appointments FEMALE RECHECK 2024 03:15P M GIDEON PURCELL MD Not available Not available Not available Lab culture, urine 2024 025 [facility], [address] [place] [address], [phone], 05/31/2025 12:52:24 urinalysi s, complete 2024 025 [place] [address] [facility], [address] [facility], [place], [address], 05/30/2025 10:28:08 Referral None recorded. Procedures None recorded. Surgeries None recorded. Imaging None recorded. Medication Orders Cipro [address] [facility], [address] [place], [address], 05/30/2025 12:27:05 ceftriaxo ne 1 gram solution for injection [address] [facility], [address] [place], [address], 05/30/2025 13:15:17 Patient TargetsNo targets recorded. Patient Instructions Encounter Date Encounter Id Patient Instructions Last Modified By Organization Details Last Modified Time 05/30/2025 [id number] Current presentation with fever and obvious UTI, [...] tivit y in progr ess. Not Available [facility] [address] [place] [address], [phone], 06/01/2025 11:14:55 05/30/20 25 05/30/2025 urina lysis , compl ete Unknown Analyte Clean Catch Not Available [facility] [address] [place], [address], 05/30/2025 10:22:42 05/30/20 25 05/30/2025 urina lysis , compl ete Unknown Analyte Yellow Not Available [facility] [address] [facility], [place], [address], 05/30/2025 10:22:42 05/30/20 25 05/30/2025 urina lysis , compl ete Unknown Analyte Clear Not Available [facility] [address] [place], [address], 05/30/2025 10:22:42 05/30/20 25 05/30/2025 urina lysis , compl ete Unknown Analyte 1.015 Not Available [facility] [address] [facility], [place], [address], 05/30/2025 10:22:42 05/30/20 25 05/30/2025 urina lysis , compl ete Unknown Analyte 5.0 Not Available [facility] [address] [facility], [place], [address], 05/30/2025 10:22:42 05/30/20 25 05/30/2025 urina lysis , compl ete Unknown Analyte 500 Ankita/ul (++) Not Available [facility] [address] [facility], [place], [address], 05/30/2025 10:22:42 05/30/20 25 05/30/2025 urina lysis , compl ete Unknown Analyte POSITI VE (Abnor mal) Not Available [facility] [address] [facility], [place], [address], 05/30/2025 10:22:42 05/30/20 25 05/30/2025 urina lysis , compl ete Unknown Analyte 500 mg/dl (+++) Not Available [facility] [address] [facility], [place], [address], 05/30/2025 10:22:42 05/30/20 25 05/30/2025 urina lysis , compl ete Unknown Analyte Normal Not Available [facility] [address] [place], [address], 05/30/2025 10:22:42 05/30/20 25 05/30/2025 urina lysis , compl ete Unknown Analyte 15 mg/dl (Sm) Not Available [facility] [address] [place], [address], 05/30/2025 10:22:42 05/30/20 25 05/30/2025 urina lysis , compl ete Unknown Analyte Normal Not Available [facility] [address] [facility], [place], [address], 05/30/2025 10:22:42 05/30/20 25 05/30/2025 urina lysis , compl ete Unknown Analyte Negati ve Not Available [facility] [address] [facility], [place], [address], 05/30/2025 10:22:42 05/30/20 25 05/30/2025 urina lysis , compl ete Unknown Analyte 250 Amarjit/ul Not Available [facility] [address] [facility], [place], [address], 05/30/2025 10:22:42 05/30/20 25 05/30/2025 urina lysis , compl ete Unknown Analyte Automa roman Not Available [facility] [address] [facility], [place], [address], 05/30/2025 10:22:42 05/30/20 25 05/30/2025 urina lysis , compl ete Unknown Analyte 20 - 30 Not Available [facility] [address] [facility], [place], [address], 05/30/2025 10:22:42 05/30/20 25 05/30/2025 urina lysis , compl ete Unknown Analyte 6 - 10 Not Available [facility] [address] [place], [address], 05/30/2025 10:22:42 05/30/20 25 05/30/2025 urina lysis , compl ete Unknown Analyte None Seen Not Available [facility] [address] [place], [address], 05/30/2025 10:22:42 05/30/20 25 05/30/2025 urina lysis , compl ete Unknown Analyte 4+ Not Available [facility] [address] [facility], [place], [address], 05/30/2025 10:22:42 Result Notes None recorded. Problems Name Problem SNOMED Code Status Onset Date Resolution Date Notes Provider Name and Address Organization Details Recorded Time Ureteric stone 58138814 Active 025 GIDEON PURCELL MD [address] [place] [address], [address], [facility] 12:26:34 Acute urinary tract infection 414006673 Active 025 GIDEON PURCELL MD [address] [place] [address], [address], [facility] 12:26:38 Problem Notes None recorded. Procedures Surgical History Date Name Laterality Status Provider Name and Address Organization Details Recorded Time Cystoscopy Stent Removal completed GIDEON PURCELL MD [address] [place] [address], [phone], [facility] 05/30/2025 12:26:04 Imaging Results None recorded. Procedure [...] Updated DateTime 05/30/2025 162.56 cm 36 kg/m2 02420.4 g 78 /min 102/71 mm[Hg] Nahed Singh [facility] 05/30/2025 11:18:42 Social History Question Answer Notes LastModified by [employer] Details LastModified Time Tobacco Smoking Status Former Smoker Not Available [employer] 05/30/2025 10:02:09 When Did You Quit Smoking? 6-10yearssin celastcigare tte API-27 Information not available 05/30/2025 What Is Your Relationship Status? API-27 Information not available 05/30/2025 At What Age Did You Start Smoking Tobacco? 20 API-27 Information not available 05/30/2025 Sex: Unknown Functional Status Question Answer Note LastModified by [employer] Details LastModified Time Do you or have [...] SNOMED-CT Code Diagnosis ICD10 Code Diagnosis Note [id number] GIDEON PURCELL MD UROLOGY [facility] [address] [facility] [place] [address] 05/30/2025 09:56:13 05/30/2025 12:12:38 Kidney stone 21854203 N20.0 Ureteric stone 26686873 N20.1 Acute urin albert tract infection 119626377 N39.0 Health Concerns Section Related Observation LastModified by Organization Detai ls LastModified Time None Recorded Concern Status LastModified by Organization Details LastModified Time None Recorded Advance Directives Directive None Recorded Payers Insurance Date Sequence Insurance Name Policy Number Policy Celis Covered Member ID Celis Member ID Guarantor Name 05/30/2025 1 [place]) [id number] Shaneka Coughlin [id number] Shaneka Shipley Notes Date Note Type Note [...] complaints or concerns today. GIDEON PURCELL MD [address] [place] [address], [address], [facility] 05/30/2025 16:08:07 OBGyn Episode No OBEpisode recorded.
--- OUTSIDE RECORDS SUMMARY | 2025-06-01 15:59 | XMS_ITS | Encounter Summary ---
Author Organization [employer] ([place], [place], [place], [place]) Address [address] [place] [address] Care Team Providers Care Mental Health Assistant Name Role Phone Unavailable Primary Care Provider Unavailabl e Encounter Details Date Type Department Care Team (Late st Contact Info) Description 07/13/[address] [facility] Radiology 1 [place] [address] Provider, Sandra Hoskins MD Social [...] Miscellaneous Notes * Cerner Conversion Note - [facility] Aidee Caruso MD - 07/13/2019 2:48 PM [...] and water are not available, use hand housekeeper child care. ? Change your dressing as told by [...] Pus or a bad smell. Medicines ETake ngld-uzu-gxhvrua and prescription medicines only as told by [...] 02/14/2017 Document Revised: 06/02/2018 Document Reviewed: 02/14/2017 [employer] Interactive Patient Education ? 2019 [employer] Inc. Crutch Use, Adult Crutches are used [...] 04/12/2009 Document Revised: 06/08/2018 Document Reviewed: 04/16/2017 [employer] Interactive Patient Education ? 2019 [employer] Inc. Orthopedics Bunion Surgery, Care After This [...] and water are not available, use hand housekeeper child care. ? Change your dressing as told by [...] quitting, ask your health care provider. ETake rckv-ptm-cwllspb and prescription medicines only as told by [...] fried or sweet foods. ? Take an ymdd-gtw-kxfbbji or prescription medicine for constipation. Annette not [...] 05/14/2006 Document Revised: 08/01/2018 Document Reviewed: 08/01/2018 [employer]-Works Interactive Patient Education ? 2019 [employer] Inc. documented in this encounter Plan of Treatment Not on file documented as of this encounter Visit Diagnoses Not on filedocumented in this encounter
--- OUTSIDE RECORDS SUMMARY | 2025-06-01 15:59 | XMS_ITS | Encounter Summary ---
Author Organization [employer] ([place], [place], [place], [place]) Address [address] [place] [address] Care Team Providers Care Manufacturing Teacher Name Role Phone Unavailable Primary Care Provider Unavailabl e Encounter Details Date Type Department Care Team (Late st Contact Info) Description 07/13/2019 Transcribed Document [facility] Radiology 1 [place] [address] Provider, Sandra Hoskins MD Social [...] Miscellaneous Notes * Cerner Conversion Note - [facility] Aidee ProviderMD - 07/13/2019 11:23 AM EDT [facility] Main OR PACU Summary Primary Physician: EBONY NATH DPM Finalized Date/Time: 07/13/19 13:33:19 Pt. Name: SHANEKA SHIPLEY /Sex: 1975 Female Med Rec #: [id number] Physician: EBONY NATH DPM Financial #: [id number] Pt. Type: O Room/Bed: Admit/Disch: 07/13/19 07:28:00 - Institution: [facility] Main OR PACU I Case Times Entry 1 In PACU I 07/13/19 11:05:00 Ready for PACU 07/13/19 12:15:00 Discharge Discharge from PACU 07/13/19 13:10:00 I Last Modified By: Yue Aquino Rn-Traveler 07/13/19 13:32:59 [facility] Main OR PACU Acuity Entry 1 Start Time 07/13/19 12:15:00 Stop Time 07/13/19 13:10:00 Acuity Level [facility] PACU Acuity I Last Modified By: Yue Aquino Rn-Traveler 07/13/19 13:33:17 Finalized By: Yue Aquino Rn-Traveler Document Signatures Signed By: Yue Aquino Rn-Traveler 07/13/19 13:33 Electronically signed by Jeanne [facility] Conversion Clinical Data Programmer Cerner at 03/31/2023 5:31 PM CDT documented in this encounter Plan of Treatment Not on file documented as of this encounter Visit Diagnoses Not on filedocumented in this encounter
--- OUTSIDE RECORDS SUMMARY | 2025-06-01 15:59 | XMS_ITS | Encounter Summary ---
[facility] Address [address] [place] [address] Care Team Providers Care Ceramic Maker Demonstrator Name Role Phone Provider, No Known Primary Care Provider Unavail able Encounter Details Date Type Department Care Team (Latest Contact Info) Description 05/17/2025 Travel Social History Tobacco Use Types Packs/Day Years [...] or training? Not on file Preferred Language Israeli 05/17/2025 Comments No Sex and Gender Information [...] 12:44 PM EDT Marleny Langston RN * Ashley Suicide Severity Rating Scale (Screener/Recent Self-Report) Question Answer Date of Assessment Author 6. Suicidal Behavior (Lifetime) No 12:44 PM EDT Marleny Langston RN documented as of this encounter Plan of Treatment Not on file documented as of this encounter Visit Diagnoses Not on filedocumented in this encounter Care Teams Ceramic Maker Demonstrator Relationship Specialty Start Date End Date [place], [place] [address] PCP - General 05/17/25 documented as of this encounter
--- OUTSIDE RECORDS SUMMARY | 2025-06-01 15:59 | XMS_ITS | Encounter Summary ---
Author Organization [employer] ([place], [place], [place], [place]) Address [address] [place] [address] Care Team Providers Care Fishing Vessel Mate Name Role Phone Unavailable Primary Care Provider Unavailabl e Encounter Details Date Type Department Care Team (Late st Contact Info) Description 07/13/2019 Transcribed Document [facility] Radiology [address] [place] [address] ProviderSandra MD Social History Tobacco [...] Miscellaneous Notes * Cerner Conversion Note - [facility] Aidee ProviderMD - 07/13/2019 12:15 PM EDT [...]
--- OUTSIDE RECORDS SUMMARY | 2025-06-01 15:59 | XMS_ITS | Encounter Summary ---
Author Organization [employer] ([place], [place], [place], [place]) Address [address] [place] [address] Care Team Providers Care Catalyst Operator Name Role Phone Unavailable Primary Care Provider Unavailabl e Encounter Details Date Type Department Care Team (Late st Contact Info) Description 07/12/2019 Transcribed Document [facility] Radiology [address] [place] [address] Provider, Sandra Hoskins MD Social [...] Miscellaneous Notes * Cerner Conversion Note - [facility] Aidee ProviderMD - 07/12/2019 2:42 PM EDT PAT Adult Entered On: 07/12/2019 13:45 EDT Performed On: 07/12/2019 13:42 EDT by MYRA MOROCHO RN Pain Assessment Pain Assessment : Initial assessment Pain Scale Goal : 4 Alix Sánchez RN - 07/13/2019 8:34 EDT Height and Weight, Clinical Dosing Height Source : Measured Height Entry Format : [place] Height, Feet : 0 ft(Converted to: 0 cm, 0 Inch) Height, Inches : 64 Inch(Converted to: 5 ft 4 Inch, 162.56 cm) Clinical Height : 162.56 cm Weight Source : Standing scale Weight Entry Format : [place] Clinical Dosing Weight : 89.91 kg Weight, Pounds : 197.8 lb Body Surface Area (BSA) : 1.95 m2 Body Mass Index : 34 kg/m2 (HI) [place] Body Weight : 54 kg Nahed Curtis, Nurse Watch Leader - 07/13/2019 8:16 EDT Health Histories Smoking [...] #2 Relationship : , Primary Language : Belgian Communication Barrier : MYRA Armstrong RN - [...] Level Score : 1 Nahed Curtis, Nurse Watch Leader - 07/13/2019 8:16 EDT Hx of Obstructive [...]
--- OUTSIDE RECORDS SUMMARY | 2025-06-01 15:59 | XMS_ITS | Encounter Summary ---
Author Organization [employer] ([place], [place], [place], [place]) Address [address] [place] [address] Care Team Providers Care Airport Traffic Controller Name Role Phone Unavailable Primary Care Provider Unavailabl e Encounter Details Date Type Department Care Team (Late st Contact Info) Description 07/13/2019 Transcribed Document [facility] Radiology [address] [place] [address] Provider, Sandra Hoskins MD Social [...] Notes * Cerner Conversion Note - [facility] Aidee ProviderMD - 07/13/2019 11:23 AM EDT [facility] Main OR PostOp Summary Primary Physician: EBONY NATH DPM Finalized Date/Time: 07/13/19 14:44:15 Pt. Name: SHANEKA SHIPLEY /Sex: 1975 Female Med Rec #: [id number] Physician: EBONY NATH DPM Financial #: [id number] Pt. Type: O Room/Bed: Admit/Disch: 07/13/19 07:28:00 - Institution: [facility] Main OR PostOp Case Times Entry 1 In PACU II 07/13/19 13:16:00 Ready for PACU II 07/13/19 14:20:00 Discharge Discharge from PACU 07/13/19 14:43:00 II Last Modified By: AYUSH ZUNIGA RN 07/13/19 14:20:04 [facility] Main OR PostOp Case Times Audit 07/13/19 14:44:06 Physician/Internist: YVROSE Modifier: CALVERSM <+> 1 Discharge from PACU II Finalized By: AYUSH ZUNIGA RN Document Signatures Signed By: AYUSH ZUNIGA RN 07/13/19 14:44 Electronically signed by Jeanne [facility] Conversion Obstetrics Gynecology Md Cerner at 03/31/2023 5:31 PM CDT documented in this encounter Plan of Treatment Not on file documented as of this encounter Visit Diagnoses Not on filedocumented in this encounter
--- NOTE | 2025-06-01 16:00 | MM_ITS ---
PROCEDURE INFORMATION: Exam: MG Bilateral Screening 3D Mammography Exam date and time: 06/01/2025 3:54 PM Age: 50 years old Clinical indication: Screening examination. TECHNIQUE: Imaging protocol: Bilateral Screening tomosynthesis and 2D mammography including computer-aided detection (CAD) when performed. COMPARISON: 1. MG MM DIG SCREENING MAMM BI W/CAD 12/08/2023 4:39 PM 2. MG MM DIG SCREENING MAMM BI W/CAD 10/08/2022 9:21 AM FINDINGS: MAMMOGRAPHY: Breast composition: The breasts are almost entirely fatty. Mass: None. Architectural distortion: None. Calcifications: No suspicious calcifications. Asymmetric density: None. Skin thickening: None. Axillary adenopathy: None. IMPRESSION: No mammographic evidence of malignancy. Annual screening is recommended unless otherwise clinically indicated. ASSESSMENT: BI-RADS Category 1: Negative.
== END 2025-06-01 23:59 | disposition home or self-care (01) ==
LOC: RAD 15:53
PROVIDERS: Visit Provider Obstetrics & Gynecology
DX: Z12.31 Encounter for screening mammogram for malignant neoplasm of breast (principal)
CPT/HCPCS: 77063; 77067

== ENCOUNTER 2025-09-04 11:45 | Outpatient (CLI) | payer BC, SELFPAY ==
--- OUTSIDE RECORDS SUMMARY | 2025-09-05 12:41 | XMS_ITS | Data Portability ---
Author Organization [facility] COLE AlvarezS [place] CLOSED Address [address] [facility] [place] [address] Assessment No assessment recorded. Plan of Treatment Reminders Order Date Submit Date Provider Last Modified By Organization Details Last Modified Time Details Appointments None recorded. Lab culture, urine [address] [facility], [address] [place] [address], [phone], 5 10:12:04 urinalysis, complete 2024 [facility], [facility]4 [facility], [place], [address], 5 10:12:04 Referral None recorded. Procedures None recorded. Surgeries None recorded. Imaging None recorded. Medication Orders Cipro 500 mg tablet 2024 025 [facility], [address], [address], 5 05:01:36 ceftriaxone 1 gram solution for injection [address] [facility], [address] [place] [address], [address], 5 10:12:04 Patient TargetsNo targets recorded. Patient Instructions Encounter Date Encounter Id Patient Instructions Last Modified By Organization Details Last Modified Time 05/30/2025 [id number] Current presentation with fever and obvious UTI, [...] Abnormal Flag Note LastModifiedBy Organization Detail LastModifiedTime 05/30/2005/30/2025 URINE CULTU RE citrobacter braakii Organi sm: Citrob acter braaki i Not Available [facility] [address] [place], [address], 06/02/2025 14:49:50 05/30/20 25 05/30/2025 URINE CULTU RE pseudomonas aeruginosa Organi sm: Pseudo monas aerugi nosa Not Available [facility] [address] [place], [address], 06/02/2025 14:49:50 05/30/20 25 06/02/2025 URINE CULTU RE urine culture abnormal ISOLA TE #1 COLON Y COUNT : > 100,0 00 CFU/M L Proba ble Gram Negat alyssia Bacil cheri. ID and sensi tivit y in progr ess. ISOLA TE #2 COLON Y COUNT : > 100,0 00 CFU/M L Proba ble Gram Negat alyssia Bacil cheri. ID and sensi tivit y in progr ess. See [place] te Resul t(s) Below Citro bacte r braak ii Pseud omona s aerug inosa Not Available [facility] [address] [place], [address], 06/02/2025 14:49:50 05/30/20 25 06/02/2025 URINE CULTU RE ceftazidime >16 ug/mL resistant Not Available [facility] [address] [place] [address], [address], 06/02/2025 14:49:50 05/30/20 25 06/02/2025 URINE CULTU RE ceftriaxone 32 ug/mL resistant Not Available [facility] [address] [place] [address], [address], 06/02/2025 14:49:50 05/30/20 25 06/02/2025 URINE CULTU RE ciprofloxaci n <=0.25 ug/mL susceptib le Not Available [facility] [address] [place] [address], [address], 06/02/2025 14:49:50 05/30/20 25 06/02/2025 URINE CULTU RE gentamicin <=4 ug/mL susceptib le Not Available [facility] [address] [place] [address], [address], 06/02/2025 14:49:50 05/30/20 25 06/02/2025 URINE CULTU RE imipenem <=1 ug/mL susceptib le Not Available [facility] [address] [place] [address], [address], 06/02/2025 14:49:50 05/30/20 25 06/02/2025 URINE CULTU RE levofloxacin <=0.5 ug/mL susceptib le Not Available [facility] [address] [place] [address], [address], 06/02/2025 14:49:50 05/30/20 25 06/02/2025 URINE CULTU RE nitrofuranto in <=32 ug/mL susceptib le Not Available [facility] [address] [place] [address], [address], 06/02/2025 14:49:50 05/30/20 25 06/02/2025 URINE CULTU RE piperacillin /anirudh <=16 ug/mL susceptib le Not Available [facility] [address] [place] [address], [address], 06/02/2025 14:49:50 05/30/20 25 06/02/2025 URINE CULTU RE tetracycline <=4 ug/mL susceptib le Not Available [facility] [address] [place] [address], [address], 06/02/2025 14:49:50 05/30/20 25 06/02/2025 URINE CULTU RE tobramycin <=2 ug/mL susceptib le Not Available [facility] [address] [place] [address], [address], 06/02/2025 14:49:50 05/30/20 25 06/02/2025 URINE CULTU RE trimeth/sulf a <=2/38 ug/mL susceptib le Not Available [facility] [address] [place] [address], [address], 06/02/2025 14:49:50 05/30/20 25 06/02/2025 URINE CULTU RE ceftazidime <=1 ug/mL susceptib le Not Available [facility] [address] [place] [address], [address], 06/02/2025 14:49:50 05/30/20 25 06/02/2025 URINE CULTU RE ciprofloxaci n <=0.25 ug/mL susceptib le Not Available [facility] [address] [place] [address], [address], 06/02/2025 14:49:50 05/30/20 25 06/02/2025 URINE CULTU RE gentamicin <=4 ug/mL susceptib le Not Available [facility] [address] [place] [address], [address], 06/02/2025 14:49:50 05/30/20 25 06/02/2025 URINE CULTU RE imipenem 8 ug/mL resistant Not Available [facility] [address] [place] [address], [address], 06/02/2025 14:49:50 05/30/20 25 06/02/2025 URINE CULTU RE levofloxacin <=0.5 ug/mL susceptib le Not Available [facility] [address] [place] [address], [address], 06/02/2025 14:49:50 05/30/20 25 06/02/2025 URINE CULTU RE piperacillin /anirudh <=16 ug/mL susceptib le Not Available [facility] [address] [place] [address], [address], 06/02/2025 14:49:50 05/30/20 25 06/02/2025 URINE CULTU RE tobramycin <=2 ug/mL susceptib le Not Available [facility] [address] [place] [address], [address], 06/02/2025 14:49:50 05/30/20 25 05/30/2025 urina lysis , compl ete Unknown Analyte Clean Catch Not Available Cu/Lc Urolo gy [facility] [address] [facility], [place], [address], 05/30/2025 10:22:42 05/30/20 25 05/30/2025 urina lysis , compl ete Unknown Analyte Yellow Not Available Cu/Lc Urology [facility] [address] [place], [address], 05/30/2025 10:22:42 05/30/20 25 05/30/2025 urina lysis , compl ete Unknown Analyte Clear Not Available Cu/Lc Urology [facility] [address] [facility], [place], [address], 05/30/2025 10:22:42 05/30/20 25 05/30/2025 urina lysis , compl ete Unknown Analyte 1.015 Not Available Cu/Lc [facility] [address] [place], [address], 05/30/2025 10:22:42 05/30/20 25 05/30/2025 urina lysis , compl ete Unknown Analyte 5.0 Not Available Cu/Lc U[facility] [address] [facility], [place], [address], 05/30/2025 10:22:42 05/30/20 25 05/30/2025 urina lysis , compl ete Unknown Analyte 500 Ankita/ul (++) Not Available Cu/Lc Urolo gy [address] [facility], [place], [address], 05/30/2025 10:22:42 05/30/20 25 05/30/2025 urina lysis , compl ete Unknown Analyte POSITI VE (Abnor mal) Not Available Cu/Lc Urolo gy [facility] [address] [place] [address], [place], [address], 05/30/2025 10:22:42 05/30/20 25 05/30/2025 urina lysis , compl ete Unknown Analyte 500 mg/dl (+++) Not Available Cu/Lc Urolo gy [facility] [address] [facility], [place], [address], 05/30/2025 10:22:42 05/30/20 25 05/30/2025 urina lysis , compl ete Unknown Analyte Normal Not Available Cu/Lc Urology [facility] [address] [facility], [place], [address], 05/30/2025 10:22:42 05/30/20 25 05/30/2025 urina lysis , compl ete Unknown Analyte 15 mg/dl (Sm) Not Available Cu/Lc Urolo gy [facility] [address] [facility], [place], [address], 05/30/2025 10:22:42 05/30/20 25 05/30/2025 urina lysis , compl ete Unknown Analyte Normal Not Available Cu/Lc Urology [address], [place], [address], 05/30/2025 10:22:42 05/30/20 25 05/30/2025 urina lysis , compl ete Unknown Analyte Negati ve Not Available Cu/Lc Urolo [address] [facility], [place], [address], 05/30/2025 10:22:42 05/30/20 25 05/30/2025 urina lysis , compl ete Unknown Analyte 250 Amarjit/ul Not Available Cu/Lc Urolo gy [address] [facility], [place], [address], 05/30/2025 10:22:42 05/30/20 25 05/30/2025 urina lysis , compl ete Unknown Analyte Automa roman Not Available Cu/Lc Urolo [facility] [address] [facility], [place], [address], 05/30/2025 10:22:42 05/30/20 25 05/30/2025 urina lysis , compl ete Unknown Analyte 20 - 30 Not Available Cu/Lc Urolo [address] [facility], [place], [address], 05/30/2025 10:22:42 05/30/20 25 05/30/2025 urina lysis , compl ete Unknown Analyte 6 - 10 Not Available Cu/Lc U[facility] [address] [facility], [place], [address], 05/30/2025 10:22:42 05/30/20 25 05/30/2025 urina lysis , compl ete Unknown Analyte None Seen Not Available Cu/Lc Urolo [facility] [address] [facility], [place], [address], 05/30/2025 10:22:42 05/30/20 25 05/30/2025 urina lysis , compl ete Unknown Analyte 4+ Not Available Cu/Lc U[facility] [address] [facility], [place], [address], 05/30/2025 10:22:42 Result Notes None recorded. Problems Name Problem SNOMED Code Status Onset Date Resolution Date Notes Provider Name and Address Organization Details Recorded Time Ureteric stone 77142198 Active 025 GIDEON PURCELL MD [address] [place] [address], [address] , [facility] 12:26:34 Acute urinary tract infection 185201179 Active 025 GIDEON PURCELL MD [address] [place] [address], [address] , [facility] 12:26:38 Problem Notes None recorded. Procedures Surgical History Date Name Laterality Status Provider Name and Address Organization Details Recorded Time Cystoscopy Stent Removal completed GIDEON PURCELL MD [address] [place] [address], [address], [facility] 05/30/2025 12:26:04 Imaging Results None recorded. [...] hours by oral route for 10 days. 06/16 completed Not Available Not Available Not Available lisinopril 10 mg tablet Take 1 tablet [...] Updated DateTime 05/30/2025 162.56 cm 36 kg/m2 39232.4 g 78 /min 102/71 mm[Hg] Nahed Singh [facility] 05/30/2025 11:18:42 Social History Question Answer Notes LastModified by Organizat ion Details LastModified Time Tobacco Smoking Status Former Smoker Not Available [employer] 05/30/2025 10:02:09 When Did You Quit Smoking? 6-10yearssin celastcigare tte API-27 Information not available 05/30/2025 What Is Your Relationship Status? API-27 Information not available 05/30/2025 At What Age Did You Start Smoking Tobacco? 20 API-27 Information not available 05/30/2025 Sex: Unknown Functional Status Question Answer Note LastModified by Organizat ion Details LastModified Time Do you or have [...] Diagnosis SNOMED-CT Code Diagnosis ICD10 Code Diagnosis IMO Codes Diagnosis Note [id number] GIDEON PURCELL [facility] [address] [place] [address] 05/30/2025 09:56:13 05/30/2025 12:12:38 Kidney stone 88225761 N20.0 80983 Ureteric stone 90447321 N20.1 76491 Acute urin albert tract infection 711503857 N39.0 673834 Health Concerns Section Related Observation LastModified by Organization Detai ls LastModified Time None Recorded Concern Status LastModified by Organization Details LastModified Time None Recorded Advance Directives Directive None Recorded Payers Insurance Date Sequence Insurance Name Policy Number Policy Celis Covered Member ID Celis Member ID Guarantor Name 06/25/2025 1 [place] [id number] Shaneka Shipley [id number] Shaneka Shipley Notes Date Note Type Note [...] complaints or concerns today. GIDEON PURCELL MD [facility], [place], [address], [facility] 05/30/2025 16:08:07 OBGyn Episode No OBEpisode recorded.
--- OUTSIDE RECORDS SUMMARY | 2025-09-05 12:41 | XMS_ITS | Clinical Summary ---
Author Organization [employer] ([place], [place], [place], [place]) Address [address] [place] [address] Care Team Providers Care Hollow Ware Maker Name Role Phone Unavailable Primary Care Provider [...]
--- OUTSIDE RECORDS SUMMARY | 2025-09-05 12:41 | XMS_ITS | Encounter Summary ---
Author Organization [email or web address] ([place], [place], [place]) Address [address] [place] [address] Care Team Providers Care Blindstitch Lapel Padder Name Role Phone Unavailable Primary Care Provider Unavailabl e Encounter Details Date Type Department Care Team (Late st Contact Info) Description 07/13/2019 Transcribed Document [facility] Radiology [address] [place] [address] ProviderSandra MD Social History Tobacco [...] * Cerner Conversion Note - [facility] Aidee ProviderMD - 07/13/2019 12:15 PM EDT Patient: SHANEKA SHIPLEY Age: 44 Years Sex: Female : 1975 *Operation [employer]prez bunionectomy right foot Indication for Surgery HAV [...]
--- OUTSIDE RECORDS SUMMARY | 2025-09-05 12:41 | XMS_ITS | Encounter Summary ---
Author Organization [employer] ([place], [place], [place], [place]) Address [address] [place] [address] Care Team Providers Care Validation Intern Name Role Phone Unavailable Primary Care Provider Unavailabl e Encounter Details Date Type Department Care Team (Late st Contact Info) Description 07/13/2019 Transcribed Document [facility] Radiology [address] [place] [address] Provider, Sandra Hoskins MD Social [...] Note - [facility] Aidee ProviderMD - 07/13/2019 11:23 AM EDT [facility] Main OR PostOp Summary Primary Physician: EBONY NATH DPM Finalized Date/Time: 07/13/19 14:44:15 Pt. Name: SHANEKA SHIPLEY /Sex: 1975 Female Med Rec #: [id number] Physician: EBONY NATH DPM Financial #: [id number] Pt. Type: O Room/Bed: Admit/Disch: 07/13/19 07:28:00 - Institution: [facility] Main OR PostOp Case Times Entry 1 In PACU II 07/13/19 13:16:00 Ready for PACU II 07/13/19 14:20:00 Discharge Discharge from PACU 07/13/19 14:43:00 II Last Modified By: AYUSH ZUNIGA RN 07/13/19 14:20:04 [facility] Main OR PostOp Case Times Audit 07/13/19 14:44:06 Direct Support Worker: YVROSE Modifier: [email or web address] <+> 1 Discharge from PACU II Finalized By: AYUSH ZUNIGA RN Document Signatures Signed By: AYUSH ZUNIGA RN 07/13/19 14:44 Electronically signed by Jeanne [facility] Conversion Spread Cutter Cerner at 03/31/2023 5:31 PM CDT documented in this encounter Plan of Treatment Not on file documented as of this encounter Visit Diagnoses Not on filedocumented in this encounter
--- OUTSIDE RECORDS SUMMARY | 2025-09-05 12:41 | XMS_ITS | Clinical Summary ---
Author Organization [facility] Address [address] [place] [address] Care Team Providers Care Skin Tanner Name Role Phone Scot Jackie Miller APRN Primary Care Provider [phone] Allergies Active Allergy Reactions Criticality Noted Date [...] mouth every 8 (eight) hours. 100 tablet Active Additional Information Patient not taking.Reported [...] 05/08/2024 Anxiety and depression 05/08/2024 Hypertension 05/08/2024 Migraine 05/08/2024 Varicose vein of leg 05/08/2024 Internal derangement of left knee 05/08/2024 Primary osteoarthritis of left knee 04/18/2024 Primary osteoarthritis of one knee, left 024 Left anterior cruciate ligament tear 07/22/2023 Obesity (BMI 35.0-39.9 without comorbidity) 01/07 Severe obesity (BMI 35.0-39.9) with comorbidity 01/28/2023 Resolved Problems Problem Noted Date Diagnosed Date Resolved Date Infected sebaceous cyst 05/08/202407/10 Right knee pain 05/08/2024 07/29/2025 UTI (urinary tract infection) 05/08/2024 07/29/2025 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 Family History Medical [...] [facility]-HIV Screening 1975 [facility]-Hepatitis C Screening 1975 [facility]-Infant/Child/Adol SDOH Screenings 1975 [facility]- SDOH Screenings 1993 [facility]-Adult SDOH Screenings 1993 [facility]-DTaP,Tdap,and Td Vaccines (1 - Tdap) 1994 [facility]-Hepatitis B Vaccines (1 of 3 - 19+ 3-dose series) 1994 CT Colonography 01/14/2020 Colonoscopy 01/14/2020 FIT-DNA 01/14/2020 FIT 01/14/2020 FOBT 01/14/2020 Sigmoidoscopy 01/14/2020 [facility]-Colorectal Cancer Screening 01/14/2020 [facility]-Depression Screening 01/29/2024 01/28/2023 [facility]-Breast Cancer Screening 2025 [facility]-Pneumococcal Vaccine: 50+ Years (1 of 1 - PCV) 2025 [facility]-Zoster Vaccines (1 of 2) 2025 [id number] Vaccine (2 - 2024- season) 2025 03/28/2021 [facility]-Influenza Vaccine (#1) 2025 09/28/2019 [facility]-Obesity Intervention [...] on patient's age to complete this topic Medical Devices Implanted Type Area Appliance Fixer Device Identifier Shelf Expiration Date Model / Serial / Lot Cement Palacos - [id number] Implanted:Qty: 1 on 04/18/2024 by Gilbert Ramos MD at [facility] Cement Left: Knee [employer]-[id number] 09/07/2028 [id number] / / [id number] Femoral Comp Journey Ii Uni Ox 3rm/Ll - [id number] Implanted:Qty: 1 on 04/18/2024 by Gilbert Ramos MD at [facility] Knee Left: Knee [employer]-[id number] 09/17/2030 [id number] / / [id number] Tibial Lateral Comp Journey Ii Uni Ox Lt Sz 2 - [id number] Implanted:Qty: 1 on 04/18/2024 by Gilbert Ramos MD at [facility] Knee Left: Knee [employer]-[id number] 07/19/2032 [id number] / / [id number] Insert Lateral Journey Ii Uni Xlpe Sz 2-3/10mm - [id number] Implanted:Qty: 1 on 04/18/2024 by Gilbert Ramos MD at [facility] Knee Left: Knee [employer]-[id number] 10/19/2031 [id number] / / [id number] Insurance [facility] Advance Directives * Full Code (Latest Code Status on File) Date Activated Date Inactivated Comments 04/18/2024 8:58 AM 04/18/2024 5:38 PM Question Answer Comments Patient has decision-making capacity? Yes Care Teams Skin Tanner Relationship Specialty Start Date End Date Jackie Ellison APRN [address] [place] [address] PCP - General 01/10/24
--- OUTSIDE RECORDS SUMMARY | 2025-09-05 12:41 | XMS_ITS | Referral Summary ---
Author Organization [employer] ([place], [place], [place], [place]) Address [address] [place] [address] Care Team Providers Care Ad Clerk Name Role Phone Unavailable Primary Care [...]
--- OUTSIDE RECORDS SUMMARY | 2025-09-05 12:41 | XMS_ITS | Encounter Summary ---
Author Organization [employer] ([place], [place], [place], [place]) Address [address] [place] [address] Care Team Providers Care Special Education Bus Driver Name Role Phone Unavailable Primary Care Provider Unavailabl e Encounter Details Date Type Department Care Team (Late st Contact Info) Description 07/12/2019 Transcribed Document [facility] Radiology [address] [place] [address] Provider, Sandra Hoskins MD Social [...] Notes * Cerner Conversion Note - [facility] Aidee ProviderMD - 07/12/2019 2:42 PM EDT PAT Adult Entered On: 07/12/2019 13:45 EDT Performed On: 07/12/2019 13:42 EDT by MYRA MOROCHO RN Pain Assessment Pain Assessment : Initial assessment Pain Scale Goal : 4 Alix Sánchez RN - 07/13/2019 8:34 EDT Height and Weight, Clinical Dosing Height Source : Measured Height Entry Format : [place] Height, Feet : 0 ft(Converted to: 0 cm, 0 Inch) Height, Inches : 64 Inch(Converted to: 5 ft 4 Inch, 162.56 cm) Clinical Height : 162.56 cm Weight Source : Standing scale Weight Entry Format : [place] Clinical Dosing Weight : 89.91 kg Weight, Pounds : 197.8 lb Body Surface Area (BSA) : 1.95 m2 Body Mass Index : 34 kg/m2 (HI) [place] Body Weight : 54 kg Nahed Curtis, Nurse Senior Mobile Developer - 07/13/2019 8:16 EDT Health Histories Smoking [...] #2 Relationship : , Primary Language : Slovak Communication Barrier : MYRA Armstrong RN - [...] Level Score : 1 Nahed Curtis, Nurse Senior Mobile Developer - 07/13/2019 8:16 EDT Hx of Obstructive [...]
--- OUTSIDE RECORDS SUMMARY | 2025-09-05 12:41 | XMS_ITS | Encounter Summary ---
Author Organization [employer] ([place], [place], [place], [place]) Address [address] [place] [address] Care Team Providers Care Project Safety Manager Name Role Phone Unavailable Primary Care Provider Unavailabl e Encounter Details Date Type Department Care Team (Late st Contact Info) Description 07/13/2019 Transcribed Document [facility] Radiology [address] [place] [address] Provider, Sandra Hoskins MD Social [...] Miscellaneous Notes * Cerner Conversion Note - [facility] Aidee ProviderMD - 07/13/2019 11:23 AM EDT [facility] Main OR Preop Summary Primary Physician: EBONY NATH DPM Finalized Date/Time: 07/13/19 14:32:43 Pt. Name: SHANEKA SHIPLEY /Sex: 1975 Female Med Rec #: [id number] Physician: EBONY NATH DPM Financial #: [id number] Pt. Type: O Room/Bed: Admit/Disch: 07/13/19 07:28:00 - Institution: [facility] PreOp Case Times Entry 1 In Preop 07/13/19 07:40:00 Ready for Holding n/a Room Patient Ready for 07/13/19 09:05:00 Surgery Patient Out of Preop 07/13/19 10:03:00 Patient Out of n/a Holding Room Last Modified By: Virgie Bach RN 07/13/19 14:32:42 [facility] PreOp Case Times Audit 07/13/19 14:32:42 Hide Tanner: [id number] Modifier: [email or web address] <+> 1 Patient Out of Preop Finalized By: Virgie Bach RN Document Signatures Signed By: Virgie Bach RN 07/13/19 14:32 Electronically signed by Jeanne [facility] Conversion Stock And Station Agent Cerner at 03/31/2023 5:33 PM CDT documented in this encounter Plan of Treatment Not on file documented as of this encounter Visit Diagnoses Not on filedocumented in this encounter
--- OUTSIDE RECORDS SUMMARY | 2025-09-05 12:41 | XMS_ITS | Encounter Summary ---
Author Organization [employer] ([place], [place], [place], [place]) Address [address] [place] [address] Care Team Providers Care Lining Baster Name Role Phone Unavailable Primary Care Provider Unavailabl e Encounter Details Date Type Department Care Team (Late st Contact Info) Description 07/13/2019 Transcribed Document [facility] Radiology [address] [place] [address] Provider, Sandra Hoskins MD Social [...] Miscellaneous Notes * Cerner Conversion Note - [facility] Aidee ProviderMD - 07/13/2019 11:23 AM EDT [facility] Main OR PACU Summary Primary Physician: EBONY NATH DPM Finalized Date/Time: 07/13/19 13:33:19 Pt. Name: SHANEKA SHIPLEY /Sex: 1975 Female Med Rec #: [id number] Physician: EBONY NATH DPM Financial #: [id number] Pt. Type: O Room/Bed: Admit/Disch: 07/13/19 07:28:00 - Institution: [facility] Main OR PACU I Case Times Entry 1 In PACU I 07/13/19 11:05:00 Ready for PACU 07/13/19 12:15:00 Discharge Discharge from PACU 07/13/19 13:10:00 I Last Modified By: Yue Aquino Rn-Traveler 07/13/19 13:32:59 [facility] Main OR PACU Acuity Entry 1 Start Time 07/13/19 12:15:00 Stop Time 07/13/19 13:10:00 Acuity Level [facility] PACU Acuity I Last Modified By: Yue Aquino Rn-Traveler 07/13/19 13:33:17 Finalized By: Yue Aquino Rn-Traveler Document Signatures Signed By: Yue Aquino Rn-Traveler 07/13/19 13:33 Electronically signed by Jeanne [facility] Conversion Human Resources Temp Cerner at 03/31/2023 5:31 PM CDT documented in this encounter Plan of Treatment Not on file documented as of this encounter Visit Diagnoses Not on filedocumented in this encounter
--- OUTSIDE RECORDS SUMMARY | 2025-09-05 12:41 | XMS_ITS | Encounter Summary ---
Author Organization [employer] ([place], [place], [place], [place]) Address [address] [place] [address] Care Team Providers Care Machine Milker Name Role Phone Unavailable Primary Care Provider Unavailabl e Encounter Details Date Type Department Care Team (Late st Contact Info) Description 07/13/2019 Transcribed Document [facility] Radiology [address] [place] [address] Provider, Sandra Hoskins MD Social [...] Miscellaneous Notes * Cerner Conversion Note - [facility] Adiee ProviderMD - 07/13/2019 9:45 AM EDT Patient: [...] hours oral tablet, extended release: Tab, Oral, [id number], 0 Refill(s) estradiol 1 mg oral tablet: [...] hours oral tablet, extended release , Oral, [id number] , Medications (6) Active Scheduled: (3) ceFAZolin/D5w [...] list: All Problems Hypothyroid / SNOMED CT 98044272 / Confirmed HTN (hypertension) / SNOMED CT 2127979544 / Confirmed Depressed / SNOMED CT 29670208 / Confirmed Bunion, right foot / SNOMED CT 3568270982 / Confirmed Anxiety / SNOMED CT 23433647 / Confirmed, Active Problems (5) Anxiety Bunion, [...] EDT Height Source Measured Height Entry Format Walker Height/Length, ARABIC (ft) 0 ft Height/Length ARABIC 64 Inch CLINICALHEIGHT 162.56 cm [place] Body Weight 54 kg Weight Source Standing scale Weight Entry Format Walker Weight Kiswahili lb 197.8 lb CLINICALWEIGHT 89.91 kg Body [...] foot due to bunion. Integumentary: Warm, Dry, [place]. Neurologic: Alert, Oriented. Psychiatric: Cooperative, Appropriate mood & affect. Review / Management Results review: No qualifying data available. Impression and Plan Condition: Stable. Electronically signed by Sandra Angel Conversion Concrete Mixer Operator Helper Cerner at 03/31/2023 5:32 PM CDT documented in this encounter Plan of Treatment Not on file documented as of this encounter Visit Diagnoses Not on filedocumented in this encounter
--- OUTSIDE RECORDS SUMMARY | 2025-09-05 12:41 | XMS_ITS | Encounter Summary ---
Author Organization [employer] ([place], [place], [place], [place]) Address [address] [place] [address] Care Team Providers Care Bolt Cutter Name Role Phone Unavailable Primary Care Provider Unavailabl e Encounter Details Date Type Department Care Team (Late st Contact Info) Description 07/13/2019 Transcribed Document [facility] Radiology 1 [place] [address] Provider, Sandra Hoskins MD Social [...] Miscellaneous Notes * Cerner Conversion Note - [facility] Aidee Caruso MD - 07/13/2019 2:48 PM [...] and water are not available, use hand assembly associate. ? Change your dressing as told by [...] Pus or a bad smell. Medicines ETake ymat-nwr-uythbrd and prescription medicines only as told by [...] 02/14/2017 Document Revised: 06/02/2018 Document Reviewed: 02/14/2017 [employer] Interactive Patient Education ? 2019 [employer] Crutch Use, Adult Crutches are used [...] 04/12/2009 Document Revised: 06/08/2018 Document Reviewed: 04/16/2017 [employer] Interactive Patient Education ? 2019 [employer] Orthopedics Bunion Surgery, Care After This [...] and water are not available, use hand assembly associate. ? Change your dressing as told by [...] quitting, ask your health care provider. ETake qjst-jic-nmrkqde and prescription medicines only as told by [...] fried or sweet foods. ? Take an mwtt-bvz-xefyiwd or prescription medicine for constipation. Annette not [...] 05/14/2006 Document Revised: 08/01/2018 Document Reviewed: 08/01/2018 [employer] Interactive Patient Education ? 2019 [employer] documented in this encounter Plan of Treatment Not on file documented as of this encounter Visit Diagnoses Not on filedocumented in this encounter
--- OUTSIDE RECORDS SUMMARY | 2025-09-05 12:41 | XMS_ITS | Encounter Summary ---
Author Organization [employer] ([place], [place], [place], [place]) Address [address] [place] [address] Care Team Providers Care Back Pad Inspector Name Role Phone Unavailable Primary Care Provider Unavailabl e Encounter Details Date Type Department Care Team (Late st Contact Info) Description 07/13/2019 Transcribed Document [facility] Radiology [address] [place] [address] Provider, Sandra Hoskins MD Social [...] Notes * Cerner Conversion Note - [facility] Aidee ProviderMD - 07/13/2019 12:20 PM EDT DATE OF PROCEDURE:07/13/2019 LOCATION: [facility] PREOPERATIVE DIAGNOSIS(ES): 1. Hallux abductovalgus, right foot, 2. Pain, right foot. POSTOPERATIVE DIAGNOSIS(ES): 1. Hallux abductovalgus, right foot, 2. Pain, right foot. PROCEDURE: Perez bunionectomy, right foot. SURGEON: Kyrie Mart DPM SENIOR SOFTWARE ENGINEER ANALYTICS: None. ANESTHESIA: MAC with popliteal block. HEMOSTASIS: Pneumatic ankle tourniquet. ESTIMATED BLOOD LOSS: Less than 10 mL. MATERIALS: Hermon headless 2.5 screw. INJECTABLES: None. SPECIMEN: None. [...] was performed with sagittal saw. Fixation with Hermon headless 2.5 screw. Good correction of deformity [...] Kyrie Mart DPM Electronically signed by Jeanne [facility] Conversion Lip Reading Teacher Cerner at 03/31/2023 5:33 PM CDT documented in this encounter Plan of Treatment Not on file documented as of this encounter Visit Diagnoses Not on filedocumented in this encounter
--- OUTSIDE RECORDS SUMMARY | 2025-09-05 12:41 | XMS_ITS | Encounter Summary ---
Author Organization [employer] ([place], [place], [place], [place]) Address [address] [place] [address] Care Team Providers Care Infantry Weapons Crewmember Name Role Phone Unavailable Primary Care Provider Unavailabl e Encounter Details Date Type Department Care Team (Late st Contact Info) Description 07/13/2019 Transcribed Document [facility] Radiology 1 [place] [address] Provider, Sandra Hoskins MD Social [...] Miscellaneous Notes * Cerner Conversion Note - [facility] Aidee Caruso MD - 07/13/2019 11:23 AM EDT [facility] Main OR IntraOp Summary Primary Physician: EBONY NATH DPM Finalized Date/Time: 07/15/19 16:46:12 Pt. Name: SHANEKA SHIPLEY /Sex: 1975 Female Med Rec #: [id number] Physician: EBONY NATH DPM Financial #: [id number] Pt. Type: O Room/Bed: Admit/Disch: 07/13/19 07:28:00 - 07/13/19 14:43:00 Institution: [facility] IntraOp Case Attendance Entry 1 Entry 2 Entry 3 Case Attendee NATH, EBONY, KIRAN TORRES MD SHEWCRAFT, SUZANNE KEATS, OXIDE FURNACE TENDER Role Performed Surgeon/Proceduralist, Anesthesiologist of OXIDE FURNACE TENDER/Nurse Mri Tech First Record Time In 07/13/19 10:06:00 07/13/19 [...] SCRUB Ean Colby Rn TECH Role Performed Liquor Store Manager, First Scrub, First Liquor Store Manager, Second Time In 07/13/19 10:06:00 07/13/19 10:06:00 [...] Modified By: Katie Bennett, Rn 07/13/19 11:06:39 [facility] IntraOp Case Attendance Audit 07/13/19 11:06:39 Boxcar Weigher: [id number] Modifier: [id number] 1 <+> Time Out 1 <*> Procedure Bunionectomy(Right) 2 <+> Time Out 2 <*> Procedure Bunionectomy(Right) 3 <+> Time Out 3 <*> Procedure Bunionectomy(Right) 4 <+> Time Out 4 <*> Procedure Bunionectomy(Right) 5 <+> Time Out 5 <*> Procedure Bunionectomy(Right) 6 <*> Procedure Bunionectomy(Right) 7 <+> Time In 7 <+> Time Out 7 <*> Procedure Bunionectomy(Right) 07/13/19 10:43:26 Boxcar Weigher: [id number] Modifier: [id number] <+> 7 Case Attendee <+> 7 Role Performed <+> 7 Procedure <+> 7 Other Attendee 07/13/19 10:24:56 Boxcar Weigher: [id number] Modifier: [id number] 1 <*> Procedure Bunionectomy(Right) 2 <*> Procedure Bunionectomy(Right) 3 <*> Procedure Bunionectomy(Right) 4 <*> Procedure Bunionectomy(Right) 5 <*> Procedure Bunionectomy(Right) 6 <*> Role Performed Liquor Store Manager, First 6 <+> Time In 6 <+> Time Out 6 <*> Procedure Bunionectomy(Right) 07/13/19 10:12:14 Boxcar Weigher: [id number] Modifier: [id number] <+> 6 Case Attendee <+> 6 Role Performed <+> 6 Procedure 07/13/19 10:11:52 Boxcar Weigher: [id number] Modifier: [id number] 1 <*> Procedure Bunionectomy(Right) 2 <+> Case Attendee 2 <+> Time In 2 <*> Procedure Bunionectomy(Right) 3 <+> Time In 3 <*> Procedure Bunionectomy(Right) 4 <+> Time In 4 <*> Procedure Bunionectomy(Right) 5 <+> Case Attendee 5 <+> Time In 5 <*> Procedure Bunionectomy(Right) [facility] IntraOp Case Times Entry 1 Patient In Room Time 07/13/19 10:06:00 Out Room Time 07/13/19 11:03:00 Anesthesia Start Time 07/13/19 10:06:00 Stop Time 07/13/19 11:03:00 Surgery / Procedure Times Start Time 07/13/19 10:23:00 Stop Time 07/13/19 10:58:00 Last Modified By: Katie Bennett Rn 07/13/19 11:06:37 [facility] IntraOp Case Times Audit 07/13/19 11:06:37 Boxcar Weigher: [id number] Modifier: [id number] <+> 1 Out Room Time <+> 1 Stop Time <+> 1 Stop Time 07/13/19 10:24:42 Boxcar Weigher: [id number] Modifier: [id number] <+> 1 Start Time [facility] IntraOp Communication Entry 1 Entry 2 Communication To Family/Significant other Family/Significant other Comment START CLOSING Communication By Katie Bennett, Katie Guardado Rn Date and Time 07/13/19 10:25:00 07/13/19 10:46:00 Last Modified By: Katie Bennett Rn Bruner, Kristen D, Rn 07/13/19 10:25:10 07/13/19 10:46:44 [facility] IntraOp Communication Audit 07/13/19 10:46:44 Boxcar Weigher: [id number] Modifier: [id number] <+> 2 Communication By <+> 2 Date and Time <+> 2 Communication To <+> 2 Comment [facility] IntraOp Counts Verification Entry 1 Procedure Bunionectomy(Right) Count Info Count Type Sponge, Sharps Counts Verification Baseline/pre-procedure Sequence Counts Performed By Count Performed By Katie Bennett, Rn (Scrub) Count Performed By Ean Colby Rn (RN) Last Modified By: Katie Bennett Rn 07/13/19 10:13:42 [facility] IntraOp Counts Verification Audit 07/13/19 10:13:42 Boxcar Weigher: [id number] Modifier: [id number] Entry 1 was deleted. Higher numbered entries shifted one position to fill the gap. <-> 1 Procedure Bunionectomy(Right) <-> 1 Count Type Sponge, Sharps <-> 1 Counts Verification Sequence Baseline/pre-procedure <-> 1 Count Performed By (Scrub) Katie Bennett Rn <-> 1 Count Performed By (RN) 07/13/19 10:12:26 Boxcar Weigher: [id number] Modifier: [id number] <+> 2 Procedure <+> 2 Count Type <+> 2 Counts Verification Sequence <+> 2 Count Performed By (Scrub) <+> 2 Count Performed By (RN) [facility] IntraOp Counts Final Entry 1 Procedure Bunionectomy(Right) Final Count Info Count Type Sponge, Sharps Counts Verification Skin Closure/end of Sequence procedure Count Results Correct, surgeon notified Counts Performed By Count Performed By JOHNATHON CHAO SCRUB (Scrub) TECH Count Performed By Katie Bennett Rn (RN) Last Modified By: Katie Bennett Rn 07/13/19 10:46:53 [facility] IntraOp Counts Final Audit 07/13/19 10:46:53 Boxcar Weigher: [id number] Modifier: [id number] 1 <*> Procedure Bunionectomy(Right) 1 <+> Count Results 1 <+> Count Performed By (Scrub) 1 <+> Count Performed By (RN) 1 <+> Counts Verification Sequence [facility] IntraOp Departure from OR Entry 1 Integumentary Assessment Integumentary WDL with patient Assessment WDL specific variances Patient's Normal NEW SURGICAL INCISION Integumentary Variance(s) Transfer/Handoff Transfer to PACU Phase I Handoff Method Phone call Post-op Transport Kirti/Brianna Via Patient Transport RAULITO WORTHINGTON Accompanied by ESEQUIEL ROBERTS, Katie Bennett, Rn Last Modified By: Katie Bennett Rn 07/13/19 10:25:43 [facility] IntraOp Dressing and Packing Entry 1 Type Dressing Location OPSITE: RIGHT FOOT Wound Dressing Item Aldair, 4x4's, Steristrip, Kerlix/Richard Applied By EBONY NATH DPM Last Modified By: Katie Bennett Rn 07/13/19 10:26:13 [facility] IntraOp Fire Risk Assessment Entry 1 Fire Info Surgical Site or 0- No Incision Above the Xyphoid Open O2 Source 0- No (Mask or Cannula) Available Ignition 0- No (ESU, Laser, Light Source) Fire Risk 0 Assessment Score Fire Score Fire Risk Yes Assessment Complete Fire Risk Ean Colby Resident Services Supervisor Verified By Fire Risk 07/13/19 10:12:00 Assessment Verified Date/Time Fire Risk Standard Fire Yes Safety Precautions Followed Last Modified By: Katie Bennett Rn 07/13/19 10:43:39 [facility] IntraOp Fire Risk Assessment Audit 07/13/19 10:43:39 Boxcar Weigher: [id number] Modifier: [id number] 1 <*> Open O2 Source (Mask or Cannula) 1- Yes 1 <*> Available Ignition (ESU, Laser, 1- Yes Light Source) 1 <*> Fire Risk Assessment Score 2 [facility] IntraOp General Case Hazardous Substances Engineer 1 Case Information OR OR 04 [facility] Case Level 1 Room Verified Yes Wound Class I - Clean Specialty SN Podiatry Anesthesia Type General ASA Class 2 Diagnosis Preop Diagnosis BUNION RIGHT FOOT Postop Same As Preop No Postop Diagnosis SEE DOCTOR POSTOP NOTES Last Modified By: Katie Bennett Rn 07/13/19 10:30:20 [facility] IntraOp General Case Data Audit 07/13/19 10:30:20 Boxcar Weigher: [id number] Modifier: [id number] 1 <*> Anesthesia Type MAC 1 <*> Postop Diagnosis SEE DR NOTES 07/13/19 10:14:25 Boxcar Weigher: [id number] Modifier: [id number] <+> 1 ASA Class <+> 1 Anesthesia Type <+> 1 Postop Same As Preop <+> 1 Preop Diagnosis <+> 1 Postop Diagnosis <+> 1 Room Verified [facility] IntraOp Implant Log Entry 1 Entry 2 Entry 3 Type Implant (Synthetic) Implant (Synthetic) Implant (Synthetic) Implant Log Implant Type Hardware Hardware Hardware Tissue Implant Type Implant DRVR SHAFT ABRAM T7 W/QC [id number] SERGE GUIDEWIRE 0.9X80MM Identification [id number] [id number] Description Implant Quantity 1 1 1 Implant Site OPSITE: RIGHT FOOT OPSITE: RIGHT FOOT OPSITE: RIGHT FOOT Implant Identification Model Number Implant Identification Serial Number Implant Identification Lot Number Implant [place]:Serge [employer] Identification Orthopaed[employer] (Sbi) Garment Form Assembler Name: Implant [id number] Identification Catalog Number Implant Size Implant Has an Expiration Date Implant Expiration Date Wasted Radioactive Material Time Implanted Tissue Implant Continue for Tissue Implant Documentation Tissue Identification Number Graft Prep Per Garment Form Assembler Instructions: Tissue Preparation Method: Reconstitution Solution: Reconstitution Solution Lot Number Reconstitution Solution Expiration Date: Thawing Solution Thawing Solution Lot Number Thawing Solution Expiration Date Preparation Materials, Other Preparation Materials, Other Lot Number Preparation Materials, Other Expiration Date Tissue Prepared/Processed By Garment Form Assembler Paperwork Completed Implant Type Comment Last Modified By: Katie Bennett, Katie Guardado, Rn Katie Bennett Rn 07/13/19 10:53:16 07/13/19 10:53:16 07/13/19 10:53:16 Entry 4 Type Implant (Synthetic) Implant Log Implant Type Hardware Tissue Implant Type Implant SCR ABRAM SELF DRL Identification [id number] Description Implant Quantity 1 Implant Site OPSITE: RIGHT FOOT Implant Identification Model Number Implant Identification Serial Number Implant Identification Lot Number Implant Serge:Serge Identification [employer] Garment Form Assembler Name: Implant [id number] Identification Catalog Number Implant Size Implant Has an Expiration Date Implant Expiration Date Wasted Radioactive Material Time Implanted Tissue Implant Continue for Tissue Implant Documentation Tissue Identification Number Graft Prep Per Garment Form Assembler Instructions: Tissue Preparation Method: Reconstitution Solution: Reconstitution Solution Lot Number Reconstitution Solution Expiration Date: Thawing Solution Thawing Solution Lot Number Thawing Solution Expiration Date Preparation Materials, Other Preparation Materials, Other Lot Number Preparation Materials, Other Expiration Date Tissue Prepared/Processed By Garment Form Assembler Paperwork Completed Implant Type Comment Last Modified By: Katie Bennett Rn 07/13/19 10:55:16 [facility] IntraOp Implant Log Audit 07/13/19 10:55:16 Boxcar Weigher: [id number] Modifier: [id number] <+> 4 Implant Identification Description <+> 4 Implant Identification Garment Form Assembler Name: <+> 4 Implant Site <+> 4 Implant Quantity <+> 4 Implant Identification Catalog Number <+> 4 Implant Type <+> 4 Type [facility] IntraOp Intraoperative Assessment Entry 1 Handoff Method Online nursing summary Valid History / Yes Physical in Chart Preoperative Yes Checklist Reviewed/Evaluated Allergies Reviewed Yes Patient is Latex No Sensitive Isolation Not applicable Precautions Noted Level of WDL Consciousness (WDL = Alert, Oriented to Person, Place, and Time) Present Upon IVs Arrival to OR Last Modified By: Katie Bennett Rn 07/13/19 10:43:54 [facility] IntraOp Intraoperative Assessment Audit 07/13/19 10:43:54 Boxcar Weigher: [id number] Modifier: [id number] <+> 1 Level of Consciousness (WDL = Alert, Oriented to Person, Place, and Time) <+> 1 Isolation Precautions Noted [facility] IntraOp Intraoperative Equipment Entry 1 Type Equipment Equipment Equipment Reji Suction System ID Number [id number] Setting HIGH Intraop Monitoring Electrocardiogram Five lead placement (ECG) Electrode Placement Blood Pressure Non-Invasive BP Device Source Blood Pressure Arm, left upper Location Pulse Oximeter Hand, right Probe Site Antiembolic Devices Scopes Photo/Video Documentation Last Modified By: Katie Bennett Rn 07/13/19 10:24:34 [facility] IntraOp Medication Admin Entry 1 Medication/Irrigant MARCELLE IRR NACL 0.9PCT 2000ML [facility]-[id number] Route of IRRIGATION Administration Dose Administered By EBONY NATH DPM Procedure Irrigation Last Modified By: Katie Bennett Rn 07/13/19 10:26:37 [facility] IntraOp Patient Positioning Entry 1 Procedure [...] Modified By: Katie Bennett Rn 07/13/19 10:46:35 [facility] IntraOp Patient Positioning Audit 07/13/19 10:46:35 Boxcar Weigher: [id number] Modifier: [id number] 1 <*> Procedure Bunionectomy(Right) 1 <*> Positioning Devices Foot Rest, Head Rest, Pad, Arm, Safety Strap, Chest [facility] IntraOp Sign In Entry 1 Patient, [...] Modified By: Katie Bennett Rn 07/13/19 10:26:44 [facility] IntraOp Sign Out Entry 1 RN [...] Modified By: Katie Bennett Rn 07/13/19 11:06:51 [facility] IntraOp Sign Out Audit 07/13/19 11:06:51 Boxcar Weigher: [id number] Modifier: [id number] <+> 1 RN Sign Out Signature Date/Time [facility] IntraOp Skin Prep Entry 1 Procedure Bunionectomy(Right) Prescribed N/A Pre-Surgical Prep Completed Prep Area OPSITE: RIGHT ANKLE TO TOES CIRCUMFRENTIALLY Intraop Prep Integumentary WDL Assessment WDL Prep Agents Betadine scrub, Betadine solution Prep by Katie Bennett, Rn Hair Removal Methods No hair removal performed Last Modified By: Katie Bennett Rn 07/13/19 10:27:35 [facility] IntraOp Surgical Procedures Entry 1 Procedure [...] SURGERY START PER ANESTHESIA PROVIDER @ 1010 [facility] IntraOp Surgical Procedures Audit 07/13/19 11:06:42 Boxcar Weigher: [id number] Modifier: [id number] 1 <*> Procedure Bunionectomy 1 <*> Procedure Bunionectomy 1 <*> Procedure Bunionectomy 1 <*> Stop 1 <*> Stop [facility] IntraOp Temp Regulation Devices Entry 1 Temp Regulation Temperature Warm blankets Regulation Device Temperature Full body Regulation Site Temperature NARESHWCRRAULITO CARLTON Regulation Device RANDIMAHESHESEQUIEL Applied by Temperature PATIENT TEMPERATURE Regulation Comment MONITORED AND CONTROLLED PER ANESTHESIA PROVIDER: MALIHA MCNEIL AVAILABLE IF NEEDED Last Modified By: Katie Bennett Rn 07/13/19 10:30:07 [facility] IntraOP Time Out Entry 1 Procedure [...] Modified By: Katie Bennett Rn 07/13/19 10:28:22 [facility] IntraOp Tourniquet Entry 1 Type Pneumatic Serial/Unit Number [id number] Setting 250 mmHg Pheumatic Yes Tourniquet Checked Per Protocol Size 18 inches Placement Ankle, right Skin Protection - Yes Padded Under Cuff Applied By Katie Bennett Rn Removed By EBONY NATH DPM Times Start Time 07/13/19 10:21:00 Stop Time 07/13/19 10:58:00 Total Time 36 calculated manually (Mins) Last Modified By: Katie Bennett Rn 07/13/19 10:58:44 [facility] IntraOp Tourniquet Audit 07/13/19 10:58:44 Boxcar Weigher: [id number] Modifier: [id number] <+> 1 Total Time calculated manually (Mins) <+> 1 Stop Time Case Comments <None> Finalized By: TEGAN ZAPATA Document Signatures Signed By: Katie Bennett Rn 07/13/19 11:06 TEGAN ZAPATA 07/15/19 16:46 Unfinalized History Date/Time Username Reason for Unfinalizing Freetext Reason for Unfinalizing 07/15/19 16:42 WATJANNA Correct Billing Electronically signed by Chucho Angel Conversion Automatic Spinning Lathe Setter Cerner at 03/31/2023 5:33 PM CDT documented in this encounter Plan of Treatment Not on file documented as of this encounter Visit Diagnoses Not on filedocumented in this encounter
--- OUTSIDE RECORDS SUMMARY | 2025-09-05 12:41 | XMS_ITS | Clinical Summary ---
Author Organization [facility] Address [address] [place] [address] Care Team Providers Care Residential Mortgage Manager Name Role Phone Provider, No Known [...] 2 hours if headache not relieved. Active Active Problems Problem Noted Date Diagnosed Date Sepsis 05/18/2025 Essential hypertension 05/18/2025 History of migraine headaches 05/18/2025 Bipolar disorder 05/18/2025 Acute pyelonephritis 05/18/2025 Kidney stone 05/17/2025 Social History Tobacco Use Types Packs/Day Years [...] or training? Not on file Preferred Language Eritrean 05/17/2025 Comments No Sex and Gender Information [...] TEST 01/14/2020 FIT Testing (1 year) 01/14/2020 Pneumococcal Vaccine 50+ (1 of 1 - PCV) 2025 ZOSTER VACCINE (1 of 2) 2025 INFLUENZA VACCINE 06/08/2025 09/28/2019 Medical Devices Implanted Type Area Retail Loan Originator Assistant Device Identifier Shelf Expiration Date Model / Serial / Lot Stnt Percuflx No Gw 6x26 - [id number] Implanted:Qty : 1 on 05/17/2025 by Rober Baker MD at [facility] Stent Left: Bladder [employer] SHAW [id number] 11/14/2027 [id number] 30 / / [id number] Insurance [facility] PPO Advance Directives * CPR (Attempt to Resuscitate) (Latest Code Status on File) Date Activated Date Inactivated Comments 05/17/2025 8:16 AM 05/19/2025 4:56 PM Question Answer Comments Code Status (Patient has no pulse and is not breathing): CPR (Attempt to Resuscitate) Medical Interventions (Patie nt has pulse or is breathing): Full Support Level Of Support Discussed With: Patient Care Teams Residential Mortgage Manager Relationship Specialty Start Date End Date Provider, [place] [address] PCP - General 05/17/25
--- OUTSIDE RECORDS SUMMARY | 2025-09-05 12:41 | XMS_ITS | Encounter Summary ---
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 [place] [address] [facility] (1) Medications What How Much When Instructions [...] and water are not available, use hand banking representative. ? Change your dressing as told by [...] or a bad smell. Medicines ??? Take cbng-dtv-ltrgxfc and prescription medicines only as told by [...] 02/14/2017 Document Revised: 06/02/2018 Document Reviewed: 02/14/2017 [employer] Patient Education ?? 2019 [employer]. Crutch Use, Adult Crutches are used to [...] 04/12/2009 Document Revised: 06/08/2018 Document Reviewed: 04/16/2017 [employer] Patient Education ?? 2019 [employer] Bunion Surgery, Care After This sheet [...] and water are not available, use hand banking representative. ? Change your dressing as told by [...] ask your health care provider. ??? Take kwti-bgm-jogodqv and prescription medicines only as told by [...] fried or sweet foods. ? Take an aesp-wil-byfrckq or prescription medicine for constipation. ??? Do [...] 05/14/2006 Document Revised: 08/01/2018 Document Reviewed: 08/01/2018 [employer] Patient Education ?? 2019 [employer]. promethazine (oral) (pro METH a zeen) Phenergan What is the most important information I should know about promethazine? Promethazine should not be given to a child younger than 2 years old. Promethazine can cause severe breathing problems or in very young children. What is promethazine? Promethazine is in a group of drugs called phenothiazines (JQXE-tg-EAVO-a-zeens). It works by changing the actions of [...] may report side effects to FDA at 4-383-MRU-7637. What other drugs will affect promethazine? Using this medicine with other drugs that make you sleepy or slow your breathing can cause dangerous or life-threatening side effects. Ask your doctor before taking promethazine with a sleeping pill, narcotic pain medicine, muscle relaxer, or medicine for anxiety, depression, or seizures. Other drugs may interact with promethazine, including prescription and rnob-ufd-bwjbpec medicines, vitamins, and herbal products. Tell each [...] to ensure that the information provided by [employer]. ('[employer]') is accurate, up-to-date, and complete, but no guarantee is made to that effect. Drug information contained herein may be time sensitive. [employer] information has been compiled for use by healthcare practitioners and consumers in the [place] and therefore [employer] does not warrant that uses outside of the [place] are appropriate, unless specifically indicated otherwise. [employer] drug information does not endorse drugs, diagnose patients or recommend therapy. [employer] drug information is an informational resource designed [...] effective or appropriate for any given patient. [employer] does not assume any responsibility for any aspect of healthcare administered with the aid of information [employer] provides. The information contained herein is not intended to cover all possible uses, directions, precautions, warnings, drug interactions, allergic reactions, or adverse effects. If you have questions about the drugs you are taking, check with your doctor, nurse or pharmacist. Copyright 0537-4610 [employer]. Version: 6.02. Revision Date: 08/22/2015. acetaminophen and hydrocodone (a SEET a MIN oh fen and marquita droe KOE done) Hycet, Lorcet, [place], Verdrocet, Vicodin, Xodol, Zamicet What is the [...] may report side effects to FDA at 6-059-AGP-2025. What other drugs will affect acetaminophen and [...] affect acetaminophen and hydrocodone, including prescription and boun-bzh-pwaelxn medicines, vitamins, and herbal products. Not all [...] to ensure that the information provided by [employer]. ('[employer]') is accurate, up-to-date, and complete, but no guarantee is made to that effect. Drug information contained herein may be time sensitive. [employer] information has been compiled for use by healthcare practitioners and consumers in the [place] and therefore [employer] does not warrant that uses outside of the [place] are appropriate, unless specifically indicated otherwise. [employer] drug information does not endorse drugs, diagnose patients or recommend therapy. [employer] drug information is an informational resource designed [...] effective or appropriate for any given patient. [employer] does not assume any responsibility for any aspect of healthcare administered with the aid of information [facility] provides. The information contained herein is not intended to cover all possible uses, directions, precautions, warnings, drug interactions, allergic reactions, or adverse effects. If you have questions about the drugs you are taking, check with your doctor, nurse or pharmacist. Copyright 8056-0172 [employer]. Version: 15.02. Revision Date: 09/12/2018. Emergency Awareness [...] Assistance with quitting is available by contacting 3-718-TAFSeGifterNOW. This is a free resource providing counseling, [...] was given the opportunity to ask questions. Patient/Hospital Administrator Name: Patient/Hospital Administrator Signature: Relationship to Patient: Clinician/Hospital Hospital Administrator Signature: Date: documented in this encounter Plan of Treatment Not on file documented as of this encounter Visit Diagnoses Not on filedocumented in this encounter
--- OUTSIDE RECORDS SUMMARY | 2025-09-05 12:41 | XMS_ITS | Encounter Summary ---
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 Name Role Phone Unavailable Primary Care Provider Unavailabl e Encounter Details Date Type Department Care Team (Late st Contact Info) Description 07/13/2019 Transcribed Document [facility] [address] [place] [address] Provider, Sandra Hoskins MD Social [...] Notes * Cerner Conversion Note - [facility] Aidee ProviderMD - 07/13/2019 10:04 AM [...] Anesthesiologist Procedure Case Attendee Role 2 : integration developer Case Attendee 2 : Alix Sánchez RN Procedure Case Attendee Role 3 : integration developer Case Attendee 3 : Nahed Curtis, Nurse Sand Conditioner Machine Alix Sánchez RN - 07/13/2019 9:04 EDT Pati Level I Post Anesthesia Assessment Pati I Activity Status : Moves 4 extremities voluntarily or on command Pait l Respiratory Component : Able to deep [...]
== END 2025-09-04 23:59 | disposition home or self-care (01) ==
LOC: LAB.DROPOF 09-05 12:38
PROVIDERS: PCP Student in an Organized Health Care Education/Training Program; Visit Provider Student in an Organized Health Care Education/Training Program
DX: N39.0 Urinary tract infection, site not specified (principal)
CPT/HCPCS: 87086